=== PATIENT | male | born 1950 | race Caucasian/White ===

== ENCOUNTER → 2017-11-24 09:16 | Outpatient (CLI) | payer OTHER, MEDICARE, SELFPAY ==
[2017-11-24 12:49] LABS: ALB/GLOB Ratio 0.9 RATIO (0.9-2.4); AST(SGOT) 24 U/L (15-37); Alanine Aminotransfer ALT/SGPT 35 U/L (16-61); Albumin, Serum 3.7 g/dL (3.2-5.0); Alkaline Phosphatase 73 U/L (45-117); Anion Gap 10 (5-15); BUN 14 mg/dL (7-18); BUN/Creat Ratio 17.2 RATIO (10-20); Calcium,Total 8.9 mg/dL (8.5-10.1); Chloride 106 mmol/L (98-107); Cholesterol 181 mg/dL (200); Creatinine, Serum 0.82 mg/dL (0.70-1.30); EST Glomerular Filtration Rate 101 mL/min (>60); Est Glom Filt Rate - Afr Amer 122 mL/min (>60); Glucose 96 mg/dL (74-106); High Density Lipoprotein 42 mg/dL; Potassium 3.7 mmol/L (3.5-5.1); Protein, Total 7.7 g/dL (6.4-8.2); Sodium Level 141 mmol/L (136-145); Thyroid Stim Hormone (TSH) 1.45 uIU/mL (0.358-3.74); Triglycerides 317 mg/dL; Very Low Density Lipoprotein 63 mg/dL (5-40)
[2017-11-24 12:50] LABS: Microalbumin:Creatinine Ratio 44.3 mg/g CRE (<30 mg/g CRE)
== END ==
PROVIDERS: Family Provider Family Medicine; PCP Family Medicine; Visit Provider Family Medicine
DX: E78.00 Pure hypercholesterolemia, unspecified (principal); Z41.8 Encounter for other procedures for purposes other than remedying health state
CPT/HCPCS: 36415; 80053; 80061; 82043; 82570; 84443

== ENCOUNTER → 2018-06-18 09:48 | Outpatient (CLI) | payer MEDICARE, OTHER, SELFPAY ==
[2018-06-18 12:51] LABS: Anion Gap 9 (5-15); BUN 17 mg/dL (7-18); BUN/Creat Ratio 15.6 RATIO (10-20); Calcium,Total 9.3 mg/dL (8.5-10.1); Chloride 105 mmol/L (98-107); Cholesterol 177 mg/dL (200); Creatinine, Serum 1.09 mg/dL (0.70-1.30); EST Glomerular Filtration Rate 72 mL/min (>60); Est Glom Filt Rate - Afr Amer 87 mL/min (>60); Glucose 103 mg/dL (74-106); High Density Lipoprotein 45 mg/dL; Potassium 4.2 mmol/L (3.5-5.1); Sodium Level 141 mmol/L (136-145); Thyroid Stim Hormone (TSH) 1.05 uIU/mL (0.358-3.74); Triglycerides 137 mg/dL; Very Low Density Lipoprotein 27 mg/dL (5-40)
== END ==
PROVIDERS: Family Provider Family Medicine; PCP Family Medicine; Visit Provider Family Medicine
DX: I10 Essential (primary) hypertension (principal); E78.00 Pure hypercholesterolemia, unspecified
CPT/HCPCS: 36415; 80048; 80061; 84443

== ENCOUNTER → 2018-08-25 10:46 | Outpatient (CLI) | payer MEDICARE, OTHER, SELFPAY ==
--- NOTE | 2018-08-25 11:24 | ECHOD_ITS ---
Reason For Study: BICUSPID AV Procedure This was a 2D Doppler, Color Flow transthoracic echocardiogram. Exam performed in department. Left Ventricle Normal LV size. Left ventricular systolic function is normal. The estimated ejection fraction is 60 %. No regional wall motion abnormalities noted. Right Ventricle Normal RV size. Normal systolic function. Atria Normal left atrium. Normal right atrium. Mitral Valve Normal mitral valve. Tricuspid Valve Normal tricuspid valve. Mild (1+) tricuspid valve insufficiency. Pulmonary artery systolic pressure is 25 mmHg. Aortic Valve Probably trileaflet AV with calcification. Doubt bicuspid. Peak aortic valve gradient 33 mmHg. Mean aortic valve gradient 20 mmHg. Calculated aortic valve area (continuity equation) is 1.1 cm2. Moderate aortic stenosis. Mild (1+) aortic valve insufficiency. Pulmonic Valve Normal pulmonic valve. Great Vessels Normal aortic root. The pulmonary artery is normal size. Normal inferior vena cava. Pericardium/Pleural No pericardial effusion. MMode/2D Measurements & Calculations LVIDd: 5.2 cm IVSd: 0.97 cm LVOT diam: 2.1 cm LVIDs: 3.5 cm LVPWd: 1.0 cm LVOT area: 3.4 cm2 RVDd: 3.8 cm FS: 32.5 % Ao root diam: 3.5 cm LAV(MOD-bp): 48.8 ml LA A4 area: 17.5 cm2 LAV(MOD-bp) Indexed: 25.0 ml/m2 LAV(MOD-sp2): 52.4 ml LAV(MOD-sp4): 45.7 ml RA A4 area: 13.1 cm2 Time Measurements MV dec time: 0.21 sec Doppler Measurements & Calculations MV E max barbara: 77.1 cm/sec Ao V2 max: 288.3 cm/sec AI max barbara: 496.6 cm/sec MV A max barbara: 64.2 cm/sec Ao max P.4 mmHg AI max P.8 mmHg MV E/A: 1.2 Ao V2 mean: 214.6 cm/sec AI dec slope: 194.5 cm/sec2 Ao mean P.1 mmHg AI P1/2t: 748.0 msec Ao V2 VTI: 73.4 cm REZA(I,D): 1.2 cm2 REZA(V,D): 1.1 cm2 LV V1 max: 96.5 cm/sec SV(LVOT): 85.5 ml TR max barbara: 226.1 cm/sec LV V1 max P.7 mmHg TR max P.5 mmHg LV V1 mean P.9 mmHg LV V1 mean: 65.1 cm/sec LV V1 VTI: 24.9 cm Interpretation Summary Normal LV size. Left ventricular systolic function is normal. The estimated ejection fraction is 60 %. Calculated aortic valve area (continuity equation) is 1.1 cm2. Moderate aortic stenosis. Pulmonary artery systolic pressure is 25 mmHg. Compared to previous study, the left ventricular systolic function is the same.. Ordering Physician: Juan Gomez Referring Physician: NITIN BARRERA Performed By: Kinjal Baker, RDCS, RVT
== END ==
PROVIDERS: Family Provider Family Medicine; PCP Family Medicine; Referring Provider Internal Medicine Cardiovascular Disease; Visit Provider Internal Medicine Cardiovascular Disease
DX: Z98.890 Other specified postprocedural states (principal)
CPT/HCPCS: 93306

== ENCOUNTER → 2019-06-23 | Outpatient (CLI) | payer MEDICARE, OTHER, SELFPAY ==
[2018-07-30 10:13] VITALS: BMI 27.9
[2019-06-23 12:44] LABS: AST(SGOT) 27 U/L (15-37); Alanine Aminotransfer ALT/SGPT 33 U/L (16-61); Albumin, Serum 3.9 g/dL (3.2-5.0); Alkaline Phosphatase 78 U/L (45-117); Anion Gap 7 (5-15); BUN 17 mg/dL (7-18); BUN/Creat Ratio 14.5 RATIO (10-20); Calcium,Total 9.2 mg/dL (8.5-10.1); Chloride 107 mmol/L (98-107); Cholesterol 151 mg/dL (200); Creatinine, Serum 1.17 mg/dL (0.70-1.30); EST Glomerular Filtration Rate 66 mL/min (>60); Est Glom Filt Rate - Afr Amer 80 mL/min (>60); Globulin 3.9 g/dL (2.2-4.2); Glucose 100 mg/dL (74-106); High Density Lipoprotein 46 mg/dL; Potassium 4.1 mmol/L (3.5-5.1); Protein, Total 7.8 g/dL (6.4-8.2); Sodium Level 141 mmol/L (136-145); Triglycerides 129 mg/dL; Very Low Density Lipoprotein 26 mg/dL (5-40)
[2019-06-23 13:07] LABS: Microalbumin,Random Urine 9.8 mg/L (NO RANGE EST.); Microalbumin:Creatinine Ratio 6.6 mg/g CRE (<30 mg/g CRE)
== END | disposition home or self-care (01) ==
PROVIDERS: Family Provider Family Medicine; PCP Family Medicine; Referring Provider Family Medicine; Visit Provider Family Medicine
DX: I10 Essential (primary) hypertension (principal)
CPT/HCPCS: 36415; 80053; 80061; 82043; 82570; 84403

== ENCOUNTER → 2019-12-14 | Outpatient (CLI) | payer MEDICARE, OTHER, SELFPAY ==
[2019-08-03 08:35] VITALS: BMI 24.0
[2019-12-14 10:51] LABS: Anion Gap 2 (5-15); BUN 17 mg/dL (7-18); BUN/Creat Ratio 15.9 RATIO (10-20); Chloride 110 mmol/L (98-107); Creatinine, Serum 1.07 mg/dL (0.70-1.30); EST Glomerular Filtration Rate 73 mL/min (>60); Est Glom Filt Rate - Afr Amer 89 mL/min (>60); Glucose 112 mg/dL (74-106); Potassium 4.3 mmol/L (3.5-5.1); Sodium Level 142 mmol/L (136-145)
== END | disposition home or self-care (01) ==
LOC: MFPLAB 08:31
PROVIDERS: PCP Family Medicine; Referring Provider Family Medicine; Visit Provider Family Medicine
DX: I10 Essential (primary) hypertension (principal)
CPT/HCPCS: 36415; 80048

== ENCOUNTER → 2020-08-22 09:51 | Outpatient (CLI) | payer MEDICARE, OTHER, SELFPAY ==
[2020-08-08 08:49] VITALS: BMI 27.8
--- NOTE | 2020-08-22 09:52 | ECHOCS_ITS ---
Reason For Study: BICUSPID AV Procedure This was a 2D Doppler, Color Flow transthoracic echocardiogram. The study was technically difficult. Contrast injection was performed. Exam performed in department. Left Ventricle Normal LV size. Left ventricular systolic function is normal. The estimated ejection fraction is 60 %. Normal diastology for age. No regional wall motion abnormalities noted. Right Ventricle Normal RV size. Normal systolic function. Atria Normal left atrium. Normal right atrium. Mitral Valve Normal mitral valve. Mild (1+) eccentric mitral valve insufficiency. Tricuspid Valve Normal tricuspid valve. Mild (1+) tricuspid valve insufficiency. Pulmonary artery systolic pressure is 28 mmHg. Aortic Valve Trisinus/trileaflet aortic valve. Mild focal aortic valve calcification. Peak aortic valve gradient 31 mmHg. Mean aortic valve gradient 20 mmHg. Mild (1+) eccentric aortic valve insufficiency. Pulmonic Valve Normal pulmonic valve. Great Vessels Normal aortic root. The pulmonary artery is normal size. Normal inferior vena cava. Pericardium/Pleural No pericardial effusion. Medication 22 gauge I.V. with prn adaptor inserted into right arm. Diluted definity 4.0ml given slow IV push to enhance endocardial definition. MMode/2D Measurements & Calculations LVIDd: 5.3 cm IVSd: 0.84 cm Ao root diam: 3.9 cm LVIDs: 3.7 cm LVPWd: 0.93 cm RVDd: 3.6 cm FS: 30.9 % LAV(MOD-bp): 50.5 ml LVAd ap4: 33.9 cm2 SV(MOD-sp4): 62.6 ml LAV(MOD-bp) Indexed: 25.8 ml/m2 EDV(MOD-sp4): 118.1 ml LAV(MOD-sp2): 54.8 ml EDV(sp4-el): 120.3 ml LAV(MOD-sp4): 42.3 ml LVAs ap4: 21.5 cm2 ESV(MOD-sp4): 55.4 ml ESV(sp4-el): 58.7 ml EF(MOD-sp4): 53.1 % EF(sp4-el): 51.2 % SV(sp4-el): 61.6 ml LA A4 area: 16.3 cm2 LA dimension(2D): 3.8 cm RA A4 area: 13.1 cm2 Time Measurements MV dec time: 0.16 sec Doppler Measurements & Calculations MV E max alcon: 75.5 cm/sec Lat Peak E' Alcon: 7.6 cm/sec Med Peak E' Alcon: 5.9 cm/sec MV A max alcon: 60.7 cm/sec E/E' lat: 9.9 E/E' med: 12.7 MV E/A: 1.2 Ao V2 max: 281.2 cm/sec AI max alcon: 479.2 cm/sec LV V1 max: 92.7 cm/sec Ao max P.7 mmHg AI max P.0 mmHg LV V1 max P.4 mmHg Ao V2 mean: 205.8 cm/sec AI dec slope: 200.0 cm/sec2 LV V1 mean P.9 mmHg Ao mean P.6 mmHg AI P1/2t: 701.8 msec LV V1 mean: 63.6 cm/sec Ao V2 VTI: 67.6 cm LV V1 VTI: 24.9 cm PA V2 max: 123.1 cm/sec PI end-d alcon: 76.3 cm/sec TR max alcon: 245.9 cm/sec TR max P.3 mmHg Interpretation Summary Normal LV size. Left ventricular systolic function is normal. The estimated ejection fraction is 60 %. Normal diastology for age. Pulmonary artery systolic pressure is 28 mmHg. Mean aortic valve gradient 20 mmHg. Mild (1+) eccentric aortic valve insufficiency. Contrast injection was performed. Compared to prior study, there is no significant change. Ordering Physician: Juan Gomez Referring Physician: NITIN BARRERA Performed By: Kinjal Baker, SAVI, RVT
== END ==
PROVIDERS: PCP Family Medicine; Referring Provider Internal Medicine Cardiovascular Disease; Visit Provider Internal Medicine Cardiovascular Disease
DX: I35.2 Nonrheumatic aortic (valve) stenosis with insufficiency (principal)
CPT/HCPCS: 93306; Q9957; A4216; C8929

== ENCOUNTER → 2020-12-21 08:49 | Outpatient (CLI) | payer MEDICARE, OTHER, SELFPAY ==
[2020-08-08 08:49] VITALS: BMI 27.8
[2020-12-21 10:30] LABS: ALB/GLOB Ratio 0.9 RATIO (0.9-2.4); AST(SGOT) 39 U/L (15-37); Alanine Aminotransfer ALT/SGPT 44 U/L (16-61); Albumin, Serum 3.7 g/dL (3.2-5.0); Alkaline Phosphatase 68 U/L (45-117); Anion Gap 6 (5-15); BUN 15 mg/dL (7-18); BUN/Creat Ratio 11.7 RATIO (10-20); Calcium,Total 9.2 mg/dL (8.5-10.1); Chloride 107 mmol/L (98-107); Cholesterol 135 mg/dL (200); Creatinine, Serum 1.28 mg/dL (0.70-1.30); EST Glomerular Filtration Rate 59 mL/min (>60); Est Glom Filt Rate - Afr Amer 72 mL/min (>60); Glucose 111 mg/dL (74-106); High Density Lipoprotein 43 mg/dL; Protein, Total 7.7 g/dL (6.4-8.2); Sodium Level 140 mmol/L (136-145); Triglycerides 153 mg/dL; Very Low Density Lipoprotein 31 mg/dL (5-40)
[2020-12-21 10:35] LABS: Microalbumin,Random Urine 78.9 mg/L (NO RANGE EST.); Microalbumin:Creatinine Ratio 30.5 mg/g CRE (<30 mg/g CRE)
[2020-12-24 07:42] LABS: H. PYLORI STOOL AG Negative (Negative)
== END ==
PROVIDERS: PCP Family Medicine; Referring Provider Family Medicine; Visit Provider Family Medicine
DX: I10 Essential (primary) hypertension (principal); E78.00 Pure hypercholesterolemia, unspecified; K21.9 Gastro-esophageal reflux disease without esophagitis
CPT/HCPCS: 36415; 80053; 80061; 82043; 82570

== ENCOUNTER 2020-12-26 09:55 | Outpatient (RCR) | payer MEDICARE, OTHER, SELFPAY ==
[2020-08-08 08:49] VITALS: BMI 27.8
--- NOTE | 2020-12-26 11:17 | HP.OTEVAL ---
Patient's Visit Information EMI ALATORRE is a 70 year old M, referred to Occupational Therapy by Dr. Justin Ho MD, with a diagnosis of bilateral Dupuytren's. Date of Evaluation: 12/26/20 Occupational Therapist: Aga Pierce, ANASTASIYA/Alyssa, CHT - Subjective This 70 year old male was see with a dx of bilateral hand contracture- Dupuytren's. pt states he has had nodules for a few years but right hand has really became more noticeable. pt states he would like to know if there is something he can do to stop the progression of the contractures. - Pain bilateral hands 2 Pain Intensity Range: 0, 2 - ROM Wrist: right 55/ 65 left 65/60 ROM Comments: right MCP IF -25 left 0. right MCP MF-35 left 0. right MCP LF -30 left 0. pt demo with limited MP ext of right hand and rope nodule up volar side of MF. Nodule on left LF - Strength Poultry Feed Supervisor: right 90# left 90# Lateral Pinch: right 24# left 24# Tripod Pinch: right 18# left 22# - Sensation Sensation Comments: denies - Quick DASH-Disab of Arm,Shoulder& Hand Quick DASH Score: 9.0900 - Goals Goal:: Pt will demo understanding of orthosis use and precautions by end of 1st session. Pt will return to clinic for orthosis adjustment. pt will demo IND. donning/doffing of custom orthosis by end of 1st session. - Rehabilitation General Assessment: pt demo with right Dupuytren's contracture at MPs of IF, MF and RF. pt limited with ext but demo full composite fist- Due to contracture with cord up right MF therapist would rec'd pt to get established by surgeon as this is a progressive disease. Today theapist ed. pt on dx. jaime. custom paddle orthosis for right hand as this one indicates more contractures at this time. therapist ed. pt on monitoring the flexion of his MCP of right and left hand- pt demo understanding. Theapist also ed.pt on tx options a surgeon my talk about. pt demo understanding and will return in 3-4 weeks for therapist to check measurments to ensur orthosis is not increasing Dupuytren's progressing faster. Rehabilitation Potential: Questionable - Anticipated Interventions Orthoses, Education re Diagnosis, Home Program - Visit Plan TEXT: Thank you for the opportunity to evaluate your patient. For Medicare and Medicare HMO plans, please review the plan of care and approve it. It will need to be FAXED BACK to us at [phone] for Medicare purposes. Please let me know if there are questions or concerns regarding this plan of care. Physician Signature: Date:
--- NOTE | 2021-03-21 12:01 | HP.OT.NRP ---
EMI ALATORRE was seen in my office for initial evaluation on 12/26/20. The following Plan of Care was established for this patient: Anticipated Interventions: Orthoses, Education re Diagnosis, Home Program This patient was last seen in our office 12/26/20. Pertinent comments regarding their Occupational therapy will appear below: pt was seen for initial OT eval with orthosis jaime. for night use for three months. pt demo understanding and use. pt has not returned to clinic and is d/c at this time due to time lapse in services. At this point I will be discontinuing this patient from occupational therapy. I would be happy to see this patient again in the future if found appropriate by the physician. Thank you! Aga Pierce, OTR/L, CHT
== END 2020-12-26 19:00 | disposition home or self-care (01) ==
LOC: OT 09:55
PROVIDERS: PCP Family Medicine; Referring Provider Family Medicine; Visit Provider Family Medicine
DX: M24.542 Contracture, left hand (principal); M24.541 Contracture, right hand
CPT/HCPCS: 97166; 97760

== ENCOUNTER 2021-12-24 10:48 | Outpatient (CLI) | payer MEDICARE, OTHER, SELFPAY ==
[2021-12-24 12:00] LABS: Absolute Lymphocyte Count 1.69 X10^3/uL (0.83-4.51); Absolute Neutrophil Count 2.6 X10^3/uL (2.0-7.7); Basophil# 0.04 X10^3/uL; Basophil% 0.8 % (0-1); Eosinophil# 0.37 X10^3/uL; Eosinophils% 7.2 % (0-5); Hematocrit 42.3 % (40-54); Hemoglobin 14.8 g/dL (13.0-16.5); Lymphocyte # 1.69 X10^3/ul (0.83-4.51); Lymphocyte % 32.8 % (19-41); Mean Corpuscular Hgb 30.2 pg (27.0-32.0); Mean Corpuscular Volume 86.3 fL (80-94); Mean Platelet Vol. 10.4 fl (6.2-12.0); Monocyte# 0.42 X10^3/uL; Monocyte% 8.1 % (0-10); NRBC Flagged by Analyzer 0 % (0-5); Neutrophil # 2.62 X10^3/uL (2.7-7.7); Neutrophil % 50.7 % (47-70); Platelet Count 200 K/mm3 (150-450); RBC Distribution Width CV 12.7 % (11.6-14.6); RBC Distribution Width SD 39.9 fl (35.1-43.9); White Blood Count 5.2 K/mm3 (4.4-11.0)
[2021-12-24 12:25] LABS: AST(SGOT) 28 U/L (15-37); Alanine Aminotransfer ALT/SGPT 38 U/L (16-61); Albumin, Serum 3.9 g/dL (3.2-5.0); Alkaline Phosphatase 59 U/L (45-117); Anion Gap 4 (5-15); BUN 22 mg/dL (7-18); BUN/Creat Ratio 17.6 RATIO (10-20); Calcium,Total 9.8 mg/dL (8.5-10.1); Chloride 107 mmol/L (98-107); Cholesterol 150 mg/dL (200); Creatinine, Serum 1.25 mg/dL (0.70-1.30); EST Glomerular Filtration Rate 61 mL/min (>60); Est Glom Filt Rate - Afr Amer 74 mL/min (>60); Glucose 112 mg/dL (74-106); High Density Lipoprotein 49 mg/dL; Potassium 4.1 mmol/L (3.5-5.1); Protein, Total 7.9 g/dL (6.4-8.2); Sodium Level 138 mmol/L (136-145); Triglycerides 107 mg/dL; Very Low Density Lipoprotein 21 mg/dL (5-40)
[2021-12-24 12:37] LABS: Microalbumin,Random Urine 10.9 mg/L (NO RANGE EST.); Microalbumin:Creatinine Ratio 9.6 mg/g CRE (<30 mg/g CRE)
== END 2021-12-24 23:59 | disposition home or self-care (01) ==
LOC: MFPLAB 10:50
PROVIDERS: PCP Family Medicine; Visit Provider Family Medicine
DX: Z00.00 Encounter for general adult medical examination without abnormal findings (principal); I10 Essential (primary) hypertension
CPT/HCPCS: 36415; 80053; 80061; 82043; 82570; 85025

== ENCOUNTER 2022-09-04 09:47 | Outpatient (RCR) | payer MEDICARE, OTHER, SELFPAY ==
--- NOTE | 2022-09-04 11:06 | HP.OTEVAL_ITS ---
Patient's Visit Information EMI ALATORRE is a 72 year old M, referred to Occupational Therapy by Dr. Vimal West MD, with a diagnosis of palmar fascial fibramatosis. Date of Evaluation: 09/04/22 Occupational Therapist: Aleja Haynes - Subjective Arrived on time. Previously seen by Samantha Pierce for Dupuytrens in 2020. He still has the paddle splint for the R hand that was fabricated in 2020. Good fit noted for R hand this date, strapping/materials intact. Pt received Xiaflex injection on Friday08/28/22 R hand 3rd digit (middle finger) and went back Friday08/30/22 for the manipulation at [facility]. Going to follow up next week Sep 12 or he reports. Given a home program from physician, including abduction/adduction of fingers, MCP flexion/extension, and 3rd digit passive extension hold, and MCP flexion. Lives with , she can help with things as needed. L handed but use R hand for most things (because things are geared to R handers in this world) - ADLs Comments: reports no concerns with with activities of daily living, able to complete indep at this time. - Pain Right hand 2 - Objective slightly swollen and bruised. small scabbed puncture wound at injection site at base of 3rd digit MCP - ROM ROM Comments: R 3rd digit -30 deg extension at DIP, full range at PIP, MCP extension -25, flexion WNL. L hand/fingers WNL - Strength Strength Comments: L hand electric refrigerator servicer strength: 95. L tripod pinch: 14. L lateral pinch: 14. L pincer pinch: 13 - Edema Other: MCP circumference R 8.5 inch; 8.25inch L hand - Quick DASH-Disab of Arm,Shoulder& Hand Quick DASH Score: 11.3625 - Goals Goal:: Pt will demonstrate R hand electric refrigerator servicer and pinch strength at least 75% of the measurements of his L hand on initial eval. Goal:: Pt will demonstrate improved ROM of R 3rd digit, evidenced by improved DIP and MCP extension to at least -15. Goal:: Patient will be independent with use of R hand splint for overnight wear. Goal:: Patient will be indep with HEP as instructed this date. - Rehabilitation General Assessment: Patient seen for OT evaluation s/p Xiaflex injection. He presents with some swelling and bruising, decreased extension of R 3rd digit at MCP and DIP, and some tenderneses in the hand. He left with a well fitted R palmar paddle splint for night time wear and a home exercise program as well as an information sheet regarding dupuytren's. Plan is to follow up with OT in 3 weeks to assess ROM, swelling, use of splint and function of R hand. Patient to call clinic if concerns arise, loss of ROM, worsening stiffness, etc and we can look at fabricating day time splint if needed and/or schedule regular appointments. Patient agreeable. Rehabilitation Potential: Good - Anticipated Interventions A/AAROM/PROM, Strengthening, Edema Control, Orthoses - Visit Plan Frequency: 1x/Week Duration: 1 Week General Plan: follow up 3 weeks from now. Plan to follow up with physician next week. Pj will call if concerns arise/loss of range/increase swelling if we need to add a day time splint or schedule him for regular OT appts. TEXT: Thank you for the opportunity to evaluate your patient. For Medicare and Medicare HMO plans, please review the plan of care and approve it. It will need to be FAXED BACK to us at [phone] for Medicare purposes. Please let me know if there are questions or concerns regarding this plan of care. Physician Signature: Date:
--- NOTE | 2022-09-23 15:15 | HP.OTDCSUM_ITS ---
It has been my pleasure to treat EMI ALATORRE under orders from Dr. Vimal West MD, for the diagnosis of palmar fascial fibramatosis for a total of 1 visit(s). Please see the following information for a summary of their discharge status. Objective/Function: measured edema and ROM: edema circumference 8.5 in R; 8.25 L. R hand 3rd digit MCP ext -5 Patient Goals: Decrease Pain, Improve Fine Motor Skills, Use Hand/Wrist/Arm Normally Again, Increase ROM Goal:: Pt will demonstrate R hand calender wind up helper and pinch strength at least 75% of the measurements of his L hand on initial eval. Goal:: Pt will demonstrate improved ROM of R 3rd digit, evidenced by improved DIP and MCP extension to at least -15. Goal:: Patient will be independent with use of R hand splint for overnight wear. Goal:: Patient will be indep with HEP as instructed this date. Plan: discharge from OT at this time. Cont HEP and wear of paddle splint for 3 months from procedure If there are questions or concerns regarding this patient's occupational therapy, please fell free to call me at [phone]. Thank you for the referral of this patient. Sincerely, Aleja Haynes
== END 2022-09-04 19:00 | disposition home or self-care (01) ==
LOC: OT 09:47
PROVIDERS: PCP Family Medicine; Referring Provider Orthopaedic Surgery; Visit Provider Orthopaedic Surgery
DX: M72.0 Palmar fascial fibromatosis [Dupuytren] (principal)
CPT/HCPCS: 97165

== ENCOUNTER → 2022-09-26 | Outpatient (CLI) | payer MEDICARE, OTHER, SELFPAY ==
--- NOTE | 2022-09-26 14:54 | ECHOD_ITS ---
Reason For Study: MURMUR Procedure This was a 2D Doppler, Color Flow transthoracic echocardiogram. Exam performed in department. Left Ventricle Normal LV size. Left ventricular systolic function is normal. The estimated ejection fraction is 55 %. No regional wall motion abnormalities noted. Right Ventricle Normal RV size. Normal systolic function. Atria Normal left atrium. Normal right atrium. Mitral Valve Normal mitral valve. Tricuspid Valve Normal tricuspid valve. Aortic Valve Trisinus/trileaflet aortic valve. Moderate focal aortic valve calcification. Peak aortic valve gradient 39 mmHg. Mean aortic valve gradient 23 mmHg. Moderate aortic stenosis. Mild (1+) eccentric aortic valve insufficiency. Pulmonic Valve Normal pulmonic valve. Great Vessels Normal aortic root. The pulmonary artery is normal size. Normal inferior vena cava. Pericardium/Pleural No pericardial effusion. MMode/2D Measurements & Calculations LVIDd: 5.0 cm IVSd: 0.95 cm LVOT diam: 2.0 cm LVIDs: 3.3 cm LVPWd: 1.1 cm LVOT area: 3.3 cm2 RVDd: 3.5 cm FS: 34.4 % Ao root diam: 3.3 cm LAV(MOD-bp): 35.7 ml LVAd ap4: 31.3 cm2 LAV(MOD-bp) Indexed: 18.4 ml/m2 LVLd ap4: 7.8 cm LAV(MOD-sp2): 36.5 ml EDV(MOD-sp4): 102.3 ml LAV(MOD-sp4): 34.2 ml EDV(sp4-el): 107.3 ml LVAs ap4: 16.0 cm2 LVLs ap4: 6.6 cm ESV(MOD-sp4): 34.7 ml ESV(sp4-el): 33.0 ml EF(MOD-sp4): 66.1 % EF(sp4-el): 69.3 % SV(MOD-sp4): 67.6 ml SV(sp4-el): 74.3 ml Aortic Valve Planimetry: 1.0 cm2 LA A4 area: 14.5 cm2 LA dimension(2D): 3.7 cm RA A4 area: 13.9 cm2 Time Measurements MV dec time: 0.21 sec Doppler Measurements & Calculations MV E max alcon: 76.7 cm/sec Lat Peak E' Alcon: 8.3 cm/sec Med Peak E' Alcon: 7.8 cm/sec MV A max alcon: 84.7 cm/sec E/E' lat: 9.2 E/E' med: 9.8 MV E/A: 0.91 Ao V2 max: 310.0 cm/sec AI max alcon: 477.7 cm/sec LV V1 max: 104.7 cm/sec Ao max P.1 mmHg AI max P.3 mmHg LV V1 max P.5 mmHg Ao V2 mean: 227.6 cm/sec LV V1 mean P.2 mmHg Ao mean P.3 mmHg AI dec slope: 163.6 cm/sec2 LV V1 mean: 66.8 cm/sec Ao V2 VTI: 70.2 cm AI P1/2t: 855.1 msec LV V1 VTI: 26.9 cm AV (velocity ratio): 0.38 REZA(I,D): 1.2 cm2 REZA(V,D): 1.1 cm2 SV(LVOT): 87.4 ml PA V2 max: 140.8 cm/sec PI end-d alcon: 73.2 cm/sec TR max alcon: 260.7 cm/sec TR max P.2 mmHg ECHO/Echo Complete Interpretation Summary Normal LV size. Left ventricular systolic function is normal. The estimated ejection fraction is 55 %. Moderate focal aortic valve calcification. Mean aortic valve gradient 23 mmHg. Moderate aortic stenosis. Compared to the previous echo the aortic valve area is essentially the same. Ordering Physician: Juan Gomez Referring Physician: NITIN BARRERA Performed By: Jaimie Negrete RDCS
== END | disposition home or self-care (01) ==
LOC: CVS 14:53
PROVIDERS: PCP Family Medicine; Referring Provider Internal Medicine Cardiovascular Disease; Visit Provider Internal Medicine Cardiovascular Disease
DX: R01.1 Cardiac murmur, unspecified (principal); I35.2 Nonrheumatic aortic (valve) stenosis with insufficiency
CPT/HCPCS: 93306

== ENCOUNTER → 2023-01-08 | Outpatient (CLI) | payer MEDICARE, OTHER, SELFPAY ==
[2023-01-08 11:01] LABS: Anion Gap 3 (5-15); BUN 14 mg/dL (7-18); Calcium,Total 8.8 mg/dL (8.5-10.1); Chloride 108 mmol/L (98-107); Cholesterol 131 mg/dL (200); Creatinine, Serum 1.08 mg/dL (0.70-1.30); EST Glomerular Filtration Rate 72 mL/min (>60); Est Glom Filt Rate - Afr Amer 87 mL/min (>60); Glucose 102 mg/dL (74-106); High Density Lipoprotein 50 mg/dL; Potassium 4.1 mmol/L (3.5-5.1); Sodium Level 139 mmol/L (136-145); Triglycerides 103 mg/dL; Very Low Density Lipoprotein 21 mg/dL (5-40)
== END | disposition home or self-care (01) ==
LOC: MFPLAB 08:51
PROVIDERS: PCP Family Medicine; Referring Provider Family Medicine; Visit Provider Nurse Practitioner Family
DX: I10 Essential (primary) hypertension (principal); E78.00 Pure hypercholesterolemia, unspecified
CPT/HCPCS: 36415; 80048; 80061

== ENCOUNTER → 2023-06-30 | Outpatient (CLI) | payer MEDICARE, OTHER, SELFPAY ==
--- NOTE | 2023-06-30 12:58 | ECHOD_ITS ---
Reason For Study: NON RHEUM Procedure This was a 2D Doppler, Color Flow transthoracic echocardiogram. Exam performed in department. Left Ventricle Normal LV size. Left ventricular systolic function is normal. The estimated ejection fraction is 60 %. Stage 2 diastolic dysfunction. No regional wall motion abnormalities noted. Right Ventricle Normal RV size. Normal systolic function. Atria Normal left atrium. Normal right atrium. Mitral Valve Bileaflet diffuse mitral valve thickening. Tricuspid Valve Normal tricuspid valve. Mild (1+) tricuspid valve insufficiency. Pulmonary artery systolic pressure is 34 mmHg. Aortic Valve Trisinus/trileaflet aortic valve. Mild focal aortic valve calcification. Peak aortic valve gradient 41 mmHg. Mean aortic valve gradient 25 mmHg. Moderate aortic stenosis. Mild (1+) aortic valve insufficiency. Pulmonic Valve Normal pulmonic valve. Great Vessels Normal aortic root. The pulmonary artery is normal size. Normal inferior vena cava. Pericardium/Pleural No pericardial effusion. MMode/2D Measurements & Calculations LVIDd: 4.9 cm IVSd: 0.95 cm LVOT diam: 1.8 cm LVIDs: 3.9 cm LVPWd: 1.1 cm LVOT area: 2.7 cm2 RVDd: 3.3 cm FS: 20.0 % Ao root diam: 3.7 cm LAV(MOD-bp): 54.8 ml LVAd ap4: 31.6 cm2 LAV(MOD-bp) Indexed: 28.4 ml/m2 LVLd ap4: 8.2 cm LAV(MOD-sp2): 56.0 ml EDV(MOD-sp4): 104.3 ml LAV(MOD-sp4): 54.5 ml EDV(sp4-el): 103.1 ml LVAs ap4: 18.0 cm2 LVLs ap4: 7.2 cm ESV(MOD-sp4): 42.7 ml ESV(sp4-el): 38.5 ml EF(MOD-sp4): 59.0 % EF(sp4-el): 62.7 % SV(MOD-sp4): 61.6 ml SV(sp4-el): 64.7 ml LA A4 area: 20.6 cm2 LA dimension(2D): 3.3 cm RA A4 area: 13.0 cm2 TAPSE: 1.5 cm Time Measurements MV dec time: 0.29 sec Doppler Measurements & Calculations MV E max alcon: 61.4 cm/sec Lat Peak E' Alcon: 9.2 cm/sec Med Peak E' Alcon: 7.6 cm/sec MV A max alcon: 48.4 cm/sec E/E' lat: 6.7 E/E' med: 8.0 MV E/A: 1.3 MV V2 max: 92.9 cm/sec Ao V2 max: 319.1 cm/sec MV max P.4 mmHg MV dec slope: 217.5 cm/sec2 Ao max P.7 mmHg MV V2 mean: 48.5 cm/sec Ao V2 mean: 234.4 cm/sec MV mean P.2 mmHg Ao mean P.7 mmHg MV V2 VTI: 30.6 cm Ao V2 VTI: 81.7 cm AV (velocity ratio): 0.33 MVA(VTI): 2.3 cm2 REZA(I,D): 0.87 cm2 REZA(V,D): 0.96 cm2 AI max alcon: 510.7 cm/sec LV V1 max: 114.8 cm/sec SV(LVOT): 71.0 ml AI max P.4 mmHg LV V1 max P.3 mmHg LV V1 mean P.9 mmHg AI dec slope: 224.8 cm/sec2 LV V1 mean: 80.0 cm/sec AI P1/2t: 665.5 msec LV V1 VTI: 26.7 cm PA V2 max: 145.4 cm/sec TR max alcon: 264.7 cm/sec PA V2 mean: 92.6 cm/sec TR max P.0 mmHg ECHO/Echo Complete Interpretation Summary Normal LV size. Left ventricular systolic function is normal. The estimated ejection fraction is 60 %. Stage 2 diastolic dysfunction. Mean aortic valve gradient 25 mmHg. Moderate aortic stenosis. Pulmonary artery systolic pressure is 34 mmHg. Ordering Physician: Aga Wray Referring Physician: Aga Wray Performed By: Maite Dorsey RCS
== END | disposition home or self-care (01) ==
LOC: CVS 12:55
PROVIDERS: PCP Family Medicine; Referring Provider Physician Assistant Medical; Visit Provider Physician Assistant Medical
DX: I35.2 Nonrheumatic aortic (valve) stenosis with insufficiency (principal); R01.1 Cardiac murmur, unspecified
CPT/HCPCS: 93306

== ENCOUNTER → 2023-07-14 | Outpatient (CLI) | payer MEDICARE, OTHER, SELFPAY ==
[2023-07-14 15:20] LABS: Hematocrit 42.3 % (40-54); Hemoglobin 14.1 g/dL (13.0-16.5); Mean Corp Hgb Conc 33.3 g/dL (32-36); Mean Corpuscular Hgb 29.2 pg (27.0-32.0); Mean Corpuscular Volume 87.6 fL (80-94); Mean Platelet Vol. 10.2 fl (6.2-12.0); Platelet Count 195 K/mm3 (150-450); RBC Distribution Width CV 12.9 % (11.6-14.6); RBC Distribution Width SD 41.3 fl (35.1-43.9); Red Blood Count 4.83 M/mm3 (4.6-6.2); White Blood Count 5.3 K/mm3 (4.4-11.0)
[2023-07-14 16:04] LABS: Anion Gap 7 (5-15); BUN 21 mg/dL (7-18); BUN/Creat Ratio 15.3 RATIO (10-20); Calcium,Total 9.4 mg/dL (8.5-10.1); Chloride 103 mmol/L (98-107); Creatinine, Serum 1.37 mg/dL (0.70-1.30); EST Glomerular Filtration Rate 54 mL/min (>60); Est Glom Filt Rate - Afr Amer 66 mL/min (>60); Glucose 133 mg/dL (74-106); Potassium 4.1 mmol/L (3.5-5.1); Sodium Level 136 mmol/L (136-145)
== END | disposition home or self-care (01) ==
LOC: MFPLAB 12:20
PROVIDERS: PCP Family Medicine; Visit Provider Nurse Practitioner Family
DX: I10 Essential (primary) hypertension (principal)
CPT/HCPCS: 36415; 80048; 85027

== ENCOUNTER → 2023-07-31 | Outpatient (CLI) | payer MEDICARE, OTHER, SELFPAY ==
--- NOTE | 2023-07-31 09:06 | RAD_ITS ---
STUDY: X-RAY - LEFT CALCANEUS REASON FOR EXAM: Male, 73 years old. Pain. TECHNIQUE: 2 views of the left calcaneus were obtained. COMPARISON: None. FINDINGS: Intact visualized calcaneus. There are plantar and posterior calcaneal spurs. There is no demonstrated fracture. RAD/Calcaneus min 2 Views IMPRESSION: Plantar and posterior calcaneal spurs. No fracture. Electronically Signed: Gagandeep Avalos MD at 9:46 EDT ,
== END | disposition home or self-care (01) ==
LOC: MTRAD 09:06
PROVIDERS: PCP Family Medicine; Referring Provider Nurse Practitioner Family; Visit Provider Nurse Practitioner Family
DX: M79.672 Pain in left foot (principal)
CPT/HCPCS: 73650

== ENCOUNTER → 2023-08-12 | Outpatient (CLI) | payer MEDICARE, OTHER, SELFPAY ==
[2023-08-12 12:23] LABS: Anion Gap 2 (5-15); BUN 24 mg/dL (7-18); Calcium,Total 9.1 mg/dL (8.5-10.1); Chloride 108 mmol/L (98-107); Creatinine, Serum 1.41 mg/dL (0.70-1.30); EST Glomerular Filtration Rate 53 mL/min (>60); Est Glom Filt Rate - Afr Amer 64 mL/min (>60); Glucose 130 mg/dL (74-106); Potassium 4.1 mmol/L (3.5-5.1); Sodium Level 138 mmol/L (136-145)
== END | disposition home or self-care (01) ==
LOC: MFPLAB 10:41
PROVIDERS: Nurse Practitioner Family; PCP Family Medicine; Visit Provider Family Medicine
DX: I10 Essential (primary) hypertension (principal)
CPT/HCPCS: 36415; 80048

== ENCOUNTER → 2024-01-15 | Outpatient (CLI) | payer MEDICARE, OTHER, SELFPAY ==
[2024-01-15 10:03] LABS: Absolute Lymphocyte Count 1.81 X10^3/uL (0.83-4.51); Absolute Neutrophil Count 2.3 X10^3/uL (2.0-7.7); Basophil# 0.04 X10^3/uL; Basophil% 0.8 % (0-1); Eosinophil# 0.37 X10^3/uL; Eosinophils% 7.4 % (0-5); Hematocrit 40.8 % (40-54); Lymphocyte # 1.81 X10^3/ul (0.83-4.51); Lymphocyte % 36.3 % (19-41); Mean Corp Hgb Conc 34.3 g/dL (32-36); Mean Corpuscular Volume 84.6 fL (80-94); Mean Platelet Vol. 10.1 fl (6.2-12.0); Monocyte# 0.46 X10^3/uL; Monocyte% 9.2 % (0-10); NRBC Flagged by Analyzer 0 % (0-5); Neutrophil # 2.28 X10^3/uL (2.7-7.7); Neutrophil % 45.7 % (47-70); Platelet Count 182 K/mm3 (150-450); RBC Distribution Width CV 13.2 % (11.6-14.6); RBC Distribution Width SD 41.1 fl (35.1-43.9); Red Blood Count 4.82 M/mm3 (4.6-6.2)
[2024-01-15 10:36] LABS: AST(SGOT) 26 U/L (15-37); Alanine Aminotransfer ALT/SGPT 30 U/L (16-61); Albumin, Serum 3.8 g/dL (3.2-5.0); Alkaline Phosphatase 64 U/L (45-117); Anion Gap 4 (5-15); BUN 18 mg/dL (7-18); BUN/Creat Ratio 14.8 RATIO (10-20); Calcium,Total 9.2 mg/dL (8.5-10.1); Chloride 109 mmol/L (98-107); Cholesterol 181 mg/dL (200); Creatinine, Serum 1.22 mg/dL (0.70-1.30); EST Glomerular Filtration Rate 62 mL/min (>60); Est Glom Filt Rate - Afr Amer 75 mL/min (>60); Globulin 3.9 g/dL (2.2-4.2); Glucose 104 mg/dL (74-106); High Density Lipoprotein 46 mg/dL; PSA,Total - Annual Screen 0.81 ng/mL (0.00-4.00); Potassium 4.4 mmol/L (3.5-5.1); Protein, Total 7.7 g/dL (6.4-8.2); Sodium Level 140 mmol/L (136-145); Triglycerides 136 mg/dL; Very Low Density Lipoprotein 27 mg/dL (5-40)
== END | disposition home or self-care (01) ==
LOC: MFPLAB 09:08
PROVIDERS: PCP Family Medicine; Visit Provider Family Medicine
DX: Z12.5 Encounter for screening for malignant neoplasm of prostate (principal); E78.00 Pure hypercholesterolemia, unspecified; I35.0 Nonrheumatic aortic (valve) stenosis
CPT/HCPCS: 36415; 80053; 80061; 84153; 85025; G0103

== ENCOUNTER → 2024-01-22 | Outpatient (CLI) | payer MEDICARE, OTHER, SELFPAY ==
[2024-01-22 13:55] LABS: Hemoglobin A1c 5.3 % (3.8-5.6)
== END | disposition home or self-care (01) ==
LOC: MFPLAB 10:44
PROVIDERS: Nurse Practitioner Family; PCP Family Medicine; Visit Provider Family Medicine
DX: Z13.1 Encounter for screening for diabetes mellitus (principal); I35.0 Nonrheumatic aortic (valve) stenosis
CPT/HCPCS: 36415; 83036

== ENCOUNTER → 2024-05-18 | Outpatient (CLI) | payer MEDICARE, OTHER, SELFPAY ==
--- NOTE | 2024-05-18 11:52 | RAD_ITS ---
STUDY: X-RAY CHEST REASON FOR EXAM: Male, 73 years old. Wheezing. TECHNIQUE: Frontal and lateral views of the chest. COMPARISON: June 04, 2013 FINDINGS: The lungs are clear and expanded. There is no demonstrated pleural abnormality. Stable borderline cardiomegaly. Normal mediastinum and isaura. Normal visualized pulmonary arteries. Aortic tortuosity unchanged. Thoracic osteopenia with diffuse mild thoracic spondylosis. Normal visualized ribs, clavicles, and shoulders. No abnormality of the visualized soft tissue structures of the upper abdomen. RAD/Chest PA and Lateral IMPRESSION: Stable borderline cardiomegaly with no acute or active cardiopulmonary disease. Electronically Signed: Moustapha Carter MD at 12:26 EDT ,
== END | disposition home or self-care (01) ==
PROVIDERS: PCP Family Medicine; Referring Provider Family Medicine; Visit Provider Family Medicine
DX: R06.2 Wheezing (principal)
CPT/HCPCS: 71046

== ENCOUNTER → 2024-07-16 | Outpatient (CLI) | payer MEDICARE, OTHER, SELFPAY ==
--- NOTE | 2024-07-16 10:48 | ECHOD_ITS ---
Reason For Study: NONRHEUMATIC Procedure This was a 2D Doppler, Color Flow transthoracic echocardiogram. Exam performed in department. Left Ventricle Normal LV size. Apical false tendon noted. Left ventricular systolic function is normal. The left ventricular ejection fraction is 65 %. Stage 1 diastolic dysfunction. No regional wall motion abnormalities noted. Right Ventricle Normal RV size. Normal systolic function. Atria Normal left atrium. Normal right atrium. Mitral Valve Normal mitral valve. Tricuspid Valve Normal tricuspid valve. Aortic Valve Bicuspid aortic valve. Peak aortic valve gradient 36 mmHg. Mean aortic valve gradient 22 mmHg. Mild (1+) aortic valve insufficiency. Great Vessels Mildly dilated aortic root. MMode/2D Measurements & Calculations LVIDd: 5.2 cm IVSd: 1.0 cm LVOT diam: 2.0 cm LVIDs: 3.6 cm LVPWd: 1.4 cm LVOT area: 3.0 cm2 RVDd: 2.7 cm FS: 31.5 % Ao root diam: 3.8 cm LAV(MOD-bp): 46.9 ml LVAd ap4: 27.7 cm2 LAV(MOD-bp) Indexed: 24.0 ml/m2 LVLd ap4: 7.7 cm LAV(MOD-sp2): 37.1 ml EDV(MOD-sp4): 83.4 ml LAV(MOD-sp4): 54.0 ml EDV(sp4-el): 84.3 ml LVAs ap4: 17.0 cm2 LVLs ap4: 6.8 cm ESV(MOD-sp4): 37.3 ml ESV(sp4-el): 36.0 ml EF(MOD-sp4): 55.3 % EF(sp4-el): 57.3 % SV(MOD-sp4): 46.1 ml SV(sp4-el): 48.3 ml LA A4 area: 19.7 cm2 LA dimension(2D): 3.5 cm RA A4 area: 8.9 cm2 Time Measurements MV dec time: 0.26 sec Doppler Measurements & Calculations MV E max barbara: 61.4 cm/sec Ao V2 max: 297.7 cm/sec MV A max barbara: 89.0 cm/sec MV dec slope: 237.0 cm/sec2 Ao max P.5 mmHg MV E/A: 0.69 Ao V2 mean: 221.4 cm/sec Ao mean P.9 mmHg Ao V2 VTI: 79.8 cm AV (velocity ratio): 0.32 REZA(I,D): 0.99 cm2 REZA(V,D): 1.1 cm2 AI max barbara: 526.8 cm/sec LV V1 max: 107.4 cm/sec SV(LVOT): 78.7 ml AI max P.0 mmHg LV V1 max P.6 mmHg AI dec slope: 198.2 cm/sec2 LV V1 mean P.4 mmHg AI P1/2t: 778.4 msec LV V1 mean: 72.3 cm/sec LV V1 VTI: 25.9 cm PA V2 max: 117.0 cm/sec PA V2 mean: 79.6 cm/sec ECHO/Echo Complete Interpretation Summary Normal LV size. Left ventricular systolic function is normal. Apical false tendon noted. The left ventricular ejection fraction is 65 %. Bicuspid aortic valve. Mild (1+) aortic valve insufficiency. Stage 1 diastolic dysfunction. Mean aortic valve gradient 22 mmHg. Ordering Physician: Aga Wray Referring Physician: Aga Wray Performed By: Maite Dorsey RCS
== END | disposition home or self-care (01) ==
LOC: CVS 10:48
PROVIDERS: PCP Family Medicine; Referring Provider Physician Assistant Medical; Visit Provider Physician Assistant Medical
DX: I35.2 Nonrheumatic aortic (valve) stenosis with insufficiency (principal)
CPT/HCPCS: 93306

== ENCOUNTER → 2024-07-23 | Outpatient (CLI) | payer MEDICARE, OTHER, SELFPAY ==
[2024-07-23 15:13] LABS: Hematocrit 41.2 % (40-54); Hemoglobin 13.7 g/dL (13.0-16.5); Mean Corp Hgb Conc 33.3 g/dL (32-36); Mean Corpuscular Hgb 29.2 pg (27.0-32.0); Mean Corpuscular Volume 87.8 fL (80-94); Mean Platelet Vol. 10.4 fl (6.2-12.0); Platelet Count 175 K/mm3 (150-450); RBC Distribution Width CV 12.7 % (11.6-14.6); RBC Distribution Width SD 40.6 fl (35.1-43.9); Red Blood Count 4.69 M/mm3 (4.6-6.2); White Blood Count 5.4 K/mm3 (4.4-11.0)
[2024-07-23 15:30] LABS: Microalbumin,Random Urine 10.9 mg/L (NO RANGE EST.); Microalbumin:Creatinine Ratio 16.7 mg/g CRE (<30 mg/g CRE)
[2024-07-23 15:42] LABS: AST(SGOT) 28 U/L (15-37); Alanine Aminotransfer ALT/SGPT 32 U/L (16-61); Albumin, Serum 3.9 g/dL (3.2-5.0); Alkaline Phosphatase 67 U/L (45-117); Anion Gap 4 (5-15); BUN 17 mg/dL (7-18); BUN/Creat Ratio 15.7 RATIO (10-20); Calcium,Total 9.7 mg/dL (8.5-10.1); Chloride 107 mmol/L (98-107); Creatinine, Serum 1.08 mg/dL (0.70-1.30); EST Glomerular Filtration Rate 71 mL/min (>60); Est Glom Filt Rate - Afr Amer 86 mL/min (>60); Globulin 3.8 g/dL (2.2-4.2); Glucose 91 mg/dL (74-106); Potassium 4.2 mmol/L (3.5-5.1); Protein, Total 7.7 g/dL (6.4-8.2); Sodium Level 139 mmol/L (136-145)
== END | disposition home or self-care (01) ==
LOC: MTLAB 11:34
PROVIDERS: PCP Family Medicine; Referring Provider Family Medicine; Visit Provider Family Medicine
DX: I10 Essential (primary) hypertension (principal); Q23.81 Bicuspid aortic valve
CPT/HCPCS: 36415; 80053; 82043; 82570; 84443; 85027

== ENCOUNTER → 2024-10-14 | Outpatient (CLI) | payer MEDICARE, OTHER, SELFPAY ==
--- NOTE | 2024-10-14 15:12 | RAD_ITS ---
STUDY: X-RAY CHEST REASON FOR EXAM: Male, 74 years old. Fever and cough TECHNIQUE: PA and 2 lateral views of the chest. COMPARISON: 05/18/2024 FINDINGS: The lungs are clear and expanded. There is no demonstrated pleural abnormality. Normal size heart. Normal mediastinum and isaura. Normal visualized pulmonary arteries. Normal visualized aortic arch and descending thoracic aorta. Normal visualized thoracic spine. Normal visualized ribs, clavicles, and shoulders. There is no demonstrated abnormality of the visualized soft tissue structures of the upper abdomen. RAD/Chest PA and Lateral IMPRESSION: No acute pulmonary process Electronically Signed: Trever Ruby MD at 14:50 EST ,
[2024-10-14 17:37] LABS: Absolute Lymphocyte Count 2.21 X10^3/uL (0.83-4.51); Absolute Neutrophil Count 2.9 X10^3/uL (2.0-7.7); Basophil# 0.04 X10^3/uL; Basophil% 0.6 % (0-1); Eosinophil# 0.77 X10^3/uL; Hemoglobin 14.1 g/dL (13.0-16.5); Lymphocyte # 2.21 X10^3/ul (0.83-4.51); Lymphocyte % 34.3 % (19-41); Mean Corp Hgb Conc 34.4 g/dL (32-36); Mean Corpuscular Hgb 29.1 pg (27.0-32.0); Mean Corpuscular Volume 84.5 fL (80-94); Mean Platelet Vol. 10.5 fl (6.2-12.0); Monocyte# 0.45 X10^3/uL; NRBC Flagged by Analyzer 0 % (0-5); Neutrophil # 2.92 X10^3/uL (2.7-7.7); Neutrophil % 45.3 % (47-70); Platelet Count 182 K/mm3 (150-450); RBC Distribution Width CV 12.8 % (11.6-14.6); RBC Distribution Width SD 38.8 fl (35.1-43.9); Red Blood Count 4.85 M/mm3 (4.6-6.2); White Blood Count 6.4 K/mm3 (4.4-11.0)
== END | disposition home or self-care (01) ==
PROVIDERS: PCP Family Medicine
DX: J18.9 Pneumonia, unspecified organism (principal); R05.9 Cough, unspecified
CPT/HCPCS: 36415; 71046; 85025

== ENCOUNTER → 2025-01-26 | Outpatient (CLI) | payer MEDICARE, OTHER, SELFPAY ==
[2025-01-26 11:12] LABS: Microalbumin,Random Urine 28.2 mg/L (NO RANGE EST.); Microalbumin:Creatinine Ratio 207.4 mg/g CRE
[2025-01-26 11:21] LABS: Absolute Lymphocyte Count 1.91 X10^3/uL (0.83-4.51); Absolute Neutrophil Count 2.9 X10^3/uL (2.0-7.7); Basophil# 0.04 X10^3/uL; Basophil% 0.7 % (0-1); Eosinophil# 0.45 X10^3/uL; Eosinophils% 7.6 % (0-5); Hematocrit 40.8 % (40-54); Lymphocyte # 1.91 X10^3/ul (0.83-4.51); Lymphocyte % 32.2 % (19-41); Mean Corp Hgb Conc 34.3 g/dL (32-36); Mean Corpuscular Hgb 29.5 pg (27.0-32.0); Mean Corpuscular Volume 85.9 fL (80-94); Mean Platelet Vol. 10.6 fl (6.2-12.0); Monocyte# 0.63 X10^3/uL; Monocyte% 10.6 % (0-10); NRBC Flagged by Analyzer 0 % (0-5); Neutrophil # 2.87 X10^3/uL (2.7-7.7); Neutrophil % 48.4 % (47-70); Platelet Count 177 K/mm3 (150-450); RBC Distribution Width CV 13.1 % (11.6-14.6); RBC Distribution Width SD 40.6 fl (35.1-43.9); Red Blood Count 4.75 M/mm3 (4.6-6.2); White Blood Count 5.9 K/mm3 (4.4-11.0)
[2025-01-26 11:41] LABS: ALB/GLOB Ratio 1.3 RATIO (0.9-2.4); AST(SGOT) 29 U/L (<=37); Alanine Aminotransfer ALT/SGPT 22 U/L (<=46); Albumin, Serum 4.1 g/dL (3.4-4.8); Alkaline Phosphatase 60 U/L (40-129); Anion Gap 11 (5-15); BUN 16 mg/dL (4-19); BUN/Creat Ratio 12.4 RATIO (10-20); Calcium,Total 9.4 mg/dL (7.6-11.0); Carbon Dioxide 22.3 mmol/L (21.0-32.0); Chloride 106 mmol/L (98-108); Cholesterol 167 mg/dL (<=200); Creatinine, Serum 1.25 mg/dL (0.70-1.20); EST Glomerular Filtration Rate 61 (>60); Globulin 3.1 g/dL (2.2-4.2); Glucose 109 mg/dL (70-99); High Density Lipoprotein 45 mg/dL; Low Density Lipoprotein Calc. 87 mg/dL; Potassium 4.1 mmol/L (3.3-5.1); Protein, Total 7.3 g/dL (5.9-8.4); Sodium Level 140 mmol/L (133-145); Total Bilirubin 0.73 mg/dL (0.00-1.30); Triglycerides 173 mg/dL; Very Low Density Lipoprotein 35 mg/dL (5-40); cholesterol:hdl ratio screen 3.69
== END | disposition home or self-care (01) ==
LOC: MFPLAB 08:22
PROVIDERS: PCP Family Medicine; Referring Provider Family Medicine; Visit Provider Family Medicine
DX: I10 Essential (primary) hypertension (principal); D03.9 Melanoma in situ, unspecified; E78.00 Pure hypercholesterolemia, unspecified
CPT/HCPCS: 36415; 80053; 80061; 82043; 82570; 85025

== ENCOUNTER 2025-03-02 05:59 | Day surgery (SDC) | payer MEDICARE, OTHER, SELFPAY ==
[2025-03-02] VITALS (8 sets, daily range): BP systolic 109–157; BP diastolic 63–77; PULSE 54–66; RESP 18–20; TEMP 36.3–36.5; O2SAT 97–100; BMI 27.8
--- NOTE | 2025-03-02 06:45 | PCM.PRE.AN2 ---
ASA Classification* ASA Classification ASA Classification: 2 Assessment & Plan Anesthesia* Anesthesia Assessment Anesthesia Assessment: Discussed sedation and/or anesthesia options, risks, benefits, and alternatives with patient/parents/legal guardian/POA. Questions invited. The patient/parents/legal guardian/POA seems to understand and agrees to proceed with anesthesia plan. Reviewed the physical assessment, medical history, allergy history and patient home medications list prior to surgery/procedure/anesthetic and documented any changes. Performed airway and anesthesia risk assessments. Anesthesia Type Anesthesia Type: MAC Anesthesia Focused Assessment* Temperature: 97.4 F Pulse Rate: 54 Blood Pressure: 157/77 Respiratory Rate: 18 Pulse Ox: 99 Airway Assessment Mouth opens: >3 cm Mallampati Score: II Focused Labs Anesthesia Preop lab: CBC WBC 5.9 K/mm3 (4.4-11.0) 01/26/25 08:01/26/25 RBC 4.75 M/mm3 (4.6-6.2) 01/26/25 08:01/26/25 Hgb 14.0 g/dL (13.0-16.5) 01/26/25 08:23 01/26/25 Hct 40.8 % (40-54) 01/26/25 08:23 01/26/25 Plt Count 177 K/mm3 (150-450) 01/26/25 08:23 01/26/25 CHEMISTRY Potassium 4.1 mmol/L (3.3-5.1) 01/26/25 08:23 01/26/25 Sodium 140 mmol/L (133-145) 01/26/25 08:01/26/25 Magnesium 1.9 mg/dL (1.8-2.4) 06/04/13 21:30 06/04/13 Phosphorus 2.7 mg/dL (2.5-4.9) 06/04/13 21:30 06/04/13 BUN 16 mg/dL (4-19) 01/26/25 08:23 01/26/25 Creatinine 1.25 mg/dL (0.70-1.20) H 01/26/25 08:23 01/26/25 Glucose 109 mg/dL (70-99) H 01/26/25 08:23 01/26/25 TSH 1.030 uIU/mL (0.358-3.740) 07/23/24 11:41 07/23/24 COAG PT 14.1 SECONDS (11.9-14.4) 06/05/13 02:05 06/05/13 Pre-Assessment Diagnosis/Proposed Procedure Planned Operative Procedure(s): Excision. Right upper back melanoma in situ. Possible dermal substitute placement. 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 When Was Last Pacemaker Check QUESTION #4 FULL TEXT: You/Your Family Experience fever (hyperthermia) with Anesthesia Last Oral Intake Last Oral intake: Last Oral Intake NPO since 21:00 03/02/25 06:32 Meds taken in AM with sips of Yes 03/02/25 06:32 water? Meds patient instructed to take am of surgery PONV PONV - menhaden fishing crew member: PONV - menhaden fishing crew member Female No 02/16/25 14:05 HX of Motion Sickness No 02/16/25 14:05 HX of N/V After Surgery No 02/16/25 14:05 Non-Smoker Yes 02/16/25 14:05 Duration of Surgery greater Yes 02/16/25 14:05 than 60 minutes Number of Risk Factors 2 02/16/25 14:05 PONV Score Moderate Risk 02/16/25 14:05 Height & Weight Height & Weight: Anesthesia: Height & Weight Height 5 ft 8 in 03/02/25 06:32 Weight: 83 kg 03/02/25 06:32 Body Mass Index (BMI) 27.8 03/02/25 06:32 Respiratory Assessment Respiratory Assessment - menhaden fishing crew member: Respiratory Tract Infection Hx - 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 Has anyone observed you stop No 02/16/25 14:05 breathing during sleep? STOP Results Positive 02/16/25 14:05 QUESTION #5 FULL TEXT : Do you snore loudly (louder than talking or can be heard through closed doors)? 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 Specify any problems Hx of Preganancy in last 3 N/A 02/16/25 14:05 Months Nurse Filling Out Transfusion DSCHRIBER 02/16/25 14:05 & Questions: Date: 02/16/25 02/16/25 14:05 Time: 14:05 02/16/25 14:05 Patient unable to answer at this time (ie. 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 fishing crew member: /Reproductive Hx- menhaden fishing crew member Hx Now Gestational Age (in weeks): EDC: Hx Hx Para Hx Section SAB No 02/16/25 14:05 Active Medications Active Medications: Current Medications Generic Name Dose Route Start Last Admin Trade Name Freq PRN Reason Stop Dose Admin Cefazolin Sodium 2 gm/ Sodium 110 mls @ 150 mls/hr 03/02/25 07:30 Chloride IV 03/02/25 08:13 INTRAOP ONE Lactated Ringer's 1,000 mls @ 15 mls/hr 03/02/25 06:30 IV .Q48H MARY PFSH Medical History History of steroid therapy Wears glasses Cancer Alcohol use High cholesterol Back pain Ocular migraine Syncope Non-smoker History of pain when walking History of echocardiogram History of stress test Cardiology follow-up encounter Heart murmur Epistaxis, recurrent Nonrheumatic aortic (valve) stenosis with insufficiency GERD (gastroesophageal reflux disease) Bicuspid aortic valve Essential (primary) hypertension Home Medications ?Medication ?Instructions ?Recorded ?Last Taken ?Type metoprolol succinate 50 mg 50 mg PO DAILY 02/14/17 03/02/25 History tablet,extended release 24 hr multivitamin 1 tab PO DAILY 07/30/18 03/01/25 History fenofibrate micronized 67 mg 67 mg PO DAILY 09/11/21 03/01/25 History capsule famotidine 20 mg tablet 20 mg PO BID 03/04/24 03/02/25 History simvastatin 40 mg tablet 40 mg PO QHS #90 tabs 03/04/24 03/01/25 Rx TS-zvzaonnivmd-pdxbzt ox-Zn ER 500 1 tab PO DAILY 01/28/25 03/01/25 History mcg-750 mg-1.5 mg-25 mg tablet,ER losartan 50 mg tablet 50 mg PO DAILY 03/02/25 03/01/25 History Allergy/AdvReac Type Severity Reaction Status Date / Time lisinopril AdvReac cough Verified 03/02/25 06:29 Family History Father Aortic aneurysm Surgical History Dupuytren's contracture of both hands (08/28/22) H/O colonoscopy Social History Smoking Status: Never smoker alcohol intake: current alcohol intake frequency: holidays/special occasions only substance use type: does not use caffeine: Yes Type: coffee Number of servings: 1 Review of Systems (Anesthesia) ROS Narrative System reviewed and no additional complaints, except as documented.
[2025-03-02] MEDS: Lactated Ringers 1,000 ML 15 ML IV (06:46)
--- NOTE | 2025-03-02 07:25 | PCM.HP.STD ---
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 Dr. Kentrell Jeffries from [facility] took a shave biopsy of the lesion on 28 December 2024. He referred the patient to me for wide local excision with 9 mm margins (given the lentigo maligna subtype). Patient reports history of nonmelanoma skin cancers (squamous cell carcinoma). We discussed sunscreen and sun protection today. He is not a smoker. No diabetes No new or changing headaches Current Encounter (DATE OF SURGERY H&P UPDATE): I saw and examined the patient this morning in pre-operative holding. We discussed risks and benefits of today's surgery and they would like to proceed. NO CHANGE in health history since last seen and evaluated except he had a viral URI that he has since recovered from (why first surgery was rescheduled). Ready to proceed with surgery. [facility] Medical History History of steroid therapy Wears glasses Cancer Alcohol use High cholesterol Back pain Ocular migraine Syncope Non-smoker History of pain when walking History of echocardiogram History of stress test Cardiology follow-up encounter Heart murmur Epistaxis, recurrent Nonrheumatic aortic (valve) stenosis with insufficiency GERD (gastroesophageal reflux disease) Bicuspid aortic valve Essential (primary) hypertension Home Medications ?Medication ?Instructions ?Recorded ?Last Taken ?Type metoprolol succinate 50 mg 50 mg PO DAILY 02/14/17 03/02/25 History tablet,extended release 24 hr multivitamin 1 tab PO DAILY 07/30/18 03/01/25 History fenofibrate micronized 67 mg 67 mg PO DAILY 09/11/21 03/01/25 History capsule famotidine 20 mg tablet 20 mg PO BID 03/04/24 03/02/25 History simvastatin 40 mg tablet 40 mg PO QHS #90 tabs 03/04/24 03/01/25 Rx XE-nnmmsgrtnys-onaxjr ox-Zn ER 500 1 tab PO DAILY 01/28/25 03/01/25 History mcg-750 mg-1.5 mg-25 mg tablet,ER losartan 50 mg tablet 50 mg PO DAILY 03/02/25 03/01/25 History Allergy/AdvReac Type Severity Reaction Status Date / Time lisinopril AdvReac cough Verified 03/02/25 06:29 Family History Father Aortic aneurysm Surgical History Dupuytren's contracture of both hands (08/28/22) H/O colonoscopy Social History Smoking Status: Never smoker alcohol intake: current alcohol intake frequency: holidays/special occasions only substance use type: does not use caffeine: Yes Type: coffee Number of servings: 1 Vital Signs Vital Signs Vital Signs: 03/02/25 06:32 03/02/25 06:32 03/02/25 06:45 Temperature 97.4 F L 97.4 F L Temperature Source Temporal Pulse Rate 54 L 54 L Respiratory Rate 18 18 Respiratory Pattern Normal Blood Pressure 157/77 H 157/77 H Blood Pressure Mean 103 Blood Pressure Source Monitor Blood Pressure Position Semi-Fowlers Blood Pressure Location Left Arm Pulse Ox 99 99 Oxygen Delivery Method Room Air Weight Weight: 182 lb 15.739 oz Body Mass Index (BMI) 27.8 Physical Exam Narrative No axillary or neck lymphadenopathy on my exam He has a 1 x 1 cm area of fresh scar status post shave biopsy on the right upper back over the inferior aspects of the trapezium towards his neck. There are some brown melanocytes around the shave scar. I marked the spot with the patient in agreement (we went over previous photos and agreed on the biopsy location in preop holding) Assessment & Plan Assessment/Plan (1) Melanoma in situ of back: PLAN: Right upper back Lentigo maligna subtype Plan: Discussed with the patient that we need at least 9 mm margins around the melanoma in situ given that it is the lentigo maligna subtype. I recommended that we do 1 cm margins around the lesion as if there is an area of invasive melanoma on final pathology, then we will have final margins for this as well. He was in agreement and would like to proceed with 1 cm margins. I talked him about the risks, benefits, and alternatives to the wide local excision procedure. We talked about potential complications such as infection, bleeding, wound healing problems, recurrence, need for repeat surgeries when the final pathology results, or there being undue tension on the wound requiring temporary dressings before we can perform reconstruction as we await the final pathology results. We also talked about damage to surrounding structures and pain, as well as poor scarring. Patient would like to proceed. Plan for excision with sedation and local anesthesia (wide local excision of the melanoma in situ with 1 cm margins and anticipated primary closure). Current Encounter (DATE OF SURGERY H&P UPDATE): I saw and examined the patient this morning in pre-operative holding. We discussed risks and benefits of today's surgery and they would like to proceed. NO CHANGE in health history since last seen and evaluated. Ready to proceed with surgery.
[2025-03-02] MEDS: Cefazolin 2 GM in 0.9% Normal Saline (100mL Bag) 100 ML IV (07:30)
--- NOTE | 2025-03-02 07:30 | LES_PTH ---
PATIENT: EMI ALATORRE [place] [facility] [id number] AGE/SX: 74/M ROOM: RE03/02/[address]: Dr. Galileo Grover MD : 1950 BED: DIS: 03/02/2025 SPEC #: [id number] RECD: 03/02/25 09:07 STATUS: VIRI NAVAS #: [id number] KEV: 03/02/25 07:[address]: Galileo Grover DEPT: SURGICAL PATHOLOGY RECD BY: Bryon Wiley ENTERED: 03/02/25 10:17 SP TYPE: Lesion OTHR DR: Dr. Justin Ho MD Tissues: A - Skin of back, NOS Procedures: Immunohistochemical Stains Surgery Specimen Level IV IHC Stain ADDITIONAL HEADER OPERATION: Excision right upper back melanoma in situ PRE-OP DIAGNOSIS: Melanoma in situ on right back TISSUE SUBMITTED: A- Melanoma right upper back *short stitch- superior, long stitch- lateral* MICROSCOPIC DIAGNOSIS A. Skin, right upper back, melanoma in situ, wide excision: * Negative for residual melanoma in situ (surgical margins free) - see Comment. * Focal benign intradermal melanocytic nevus (incidental), margins free. * IHC for Melan-A supports the diagnosis (A5,6,7). COMMENT A preliminary diagnosis was reported to Alexia (nurse) at Dr Grover's office 11:30 AM, 03/10/25. Selected slides/images were reviewed in intradepartmental consultation by Dr Brianna Banegas (dermatopathology division, [facility]). MICROSCOPIC DESCRIPTION Slides are reviewed. All matched controls reacted appropriately. These tests were developed and their performance characteristics determined by [facility]. They may not have been cleared or approved by the U.S. Food and Drug Administration. The FDA has determined that such clearance or approval is not necessary.? The above immunohistochemical/dualISH?markers are ordered and reviewed by the Pathologist. GROSS DESCRIPTION A. Received in formalin in a container labeled with the patient's name, date of , and melanoma R upper back short superior long lateral is an oriented and ovoid skin excision with a short stitch indicating superior and long stitch indicating lateral margin. The specimen is 3.0 cm from medial to lateral, 2.3 cm from superior to inferior, with an excisional depth up to 1.7 cm. The white-vogt, wrinkled epidermis is notable for an irregular, ill-defined, paul-pink scar.Scar measurement: 1.1 x 0.9 cm. It is situated to the margins as follows:Superior: 0.7 cmLateral: 0.8 cmInferior: 0.8 cmMedial: 1.1 cm The superior half is inked blue, and the inferior half is inked black. The specimen is serially sectioned from lateral to medial into 8 slices to reveal that the scar is situated within slices 4-6, towards the midportion of the specimen. The scar exhibits white-paul surfaces that appear confined to the epidermis. The underlying fibrofatty tissue is vogt-yellow, lobulated, with scattered red-brown hemorrhage. The specimen is submitted entirely and sequentially as follows:A1. Slice 1, perpendicular sections of lateral endA2. Slice 2A3. Slice 3A4. Slice 4 with scarA5. Slice 5 with scarA6. Slice 6 with scarA7. Slice 7A8. Slice 8, perpendicular sections of medial and [facility] 03-03-2025 CPT:13605, [id number]
[2025-03-02] MEDS: Lidocaine 1% /Epi 1:100 (20ml) 20 ML Vial (08:09)
[2025-03-02] MEDS: Bupiv/Epi 0.25% 30 ML Vial (08:09)
--- NOTE | 2025-03-02 08:20 | PCM.OPRPT ---
Operative Report (Standard) Operative Information Date of Procedure: 03/02/25 Pre-Operative Diagnosis: 1) Right lateral trapezial neck melanoma in situ (lentigo maligna subtype) Post-Operative Diagnosis: Same Surgery/Procedure Performed: 1) Excision of right lateral trapezial neck melanoma in situ (lentigo maligna subtype) with 1 cm margins, 2.5 x 3.5 cm (CPT: 60430) 2) Intermediate closure of right lateral neck wound after melanoma in situ excision, 6 cm (CPT 35951) parts department supervisor: Yes Wildlife Control Agent: Shalini Bingham Tasks completed by visitor services assistant: Retracting Type of Anesthesia: MAC/Supplemental (15 cc of 50-50 mixture of 1% lidocaine with 1-200,000 epinephrine and quarter percent Marcaine with 1-200,000 epinephrine) RN Documented Start/Stop Times: Operation Date: 03/02/25 07:30 Case Time Into Pre-Op 03/02/25 06:17 Anesthesia Start 03/02/25 07:28 Into Room 03/02/25 07:28 Out of Pre-Op 03/02/25 07:29 Procedure Start 03/02/25 07:54 Procedure End 03/02/25 08:12 Anesthesia End 03/02/25 08:16 Out of Room 03/02/25 08:16 Procedure Start Time: 07:54 Procedure Stop Time: 08:12 Select all DRAINS/GRAFTS/IMPLANTS that apply: None Estimated Blood Loss: Minimal Specimen collected: Yes Description of specimen(s) removed: Melanoma in situ excision (lentigo maligna subtype and therefore 1 cm margins), marked short superior, long lateral with a silk stitch Description of surgery: Indications: Patient is a delightful 74-year-old male with a biopsy-proven (shave) lentigo maligna subtype melanoma in situ on the right lateral trapezial neck. I confirmed the biopsy site with Dr. Kentrell Jeffries who is the mechanical press operator. I confirmed the biopsy site with the patient and marked him in preoperative holding. All parties were in agreement with the site marking. I talked him about the risks, benefits, and alternatives of excision, and we talked about the 1 cm margins (recommended 5 to 9 mm margins for the melanoma in situ 1 it is lentigo maligna subtype but given location and potential for some invasive component, 1 cm margins obtained and patient happy with the plan). He elected to proceed with surgery. Procedure details: Patient was correctly identified in preoperative holding and taken back to the operating room where he was administered sedation and the above-noted local anesthesia. He was given time to take effect and he was prepped and draped in sterile fashion and a timeout was performed. A 15 blade scalpel was used to excise around the lesion for total excision of 2.5 x 3.5 centimeters down to trapezial fascia (full-thickness through the subcutaneous tissue). Hemostasis obtained with Bovie electrocautery. The wound was irrigated with copious amounts normal saline. New instruments were used for the closure. The specimen was marked short superior long lateral with a silk marking stitch and sent to pathology. 2-0 PDS deep fascial sutures and deep dermal sutures were placed as well as 3-0 Monocryl deep dermal and 3-0 Monocryl running subcuticular sutures and Prineo tape. The total intermediate closure was 6 cm. Patient tolerated the procedure well. He was awakened and taken to the PACU in stable condition. Postoperative plan: Okay to get Prineo tape wet tomorrow. Follow-up in 1 week in clinic to review pathology and for wound check. Surgical Findings: Able to close without significant tension (intermediate, primary closure) Complications Complications: No Admit VTE Documentation VTE Mechan Device Prophylaxis: SCD's
--- NOTE | 2025-03-02 08:22 | PCM.POST.ANE ---
Anesthesia: Postop Eval I Current Vital Signs Temperature: 97.7 F Pulse Rate: 66 Blood Pressure: 115/66 Respiratory Rate: 20 Pulse Ox: 97 Oxygen Delivery Method: Room Air Assessment Airway patent: Yes Spontaneous unlabored respirations: Yes Mental status: Awake and Calm nausea: No Vomiting: No Anesthesia Complication: No Fluid Hydration Crystalloid volume administer (ml): 800 Total IV fluid infused: 800 Progress Note Anesthesia document: Postop Eval 1 completed: Yes
--- NOTE | 2025-03-02 08:49 | POSTOPAN2_ITS ---
Anesthesia Postop Eval I Sum Postop Eval Completion status Anesthesia document: Postop Eval 1 completed: Yes Anesthesia Postop Eval I Summary Anesthesia Postop Eval I Summary: Anesthesia Postop Eval I: Assessment Summary Airway patent Yes 03/02/25 08:23 CUSHION [email or web address] Spontaneous unlabored Yes 03/02/25 08:23 CUSHION [email or web address] respirations Mental status Awake,Calm 03/02/25 08:23 CUSHION [email or web address] nausea No 03/02/25 08:23 CUSHION [email or web address] Vomiting No 03/02/25 08:23 CUSHION [email or web address] Anesthesia Postop Eval I: Fluid Summary Crystalloid volume administer 800 03/02/25 08:23 CUSHION BUILDER.[email or web address] (ml) Colloids volume administered ( ml) Blood Product volume administered (ml) Total IV fluid infused 800 03/02/25 08:23 CUSHION [email or web address] Anesthesia Postop Eval I: Summary Notes Anesthesia Complication No 03/02/25 08:23 CUSHION [email or web address] Anesthesia Complication Comment: Post-operative progress note Anesthesia: Postop Eval II Evaluation Mental status: Awake Pain Level: 0 nausea: No Vomiting: No
--- NOTE | 2025-03-02 08:49 | PCM.POSTANE2 ---
Anesthesia Postop Eval I Sum Postop Eval Completion status Anesthesia document: Postop Eval 1 completed: Yes Anesthesia Postop Eval I Summary Anesthesia Postop Eval I Summary: Anesthesia Postop Eval I: Assessment Summary Airway patent Yes 03/02/25 08:23 LINEMAN SERVICE OR WORK DISPATCHER.[email or web address] Spontaneous unlabored Yes 03/02/25 08:23 LINEMAN SERVICE OR WORK DISPATCHER.[email or web address] respirations Mental status Awake,Calm 03/02/25 08:23 LINEMAN SERVICE OR WORK DISPATCHER.[email or web address] nausea No 03/02/25 08:23 LINEMAN SERVICE OR WORK DISPATCHER.[email or web address] Vomiting No 03/02/25 08:23 LINEMAN SERVICE OR WORK DISPATCHER.[email or web address] Anesthesia Postop Eval I: Fluid Summary Crystalloid volume administer 800 03/02/25 08:23 LINEMAN SERVICE OR WORK DISPATCHER.[email or web address] (ml) Colloids volume administered ( ml) Blood Product volume administered (ml) Total IV fluid infused 800 03/02/25 08:23 LINEMAN SERVICE OR WORK DISPATCHER.[email or web address] Anesthesia Postop Eval I: Summary Notes Anesthesia Complication No 03/02/25 08:23 LINEMAN SERVICE OR WORK DISPATCHER.[email or web address] Anesthesia Complication Comment: Post-operative progress note Anesthesia: Postop Eval II Evaluation Mental status: Awake Pain Level: 0 nausea: No Vomiting: No
== END 2025-03-02 09:07 | disposition home or self-care (01) ==
LOC: SDC 06:00 → AC 06:06
PROVIDERS: PCP Family Medicine; Referring Provider Surgery Plastic and Reconstructive Surgery; Visit Provider Surgery Plastic and Reconstructive Surgery
PROC: (CPT 11403; principal; 2025-03-02 07:20)
DX: D22.5 Melanocytic nevi of trunk (principal); K21.9 Gastro-esophageal reflux disease without esophagitis; I10 Essential (primary) hypertension; E78.00 Pure hypercholesterolemia, unspecified; Z79.899 Other long term (current) drug therapy; Z85.828 Personal history of other malignant neoplasm of skin
CPT/HCPCS: 11403; 12032; 00300; 88305; 88341; 88342

== ENCOUNTER → 2025-03-10 | Outpatient (CLI) | payer MEDICARE, OTHER, SELFPAY ==
--- NOTE | 2025-03-10 13:54 | CDU_ITS ---
Reason For Study Reason For Study: Left ICA Bruit Rt. Velocities/BP Lt. Velocities/BP Prox CCA 87.1/20.8 cm/sec. Prox CCA 91.6/20.4 cm/sec. Mid CCA 76.0/18.3 cm/sec. Mid CCA 75.6/19.2 cm/sec. Dist CCA 67.4/17.1 cm/sec. Dist CCA 80.6/22.8 cm/sec. Prox ICA 65.0/19.5 cm/sec. Prox ICA 81.8/27.8 cm/sec. Mid ICA 77.2/24.4 cm/sec. Mid ICA 87.9/37.6 cm/sec. Dist ICA 79.7/17.1 cm/sec. Dist ICA 61.0/24.2 cm/sec. Rt. ICA/CCA = 1.0. Lt. ICA/CCA = 1.2. Prox ECA 60.3/8.7 cm/sec. Prox ECA 66.9/14.2 cm/sec. Rt. Vert. 46.2/12.2 cm/sec. Lt. Vert. 46.9/14.7 cm/sec. Right Extracranial There is intimal thickening but no significant atherosclerotic plaque noted in the right common carotid artery. There is heterogeneous, irregular atherosclerotic plaque noted in the right internal carotid artery. There is heterogeneous, irregular atherosclerotic plaque noted in the right external carotid artery. Antegrade flow is noted in the right vertebral artery. Left Extracranial There is intimal thickening but no significant atherosclerotic plaque noted in the left common carotid artery. There is heterogeneous, irregular atherosclerotic plaque noted in the left internal carotid artery. The distal left internal carotid artery is not well visualized. There is heterogeneous, irregular atherosclerotic plaque noted in the left external carotid artery. Antegrade flow is noted in the left vertebral artery. Procedure Carotid Duplex [id number]. This is a Carotid Duplex examination using B-mode, color flow and specral Doppler. The exam was diagnostic. Exam performed in department. VL/Carotid Duplex Ultrasound Interpretation Summary Mild (<50%) stenosis right extracranial internal carotid. Mild (<50%) stenosis left extracranial internal carotid. Flow within the vertebral arteries is antegrade bilaterally. Ordering Physician: Aga Wray Referring Physician: Justin Ho Performed By: Javon Razo RVT
== END | disposition home or self-care (01) ==
LOC: CVS 13:54
PROVIDERS: PCP Family Medicine; Referring Provider Physician Assistant Medical; Visit Provider Physician Assistant Medical
DX: R09.89 Other specified symptoms and signs involving the circulatory and respiratory systems (principal)
CPT/HCPCS: 93880

== ENCOUNTER → 2025-03-23 | Outpatient (CLI) | payer MEDICARE, OTHER, SELFPAY ==
--- NOTE | 2025-03-23 10:15 | RAD_ITS ---
PROCEDURE: THORACIC SPINE 2 VIEWS 03/23/2025 REASON FOR EXAM: BACK PAIN TECHNIQUE: Three views of the thoracic spine. COMPARISON: None. FINDINGS: Mild discogenic degenerative changes of the visualized spine. Normal alignment. No evidence of acute fracture or dislocation. Vertebral body heights are maintained. RAD/Thoracic Spine 2 Views IMPRESSION: Spondylosis. Reading Location: [place] [id number]
--- NOTE | 2025-03-23 10:16 | RAD_ITS ---
PROCEDURE: LUMBAR SPINE 2 OR 3 VIEWS 03/23/2025 REASON FOR EXAM: BACK PAIN TECHNIQUE: 2 view(s) of the lumbar spine COMPARISON: None. FINDINGS: Mild degenerative levoscoliosis apex at L3. Straightening of the lumbar lordosis, probably muscular spasm and pain. There are diffuse spondylotic changes. Findings are demonstrated to by diffuse disc space narrowing, osteophyte formation and degenerative endplate sclerosis. There is diffuse facet joint arthropathy with secondary bilateral neural foramina narrowing. No fracture or dislocation is seen. No aggressive lytic or blastic bony lesion is noted. RAD/Lumbar Spine 2 or 3 Views IMPRESSION: Spondylosis. Reading Location: [facility]
--- OUTSIDE RECORDS SUMMARY | 2025-03-23 20:14 | XMS RPT_ITS | CCD ---
Author Organization [facility] [place] [facility] Care Team Providers Care Equipment Services Associate Name Role Phone DeFinis, Harumi Y Unavailable Unavailable DeFinis, Harumi Y Unavailable Unavailable DeFinis, Harumi Y Unavailable Unavailable Ángela Wadsworth Unavailable Unavailable Ángela Wadsworth Unavailable Unavailable Alena CORNEJO, Samanta Nicolas Unavailable Unavailable MD Jason, Juan Jin Unavailable Dr. Justin Ho Primary Care Provider 1([facility])[phone] Justin Ho Referring Provider 1([facility])[phone] Dr. Juan Gomez Attending Provider 1([facility])-[phone] Justin Ho Primary Care Provider 1([facility])[phone] Dr. Justin Ho Referring Provider 1([facility])[phone] Juan Gomez Attending Provider 1([facility])-[phone] Juan Gomez Referring Provider 1([facility])-[address] Justin Ho Primary Care Provider 1([facility])[phone] Justin Ho Referring Provider 1([facility])[phone] CARLOS Garza Attending Provider Dr. Juan Gomez Attending Provider 1([facility])-57 00 ISRA Coles NP Attending Provider Dr. Justin Ho Primary Care Provider 1([facility])[phone] Justin Ho Referring Provider 1([facility])[phone] CARLOS Garza Attending Provider Dr. Juan Gomez Attending Provider 1([facility])-[address]. Juan Gomez Referring Provider 1([facility])-57 00 ISRA Coles NP Attending Provider Vic CHILDS, Dr. Anderson Primary Care Provider Reilly CHILDS, Dr. Gurrola Attending Provider Mervin CHILDS, Dr. Pfeiffer Referring Provider Vic CHILDS, Dr. Anderson Attending Provider Vic CHILDS, Dr. Anderson Referring Provider Avni RESTAURANT GREETER-CGarrett Attending Provider Reilly CHILDS, Dr. Gurrola Referring Provider Reilly CHILDS, Dr. Gurrola Other Provider Aga Garza Attending Provider [phone] Reilly, Galileo Referring Unavailable Siska, Galileo Attending Unavailable Ho, Justin Primary Care Unavailable Ho, Justin Referring Unavailable Ho, Justin Attending Unavailable Ho, Justin Primary Care Unavailable Siska, Galileo Referring Unavailable Siska, Galileo Attending Unavailable Ho, Justin Primary Care Unavailable Ho, Justin Referring Unavailable Aga Garza Attending Unavail able Ho, Justin Primary Care Unavailable Juan Gomez Attending Unavailable Ho, Justin Primary Care Unavailable Siska, Galileo Consulting Unavailable Siska, Galileo Referring Unavailable Siska, Galileo Attending Unavailable Ho, Justin Primary Care Unavailable Ho, Justin Referring Unavailable Siska, Galileo Attending Unavailable Ho, Justin Primary Care Unavailable Ho, Justin Referring Unavailable Siska, Galileo Attending Unavailable Ho, Justin Primary Care Unavailable Kentrell Jeffries Referring Unavailable Siska, Galileo Attending Unavailable Ho, Justin Primary Care Unavailable Ho, Justin Referring Unavailable Avni RESTAURANT GREETERGarrett Attending Unavailable Ho, Justin Primary Care Unavailable Angelika Alejandra NP Referring Unavailable Angelika Alejandra NP Attending Unavailable Ho, Justin Primary Care Unavailable Ho, Justin Referring Unavailable Ho, Justin Attending Unavailable Ho, Justin Primary Care Unavailable Aga Garza Referring Unavail able Aga Garza Attending Unavail able Ho, Justin Primary Care Unavailable Ho, Justin Referring Unavailable Ho, Justin Attending Unavailable Ho, Justin Primary Care Unavailable Ho, Justin Primary Care Unavailable Aga Garza Referring Unavail able Aga Garza Attending Unavail able Aga Garza Referring Provider [phone] Allergies Allergy Classification Reported Allergen(s) Allergy Type Date of Onset Reaction(s) Facility (10 sources) Lisinopril Drug Allergy 09-19-2022 cough [facility] (1 source) Lisinopril Drug Allergy 03-17-2025 [facility] Repository Medications Current Medications Medication Drug Class(es) Dates Sig (Normalized) Sig (Original) Re-Myyueolfktl-Rel harjeet Ox-Zinc 500-750-1.5-25 fod-yt-kr-mg tablet,ext release multiphase (3 sources) Start: 01-28-2025 Cl-Ktetbezqeab-Qr pric Ox-Zinc 500-750-1.5-25 yaj-wy-nj-mg tablet,ext release multiphase Active 1 {tbl} PO DAILY January 28, 2025 12:00am famotidine 20 mg oral tablet (20 sources) Histamine-2 Receptor Antagonist Start: 03-04-2024 take 1 tablet by mouth twice daily Famotidine 20 mg tablet Active 20 mg PO TWICE A DAY March 04, 2024 10:24am Start: 08-08-2020 End: 03-04-2024 take 1 tablet by mouth once daily Famotidine 20 mg tablet Discontinued 20 mg PO DAILY August 08, 2020 9:47am March 04, 2024 10:25am Start: 08-08-2020 End: 08-08-2020 take 1 tablet by mouth twice daily Famotidine 20 mg tablet Discontinued 20 mg PO TWICE A DAY August 08, 2020 12:00am August 08, 2020 9:49am fenofibrate 67 mg oral capsule (20 sources) Peroxisome Proliferator Receptor alpha Agonist Start: 09-11-2021 take 1 capsule by mouth once daily Fenofibrate Micronized 67 mg capsule Active 67 mg PO DAILY September 11, 2021 1:00am Start: 02-14-2017 End: 09-11-2021 Fenofibrate 54 MG tablet Discontinued 1 NMA PO AT BEDTIME February 14, 2017 12:00am September 11, 2021 12:00pm Start: 02-14-2017 End: 09-11-2021 take 1 capsule by mouth at bedtime Fenofibrate Discontinued 1 CAP PO AT BEDTIME February 14, 2017 12:00am September 11, 2021 12:00pm Start: 10-15-2012 End: 06-22-2013 take 1 tablet by mouth at bedtime FENOFIBRATE 54 MG TABS One tablet by mouth at bedtime. FENOFIBRATE [id number] Aga Wray PA-C Start: 05-15-2011 End: 07-22-2017 take 1 tablet by mouth at bedtime TRILIPIX 45 MG CPDR One tablet by mouth at bedtime. CHOLINE FENOFIBRATE [id number] Juan Gomez MD losartan potassium 50 mg oral tablet (20 sources) Angiotensin 2 Receptor Jassi Start: 03-02-2025 take 1 tablet by mouth once daily Losartan 50 mg tablet Active 50 mg PO DAILY March 02, 2025 12:00am Start: 09-11-2021 End: 01-30-2025 take 1 tablet by mouth once daily Losartan 50 mg tablet Discontinued 50 mg PO DAILY September 11, 2021 1:00am January 30, 2025 10:31am Start: 07-30-2018 End: 08-03-2019 take 1 tablet by mouth once daily Losartan 100 mg tablet Discontinued 100 mg PO DAILY July 30, 2018 12:00am August 03, 2019 10:59am 24 hr metoprolol succinate 50 mg extended release oral tablet (20 sources) beta-Adrenergic Jassi Start: 10-15-2012 take 1 tablet by mouth once daily TOPROL XL 50 MG [id number] One tablet by mouth daily METOPROLOL SUCCINATE [id number] Juan Gomez MD Start: 10-15-2012 take 1 tablet by benito once daily TOPROL XL 50 MG [id number] One tablet by mouth daily METOPROLOL SUCCINATE [id number] Juan Gomez MD Start: 05-15-2011 take 1 tablet by benito th once daily Metoprolol Succinate 50 MG tablet extended release 24 hr Active 50 mg PO DAILY February 14, 2017 12:00am Start: 05-15-2011 take 1 tablet by benito th once daily TOPROL XL 50 MG [id number] One tablet by mouth daily METOPROLOL SUCCINATE [id number] Reba Campbell Multivitamin preparation (7 sources) Start: 07-30-2018 take 1 tablet by mouth once daily Multivitamin Active 1 TABLET PO DAILY July 30, 2018 12:00am Start: 07-30-2018 take 1 tablet by benito th once daily Multivitamin Active 1 TABLET PO DAILY July 29, 2018 11:00pm Multivitamin tablet (3 sources) Start: 07-30-2018 Multivitamin t ablet Active 1 {tbl} PO DAILY July 30, 2018 12:00am simvastatin 40 mg oral tablet (20 sources) HMG-CoA Reductase Inhibitor Start: 08-08-2020 End: 03-04-2024 take 1 tablet by mouth at bedtime Simvastatin 40 mg tablet Active 40 mg PO AT BEDTIME March 04, 2024 10:56am Start: 05-15-2011 take 1 tablet by benito th at bedtime ZOCOR 40 MG TABS One tablet by mouth at bedtime. SIMVASTATIN [id number] Reba Campbell Completed/Discontinued Medications Medication Drug Class(es) Dates Sig (Normalized) Sig (Original) aspirin 81 mg oral tablet (14 sources) Platelet Aggregation Inhibitor, Nonsteroidal Anti-inflammatory Drug Start: 05-15-2011 End: 07-08-2014 take 1 tablet by mouth once daily ASPIRIN 81 MG TABS One tablet by mouth daily ASPIRIN [id number] Juan Gomez MD Start: 05-15-2011 End: 07-08-2014 take 1 tablet by mouth once daily ASPIRIN 81 MG TABS One tablet by mouth daily ASPIRIN [id number] Juan Gomez MD doxycycline hyclate 100 mg oral capsule (6 sources) Tetracycline-class Drug Start: 01-30-2025 End: 02-06-2025 take 1 capsule by mouth twice daily Doxycycline Hyclate 100 mg capsule Discontinued 100 mg PO TWICE A DAY 14 7 January 30, 2025 12:19pm February 05, 2025 12:00am February 06, 2025 12:08am hydroCHLOROthiazide 25 mg oral tablet (20 sources) Thiazide Diuretic Start: 10-15-2017 End: 03-04-2024 take 1 tablet by mouth once daily Hydrochlorothiazide 25 mg tablet Discontinued 25 mg PO daily October 15, 2017 1:00am March 04, 2024 10:25am Start: 02-24-2017 take 1 tablet by benito th once daily HYDROCHLOROTHIAZIDE 25 MG TABS One tablet by mouth daily HYDROCHLOROTHIAZIDE [id number] Juan Gomez MD Start: 02-24-2017 take 0.5 tablet by m out once daily HYDROCHLOROTHIAZIDE 25 MG TABS 1/2 tablet by mouth daily HYDROCHLOROTHIAZIDE [id number] Rodriguez Medina S[employer]IOR ACCOUNTS PAYABLE SPECIALIST-C Start: 06-04-2013 End: 06-22-2013 take 1 tablet by mouth once daily HYDROCHLOROTHIAZIDE 12.5 MG TABS One tablet by mouth daily HYDROCHLOROTHIAZIDE [id number] SAM LutherC lisinopril 5 mg oral tablet (2 sources) Angiotensin Converting Enzyme Inhibitor Start: 07-22-2017 take 1 tablet by mouth once daily LISINOPRIL 5 MG TABS One tablet by mouth daily LISINOPRIL [id number] Garrett Holly RESTAURANT GREETER MULTIPLE VITAMIN (3 sources) Start: 05-15-2011 take 1 tablet by mouth once daily MULTIVITAMINS TABS One tablet by mouth daily MULTIPLE VITAMIN [id number] Reba Campbell MULTIPLE VITAMIN (4 sources) Start: 05-15-2011 take 1 tablet by mouth once daily MULTIVITAMINS TABS One tablet by mouth daily MULTIPLE VITAMIN [id number] Reba Campbell Start: 05-15-2011 take 1 tablet by benito once daily MULTIVITAMINS TABS One tablet by mouth daily MULTIPLE VITAMIN [id number] Reba Campbell omeprazole 20 mg delayed release oral capsule (7 sources) Proton Pump Inhibitor Start: 06-09-2013 take 1 tablet by mouth once daily OMEPRAZOLE 20 MG CPDR One tablet by mouth daily OMEPRAZOLE [id number] Linda Pulliam RN predniSONE 20 mg oral tablet (6 sources) Start: 01-30-2025 End: 02-04-2025 take 2 tablets by mouth once daily Prednisone 20 mg tablet Discontinued 40 mg PO daily 10 January 30, 2025 12:19pm February 03, 2025 12:00am February 04, 2025 12:10am raNITIdine 150 mg oral tablet (20 sources) Histamine-2 Receptor Antagonist Start: 07-30-2018 End: 08-08-2020 take 1 capsule by mouth twice daily Ranitidine Hcl 150 mg capsule Discontinued 150 mg PO TWICE A DAY July 30, 2018 12:00am August 08, 2020 9:46am Start: 07-30-2018 End: 08-08-2020 take 1 capsule by mouth twice daily ranitidine 150 mg capsule Discontinued 150 MG PO TWICE A DAY July 30, 2018 12:00am August 08, 2020 9:46am Start: 05-15-2011 End: 06-09-2013 take 1 tablet by mouth twice daily RANITIDINE HCL 150 MG TABS One tablet by mouth twice daily RANITIDINE HCL [id number] Juan Gomez MD Problems Active Problems Problem Classification Problem Date Documented Date Episodic/Chronic Cardiac and circulatory congenital anomalies (7 sources) Bicuspid aortic valve; Translations: [Congenital insufficiency of aortic valve] Onset: 06-22-2013 06-23-2013 Chronic Disorders of lipid metabolism (20 sources) Hyperlipidemia; Translations: [Hyperlipidemia, unspecified] Onset: 05-15-2011 05-15-2011 Chronic Esophageal disorders (7 sources) Gastroesophageal reflux disease; Translations: [Gastro-esophageal reflux disease without esophagitis] Onset: 05-15-2011 05-15-2011 Chronic Essential hypertension (20 sources) Hypertensive disorder; Translations: [Essential hypertension] Onset: 05-15-2011 05-15-2011 Chronic Comment on above: CONTROLLED WITH MEDS Headache; including migraine (10 sources) Ophthalmic migraine; 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 with aura, not intractable, without status migrainosus] 09-19-2022 Chronic Heart valve disorders (20 sources) Nonrheumatic aortic (valve) stenosis; Translations: [Aortic valve stenosis] Onset: 05-15-2011 Resolved: 01-17-2016 01-17-2016 Chronic Melanomas of skin (13 sources) Melanoma in situ of back; Translations: [Melanoma in situ of other part of trunk] Onset: 03-02-2025 01-25-2025 Chronic Comment on above: Right upper backLent igo maligna subtype Right upper backLent igo maligna subtypeExcised 02 Mar 2025 with 1 cm margins Other circulatory disease (4 sources) Carotid bruit; Translations: [Other specified symptoms and signs involving the circulatory and respiratory systems] 03-04-2025 Episodic Other circulatory disease (1 source) Other specified symptoms and signs involving the circulatory and respiratory systems; Translations: [Other specified symptoms and signs involving the circulatory and respiratory systems] Onset: 03-15-2025 Episodic Other lower respiratory disease (3 sources) Wheezing; Translations: [Wheezing] 01-30-2025 Episodic Other lower respiratory disease (1 source) Wheezing; Translations: [Wheezing] Onset: 01-30-2025 Episodic Other upper respiratory disease (10 sources) Epistaxis; Translations: [Recurrent epistaxis] 08-08-2020 Episodic Past or Other Problems Problem Classification Problem Date Documented Da te Episodic/Chronic Heart valve disorders (7 sources) Heart murmur; Translations: [Cardiac murmur, unspecified] Onset: 05-15-2011 05-15-2011 Episodic Nonspecific chest pain (14 sources) Chest pain, unspecified; Translations: [Chest pain, unspecified] Onset: 05-15-2011 Resolved: 01-17-2016 01-17-2016 Episodic Pneumonia (except that caused by tuberculosis or sexually transmitted disease) (1 source) Pneumonia, unspecified organism; Translations: [Pneumonia, unspecified organism] Onset: 11-10-2024 Episodic Unclassified (2 sources) Body mass index (BMI) 27.0-27.9, adult; Translations: [Body mass index (BMI) 27.0-27.9, adult] Onset: 07-22-2017 07-22-2017 Episodic Results Test Name Value Interpretation Reference Range Facility Plastic Surgery Visit Report on 03-17-2025 Plastic Surgery Visit Report [facility] Plastic Reconstructive Surgery [address], [address] [place] [address] OFFICE VISIT Date of Service: 03/17/25 MR#: [id number] Acct: [id number] Name: EMI ESCALONA Rep #: [id number] : 1950 Provider: Dr. Galileo Grover MD Age/Sex: 74/M Location: [facility] Status: Signed with Addenda ADDENDUM by Dr. Galileo Grover MD on 03/18/25 at 0702 Assessment and Plan (No Qualifiers) Assessment and Plan (1) Melanoma in situ of back: Status: Acute Comment: Right upper back Lentigo maligna subtype Excised 02 Mar 2025 with 1 cm margins Clear margins on final pathology report Multi Select Codes Visit Charges Office Visit/Consults: 94726 OV L2 Est 10min 03/18/25 0702 Date Galileo Grover MD cc: * Signed Intake Vital Signs 03/10/25 11:32 03/17/25 11:13 Height 5 ft 8 in BP 151/71 H 137/76 H Blood Pressure Location Lt brachial Rt brachial Position Sitting Sitting Respiration 18 18 Pulse 63 60 Pulse Source Monitor Temp 99.2 F H Temp Source Temporal Pulse Oximetry (%) 96 97 Oxygen Delivery Method room air room air Intake Visit Reasons: 1 W FU POST OP Chief Complaint: post op right shoulder melanoma in situ of back Is patient in pain?: No Allergies lisinopril Adverse Reaction (Verified 03/17/25 11:13) cough Medications ???Medication ???Instructions ???Recorded ???Confirmed ???Type metoprolol succinate 50 mg 50 mg PO DAILY 02/14/17 03/17/25 H istory tablet,extended release 24 hr multivitamin 1 tab PO DAILY 07/30/18 03/17/25 H istory fenofibrate micronized 67 mg 67 mg PO DAILY 09/11/21 03/17/25 H istory capsule famotidine 20 mg tablet 20 mg PO BID 03/04/24 03/17/25 His tory simvastatin 40 mg tablet 40 mg PO QHS #90 tabs 03/04/2403/06 Rx JF-dhzfpkzkygy-plpna c ox-Zn ER 500 1 tab PO DAILY 01/28/25 03/17/25 History mcg-750 mg-1.5 mg-25 mg tablet,ER losartan 50 mg tablet 50 mg PO DAILY 03/02/25 03/17/25 H istory Have you fallen in the past year?: No Subjective Details: Operative Information Date of Procedure: 03/02/25 Pre-Operative Diagnosis: 1) 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 No fevers, chills, or drainage. Pain controlled. Pathology not yet back. CURRENT ENCOUNTER, 17 March 2025: Doing well overall. Pathology reviewed with the patient and surgical margins free. No fevers chills or drainage Objective Details: Right lower neck incision c/d/i. Healed well No infection or fluid collection Coding Level of Care Code Global Post Op Diagnoses Melanoma in situ of back D03.59 [facility] Medical History History of steroid therapy Wears glasses Cancer Alcohol use High cholesterol Back pain Ocular migraine Syncope Non-smoker History of pain when walking History of echocardiogram History of stress test Cardiology follow-up encounter Heart murmur Epistaxis, recurrent Nonrheumatic aortic (valve) stenosis with insufficiency GERD (gastroesophageal reflux disease) Bicuspid aortic valve Essential (primary) hypertension Surgical History Dupuytren's contracture of both hands (08/28/22) H/O colonoscopy Family History Father Aortic aneurysm Social History Smoking Status: Never smoker alcohol intake: current alcohol intake frequency: holidays/special occasions only substance use type: does not use caffeine: Yes Type: coffee Number of servings: 1 Assessment and Plan (No Qualifiers) Assessment and Plan (1) Melanoma in situ of back: Status: Acute Comment: Right upper back Lentigo maligna subtype Excised 02 Mar 2025 with 1 cm margins Clear margins on final pathology report Plan: Reviewed pathology, clear margins Patient will continue to follow with Dr. Jeffries for biannual skin checks Discussed return precautions Discussed sunscreen Follow-up as needed 03/18/25 0702 Date Galileo Grover MD Cosigner Signature: Date (if applicable) CC: Normal [facility] Carotid Duplex Ultrasoundon 03-10-2025 Carotid Duplex Ultrasound [facility] [address] [place] [address] Carotid Duplex Ultrasound 03/10/25 1403 MR#: [id number] Acct: [id number] Name: EMI ESCALONA Rep #: [id number] : 1950 74 From: David Owen MD Attending Dr: CARLOS Luther Status: REG CLI Ordering Dr: Aga Wray Date: 02/11 07/07 Location: [facility] Sex: M C Admitted: Reason For Study Reason For Study: Left ICA Bruit Rt. Velocities/BP Lt. Velocities/BP Prox CCA 87.1/20.8 cm/sec. Prox CCA 91.6/20.4 cm/sec. Mid CCA 76.0/18.3 cm/sec. Mid CCA 75.6/19.2 cm/sec. Dist CCA 67.4/17.1 cm/sec. Dist CCA 80.6/22.8 cm/sec. Prox ICA 65.0/19.5 cm/sec. Prox ICA 81.8/27.8 cm/sec. Mid ICA 77.2/24.4 cm/sec. Mid ICA 87.9/37.6 cm/sec. Dist ICA 79.7/17.1 cm/sec. Dist ICA 61.0/24.2 cm/sec. Rt. ICA/CCA = 1.0. Lt. ICA/CCA = 1.2. Prox ECA 60.3/8.7 cm/sec. Prox ECA 66.9/14.2 cm/sec. Rt. Vert. 46.2/12.2 cm/sec. Lt. Vert. 46.9/14.7 cm/sec. Right Extracranial There is intimal thickening but no significant atherosclerotic plaque noted in the right common carotid artery. There is heterogeneous, irregular atherosclerotic plaque noted in the right internal carotid artery. There is heterogeneous, irregular atherosclerotic plaque noted in the right external carotid artery. Antegrade flow is noted in the right vertebral artery. Left Extracranial There is intimal thickening but no significant atherosclerotic plaque noted in the left common carotid artery. There is heterogeneous, irregular atherosclerotic plaque noted in the left internal carotid artery. The distal left internal carotid artery is not well visualized. There is heterogeneous, irregular atherosclerotic plaque noted in the left external carotid artery. Antegrade flow is noted in the left vertebral artery. Procedure Carotid Duplex 47483. This is a Carotid Duplex examination using B-mode, color flow and specral Doppler. The exam was diagnostic. Exam performed in department. VL/Carotid Duplex Ultrasound Interpretation Summary Mild (<50%) stenosis right extracranial internal carotid. Mild (<50%) stenosis left extracranial internal carotid. Flow within the vertebral arteries is antegrade bilaterally. Ordering Physician: Aga Wray Referring Physician: Justin Ho Performed By: Javon Razo, Jay 03/10/252225 Date David Owen MD CC: Dr. Justin Ho MD; CARLOS Luther Date Dictated: 03/10/25 1403 Date Transcribed: 03/10/252225 Financial Wellness Coach: Signed Normal [facility] Plastic Surgery Visit Report on 03-10-2025 Plastic Surgery Visit Report [facility] Plastic Reconstructive Surgery [address] [place] [address], [address] [place] [address] OFFICE VISIT Date of Service: 03/10/25 MR#: [id number] Acct: [id number] Name: CELIEMIOPAL HAMILTON Rep #: [id number] : 1950 Provider: Dr. Galileo Grover MD Age/Sex: 74/M Location: [facility] Status: Signed with Addenda ADDENDUM by Dr. Galileo Grover MD on 03/10/25 at 1657 Assessment and Plan (No Qualifiers) Assessment and Plan (1) Melanoma in situ of back: Status: Acute Comment: Right upper back Lentigo maligna subtype Excised 02 Mar 2025 with 1 cm margins 03/10/251656 Date Galileo Grover MD cc: * Signed Intake Vital Signs 03/02/25 06:32 03/04/25 07:17 03/10/25 11:32 Height 5 ft 8 in 5 ft 8 in 5 ft 8 in Weight: 186 lb BMI 28.3 BP 141/80 H 151/71 H Blood Pressure Location Lt brachial Lt brachial Position Sitting Sitting Respiration 18 18 Pulse 64 63 Pulse Source Monitor Temp 99.2 F H Temp Source Temporal Pulse Oximetry (%) 97 96 Oxygen Delivery Method room air Intake Visit Reasons: post op Chief Complaint: post op right shoulder melanoma in situ of back Is patient in pain?: No Allergies lisinopril Adverse Reaction (Verified 03/10/25 11:33) cough Medications ???Medication ???Instructions ???Recorded ???Confirmed ???Type metoprolol succinate 50 mg 50 mg PO DAILY 02/14/17 03/10/25 H istory tablet,extended release 24 hr multivitamin 1 tab PO DAILY 07/30/18 03/10/25 H istory fenofibrate micronized 67 mg 67 mg PO DAILY 09/11/21 03/10/25 H istory capsule famotidine 20 mg tablet 20 mg PO BID 03/04/24 03/10/25 His tory simvastatin 40 mg tablet 40 mg PO QHS #90 tabs 03/04/24 Rx WM-iuplkxklydb-glqel c ox-Zn ER 500 1 tab PO DAILY 01/28/25 03/10/25 History mcg-750 mg-1.5 mg-25 mg tablet,ER losartan 50 mg tablet 50 mg PO DAILY 03/02/25 03/10/25 H istory Have you fallen in the past year?: No Nurse's Note: pt here for post op right shoulder melanoma in situ of back Subjective Details: Operative Information Date of Procedure: 03/02/25 Pre-Operative Diagnosis: 1) 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 No fevers, chills, or drainage. Pain controlled. Pathology not yet back. Objective Details: Right lower neck incision c/d/i Prineo in place No infection or fluid collection Coding Level of Care Code Global Post Op Diagnoses Melanoma in situ of back D03.59 [facility] Medical History History of steroid therapy Wears glasses Cancer Alcohol use High cholesterol Back pain Ocular migraine Syncope Non-smoker History of pain when walking History of echocardiogram History of stress test Cardiology follow-up encounter Heart murmur Epistaxis, recurrent Nonrheumatic aortic (valve) stenosis with insufficiency GERD (gastroesophageal reflux disease) Bicuspid aortic valve Essential (primary) hypertension Surgical History Dupuytren's contracture of both hands (08/28/22) H/O colonoscopy Family History Father Aortic aneurysm Social History Smoking Status: Never smoker alcohol intake: current alcohol intake frequency: holidays/special occasions only substance use type: does not use caffeine: Yes Type: coffee Number of servings: 1 Assessment and Plan (No Qualifiers) Assessment and Plan (1) Melanoma in situ of back: Status: Acute Comment: Right upper back Lentigo maligna subtype Excised 02 Mar 2025 with 1 cm margins Plan: F/u pathology F/u in 1 week for Prineo tape removal and to review pathology/check on wound. 03/10/25 1136 Date Galileo Grover MD Cosigner Signature: Date (if applicable) CC: Normal [facility] Cardiology Visit Reporton Cardiology Visit Report [facility] [address] [place] [address] OFFICE VISIT Date of Service: 03/04/25 MR#: [id number] Acct: [id number] Name: EMI ESCALONA Rep #: [id number] : 1950 Provider: CARLOS Crane Age/Sex: 74/M Location: [facility] [place] [facility] Status: Signed HPI HPI History of Present Illness Details: EMI ESCALONA, is a 74 M with a history of of hypertension, stenotic aortic valve. Echocardiogram in 07/2024 demonstrated left ventricular ejection fraction is 65 %, Bicuspid aortic valve, Mild (1+) aortic valve insufficiency, Stage 1 diastolic dysfunction, Mean aortic valve gradient 22 mmHg. From a cardiac standpoint, patient is doing well. He does not have any chest discomfort/heaviness /tightness. His exercise tolerance is stable for his age. He does not have any worsening symptoms of shortness of breath. He denies any PND. He does not have any orthopnea. He does not have any symptoms of congestive heart failure. He does not have any palpitations that he is aware of. He does not have any lightheadedness or dizziness. He does not have any near-syncope or syncope. He does not have any lower extremity edema. He does not have any symptoms of claudication. Intake Vital Signs 03/04/24 10:26 01/30/25 10:30 03/04/25 07:17 Height 5 ft 8 in 5 ft 8 in 5 ft 8 in Weight: 186 lb BMI 28.3 BP 141/80 H Blood Pressure Location Lt brachial Position Sitting Respiration 18 Pulse 64 Pulse Source Monitor Pulse Oximetry (%) 97 Intake Visit Reasons: 1 Y FU Mail Processing Associate Required: No Is patient in pain?: No Allergies lisinopril Adverse Reaction (Verified 03/04/25 13:29) cough Medications ???Medication ???Instructions ???Recorded ???Confirmed ???Type metoprolol succinate 50 mg 50 mg PO DAILY 02/14/17 03/04/25 H istory tablet,extended release 24 hr multivitamin 1 tab PO DAILY 07/30/18 03/04/25 H istory fenofibrate micronized 67 mg 67 mg PO DAILY 09/11/21 03/04/25 H istory capsule famotidine 20 mg tablet 20 mg PO BID 03/04/24 03/04/25 His tory simvastatin 40 mg tablet 40 mg PO QHS #90 tabs 03/04/24 Rx AM-lkhpclbwufe-jbfpj c ox-Zn ER 500 1 tab PO DAILY 01/28/25 03/04/25 History mcg-750 mg-1.5 mg-25 mg tablet,ER losartan 50 mg tablet 50 mg PO DAILY 03/02/25 03/04/25 H istory Ejection fraction %: 60 Have you fallen in the past year?: No PFSH Medical History History of steroid therapy Wears glasses Cancer Alcohol use High cholesterol Back pain Ocular migraine Syncope Non-smoker History of pain when walking History of echocardiogram History of stress test Cardiology follow-up encounter Heart murmur Epistaxis, recurrent Nonrheumatic aortic (valve) stenosis with insufficiency GERD (gastroesophageal reflux disease) Bicuspid aortic valve Essential (primary) hypertension Surgical History Dupuytren's contracture of both hands (08/28/22) H/O colonoscopy Family History Father Aortic aneurysm Social History Smoking Status: Never smoker alcohol intake: current alcohol intake frequency: holidays/special occasions only substance use type: does not use caffeine: Yes Type: coffee Number of servings: 1 ROS Const Const: Negative for fatigue, weakness, headache(s) or frequent falls Eyes Eyes: Negative for blurry vision ENT ENT: Negative for headache(s), dizziness or Nosebleed/epistaxis Cardio Chest Pain: No Palpitations: No Edema: None Muscle aches with walking: None Resp Respiratory: Negative for SOB with activity, SOB at rest or SOB orthopnea SOB lying down GI GI: Positive for heartburn; Negative nausea, vomiting, bright, red blood in stools or black,tarry stools : Negative for hematuria Neuro Neuro: Negative for dizziness, lightheadedness, near syncope, syncope, frequent falls, headache(s), weakness or blurry vision Endo Endo: Negative for fatigue Cardiology Exam Const Appearance: cooperative, healthy appearing, comfortable, no acute distress and well developed Orientation: alert, awake and oriented x3 Head Head: normal to inspection Ears: hearing grossly normal bilaterally Nose: external nose normal Face and Sinus: face symmetric Mouth: oral mucosae normal, lip normal and moist mucous membranes Eyes General: appearance normal, both eyes and all related structures Eyelids: eyelids normal Conjunctivae: conjunctivae normal Pupils: PERRL EOM: EOM intact bilaterally Neck Neck: normal visual inspection and trachea midline; Negative no JVD (more content not included)... Normal [facility] H AND P Exam - Surgicalon H&P Exam - Surgical [facility] Medical Records Department [address] [place] [id number] H P Exam - Surgical 03/02/25 0725 MR#: [id number] Acct: [id number] Name: EMI ESCALONA Rep #: [id number] : 1950 74 From: Galileo Grover MD PCP: Dr. 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 Dr. Kentrell Jeffries from [place] dermatology took a shave biopsy of the lesion on 28 December 2024. He referred the patient to me for wide local excision with 9 mm margins (given the lentigo maligna subtype). Patient reports history of nonmelanoma skin cancers (squamous cell carcinoma). We discussed sunscreen and sun protection today. He is not a smoker. No diabetes No new or changing headaches Current Encounter (DATE OF SURGERY H P UPDATE): I saw and examined the patient this morning in pre- operative holding. We discussed risks and benefits of today's surgery and they would like to proceed. NO CHANGE in health history since last seen and evaluated except he had a viral URI that he has since recovered from (why first surgery was rescheduled). Ready to proceed with surgery. [facility] Medical History History of steroid therapy Wears glasses Cancer Alcohol use High cholesterol Back pain Ocular migraine Syncope Non-smoker History of pain when walking History of echocardiogram History of stress test Cardiology follow-up encounter Heart murmur Epistaxis, recurrent Nonrheumatic aortic (valve) stenosis with insufficiency GERD (gastroesophageal reflux disease) Bicuspid aortic valve Essential (primary) hypertension Home Medications ???Medication ???Instructions ???Recorded ???Last Taken ???Type metoprolol succinate 50 mg 50 mg PO DAILY 02/14/17 03/02/25 H istory tablet,extended release 24 hr multivitamin 1 tab PO DAILY 07/30/18 03/01/25 H istory fenofibrate micronized 67 mg 67 mg PO DAILY 09/11/21 03/01/25 H istory capsule famotidine 20 mg tablet 20 mg PO BID 03/04/24 03/02/25 His tory simvastatin 40 mg tablet 40 mg PO QHS #90 tabs 03/04/24 Rx JY-hrwlsgzmsjs-glmpo c ox-Zn ER 500 1 tab PO DAILY 01/28/25 03/01/25 History mcg-750 mg-1.5 mg-25 mg tablet,ER losartan 50 mg tablet 50 mg PO DAILY 03/02/25 03/01/25 H istory Allergy/AdvReac Type Severity Reaction Status Date / Time lisinopril AdvReac cough Verified 03/02/25 06:29 Family History Father Aortic aneurysm Surgical History Dupuytren's contracture of both hands (08/28/22) H/O colonoscopy Social History Smoking Status: Never smoker alcohol intake: current alcohol intake frequency: holidays/special occasions only substance use type: does not use caffeine: Yes Type: coffee Number of servings: 1 Vital Signs Vital Signs Vital Signs: 03/02/25 06:32 03/02/25 06:32 03/02/25 06:45 Temperature 97.4 F L 97.4 F L Temperature Source Temporal Pulse Rate 54 L 54 L Respiratory Rate 18 18 Respiratory Pattern Normal Blood Pressure 157/77 H 157/77 H Blood Pressure Mean 103 Blood Pressure Source Monitor Blood Pressure Position Semi-Fowlers Blood Pressure Location Left Arm Pulse Ox 99 99 Oxygen Delivery Method Room Air Weight Weight: 182 lb 15.739 oz Body Mass Index (BMI) 27.8 Physical Exam Narrative No axillary or neck lymphadenopathy on my exam He has a 1 x 1 cm area of fresh scar status post shave biopsy on the right upper back over the inferior aspects of the trapezium towards his neck. There are some brown melanocytes around the shave scar. I marked the spot with the patient in agreement (we went over previous photos and agreed on the biopsy location in preop holding) Assessment Plan Assessment/Plan (1) Melanoma in situ of back: PLAN: Right upper back Lentigo maligna subtype Plan: Discussed with the patient that we need at least 9 mm margins around the melanoma in situ given that it is the lentigo maligna subtype. I recommended that we do 1 cm margins around the lesion as if there is an area of invasive melanoma on final pathology, then we will have final margins for this as well. He was in agreement and would like to proceed with 1 cm margins. I talked him about the risks, benefits, and alternatives to the wide local excision procedure. We talked about potential complications such as infection, bleeding, wound healing (more content not included)... Normal [facility] Immunohistochemical Stainson 03-02-2025 Immunohistochemical Stains Patient Age/Sex Location Account Attending Physician EMI ESCALONA 74/M [facility] [place] [id number] Dr. Galileo Grover MD Specimen: [id number] Received: 03/02/25 Status: VIRI Francecarleen Num: [id number] Spec Type: Lesion Subm Dr: Dr. Galileo Grover MD HEADER OPERATION: Excision right upper back melanoma in situ PRE-OP DIAGNOSIS: Melanoma in situ on right back TISSUE SUBMITTED: A- Melanoma right upper back *short stitch- superior, long stitch- lateral* MICROSCOPIC DIAGNOSIS A. Skin, right upper back, melanoma in situ, wide excision: * Negative for residual melanoma in situ (surgical margins free) - see Comment. * Focal benign intradermal melanocytic nevus (incidental), margins free. * IHC for Melan-A supports the diagnosis (A5,6,7). COMMENT A preliminary diagnosis was reported to Alexia (nurse) at Dr Grover's office 11:30 AM, 03/10/25. Selected slides/images were reviewed in intradepartmental consultation by Dr Brianna Banegas (dermatopathology division, [facility]). MICROSCOPIC DESCRIPTION Slides are reviewed. All matched controls reacted appropriately. These tests were developed and their performance characteristics determined by [facility]. They may not have been cleared or approved by the U.S. Food and Drug Administration. The FDA has determined that such clearance or approval is not necessary.??? The above immunohistochemical/ dualISH???markers are ordered and reviewed by the Pathologist. GROSS DESCRIPTION A. Received in formalin in a container labeled with the patient's name, date of , and melanoma R upper back short superior long lateral is an oriented and ovoid skin excision with a short stitch indicating superior and long stitch indicating lateral margin. The specimen is 3.0 cm from medial to lateral, 2.3 cm from superior to inferior, with an excisional depth up to 1.7 cm. The white-vogt, wrinkled epidermis is notable for an irregular, ill-defined, paul-pink scar.Scar measurement: 1.1 x 0.9 cm. It is situated to the margins as follows:Superior: 0.7 cmLateral: 0.8 cmInferior: 0.8 cmMedial: 1.1 cm The superior half is inked blue, and the inferior half is inked black. The specimen is serially sectioned from lateral to medial into 8 slices to reveal that the Patient Age/Sex Location Account Attending Physician EMI ESCALONA 74/M [facility] [place] [id number] Dr. Galileo Grover MD scar is situated within slices 4-6, towards the midportion of the specimen. The scar exhibits white-paul surfaces that appear confined to the epidermis. The underlying fibrofatty tissue is vogt-yellow, lobulated, with scattered red-brown hemorrhage. The specimen is submitted entirely and sequentially as follows:A1. Slice 1, perpendicular sections of lateral endA2. Slice 2A3. Slice 3A4. Slice 4 with scarA5. Slice 5 with scarA6. Slice 6 with scarA7. Slice 7A8. Slice 8, perpendicular sections of medial and B 03-03-2025 CPT:02647, 73540 Patient Age/Sex Location Account Attending Physician EMI ESCALONA 74/M [facility] [place] [id number] Dr. Galileo Grover MD Signed (signature on file) Dr. Evette Zamorano MD 03/10/25 1333 Normal [facility] Comment on above: Performed By: #### P [facility] ####[facility] [id number] [facility] [place], [address] MR/[email or web address].ANEalex 03-02-2025 MR/POSTOP.[facility] Medical Records Department [address] [place] [address] Anesthesia Postop Eval I 03/02/25 0822 MR#: [id number] Acct: [id number] Name: EMI ESCALONA Rep #: [id number] : 1950 74 From: Robert Molina CRNA PCP: Dr. Justin Ho MD Status:REG [facility] Y Race: C Location: [place] [address] Anesthesia: Postop Eval I Current Vital Signs Temperature: 97.7 F Pulse Rate: 66 Blood Pressure: 115/66 Respiratory Rate: 20 Pulse Ox: 97 Oxygen Delivery Method: Room Air Assessment Airway patent: Yes Spontaneous unlabored respirations: Yes Mental status: Awake and Calm nausea: No Vomiting: No Anesthesia Complication: No Fluid Hydration Crystalloid volume administer (ml): 800 Total IV fluid infused: 800 Progress Note Anesthesia document: Postop Eval 1 completed: Yes 03/02/25822 Date Robert Molina [employer] Cosigner Signature: Date CC: Signed Normal [facility] MR/[id number] 03-02-2025 [facility] Medical Records Department [address] [place] [address] Anesthesia Postop Eval II 03/02/2549 MR#: [id number] Acct: [id number] Name: EMI ESCALONA Rep #: [id number] : 1950 74 From: Lamberto Mcqueen MD PCP: Dr. Justin Ho MD Status:REG [facility] Y Race: C Location: [place] [address] Anesthesia Postop Eval I Sum Postop Eval Completion status Anesthesia document: Postop Eval 1 completed: Yes Anesthesia Postop Eval I Summary Anesthesia Postop Eval I Summary: Anesthesia Postop Eval I: Assessment Summary Airway patent Yes 03/02/25 08:23 [email or web address][email or web address] Spontaneous unlabored Yes 03/02/25 08:23 [employer]PKEL respirations Mental status Awake,Calm 03/02/25 08:23 [employer][email or web address] nausea No 03/02/25 08:23 [employer][email or web address] Vomiting No 03/02/25 08:23 [employer]PKEL Anesthesia Postop Eval I: Fluid Summary Crystalloid volume administer 800 03/02/25 08:23 [employer].PKEL (ml) Colloids volume administered ( ml) Blood Product volume administered (ml) Total IV fluid infused 800 03/02/25 08:23 [employer].PKEL Anesthesia Postop Eval I: Summary Notes Anesthesia Complication No 03/02/25 08:23 [employer][email or web address] Anesthesia Complication Comment: Post-operative progress note Anesthesia: Postop Eval II Evaluation Mental status: Awake Pain Level: 0 nausea: No Vomiting: No 03/02/25 0849 Date Lamberto Siddiqi Signature: Date CC: Signed Normal [facility] Operative Reporton 5 Operative Report [facility] Medical Records Department [address] [place] [address] Operative Report 03/02/25819 MR#: [id number] Acct: [id number] Name: EMI ESCALONA Rep #: [id number] : 1950 74 From: Galileo Grover MD PCP: Dr. Justin Ho MD Status:[facility] Location: [facility] Operative Report (Standard) Operative Information Date of Procedure: 03/02/25 Pre-Operative Diagnosis: 1) Right lateral trapezial neck melanoma in situ (lentigo maligna subtype) Post-Operative Diagnosis: Same Surgery/Procedure Performed: 1) Excision of right lateral trapezial neck melanoma in situ (lentigo maligna subtype) with 1 cm margins, 2.5 x 3.5 cm (CPT: 75815) 2) Intermediate closure of right lateral neck wound after melanoma in situ excision, 6 cm (CPT 38624) professional tutor: Yes Website Developer: Shalini Bingham Tasks completed by placement assistant: Retracting Type of Anesthesia: MAC/Supplemental (15 cc of 50-50 mixture of 1% lidocaine with 1-200,000 epinephrine and quarter percent Marcaine with 1-200,000 epinephrine) RN Documented Start/Stop Times: Operation Date: 03/02/25 07:30 Case Time Into Pre-Op 03/02/25 06:17 Anesthesia Start 03/02/25 07:28 Into Room 03/02/25 07:28 Out of Pre-Op 03/02/25 07:29 Procedure Start 03/02/25 07:54 Procedure End 03/02/25 08:12 Anesthesia End 03/02/25 08:16 Out of Room 03/02/25 08:16 Procedure Start Time: 07:54 Procedure Stop Time: 08:12 Select all DRAINS/GRAFTS/IMPLAN TS that apply: None Estimated Blood Loss: Minimal Specimen collected: Yes Description of specimen(s) removed: Melanoma in situ excision (lentigo maligna subtype and therefore 1 cm margins), marked short superior, long lateral with a silk stitch Description of surgery: Indications: Patient is a delightful 74-year-old male with a biopsy-proven (shave) lentigo maligna subtype melanoma in situ on the right lateral trapezial neck. I confirmed the biopsy site with Dr. Kentrell Jeffries who is the ground support equipment fitter. I confirmed the biopsy site with the patient and marked him in preoperative holding. All parties were in agreement with the site marking. I talked him about the risks, benefits, and alternatives of excision, and we talked about the 1 cm margins (recommended 5 to 9 mm margins for the melanoma in situ 1 it is lentigo maligna subtype but given location and potential for some invasive component, 1 cm margins obtained and patient happy with the plan). He elected to proceed with surgery. Procedure details: Patient was correctly identified in preoperative holding and taken back to the operating room where he was administered sedation and the above-noted local anesthesia. He was given time to take effect and he was prepped and draped in sterile fashion and a timeout was performed. A 15 blade scalpel was used to excise around the lesion for total excision of 2.5 x 3.5 centimeters down to trapezial fascia (full-thickness through the subcutaneous tissue). Hemostasis obtained with Bovie electrocautery. The wound was irrigated with copious amounts normal saline. New instruments were used for the closure. The specimen was marked short superior long lateral with a silk marking stitch and sent to pathology. 2-0 PDS deep fascial sutures and deep dermal sutures were placed as well as 3-0 Monocryl deep dermal and 3-0 Monocryl running subcuticular sutures and Prineo tape. The total intermediate closure was 6 cm. Patient tolerated the procedure well. He was awakened and taken to the PACU in stable condition. Postoperative plan: Okay to get Prineo tape wet tomorrow. Follow-up in 1 week in clinic to review pathology and for wound check. Surgical Findings: Able to close without significant tension (intermediate, primary closure) Complications Complications: No Admit VTE Documentation VTE Mechan Device Prophylaxis: SCD's 03/02/25 0828 Cosigner Signature (if applicable): CC: Dr. Justin Ho MD; Dr. Galileo Grover MD Signed ADDENDUM by Dr. Galileo Grover MD on 03/10/25 at 1659 Addendum Name: ???Insert Gregorio Melanoma ??? Synoptic Portion: Element Response Options Operation performed with curative intent. [Yes Original Breslow thickness of the lesion [Melanoma in situ (MIS)] Clinical margin width (measured from the edge of the lesion or the prior excision scar 1 cm because of lentigo maligna subtype (see below) Depth of excision Full-thickness skin/subcutaneous tissue down to fascia 03/10/25 165 Cosigner Signature (if applicable): cc: Dr. Justin Ho MD; Dr. Galileo Grover MD * Signed Normal [facility] Urgent Care Visit Reporton 0 01-30-2025 Urgent Care Visit Report [facility] [address], [address] [place] [address] OFFICE VISIT Date of Service: 01/30/25 MR#: [id number] Acct: [id number] Name: EMI ESCALONA Rep #: [id number] : 1950 Provider: ISRA murphy Age/Sex: 74/M Location: [facility] [facility] Status: Signed Intake Vital Signs 03/04/24 10:26 01/30/25 10:30 Height 5 ft 8 in 5 ft 8 in Weight: 184 lb 6 oz BMI 28.0 BP 154/80 H Blood Pressure Location Lt brachial Position Sitting Respiration 16 Pulse 73 Pulse Source NIBP Temp 98.9 F Temp Source Oral Pulse Oximetry (%) 98 Oxygen Delivery Method room air Intake Visit Reasons: Wheezing Chief Complaint: chest congest, wheezing Is patient in pain?: No Allergies lisinopril Adverse Reaction (Verified 01/30/25 10:31) cough Medications ???Medication ???Instructions ???Recorded ???Confirmed ???Type metoprolol succinate 50 mg 50 mg PO DAILY 02/14/17 01/30/25 H istory tablet,extended release 24 hr multivitamin 1 tab PO DAILY 07/30/18 01/30/25 H istory fenofibrate micronized 67 mg 67 mg PO DAILY 09/11/21 01/30/25 H istory capsule famotidine 20 mg tablet 20 mg PO BID 03/04/24 01/30/25 His tory simvastatin 40 mg tablet 40 mg PO QHS #90 tabs 03/04/24 Rx TX-nwsjoovszel-hxeqd c ox-Zn ER 500 1 tab PO DAILY 01/28/25 01/30/25 History mcg-750 mg-1.5 mg-25 mg tablet,ER doxycycline hyclate 100 mg capsule 100 mg PO BID 7 days #14 caps 01/30/25 Rx prednisone 20 mg tablet 40 mg (2 x 20 mg) PO QDAY 5 days 0 01/30/25 01/30/25 Rx #10 tabs Have you fallen in the past year?: No Nurse's Note: chest congest, wheezing x 2 days. viral s/s for 2-3 days prior. pt states anytime he gets viral illness or cold s/s this settles in chest. hx pneumonia x2, concern for same. [facility] Medical History (Updated 01/28/25 @ 08:46 by Rachel Stein) Wears glasses Cancer Alcohol use High cholesterol Back pain Ocular migraine Syncope Non-smoker History of pain when walking History of echocardiogram History of stress test Cardiology follow-up encounter Heart murmur Epistaxis, recurrent Nonrheumatic aortic (valve) stenosis with insufficiency GERD (gastroesophageal reflux disease) Bicuspid aortic valve Essential (primary) hypertension Surgical History Dupuytren's contracture of both hands (08/28/22) H/O colonoscopy Family History Father Aortic aneurysm Social History Smoking Status: Never smoker alcohol intake: current alcohol intake frequency: holidays/special occasions only substance use type: does not use caffeine: Yes Type: coffee Number of servings: 1 HPI HPI Chief Complaint: chest congest, wheezing Details: EMI ESCALONA, is a 74 M who presents to the office today for concerns regarding wheezing. He acknowledges respiratory symptoms over the last 3-4 days. He states a history of upper respiratory infection that tend to settle into my lungs. He also acknowledges a history of pneumonia. His wheezing has been ongoing for 2 days. He states sore throat that was followed by fatigue. His sore throat is resolved. He states a history of seasonal allergies. He recently cancelled a surgery due to current illness. He used in albuterol twice over the last two days with some improvement. ROS Const Constitutional: Positive for fatigue; No body ache, chills, fever(s), headache(s) or change in appetite Eyes Eyes: No blurry vision, change in vision, double vision, irritation, discharge, vision loss, dry eyes, bulging eyes, floaters, visual disturbances, eye pain, Light sensitivity, spots in vision, tunnel vision or other ENT ENT: Positive for sore throat; No ear or mastoid pain, ear discharge, ear pressure, tinnitus, dizziness/vertigo, nosebleed/epistaxis, nasal congestion, nose pain, sinus pressure, sinus pain, nasal discharge, post nasal drip, headache(s), facial pain, dental pain, difficulty swallowing, bad breath, hoarseness, lip swelling, mouth lesions, mouth pain, neck pain, tongue swelling or throat swelling Resp Respiratory: Positive for cough Cough: Yes non-productive and wheezing (at night); No change in phlegm color, chest congestion, hemoptysis, pain on inspiration, shortness of breath, pain with cough or stridor Cardio Cardiology: No chest pain at rest, chest pain with exertion, shortness of breath, dyspnea on exertion or lightheadedness Gastro GI: No abdominal pain, change in bowel habits or difficulty swallowing Genitourinary Male: No burning urination or urinary frequency Musc Musculoskeletal: No joint pain or neck pain Skin Skin: No rash Neuro (more content not included)... Normal [facility] MR/PATDuane 01-28-2025 MR/PAT.[facility] Medical Records Department [address] [place] [address] PAT - Anesthesia 01/28/25 0910 MR#: [id number] Acct: [id number] Name: CELIEMI HAMILTON Rep #: [id number] : 1950 74 From: Lamberto Mcqueen MD PCP: Dr. Justin Ho MD Status:PRE [facility] [place] Race: C [place] [facility] [place] Pre-Assessment Diagnosis/Proposed Procedure Planned Operative Procedure(s): EXCISION RIGHT UPPER BACK MELANOMA IN SITU POSS DERMAL SUBSTITUTE PLACEMENT Anesthesia History Anesthesia History - improvement leader: Anesthesia History - improvement leader Hx Hospitalization No 01/28/25 08:37 Any Problems With Anesthesia No 01/28/25 08:37 Cholinesterase deficiency No 01/28/25 08:37 You/Your Family Experience No 01/28/25 08:37 fever (hyperthermia) with Relationship Recent Exposure to Contagious Disease Does patient have nerve No 01/28/25 08:37 stimulator Patient instructed to have device shut off --Does patient have Pacemaker or ICD? When Was Last Pacemaker Check QUESTION #4 FULL TEXT: You/Your Family Experience fever (hyperthermia) with Anesthesia Last Oral Intake Last Oral intake: Last Oral Intake NPO since Meds taken in AM with sips of water? Meds patient instructed to take am of surgery PONV PONV - improvement leader: PONV - improvement leader Female No 01/28/25 08:37 HX of Motion Sickness No 01/28/25 08:37 HX of N/V After Surgery No 01/28/25 08:37 Non-Smoker Yes 01/28/25 08:37 Duration of Surgery greater Yes 01/28/25 08:37 than 60 minutes Number of Risk Factors 2 01/28/25 08:37 PONV Score Moderate Risk 01/28/25 08:37 Height Weight Height Weight: Anesthesia: Height Weight Height 5 ft 8 in 03/04/24 10:26 Respiratory Assessment Respiratory Assessment - improvement leader: Respiratory Tract Infection Hx - improvement leader Hx Respiratory Tract Infection No 01/28/25 08:37 STOP Sleep Apnea STOP Sleep Apnea - improvement leader: STOP Sleep Apnea - improvement leader Hx Hypertension Yes: CONTROLLED WITH MED 01/28/25 08:37 Hx Sleep Apnea No 01/28/25 08:37 CPAP BIPAP Do you snore loudly (louder Yes 01/28/25 08:37 than talking or can be heard Do you often feel tired/ No 01/28/25 08:37 fatigued/ sleepy during daytime? Has anyone observed you stop No 01/28/25 08:37 breathing during sleep? STOP Results Positive 01/28/25 08:37 QUESTION #5 FULL TEXT : Do you snore loudly (louder than talking or can be heard through closed doors)? 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 confused, unrespo /Reproducti on History /Reproducti ve History - improvement leader: /Reproducti ve Hx- improvement leader Hx Now No 01/28/25 08:37 Gestational Age (in weeks): EDC: Hx Hx Para Hx Section SAB No 01/28/25 08:37 PFSH Medical History (Updated 01/28/25 @ 08:46 by Rachel Stein) Wears glasses Cancer Alcohol use High cholesterol Back pain Ocular migraine Syncope Non-smoker History of pain when walking History of echocardiogram History of stress test Cardiology follow-up encounter Heart murmur Epistaxis, recurrent Nonrheumatic aortic (valve) stenosis with insufficiency GERD (gastroesophageal reflux disease) Bicuspid aortic valve Essential (primary) hypertension Home Medications ???Medication ???Instructions ???Recorded ???Last Taken ???Type metoprolol succinate 50 mg 50 mg PO DAILY 02/14/17 Unknown Hi story tablet,extended release 24 hr multivitamin 1 tab PO DAILY 07/30/18 Unknown Hi story fenofibrate micronized 67 mg 67 mg PO DAILY 09/11/21 Unknown Hi story capsule losartan 50 mg tablet 50 mg PO DAILY 09/11/21 Unknown Hi story famotidine (more content not included)... Normal [facility] Absolute lymphocyte countOrd ered By: Justin Ho on 01-26-2025 Lymphocytes Auto (Unsp spec) [#/Vol] 1.91 10*3/uL 0.83-4.51 [facility] Absolute neutrophil countOrd ered By: Justin Ho on 01-26-2025 Neutrophils (Bld) [#/Vol] 2.9 10*3/uL 2.0-7.7 [facility] Anion gap in Serum or Plasma Ordered By: Justin Ho on 01-26-2025 Anion gap [Moles/Vol] 11 mmol/L 5- [facility] Automated lymphocyte count a s percentage of total leukocytesOrdered By: Justin Ho on 01-26-2025 Lymphocytes/100 WBC Auto (Unsp spec) 32.2 % 19- [facility] BUN/creatinine ratioOrdered By: Justin Ho on 01-26-2025 Urea nitrogen/Creatinine [Mass ratio] 12.4 mg/mg 10- [facility] Basophil percentageOrdered B y: Justin Ho on 01-26-2025 Basophils/100 WBC (Bld) 0.7 % 0-1 [facility] Bilirubin, totalOrdered By: Justin Ho on 01-26-2025 Bilirubin [Mass/Vol] 0.73 mg/dL 0.00-1.30 [facility] CBC W/Diff, Automatedon 01-11 Absolute Lymph 1.91 X10 3/uL Normal 0.83-4.51 [facility] Comment on above: Order Comment: Order Date: 01/20/25 Order Info: [id number] - CBCD Performed By: #### L 500.4050, L100.0100, L500.4100 #### [facility] Laboratory [facility] [address], [address] Absolute Neut 2.9 X10 3/uL Normal 2.0-7.7 [facility] Comment on above: Order Comment: Order Date: 01/20/25 Order Info: [id number] - CBCD Performed By: #### L 500.4050, L100.0100, L500.4100 #### [facility] Laboratory [address] [place], [address] Basophils/100 WBC (Bld) 0.7 % Normal 0-1 [facility] Comment on above: Order Comment: Order Date: 01/20/25 Order Info: [id number] - CBCD Performed By: #### L 500.4050, L100.0100, L500.4100 #### [facility] Laboratory [address] [place], [address] Eosinophils/100 WBC (Bld) 7.6 % High 0-5 [facility] Comment on above: Order Comment: Order Date: 01/20/25 Order Info: 0184-1 - CBCD Performed By: #### L 500.4050, L100.0100, L500.4100 #### [facility] Laboratory [address] [place], [address] Erythrocyte distribution width (RBC) [Ratio] 13.1 % Normal 11.6-14.6 [facility] Comment on above: Order Comment: Order Date: 01/20/25 Order Info: 0184-1 - CBCD Performed By: #### L 500.4050, L100.0100, L500.4100 #### [facility] Laboratory [address] [place], [address] Hematocrit (Bld) [Volume fraction] 40.8 % Normal 40-54 [facility] Comment on above: Order Comment: Order Date: 01/20/25 Order Info: 0184-1 - CBCD Performed By: #### L 500.4050, L100.0100, L500.4100 #### [facility] [address] [place], [address] Hemoglobin (Bld) [Mass/Vol] 14.0 g/dL Normal 13.0-16.5 [facility] Comment on above: Order Comment: Order Date: 01/20/25 Order Info: 0184-1 - CBCD Performed By: #### L 500.4050, L100.0100, L500.4100 #### [facility] Laboratory [address] [place], [address] IG% 0.500 Normal 0.0-0.9 [facility] Comment on above: Order Comment: Order Date: 01/20/25 Order Info: [id number]- - CBCD Result Comment: IG% - Immature Granulocytes (promyelocytes, myelocytes and metamyelocytes) > 1% indicates that a LEFT SHIFT is Present. Performed By: #### L 500.4050, L100.0100, L500.4100 #### [facility] [address] [place], [address] Lymphocytes/100 WBC (Bld) 32.2 % Normal 19-41 [facility] Comment on above: Order Comment: Order Date: 01/20/25 Order Info: [id number] - CBCD Performed By: #### L 500.4050, L100.0100, L500.4100 #### [facility] Laboratory [address] [place], [address] MCH (RBC) [Entitic mass] 29.5 pg Normal 27.0-32.0 [facility] Comment on above: Order Comment: Order Date: 01/20/25 Order Info: 018- - CBCD Performed By: #### L 500.4050, L100.0100, L500.4100 #### [facility] Laboratory [address] [place], [address] MCHC (RBC) [Mass/Vol] 34.3 g/dL Normal 32-36 [facility] Comment on above: Order Comment: Order Date: 01/20/25 Order Info: 018- - CBCD Performed By: #### L 500.4050, L100.0100, L500.4100 #### [facility] Laboratory [address] [place], [address] MCV (RBC) [Entitic vol] 85.9 fL Normal 80-94 [facility] Comment on above: Order Comment: Order Date: 01/20/25 Order Info: [id number] - CBCD Performed By: #### L 500.4050, L100.0100, L500.4100 #### [facility] Laboratory [address] [place], [address] Monocytes/100 WBC (Bld) 10.6 % High 0-10 [facility] Comment on above: Order Comment: Order Date: 01/20/25 Order Info: [id number] - CBCD Performed By: #### L 500.4050, L100.0100, L500.4100 #### [facility] Laboratory [address] [place], [address] Neutrophils/100 WBC (Bld) 48.4 % Normal 47-70 [facility] Comment on above: Order Comment: Order Date: 01/20/25 Order Info: 0184-1 - CBCD Performed By: #### L 500.4050, L100.0100, L500.4100 #### [facility] Laboratory [address] [place], [address] Nucleated RBC (Bld) [#/Vol] 0 10*3/uL Normal 0-5 [facility] Comment on above: Order Comment: Order Date: 01/20/25 Order Info: 0184-1 - CBCD Performed By: #### L 500.4050, L100.0100, L500.4100 #### [facility] Laboratory [address] [place], [address] Platelet mean volume (Bld) [Entitic vol] 10.6 fL Normal 6.2-12.0 [facility] Comment on above: Order Comment: Order Date: 01/20/25 Order Info: [id number] - CBCD Performed By: #### L 500.4050, L100.0100, L500.4100 #### [facility] Laboratory [address] [place], [address] Platelets (Bld) [#/Vol] 177 10*3/uL Normal 150-450 [facility] Comment on above: Order Comment: Order Date: 01/20/25 Order Info: [id number] - CBCD Performed By: #### L 500.4050, L100.0100, L500.4100 #### [facility] Laboratory [address] [place], [address] RBC (Bld) [#/Vol] 4.75 10*6/uL Normal 4.6-6.2 [facility] Comment on above: Order Comment: Order Date: 01/20/25 Order Info: [id number] - CBCD Performed By: #### L 500.4050, L100.0100, L500.4100 #### [facility] Laboratory [address] [place], [address] RDW SD 40.6 fl Normal 35.1-43.9 [facility] Comment on above: Order Comment: Order Date: 01/20/25 Order Info: 0184-1 - CBCD Performed By: #### L 500.4050, L100.0100, L500.4100 #### [facility] Laboratory [address] [place], [address] WBC (Bld) [#/Vol] 5.9 10*3/uL Normal 4.4-11.0 [facility] Comment on above: Order Comment: Order Date: 01/20/25 Order Info: [id number] - CBCD Performed By: #### L 500.4050, L100.0100, L500.4100 #### [facility] Laboratory [address] [place], [address] Calculated very low density lipoprotein (VLDL) cholesterol measurementOrdered By: Justin Ho on 01-26-2025 Calculated very low density lipoprotein (VLDL) cholesterol measurement 35 mg/dL 5-40 [facility] Carbon dioxide, total [Moles /volume] in Central venous bloodOrdered By: Justin Ho on 01-26-2025 CO2 [Moles/Vol] 22.3 mmol/L 21.0-32.0 [facility] Chloride assayOrdered By: Bobo Ho on 01-26-2025 Chloride [Moles/Vol] 106 mmol/L 98-108 [facility] Comprehensive Metabolic Prof ilon 01-26-2025 Albumin [Mass/Vol] 4.1 g/dL Normal 3.4-4.8 [facility] Comment on above: Order Comment: Order Date: 01/20/25 Order Info: [id number] - CMP Order Info: [id number] - LIPID Performed By: #### L 500.4050, L100.0100, L500.4100 #### [facility] Laboratory [address] [place], [address] Albumin/Globulin [Mass ratio] 1.3 {ratio} Normal 0.9-2.4 [facility] Comment on above: Order Comment: Order Date: 01/20/25 Order Info: [id number]- - CMP Order Info: [id number] - LIPID Performed By: #### L 500.4050, L100.0100, L500.4100 #### [facility] Laboratory [address] [place], [address] ALK PHOS 60 U/L Normal 40-129 [facility] Comment on above: Order Comment: Order Date: 01/20/25 Order Info: [id number] - CMP Order Info: [id number] - LIPID Performed By: #### L 500.4050, L100.0100, L500.4100 #### [facility] Laboratory [address] [place], [address] ALT [Catalytic activity/Vol] 22 U/L Normal <=46 [facility] Comment on above: Order Comment: Order Date: 01/20/25 Order Info: [id number] - CMP Order Info: [id number] - LIPID Performed By: #### L 500.4050, L100.0100, L500.4100 #### [facility] Laboratory [address] [place], [address] AST [Catalytic activity/Vol] 29 U/L Normal <=37 [facility] Comment on above: Order Comment: Order Date: 01/20/25 Order Info: [id number] - CMP Order Info: [id number] - LIPID Performed By: #### L 500.4050, L100.0100, L500.4100 #### [facility] Laboratory [address] [place], [address] Bilirubin [Mass/Vol] 0.73 mg/dL Normal 0.00-1.30 [facility] Comment on above: Order Comment: Order Date: 01/20/25 Order Info: [id number] - CMP Order Info: [id number] - LIPID Performed By: #### L 500.4050, L100.0100, L500.4100 #### [facility] Laboratory [address] [place], [address] BUN/CRE 12.4 RATIO Normal 10-20 [facility] Comment on above: Order Comment: Order Date: 01/20/25 Order Info: [id number]- - CMP Order Info: [id number] - LIPID Performed By: #### L 500.4050, L100.0100, L500.4100 #### [facility] Laboratory [address] [place], [address] Calcium [Mass/Vol] 9.4 mg/dL Normal 7.6-11.0 [facility] Comment on above: Order Comment: Order Date: 01/20/25 Order Info: [id number] - CMP Order Info: [id number] - LIPID Performed By: #### L 500.4050, L100.0100, L500.4100 #### [facility] [address] [place], [address] Chloride [Moles/Vol] 106 mmol/L Normal 98-108 [facility] Comment on above: Order Comment: Order Date: 01/20/25 Order Info: [id number] - CMP Order Info: [id number] - LIPID Performed By: #### L 500.4050, L100.0100, L500.4100 #### [facility] [address] [place], [address] CO2 [Moles/Vol] 22.3 mmol/L Normal 21.0-32.0 [facility] Comment on above: Order Comment: Order Date: 01/20/25 Order Info: [id number] - CMP Order Info: [id number] - LIPID Performed By: #### L 500.4050, L100.0100, L500.4100 #### [facility] Laboratory [address] [place], [address] Creatinine [Mass/Vol] 1.25 mg/dL High 0.70-1.20 [facility] Comment on above: Order Comment: Order Date: 01/20/25 Order Info: [id number] - CMP Order Info: [id number] - LIPID Performed By: #### L 500.4050, L100.0100, L500.4100 #### [facility] Laboratory [address] [place], [address] GAP 11 Normal 5-15 [facility] Comment on above: Order Comment: Order Date: 01/20/25 Order Info: [id number]- - CMP Order Info: [id number] - LIPID Performed By: #### L 500.4050, L100.0100, L500.4100 #### [facility] Laboratory [address] [place], [address] GFR/1.73 sq M.predicted among non-blacks MDRD (S/P/Bld) [Vol rate/Area] 61 mL/min/{1.73_m2} Normal >60 [facility] Comment on above: Order Comment: Order Date: 01/20/25 Order Info: [id number] - CMP Order Info: [id number] - LIPID Result Comment: mL/m in/1.73m2 CKD-EPI Creatinine Equation (2020) Performed By: #### L 500.4050, L100.0100, L500.4100 #### [facility] Laboratory [address] [place], [address] Globulin (S) [Mass/Vol] 3.1 g/dL Normal 2.2-4.2 [facility] Comment on above: Order Comment: Order Date: 01/20/25 Order Info: [id number]- - CMP Order Info: [id number] - LIPID Performed By: #### L 500.4050, L100.0100, L500.4100 #### [facility] Laboratory [address] [place], [address] Glucose [Mass/Vol] 109 mg/dL High 70-99 [facility] Comment on above: Order Comment: Order Date: 01/20/25 Order Info: [id number]- - CMP Order Info: [id number] - LIPID Performed By: #### L 500.4050, L100.0100, L500.4100 #### [facility] Laboratory [address] [place], [address] Potassium [Moles/Vol] 4.1 mmol/L Normal 3.3-5.1 [facility] Comment on above: Order Comment: Order Date: 01/20/25 Order Info: [id number]- - CMP Order Info: [id number] - LIPID Performed By: #### L 500.4050, L100.0100, L500.4100 #### [facility] [address] [place], [address] Sodium [Moles/Vol] 140 mmol/L Normal 133-145 [facility] Comment on above: Order Comment: Order Date: 01/20/25 Order Info: [id number] - CMP Order Info: [id number] - LIPID Performed By: #### L 500.4050, L100.0100, L500.4100 #### [facility] [address] [place], [address] T PROT 7.3 g/dL Normal 5.9-8.4 [facility] Comment on above: Order Comment: Order Date: 01/20/25 Order Info: [id number] - CMP Order Info: [id number] - LIPID Performed By: #### L 500.4050, L100.0100, L500.4100 #### [facility] [address] [place], [address] Urea nitrogen [Mass/Vol] 16 mg/dL Normal 4-19 [facility] Comment on above: Order Comment: Order Date: 01/20/25 Order Info: [id number] - CMP Order Info: [id number] - LIPID Performed By: #### L 500.4050, L100.0100, L500.4100 #### [facility] [address] [place], [address] Eosinophil percentageOrdered By: Justin Ho on 01-26-2025 Eosinophils/100 WBC (Bld) 7.6 % High 0-5 [facility] Erythrocyte distribution wid th ratioOrdered By: Justin Ho on 01-26-2025 Erythrocyte distribution width (RBC) [Ratio] 13.1 % 11.6-14.6 [facility] Erythrocyte distribution wid th standard deviationOrdered By: Justin Ho on 01-26-2025 Erythrocyte distribution width (RBC) [Ratio] 40.6 fl 35.1-43.9 [facility] Glomerular filtration rate ( GFR) estimation/1.73 sq m using serum, plasma, or whole bOrdered By: Justin Ho on 01-26-2025 GFR/1.73 sq M.predicted among non-blacks MDRD (S/P/Bld) [Vol rate/Area] 61 mL/min/{1.73_m2} >60 [facility] Comment on above: mL/min/1.73m2 CKD-EP I Creatinine Equation (2020) Hematocrit Auto (Bld) [Volum e fraction]Ordered By: Justin Ho on 01-26-2025 Hematocrit (Bld) [Volume fraction] 40.8 % 40-54 [facility] Hemoglobin measurementOrdere d By: Justin Ho on 01-26-2025 Hemoglobin (Bld) [Mass/Vol] 14.0 g/dL 13.0-16.5 [facility] Immature granulocytes/100 WB C Auto (Bld)Ordered By: Justin Ho on 01-26-2025 Immature granulocytes/100 WBC (Bld) 0.500 % 0.0-0.9 [facility] Comment on above: IG% - Immature Granu locytes (promyelocytes, myelocytes and metamyelocytes) > 1% indicates that a LEFT SHIFT is Present. LDL calc ser/plasOrdered By: Justin Ho on 01-26-2025 Cholesterol in LDL [Mass/Vol] 87 mg/dL [facility] Comment on above: Xuhepgbvur=488-653 m g/dL & Higher Fqhn=244 mg/dL or greater Laboratory - Chemistry and C hemistry - challengeOrdered By: Justin Ho on 01-26-2025 AST [Catalytic activity/Vol] 29 U/L <38 [facility] Lipid Profileon 01-26-2025 CHOL:HDL 3.69 Normal [facility] Comment on above: Order Comment: Order Date: 01/20/25 Order Info: [id number] - CMP Order Info: [id number] - LIPID Performed By: #### L 500.4050, L100.0100, L500.4100 #### [facility] Laboratory [address] [facility] [place], [address] Cholesterol [Mass/Vol] 167 mg/dL Normal <=200 [facility] Comment on above: Order Comment: Order Date: 01/20/25 Order Info: [id number] - CMP Order Info: [id number] - LIPID Result Comment: Chol esterol level, Desirable <200 mg/dL Borderline high cholesterol 200-239 mg/dL High cholesterol >=240 mg/dL Recommendations of the NCEP Adult Treatment Panel for the following risk-cutoff thresholds for the [place] population. Performed By: #### L 500.4050, L100.0100, L500.4100 #### [facility] [address] [place], [address] Cholesterol in HDL [Mass/Vol] 45 mg/dL Normal [facility] Comment on above: Order Comment: Order Date: 01/20/25 Order Info: [id number] - CMP Order Info: [id number] - LIPID Result Comment: Karlene onal Cholesterol Education Program (NCEP) guidelines: <40 mg/dL: Low HDL-cholesterol (major risk factor for CHD) >= 60 mg/dL: High HDL-cholesterol (negative risk factor for CHD) HDL-cholesterol is affected by a number of factors, e.g. smoking, exercise, hormones, sex and age. Performed By: #### L 500.4050, L100.0100, L500.4100 #### [facility] [address] [place], [address] Cholesterol in LDL [Mass/Vol] 87 mg/dL Normal [facility] Comment on above: Order Comment: Order Date: 01/20/25 Order Info: [id number]- - CMP Order Info: [id number] - LIPID Result Comment: Bord haecyd=[phone] mg/dL Higher Luqy=796 mg/dL or greater Performed By: #### L 500.4050, L100.0100, L500.4100 #### [facility] [address] [place], [address] Cholesterol in VLDL [Mass/Vol] 35 mg/dL Normal 5-40 [facility] Comment on above: Order Comment: Order Date: 01/20/25 Order Info: [id number] - CMP Order Info: [id number] - LIPID Performed By: #### L 500.4050, L100.0100, L500.4100 #### [facility] [address] [place], [address] Triglyceride [Mass/Vol] 173 mg/dL Normal [facility] Comment on above: Order Comment: Order Date: 01/20/25 Order Info: [id number] - CMP Order Info: [id number] - LIPID Result Comment: The drugs N-Acetylcysteine and Metamizole may falsely depress this assay. Normal range: <150 mg/dL Borderline High: 150-199 mg/dL High: 200-499 mg/dL Very High: >500 mg/dL Performed By: #### L 500.4050, L100.0100, L500.4100 #### [facility] [address] [place], [place], [id number] MCV (mean corpuscular volume ) determinationOrdered By: Justin Ho on 01-26-2025 MCV (RBC) [Entitic vol] 85.9 fL 80-94 [facility] Mean corpuscular hemoglobin (MCH) determinationOrdered By: Justin Ho on 01-26-2025 MCH (RBC) [Entitic mass] 29.5 pg 27.0-32.0 [facility] Mean corpuscular hemoglobin concentration (MCHC) determinationOrdered By: Justin Ho on 01-26-2025 MCHC (RBC) [Mass/Vol] 34.3 g/dL 32-36 [facility] Mean platelet volume determi nationOrdered By: Justin Ho on 01-26-2025 Platelet mean volume (Bld) [Entitic vol] 10.6 fL 6.2-12.0 [facility] Microalb:Creat Ratio,Random URon 01-26-2025 Creatinine [Mass/Vol] 136.00 mg/dL Normal 39.00-259.00 [facility] Comment on above: Performed By: #### L 502.0250 ####[facility] [address] [place], [place], [id number] MALB:CREAT 207.4 mg/g CRE Normal [facility] Comment on above: Performed By: #### L 502.0250 ####[facility] [address] [place], [place], [phone] MICROALBUMIN,UR 28.2 mg/L Normal NO RANGE EST. [facility] Comment on above: Performed By: #### L 502.0250 ####[facility] [address] [place], [place], [phone] Monocyte percentageOrdered B y: Justin Ho on 01-26-2025 Monocytes/100 WBC (Bld) 10.6 % High 0-10 [facility] Neutrophil percentageOrdered By: Justin Ho on 01-26-2025 Neutrophils/100 WBC (Bld) 48.4 % 47-70 [facility] Nucleated red blood cell per centageOrdered By: Justin Ho on 01-26-2025 Nucleated RBC/100 WBC (Bld) [Ratio] 0 % 0-5 [facility] Platelet countOrdered By: Bobo Ho on 01-26-2025 Platelets (Bld) [#/Vol] 177 10*3/uL 150-450 [facility] Potassium measurement (mass/ volume)Ordered By: Justin Ho on 01-26-2025 Potassium (Unsp spec) [Mass/Vol] 4.1 mmol/L 3.3-5.1 [facility] RBC Auto (Bld) [#/Vol]Ordere d By: Justin Ho on 01-26-2025 RBC (Bld) [#/Vol] 4.75 10*6/uL 4.6-6.2 [facility] Random urine creatinine rudolph urement (mass/volume)Ordered By: Justin Ho on 01-26-2025 Creatinine Unsp time (U) [Mass/Vol] 136.00 mg/dL 39.00-259.00 [facility] Screening total cholesterol/ high density lipoprotein (HDL) cholesterol ratioOrdered By: Justin Ho on 01-26-2025 Cholesterol.total/Choles terol in HDL [Mass ratio] 3.69 {ratio} [facility] Serum creatinine measurement (mass/volume)Ordered By: Justin Ho on 01-26-2025 Creatinine [Mass/Vol] 1.25 mg/dL High 0.70-1.20 [facility] Serum globulin measurementOr dered By: Justin Ho on 01-26-2025 Globulin (S) [Mass/Vol] 3.1 g/dL 2.2-4.2 [facility] Serum glucose measurement (m ass/volume)Ordered By: Justin Ho on 01-26-2025 Glucose [Mass/Vol] 109 mg/dL High 70-99 [facility] Serum or plasma alanine cintron otransferase (ALT) measurementOrdered By: Justin Ho on 01-26-2025 ALT [Catalytic activity/Vol] 22 U/L <47 [facility] Serum or plasma albumin rudolph urement (mass/volume)Ordered By: Justin Ho on 01-26-2025 Albumin [Mass/Vol] 4.1 g/dL 3.4-4.8 [facility] Serum or plasma albumin/glob ulin mass ratioOrdered By: Justin Ho on 01-26-2025 Albumin/Globulin [Mass ratio] 1.3 {ratio} 0.9-2.4 [facility] Serum or plasma alkaline danni sphatase measurementOrdered By: Justin Ho on 01-26-2025 ALP [Catalytic activity/Vol] 60 U/L 40-129 [facility] Serum or plasma calcium rudolph urement (mass/volume)Ordered By: Justin Ho on 01-26-2025 Calcium [Mass/Vol] 9.4 mg/dL 7.6-11.0 [facility] Serum or plasma cholesterol in HDL measurement (mass/volume)Ordered By: Justin Ho on 01-26-2025 Cholesterol in HDL [Mass/Vol] 45 mg/dL >40 [facility] Comment on above: National Cholesterol Education Program (NCEP) guidelines:<40 mg/dL: Low HDL-cholesterol (major risk factor for CHD)>= 60 mg/dL: High HDL-cholesterol (negative risk factor for CHD)HDL-cholesterol is affected by a number of factors, e.g. smoking, exercise, hormones, sex and age. Serum or plasma cholesterol measurement (mass/volume)Ordered By: Justin Ho on 01-26-2025 Cholesterol [Mass/Vol] 167 mg/dL <201 [facility] Comment on above: Cholesterol level, D esirable <200 mg/dLBorderline high cholesterol 200-239 mg/dLHigh cholesterol >=240 mg/dLRecommendations of the NCEP Adult Treatment Panel for the following risk-cutoff thresholds for the [place] population. Serum or plasma urea nitroge n measurement (mass/volume)Ordered By: Justin Ho on 01-26-2025 Urea nitrogen [Mass/Vol] 16 mg/dL 4-19 [facility] Sodium levelOrdered By: Justin Ho on 01-26-2025 Sodium [Moles/Vol] 140 mmol/L 133-145 [facility] Total proteinOrdered By: Ambika Ho on 01-26-2025 Protein [Mass/Vol] 7.3 g/dL 5.9-8.4 [facility] Triglycerides measurementOrd ered By: Justin Ho on 01-26-2025 Triglyceride [Mass/Vol] 173 mg/dL <199 [facility] Comment on above: The drugs N-Acetylcy steine and Metamizole may falsely depress this assay. Normal range: <150 mg/dLBorderline High: 150-199 mg/dLHigh: 200-499 mg/dLVery High: >500 mg/dL Urine albumin measurement [facility] detection limit of 20 mg/L or less (mass/volume)Ordered By: Justin Ho on 01-26-2025 Albumin DL <= 20 mg/L (U) [Mass/Vol] 28.2 mg/L NO RANGE EST. [facility] White blood cell (WBC) count Ordered By: Justin Ho on 01-26-2025 WBC (Bld) [#/Vol] 5.9 10*3/uL 4.4-11.0 [facility] Plastic Surgery Visit Report on 01-25-2025 Plastic Surgery Visit Report [facility] Plastic Reconstructive Surgery [address], [address] [place] [address] OFFICE VISIT Date of Service: 01/25/25 MR#: [id number] Acct: [id number] Name: EMI ESCALONA Rep #: [id number] : 1950 Provider: Dr. Galileo Grover MD Age/Sex: 74/M Location: [place] [address] Status: Signed Intake Vital Signs 3 03/04/24 10:26 Height 5 ft 8 in Intake Visit Reasons: Melanoma Chief Complaint: Follow-up visit. Allergies lisinopril Adverse Reaction (Verified 03/04/24 10:22) cough Have you fallen in the past year?: [facility] History Ocular migraine Epistaxis, recurrent Nonrheumatic aortic (valve) stenosis with insufficiency GERD (gastroesophageal reflux disease) Bicuspid aortic valve Essential (primary) hypertension HLD (hyperlipidemia) Surgical History Dupuytren's contracture of both hands (11/16/22) H/O colonoscopy Family History Father Aortic aneurysm Social History Smoking Status: Never smoker alcohol intake: current alcohol intake frequency: holidays/special occasions only substance use type: does not use caffeine: Yes Type: coffee Number of servings: 1 HPI Malignant melanoma of skin Details: Emi Escalona is a delightful 74-year-old male with past medical history of relatively well- controlled hypertension who presents today for a right upper back biopsy-proven inflamed malignant melanoma in situ, lentigo maligna subtype. Dr. Kentrell Jeffries from [place] dermat[facility] took a shave biopsy of the lesion on 28 December 2024. He referred the patient to me for wide local excision with 9 mm margins (given the lentigo maligna subtype). Patient reports history of nonmelanoma skin cancers (squamous cell carcinoma). We discussed sunscreen and sun protection today. He is not a smoker. No diabetes No new or changing headaches Exam Details No axillary or neck lymphadenopathy on my exam He has a 1 x 1 cm area of fresh scar status post shave biopsy on the right upper back over the inferior aspects of the trapezium towards his neck. There are some brown melanocytes around the shave scar. Coding Level of Care Code Off vis,new,level 3 Diagnoses Melanoma in situ of back D03.59 Assessment and Plan (No Qualifiers) Assessment and Plan (1) Melanoma in situ of back: Status: Acute Comment: Right upper back Lentigo maligna subtype Plan: Discussed with the patient that we need at least 9 mm margins around the melanoma in situ given that it is the lentigo maligna subtype. I recommended that we do 1 cm margins around the lesion as if there is an area of invasive melanoma on final pathology, then we will have final margins for this as well. He was in agreement and would like to proceed with 1 cm margins. I talked him about the risks, benefits, and alternatives to the wide local excision procedure. We talked about potential complications such as infection, bleeding, wound healing problems, recurrence, need for repeat surgeries when the final pathology results, or there being undue tension on the wound requiring temporary dressings before we can perform reconstruction as we await the final pathology results. We also talked about damage to surrounding structures and pain, as well as poor scarring. Patient would like to proceed. Plan for excision with sedation and local anesthesia (wide local excision of the melanoma in situ with 1 cm margins and anticipated primary closure). Clinical Quality Measures Falls Risk Screening/Assistive Devices Have you fallen in the past year?: No 01/25/25 1823 Date Galileo Richmondign Signature: Date (if applicable) CC: Normal [facility] CBC W/Diff, Automatedon 01-0 2-2024 Absolute Lymph 2.21 X10 3/uL Normal 0.83-4.51 [facility] Comment on above: Performed By: #### L 100.0100 ####[facility] [address] [place], [address] Absolute Neut 2.9 X10 3/uL Normal 2.0-7.7 [facility] Comment on above: Performed By: #### L 100.0100 ####[facility] [address] [place], [address] Basophils/100 WBC (Bld) 0.6 % Normal 0-1 [facility] Comment on above: Performed By: #### L 100.0100 ####[facility] [address] [place], [address] Eosinophils/100 WBC (Bld) 12.0 % High 0-5 [facility] Comment on above: Performed By: #### L 100.0100 ####[facility] [address] [place], [address] Erythrocyte distribution width (RBC) [Ratio] 12.8 % Normal 11.6-14.6 [facility] Comment on above: Performed By: #### L 100.0100 ####[facility] [address] [place], [address] Hematocrit (Bld) [Volume fraction] 41.0 % Normal 40-54 [facility] Comment on above: Performed By: #### L 100.0100 ####[facility] [address] [place], [address] Hemoglobin (Bld) [Mass/Vol] 14.1 g/dL Normal 13.0-16.5 [facility] Comment on above: Performed By: #### L 100.0100 ####[facility] [address] [place], [address] IG% 0.800 Normal 0.0-0.9 [facility] Comment on above: Result Comment: IG% - Immature Granulocytes (promyelocytes, myelocytes and metamyelocytes) > 1% indicates that a LEFT SHIFT is Present. Performed By: #### L 100.0100 ####[facility] [address] [place], [address] Lymphocytes/100 WBC (Bld) 34.3 % Normal 19-41 [facility] Comment on above: Performed By: #### L 100.0100 ####[facility] [address] [place], [address] MCH (RBC) [Entitic mass] 29.1 pg Normal 27.0-32.0 [facility] Comment on above: Performed By: #### L 100.0100 ####[facility] [address] [place], [address] MCHC (RBC) [Mass/Vol] 34.4 g/dL Normal 32-36 [facility] Comment on above: Performed By: #### L 100.0100 ####[facility] [address] [place], [address] MCV (RBC) [Entitic vol] 84.5 fL Normal 80-94 [facility] Comment on above: Performed By: #### L 100.0100 ####[facility] [address] [place], [address] Monocytes/100 WBC (Bld) 7.0 % Normal 0-10 [facility] Comment on above: Performed By: #### L 100.0100 ####[facility] [address] [place], [address] Neutrophils/100 WBC (Bld) 45.3 % Low 47-70 [facility] Comment on above: Performed By: #### L 100.0100 ####[facility] [address] [place], [address] Nucleated RBC (Bld) [#/Vol] 0 10*3/uL Normal 0-5 [facility] Comment on above: Performed By: #### L 100.0100 ####[facility] [address] [place], [address] Platelet mean volume (Bld) [Entitic vol] 10.5 fL Normal 6.2-12.0 [facility] Comment on above: Performed By: #### L 100.0100 ####[facility] [address] [place], [address] Platelets (Bld) [#/Vol] 182 10*3/uL Normal 150-450 [facility] Comment on above: Performed By: #### L 100.0100 ####[facility] [address] [place], [address] RBC (Bld) [#/Vol] 4.85 10*6/uL Normal 4.6-6.2 [facility] Comment on above: Performed By: #### L 100.0100 ####[facility] [address] [place], [address] RDW SD 38.8 fl Normal 35.1-43.9 [facility] Comment on above: Performed By: #### L 100.0100 ####[facility] [address] [place], [address] WBC (Bld) [#/Vol] 6.4 10*3/uL Normal 4.4-11.0 [facility] Comment on above: Performed By: #### L 100.0100 ####[facility] [address] [place], [address] Chest PA and Lateralon 10-14 Chest PA and Lateral [facility] Imaging Services [address] [place] [address] Chest PA and Lateral MR#: [id number] Acct: [id number] Name: EMI ESCALONA Rep #: [id number] : 1950 M 74 From: Fish Ruby MD PCP: Dr. Justin Ho MD Status: [facility] CLI Study: Chest PA and Lateral Date of Exam: 10/14/24 Exam# [id number] Ordering Dr: Angelika Alejandra NP [employer] -C [id number] STUDY: X-RAY CHEST REASON FOR EXAM: Male, 74 years old. Fever and cough TECHNIQUE: PA and 2 lateral views of the chest. COMPARISON: 05/18/2024 FINDINGS: The lungs are clear and expanded. There is no demonstrated pleural abnormality. Normal size heart. Normal mediastinum and isaura. Normal visualized pulmonary arteries. Normal visualized aortic arch and descending thoracic aorta. Normal visualized thoracic spine. Normal visualized ribs, clavicles, and shoulders. There is no demonstrated abnormality of the visualized soft tissue structures of the upper abdomen. RAD/Chest PA and Lateral IMPRESSION: No acute pulmonary process Electronically Signed: Trever Ruby MD at 14:50 EST , CC: Angelika Alejandra; Dr. Justin Ho MD Financial Wellness Coach: Signed Normal [facility] CBC-Complete Blood Cnt No Di ffon 07-23-2024 Erythrocyte distribution width (RBC) [Ratio] 12.7 % Normal 11.6-14.6 [facility] Comment on above: Order Comment: Order Date: 07/23/24Order Info: [id number] - CBC Performed By: #### L 502.0250, L100.0500, L500.4050, L501.9520 ####[facility] [address] [place], [address] Hematocrit (Bld) [Volume fraction] 41.2 % Normal 40-54 [facility] Comment on above: Order Comment: Order Date: 07/23/24Order Info: [id number] - CBC Performed By: #### L 502.0250, L100.0500, L500.4050, L501.9520 ####[facility] [address] [place], [address] Hemoglobin (Bld) [Mass/Vol] 13.7 g/dL Normal 13.0-16.5 [facility] Comment on above: Order Comment: Order Date: 07/23/24Order Info: [id number] - CBC Performed By: #### L 502.0250, L100.0500, L500.4050, L501.9520 ####[facility] [address] [place], [address] MCH (RBC) [Entitic mass] 29.2 pg Normal 27.0-32.0 [facility] Comment on above: Order Comment: Order Date: 07/23/24Order Info: [id number] - CBC Performed By: #### L 502.0250, L100.0500, L500.4050, L501.9520 ####[facility] [address] [place], [address] MCHC (RBC) [Mass/Vol] 33.3 g/dL Normal 32-36 [facility] Comment on above: Order Comment: Order Date: 07/23/24Order Info: [id number] - CBC Performed By: #### L 502.0250, L100.0500, L500.4050, L501.9520 ####[facility] [address] [place], [address] MCV (RBC) [Entitic vol] 87.8 fL Normal 80-94 [facility] Comment on above: Order Comment: Order Date: 07/23/24Order Info: [id number] - CBC Performed By: #### L 502.0250, L100.0500, L500.4050, L501.9520 ####[facility] [address] [place], [address] Platelet mean volume (Bld) [Entitic vol] 10.4 fL Normal 6.2-12.0 [facility] Comment on above: Order Comment: Order Date: 07/23/24Order Info: [id number] - CBC Performed By: #### L 502.0250, L100.0500, L500.4050, L501.9520 ####[facility] [address] [place], [address] Platelets (Bld) [#/Vol] 175 10*3/uL Normal 150-450 [facility] Comment on above: Order Comment: Order Date: 07/23/24Order Info: [id number] - CBC Performed By: #### L 502.0250, L100.0500, L500.4050, L501.9520 ####[facility] [address] [place], [address] RBC (Bld) [#/Vol] 4.69 10*6/uL Normal 4.6-6.2 [facility] Comment on above: Order Comment: Order Date: 07/23/24Order Info: [id number] - CBC Performed By: #### L 502.0250, L100.0500, L500.4050, L501.9520 ####[facility] [address] [place], [address] RDW SD 40.6 fl Normal 35.1-43.9 [facility] Comment on above: Order Comment: Order Date: 07/23/24Order Info: [id number] - CBC Performed By: #### L 502.0250, L100.0500, L500.4050, L501.9520 ####[facility] [address] [place], [address] WBC (Bld) [#/Vol] 5.4 10*3/uL Normal 4.4-11.0 [facility] Comment on above: Order Comment: Order Date: 07/23/24Order Info: [id number] - CBC Performed By: #### L 502.0250, L100.0500, L500.4050, L501.9520 ####[facility] [address] [place], [address] Comprehensive Metabolic Prof ilon 07-23-2024 Albumin [Mass/Vol] 3.9 g/dL Normal 3.2-5.0 [facility] Comment on above: Order Comment: Order Date: 07/23/24Order Info: [id number] - CMPOrder Info: [id number] - TSH Performed By: #### L 502.0250, L100.0500, L500.4050, L501.9520 ####[facility] [address] [place], [address] Albumin/Globulin [Mass ratio] 1.0 {ratio} Normal 0.9-2.4 [facility] Comment on above: Order Comment: Order Date: 07/23/24Order Info: [id number] - CMPOrder Info: [id number] - TSH Performed By: #### L 502.0250, L100.0500, L500.4050, L501.9520 ####[facility] [address] [place], [address] ALK P 67 U/L Normal 45-117 [facility] Comment on above: Order Comment: Order Date: 07/23/24Order Info: 07 - CMPOrder Info: [id number] - TSH Performed By: #### L 502.0250, L100.0500, L500.4050, L501.9520 ####[facility] [address] [place], [address] ALT [Catalytic activity/Vol] 32 U/L Normal 16-61 [facility] Comment on above: Order Comment: Order Date: 07/23/24Order Info: 07 - CMPOrder Info: [id number] - TSH Performed By: #### L 502.0250, L100.0500, L500.4050, L501.9520 ####[facility] [address] [place], [address] AST [Catalytic activity/Vol] 28 U/L Normal 15-37 [facility] Comment on above: Order Comment: Order Date: 07/23/24Order Info: [id number] - CMPOrder Info: [id number] - TSH Performed By: #### L 502.0250, L100.0500, L500.4050, L501.9520 ####[facility] [address] [place], [address] Bilirubin [Mass/Vol] 0.60 mg/dL Normal 0.20-1.00 [facility] Comment on above: Order Comment: Order Date: 07/23/24Order Info: [id number] - CMPOrder Info: [id number] - TSH Result Comment: For patients on eltrombopag therapy, use of Dimension [place] TBIL is not recommended. Performed By: #### L 502.0250, L100.0500, L500.4050, L501.9520 ####[facility] [address] [place], [address] BUN/CRE 15.7 RATIO Normal 10-20 [facility] Comment on above: Order Comment: Order Date: 07/23/24Order Info: [id number] - CMPOrder Info: 3 - TSH Performed By: #### L 502.0250, L100.0500, L500.4050, L501.9520 ####[facility] [address] [place], [address] CA,Total 9.7 mg/dL Normal 8.5-10.1 [facility] Comment on above: Order Comment: Order Date: 07/23/24Order Info: [id number] - CMPOrder Info: [id number] - TSH Performed By: #### L 502.0250, L100.0500, L500.4050, L501.9520 ####[facility] [address] [place], [address] Chloride [Moles/Vol] 107 mmol/L Normal 98-107 [facility] Comment on above: Order Comment: Order Date: 07/23/24Order Info: [id number] - CMPOrder Info: 3 - TSH Performed By: #### L 502.0250, L100.0500, L500.4050, L501.9520 ####[facility] [address] [place], [address] CO2 [Moles/Vol] 28.0 mmol/L Normal 21.0-32.0 [facility] Comment on above: Order Comment: Order Date: 07/23/24Order Info: 07 - CMPOrder Info: 3 - TSH Performed By: #### L 502.0250, L100.0500, L500.4050, L501.9520 ####[facility] [address] [place], [place], [address] Creatinine [Mass/Vol] 1.08 mg/dL Normal 0.70-1.30 [facility] [facility] Comment on above: Order Comment: Order Date: 07/23/24Order Info: [id number] - CMPOrder Info: [id number] - TSH Result Comment: The validity of the calculated GFR GFRAA in patients over 70 years has not been determined. Clinical correlation is essential. Performed By: #### L 502.0250, L100.0500, L500.4050, L501.9520 ####[facility] [address] [place], [address] EST GFR - AA 86 mL/min Normal >60 [facility] Comment on above: Order Comment: Order Date: 07/23/24Order Info: [id number] - CMPOrder Info: 3015-12 - TSH Result Comment: Afri can Ethiopian GFR Calc Performed By: #### L 502.0250, L100.0500, L500.4050, L501.9520 ####[facility] [address] [place], [address] GAP 4 Low 5-15 [facility] Comment on above: Order Comment: Order Date: 07/23/24Order Info: [id number] - CMPOrder Info: 3015-12 - TSH Performed By: #### L 502.0250, L100.0500, L500.4050, L501.9520 ####[facility] [address] [place], [address] GFR/1.73 sq M.predicted among non-blacks MDRD (S/P/Bld) [Vol rate/Area] 71 mL/min/{1.73_m2} Normal >60 [facility] Comment on above: Order Comment: Order Date: 07/23/24Order Info: [id number] - CMPOrder Info: 3 - TSH Result Comment: Non- GFR Calc Performed By: #### L 502.0250, L100.0500, L500.4050, L501.9520 ####[facility] [address] [place], [address] Globulin (S) [Mass/Vol] 3.8 g/dL Normal 2.2-4.2 [facility] Comment on above: Order Comment: Order Date: 07/23/24Order Info: 07 - CMPOrder Info: 3 - TSH Performed By: #### L 502.0250, L100.0500, L500.4050, L501.9520 ####[facility] [address] [place], [address] Glucose [Mass/Vol] 91 mg/dL Normal 74-106 [facility] Comment on above: Order Comment: Order Date: 07/23/24Order Info: [id number] - CMPOrder Info: 3 - TSH Performed By: #### L 502.0250, L100.0500, L500.4050, L501.9520 ####[facility] [address] [place], [address] Potassium [Moles/Vol] 4.2 mmol/L Normal 3.5-5.1 [facility] Comment on above: Order Comment: Order Date: 07/23/24Order Info: 07 - CMPOrder Info: 3 - TSH Performed By: #### L 502.0250, L100.0500, L500.4050, L501.9520 ####[facility] [address] [place], [address] Sodium [Moles/Vol] 139 mmol/L Normal 136-145 [facility] Comment on above: Order Comment: Order Date: 07/23/24Order Info: [id number] - CMPOrder Info: 3015-12 - TSH Performed By: #### L 502.0250, L100.0500, L500.4050, L501.9520 ####[facility] [address] [place], [address] T PROT 7.7 g/dL Normal 6.4-8.2 [facility] Comment on above: Order Comment: Order Date: 07/23/24Order Info: [id number] - CMPOrder Info: 3016-3 - TSH Performed By: #### L 502.0250, L100.0500, L500.4050, L501.9520 ####[facility] [address] [place], [address] Urea nitrogen [Mass/Vol] 17 mg/dL Normal 7-18 [facility] Comment on above: Order Comment: Order Date: 07/23/24Order Info: [id number] - CMPOrder Info: 3016-3 - TSH Performed By: #### L 502.0250, L100.0500, L500.4050, L501.9520 ####[facility] [address] [place], [address] Microalb:Creat Ratio,Random URon 07-23-2024 Creatinine [Mass/Vol] 65.30 mg/dL Normal NO RAN GE EST. [facility] Comment on above: Order Comment: Order Date: 07/23/24Order Info: [id number] - MIACRE Performed By: #### L 502.0250, L100.0500, L500.4050, L501.9520 ####[facility] [address] [place], [address] MALB:CRE 16.7 mg/g CRE Normal <30 mg/g CRE [facility] Comment on above: Order Comment: Order Date: 07/23/24Order Info: [id number] - MIACRE Performed By: #### L 502.0250, L100.0500, L500.4050, L501.9520 ####[facility] [address] [place], [address] MICROALBUMIN,UR 10.9 mg/L Normal NO RANGE EST. [facility] Comment on above: Order Comment: Order Date: 07/23/24Order Info: [id number] - MIACRE Performed By: #### L 502.0250, L100.0500, L500.4050, L501.9520 ####[facility] [address] [place], [address] Thyroid Stim Hormone (TSH)on 07-23-2024 TSH 1.030 uIU/mL Normal 0.358-3.740 [facility] Comment on above: Order Comment: Order Date: 07/23/24Order Info: [id number] - CMPOrder Info: [id number] - TSH Performed By: #### L 502.0250, L100.0500, L500.4050, L501.9520 ####[facility] [address] [place], [address] Echo Completeon 07-16-2024 Echo Complete [facility] [address] [place] [address] Echo Complete 07/16/24 1055 MR#: [id number] Acct: [id number] Name: EMI ESCALONA Rep #: [id number] : 1950 74 From: Juan Gomez MD Attending Dr: CARLOS Luther Status: REG CLI Ordering Dr: Aga Wray Date: 02/03 Location: [facility] Sex: M C Admitted: Reason For Study: NONRHEUMATIC Procedure This was a 2D Doppler, Color Flow transthoracic echocardiogram. Exam performed in department. Left Ventricle Normal LV size. Apical false tendon noted. Left ventricular systolic function is normal. The left ventricular ejection fraction is 65 %. Stage 1 diastolic dysfunction. No regional wall motion abnormalities noted. Right Ventricle Normal RV size. Normal systolic function. Atria Normal left atrium. Normal right atrium. Mitral Valve Normal mitral valve. Tricuspid Valve Normal tricuspid valve. Aortic Valve Bicuspid aortic valve. Peak aortic valve gradient 36 mmHg. Mean aortic valve gradient 22 mmHg. Mild (1+) aortic valve insufficiency. Great Vessels Mildly dilated aortic root. MMode/2D Measurements Calculations LVIDd: 5.2 cm IVSd: 1.0 cm LVOT diam: 2.0 cm LVIDs: 3.6 cm LVPWd: 1.4 cm LVOT area: 3.0 cm2 RVDd: 2.7 cm FS: 31.5 % _ Ao root diam: 3.8 cm LAV(MOD-bp): 46.9 ml LVAd ap4: 27.7 cm2 LAV(MOD-bp) Indexed: 24.0 ml/m2 LVLd ap4: 7.7 cm LAV(MOD-sp2): 37.1 ml EDV(MOD-sp4): 83.4 ml LAV(MOD-sp4): 54.0 ml EDV(sp4-el): 84.3 ml LVAs ap4: 17.0 cm2 LVLs ap4: 6.8 cm ESV(MOD-sp4): 37.3 ml ESV(sp4-el): 36.0 ml EF(MOD-sp4): 55.3 % EF(sp4-el): 57.3 % _ SV(MOD-sp4): 46.1 ml SV(sp4-el): 48.3 ml LA A4 area: 19.7 cm2 _ LA dimension(2D): 3.5 cm RA A4 area: 8.9 cm2 Time Measurements MV dec time: 0.26 sec Doppler Measurements Calculations MV E max barbara: 61.4 cm/sec Ao V2 max: 297.7 cm/sec MV A max barbara: 89.0 cm/sec MV dec slope: 237.0 cm/sec2 Ao max P.5 mmHg MV E/A: 0.69 Ao V2 mean: 221.4 cm/sec Ao mean P.9 mmHg Ao V2 VTI: 79.8 cm AV (velocity ratio): 0.32 REZA(I,D): 0.99 cm2 REZA(V,D): 1.1 cm2 _ AI max babrara: 526.8 cm/sec LV V1 max: 107.4 cm/sec SV(LVOT): 78.7 ml AI max P.0 mmHg LV V1 max P.6 mmHg AI dec slope: 198.2 cm/sec2 LV V1 mean P.4 mmHg AI P1/2t: 778.4 msec LV V1 mean: 72.3 cm/sec LV V1 VTI: 25.9 cm _ PA V2 max: 117.0 cm/sec PA V2 mean: 79.6 cm/sec ECHO/Echo Complete Interpretation Summary Normal LV size. Left ventricular systolic function is normal. Apical false tendon noted. The left ventricular ejection fraction is 65 %. Bicuspid aortic valve. Mild (1+) aortic valve insufficiency. Stage 1 diastolic dysfunction. Mean aortic valve gradient 22 mmHg. Ordering Physician: Aga Wray Referring Physician: Aga Wray Performed By: Maite Dorsey RCS 07/16/24 1435 Date Juan Gomez MD CC: Dr. Justin Ho MD; CARLOS Luther Date Dictated: 07/16/24 1055 Date Transcribed: 07/16/241434 Financial Wellness Coach: Signed Normal [facility] Chest PA and Lateralon 05-18 Chest PA and Lateral [facility] Imaging Services [address] [place] [address] [id number] Chest PA and Lateral MR#: [id number] Acct: [id number] Name: EMI ESCALONA Rep #: [id number] : 1950 M 73 From: Moustapha Carter MD PCP: Dr. Justin Ho MD Status: [facility] Study: Chest PA and Lateral Date of Exam: 05/18/24 Exam# [id number] Ordering Dr: Justin Ho MD [id number] STUDY: X-RAY CHEST REASON FOR EXAM: Male, 73 years old. Wheezing. TECHNIQUE: Frontal and lateral views of the chest. COMPARISON: June 04, 2013 FINDINGS: The lungs are clear and expanded. There is no demonstrated pleural abnormality. Stable borderline cardiomegaly. Normal mediastinum and isaura. Normal visualized pulmonary arteries. Aortic tortuosity unchanged. Thoracic osteopenia with diffuse mild thoracic spondylosis. Normal visualized ribs, clavicles, and shoulders. No abnormality of the visualized soft tissue structures of the upper abdomen. RAD/Chest PA and Lateral IMPRESSION: Stable borderline cardiomegaly with no acute or active cardiopulmonary disease. Electronically Signed: Moustapha Carter MD at 12:26 EDT Reading Location ID and State: [facility] / [place] , Service support , CC: Dr. Justin Ho MD Financial Wellness Coach: Signed Normal [facility] Whole blood hemoglobin A1c/t otal hemoglobin ratio (mass fraction)Ordered By: Maggy Chen on 01-22-2024 HbA1c (Bld) [Mass fraction] 5.3 % 3.8-5.6 [facility] Comment on above: Normal < 5.7 % Predi abetic 5.7 - 6.4 % Diabetic >or= 6.5 % Please note range changes. Absolute lymphocyte countOrd ered By: Justin Ho on 01-15-2024 Lymphocytes Auto (Unsp spec) [#/Vol] 1.81 10*3/uL 0.83-4.51 [facility] Automated lymphocyte count a s percentage of total leukocytesOrdered By: Justin Ho on 01-15-2024 Lymphocytes/100 WBC Auto (Unsp spec) 36.3 % 19-41 [facility] Basophil percentageOrdered B y: Justin Ho on 01-15-2024 Basophils/100 WBC (Bld) 0.8 % 0-1 [facility] Bilirubin [Mass/Vol] 0.60 mg/dL 0.20-1.00 [facility] Comment on above: For patients on eltr ombopag therapy, use of Dimension [place] TBIL is not recommended. Chloride [Moles/Vol] 109 mmol/L 98-107 [facility] Cholesterol [Mass/Vol] 181 mg/dL <200 [facility] Comment on above: <200 mg/dL Desirable 200-240 mg/dL Borderline >240 mg/dL High Risk Eosinophils/100 WBC (Bld) 7.4 % 0-5 [facility] Glucose [Mass/Vol] 104 mg/dL 74-106 [facility] Comment on above: Fasting Glucose resu lt from 100 to 125 mg/dL suggests IMPAIRED HOMEOSTASIS per A.D.A. criteria. Hemoglobin (Bld) [Mass/Vol] 14.0 g/dL 13.0-16.5 [facility] Monocytes/100 WBC (Bld) 9.2 % 0-10 [facility] Neutrophils (Bld) [#/Vol] 2.3 10*3/uL 2.0-7.7 [facility] Neutrophils/100 WBC (Bld) 45.7 % 47-70 [facility] Potassium [Moles/Vol] 4.4 mmol/L 3.5-5.1 [facility] Protein [Mass/Vol] 7.7 g/dL 6.4-8.2 [facility] Sodium [Moles/Vol] 140 mmol/L 136-145 [facility] Triglyceride [Mass/Vol] 136 mg/dL <199 [facility] Comment on above: The drugs N-Acetylcy steine and Metamizole may falsely depress this assay.Serum Triglycerides Reference Interval Normal <150 mg/dL Borderline high 150 - 199 mg/dL High 200 - 499 mg/dL Very High > or = 500 mg/dL WBC (Bld) [#/Vol] 5.0 10*3/uL 4.4-11.0 [facility] Determination of erythrocyte mean corpuscular volume (MCV)Ordered By: Justin oH on 01-15-2024 MCV (RBC) [Entitic vol] 84.6 fL 80-94 [facility] Erythrocyte distribution wid th ratioOrdered By: Justin Ho on 01-15-2024 Erythrocyte distribution width (RBC) [Ratio] 13.2 % 11.6-14.6 [facility] Erythrocyte distribution wid th standard deviationOrdered By: Justin Ho on 01-15-2024 Erythrocyte distribution width (RBC) [Entitic vol] 41.1 fL 35.1-43.9 [facility] Hematocrit Auto (Bld) [Volum e fraction]Ordered By: Justin Ho on 01-15-2024 Hematocrit (Bld) [Volume fraction] 40.8 % 40-54 [facility] Immature granulocytes/100 WB C Auto (Bld)Ordered By: Justin Ho on 01-15-2024 Immature granulocytes/100 WBC (Bld) 0.600 % 0.0-0.9 [facility] Comment on above: IG% - Immature Granu locytes (promyelocytes, myelocytes and metamyelocytes) > 1% indicates that a LEFT SHIFT is Present. Laboratory - Chemistry and C hemistry - challengeOrdered By: Justin Ho on 01-15-2024 Albumin/Globulin [Mass ratio] 1.0 {ratio} 0.9-2.4 [facility] ALP [Catalytic activity/Vol] 64 U/L 45-117 [facility] ALT [Catalytic activity/Vol] 30 U/L 16-61 [facility] Cholesterol in HDL [Mass/Vol] 46 mg/dL >40 [facility] Comment on above: The drugs N-Acetylcy steine and Metamizole may falsely depress this assay. Reference Range HDL <40 mg/dL Low HDL Cholesterol HDL >or= 60 mg/dL High HDL Cholesterol Cholesterol in LDL [Mass/Vol] 108 mg/dL 0-130 [facility] CO2 [Moles/Vol] 27.0 mmol/L 21.0-32.0 [facility] Globulin (S) [Mass/Vol] 3.9 g/dL 2.2-4.2 [facility] Urea nitrogen/Creatinine [Mass ratio] 14.8 mg/mg 10-20 [facility] Laboratory - Hematology and Cell countsOrdered By: Justin Ho on 01-15-2024 MCH (RBC) [Entitic mass] 29.0 pg 27.0-32.0 [facility] MCHC (RBC) [Mass/Vol] 34.3 g/dL 32-36 [facility] Nucleated RBC/100 WBC (Bld) [Ratio] 0 % 0-5 [facility] Platelet mean volume (Bld) [Entitic vol] 10.1 fL 6.2-12.0 [facility] Platelets (Bld) [#/Vol] 182 10*3/uL 150-450 [facility] No Panel InformationOrdered By: Justin Ho on 01-15-2024 Estimated GFR (MDRD) Amer 75 mL/min >60 [facility] Comment on above: GFR Calc Estimated GFR (MDRD) Non-Af Amer 62 mL/min >60 [facility] Comment on above: Non- GFR Calc Prostate Specific Antigen Screen 0.81 ng/mL 0.00-4.00 [facility] Comment on above: This test was perfor med using the TPSA assay method for the[employer] chemistry system. Values obtained with differentassay methods cannot be used interchangably.When changing PSA assays in the course of monitoring apatient, additional sequential testing should be carriedout to confirm baseline values. VLDL Cholesterol 27 mg/dL 5-40 [facility] RBC Auto (Bld) [#/Vol]Ordere d By: Justin Ho on 01-15-2024 RBC (Bld) [#/Vol] 4.82 10*6/uL 4.6-6.2 [facility] Serum or plasma calcium rudolph urement (mass/volume)Ordered By: Justin Ho on 01-15-2024 Calcium [Mass/Vol] 9.2 mg/dL 8.5-10.1 [facility] Serum or plasma creatinine m easurement (mass/volume)Ordered By: Justin Ho on 01-15-2024 Creatinine [Mass/Vol] 1.22 mg/dL 0.70-1.30 [facility] Comment on above: The validity of the calculated GFR & GFRAA in patients over 70 years has not been determined. Clinical correlation is essential. Serum or plasma urea nitroge n measurement (mass/volume)Ordered By: Justin Ho on 01-15-2024 Urea nitrogen [Mass/Vol] 18 mg/dL 7-18 [facility] Thin prep Papanicolaou smear with manual screeningOrdered By: Justin Ho on 01-15-2024 Thin prep Papanicolaou smear with manual screening 3.8 g/dL 3.2-5.0 [facility] Thin prep Papanicolaou smear with manual screening 26 U/L 15-37 [facility] Thin prep Papanicolaou smear with manual screening 4 5-15 [facility] Basophil percentageOrdered B y: Laureen Theodorereinaldo on 08-12-2023 Chloride [Moles/Vol] 108 mmol/L 98-107 [facility] Glucose [Mass/Vol] 130 mg/dL 74-106 [facility] Comment on above: Fasting Glucose resu lt greater than or equal to 126 mg/dL suggests DIABETES MELLITUS per A.D.A. criteria. Potassium [Moles/Vol] 4.1 mmol/L 3.5-5.1 [facility] Sodium [Moles/Vol] 138 mmol/L 136-145 [facility] Laboratory - Chemistry and C hemistry - challengeOrdered By: Laureen Vaca on 08-12-2023 CO2 [Moles/Vol] 28.0 mmol/L 21.0-32.0 [facility] Urea nitrogen/Creatinine [Mass ratio] 17.0 mg/mg 10- [facility] No Panel InformationOrdered By: Laureen Vaca on 08-12-2023 Estimated GFR (MDRD) Amer 64 mL/min >60 [facility] Comment on above: GFR Calc Estimated GFR (MDRD) Non-Af Amer 53 mL/min >60 [facility] Comment on above: Non- GFR Calc Serum or plasma calcium rudolph urement (mass/volume)Ordered By: Laureen Vaca on 08-12-2023 Calcium [Mass/Vol] 9.1 mg/dL 8.5-10.1 [facility] Serum or plasma creatinine m easurement (mass/volume)Ordered By: Laureen Vaca on 08-12-2023 Creatinine [Mass/Vol] 1.41 mg/dL 0.70-1.30 [facility] Comment on above: The validity of the calculated GFR & GFRAA in patients over 70 years has not been determined. Clinical correlation is essential. Serum or plasma urea nitroge n measurement (mass/volume)Ordered By: Laureen Vaca on 08-12-2023 Urea nitrogen [Mass/Vol] 24 mg/dL 7-18 [facility] Thin prep Papanicolaou smear with manual screeningOrdered By: Laureen Vaca on 08-12-2023 Thin prep Papanicolaou smear with manual screening 2 5-15 [facility] Basophil percentageOrdered B y: Laureen Vaca on 07-14-2023 Chloride [Moles/Vol] 103 mmol/L 98-107 [facility] Glucose [Mass/Vol] 133 mg/dL 74-106 [facility] Comment on above: Fasting Glucose resu lt greater than or equal to 126 mg/dL suggests DIABETES MELLITUS per A.D.A. criteria. Potassium [Moles/Vol] 4.1 mmol/L 3.5-5.1 [facility] Sodium [Moles/Vol] 136 mmol/L 136-145 [facility] WBC (Bld) [#/Vol] 5.3 10*3/uL 4.4-11.0 [facility] Blood erythrocytes count (nu mber/volume)Ordered By: Laureen Vaca on 07-14-2023 RBC (Bld) [#/Vol] 4.83 10*6/uL 4.6-6.2 [facility] Blood hemoglobin measurement (mass/volume)Ordered By: Luareen Vaca on 07-14-2023 Hemoglobin (Bld) [Mass/Vol] 14.1 g/dL 13.0-16.5 [facility] Blood platelet mean volumeOr dered By: Laureen Vaca on 07-14-2023 Platelet mean volume (Bld) [Entitic vol] 10.2 fL 6.2-12.0 [facility] Determination of erythrocyte mean corpuscular volume (MCV)Ordered By: Laureen Vaca on 07-14-2023 MCV (RBC) [Entitic vol] 87.6 fL 80-94 [facility] Hematocrit Auto (Bld) [Volum e fraction]Ordered By: Laureen Vaca on 07-14-2023 Hematocrit (Bld) [Volume fraction] 42.3 % 40-54 [facility] Laboratory - Chemistry and C hemistry - challengeOrdered By: Laureen Vaca on 07-14-2023 CO2 [Moles/Vol] 26.0 mmol/L 21.0-32.0 [facility] Urea nitrogen/Creatinine [Mass ratio] 15.3 mg/mg 10-20 [facility] Laboratory - Hematology and Cell countsOrdered By: Laureen Vaca on 07-14-2023 Erythrocyte distribution width (RBC) [Entitic vol] 41.3 fL 35.1-43.9 [facility] Erythrocyte distribution width (RBC) [Ratio] 12.9 % 11.6-14.6 [facility] MCH (RBC) [Entitic mass] 29.2 pg 27.0-32.0 [facility] MCHC Auto (RBC) [Mass/Vol]Or dered By: Laureen Vaca on 07-14-2023 MCHC (RBC) [Mass/Vol] 33.3 g/dL 32-36 [facility] No Panel InformationOrdered By: Laureen Vaca on 07-14-2023 Estimated GFR (MDRD) Amer 66 mL/min >60 [facility] Comment on above: GFR Calc Estimated GFR (MDRD) Non-Af Amer 54 mL/min >60 [facility] Comment on above: Non- GFR Calc Platelets bldOrdered By: Monico Vaca on 07-14-2023 Platelets (Bld) [#/Vol] 195 10*3/uL 150-450 [facility] Serum or plasma calcium rudolph urement (mass/volume)Ordered By: Laureen Vaca on 07-14-2023 Calcium [Mass/Vol] 9.4 mg/dL 8.5-10.1 [facility] Serum or plasma creatinine m easurement (mass/volume)Ordered By: Laureen Vaca on 07-14-2023 Creatinine [Mass/Vol] 1.37 mg/dL 0.70-1.30 [facility] Comment on above: The validity of the calculated GFR & GFRAA in patients over 70 years has not been determined. Clinical correlation is essential. Serum or plasma urea nitroge n measurement (mass/volume)Ordered By: Laureen Vaca on 07-14-2023 Urea nitrogen [Mass/Vol] 21 mg/dL 7-18 [facility] Thin prep Papanicolaou smear with manual screeningOrdered By: Laureen Vaca on 07-14-2023 Thin prep Papanicolaou smear with manual screening 7 5-15 [facility] Basophil percentageOrdered B y: Laureen Vaca on 01-08-2023 Chloride [Moles/Vol] 108 mmol/L 98-107 [facility] Cholesterol [Mass/Vol] 131 mg/dL <200 [facility] Comment on above: <200 mg/dL Desirable 200-240 mg/dL Borderline >240 mg/dL High Risk Glucose [Mass/Vol] 102 mg/dL 74-106 [facility] Comment on above: Fasting Glucose resu lt from 100 to 125 mg/dL suggests IMPAIRED HOMEOSTASIS per A.D.A. criteria. Potassium [Moles/Vol] 4.1 mmol/L 3.5-5.1 [facility] Sodium [Moles/Vol] 139 mmol/L 136-145 [facility] Triglyceride [Mass/Vol] 103 mg/dL <199 [facility] Comment on above: The drugs N-Acetylcy steine and Metamizole may falsely depress this assay.Serum Triglycerides Reference Interval Normal <150 mg/dL Borderline high 150 - 199 mg/dL High 200 - 499 mg/dL Very High > or = 500 mg/dL Laboratory - Chemistry and C hemistry - challengeOrdered By: Laureen Vaca on 01-08-2023 CO2 [Moles/Vol] 28.0 mmol/L 21.0-32.0 [facility] Urea nitrogen/Creatinine [Mass ratio] 13.0 mg/mg 10-20 [facility] No Panel InformationOrdered By: Laureen Vaca on 01-08-2023 Estimated GFR (MDRD) Amer 87 mL/min >60 [facility] Comment on above: GFR Calc Estimated GFR (MDRD) Non-Af Amer 72 mL/min >60 [facility] Comment on above: Non- GFR Calc Serum or plasma calcium rudolph urement (mass/volume)Ordered By: Laureen Vaca on 01-08-2023 Calcium [Mass/Vol] 8.8 mg/dL 8.5-10.1 [facility] Serum or plasma cholesterol in HDL measurement (mass/volume)Ordered By: Laureen Vaca on 01-08-2023 Cholesterol in HDL [Mass/Vol] 50 mg/dL >40 [facility] Comment on above: The drugs N-Acetylcy steine and Metamizole may falsely depress this assay. Reference Range HDL <40 mg/dL Low HDL Cholesterol HDL >or= 60 mg/dL High HDL Cholesterol Serum or plasma cholesterol in VLDL measurement (mass/volume)Ordered By: Laureen Vaca on 01-08-2023 Cholesterol in VLDL [Mass/Vol] 21 mg/dL 5-40 [facility] Serum or plasma creatinine m easurement (mass/volume)Ordered By: Laureen Vaca on 01-08-2023 Creatinine [Mass/Vol] 1.08 mg/dL 0.70-1.30 [facility] Comment on above: The validity of the calculated GFR & GFRAA in patients over 70 years has not been determined. Clinical correlation is essential. Serum or plasma low density lipoprotein (LDL) cholesterol measurement (mass/volume)Ordered By: Laureen Vaca on 01-08-2023 Cholesterol in LDL [Mass/Vol] 60 mg/dL 0-130 [facility] Serum or plasma urea nitroge n measurement (mass/volume)Ordered By: Laureen Vaca on 01-08-2023 Urea nitrogen [Mass/Vol] 14 mg/dL 7-18 [facility] Thin prep Papanicolaou smear with manual screeningOrdered By: Laureen Vaca on 01-08-2023 Thin prep Papanicolaou smear with manual screening 3 5-15 [facility] Office Visit: [facility] 07-22-20 Dietary management education, guidance, and counseling (procedure) yes Invalid Interpretation Code [facility] Work Phone: [phone] Documentation of current medications (procedure) Done Invalid Interpretation Code [facility] Work Phone: [phone] Fall risk assessment No Invalid Interpretation Code [facility] Work Phone: [phone] Clinical Lists Update: Clini jessica Noteon 07-23-2016 Left ventricular Ejection fraction 55 % Invalid Interpretation Code [facility] Work Phone: [phone] Office Visiton 07-19-2016 Documentation of current medications (procedure) Done Invalid Interpretation Code [facility] Phone: [phone] Protein mass conc Done [facility] Work Phone: [phone] Office Visiton 08-01-2015 General cardiovascular disease 10Y risk [#] Morris.D'Agostino 9 % Invalid Interpretation Code [facility] Work Phone: [phone] Tobacco smoking status NHIS Never smoker [facility] Work Phone: [phone] Tobacco use CPHS Never smoker Invalid Interpretation Code [facility] Work Phone: [phone] 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 Chloride molar conc 106 mmol/L Invalid Interpretation Code [facility] Work Phone: [phone] Cholesterol in HDL mass conc 37 mg/dL Invalid Interpretation Code [facility] Work Phone: [phone] Cholesterol in LDL mass conc 79 mg/dL Invalid Interpretation Code [facility] Work Phone: [phone] Cholesterol mass conc 167 mg/dL Invalid Interpretation Code [facility] Work Phone: [phone] CO2 32.0 mmol/L Invalid Interpretation Code [facility] Work Phone: [phone] CO2 ppres (BldV) 32.0 mmol/L [facility] Work Phone: [phone] Creatinine mass conc 1.2 mg/dL Invalid Interpretation Code [facility] Work Phone: [phone] Hematocrit (HCT) 37.0 % Invalid Interpretation Code [facility] Work Phone: [phone] Hematocrit Volume Fraction (Bld) 37.0 % [facility] Work Phone: [phone] Hemoglobin mass conc (Bld) 13.2 g/dL Invalid Interpretation Code [facility] Work Phone: [phone] Lipoprotein.pre-beta mass conc 51 mg/dL Invalid Interpretation Code [facility] Work Phone: [phone] Platelets 191 10*3/mm3 Invalid Interpretation Code [facility] Work Phone: [phone] Platelets #/vol (Bld) 191 10*3/mm3 [facility] Work Phone: [phone] Potassium molar conc 4.4 mmol/L Invalid Interpretation Code [facility] Work Phone: [phone] Sodium molar conc 146 mmol/L Invalid Interpretation Code [facility] Work Phone: [phone] Triglyceride mass conc 257 mg/dL Invalid Interpretation Code [facility] Work Phone: [phone] Urea nitrogen mass conc 15 mg/dL Invalid Interpretation Code [facility] Work Phone: [phone] WBC #/vol (Bld) 5.5 10*3/uL [facility] Work Phone: [phone] WBC (Leukocytes) 5.5 10*3/uL Invalid Interpretation Code [facility] Phone: [phone] Office Visiton 09-03-2011 Alcoholism counseling (procedure) no Invalid Interpretation Code [facility] Work Phone: [phone] cardiac risk group B Invalid Interpretation Code [facility] Phone: [phone] cholesterol, target level 200 mg/dL Invalid Interpretation Code [facility] Work Phone: [phone] HDL cholesterol, serum, target level 40 mg/dL Invalid Interpretation Code [facility] Work Phone: [phone] LDL target level 130 mg/dL Invalid Interpretation Code [facility] Work Phone: [phone] Protein mass conc no [facility] Work Phone: [phone] triglyceride, target level 150 mg/dL Invalid Interpretation Code [facility] Work Phone: [phone] Vital Signs Date Time Vital Sign Value Performing Clinician Faci lity 03-17-2025 11:13-0400 Diastolic blood pressure 76 mm[Hg] Dr. Justin Ho MD Work Phone: [facility] 03-17-2025 11:13-0400 Heart rate 60 /min Dr. Justin Ho MD Work Phone: [facility] 03-17-2025 11:13-0400 Respiratory rate 18 /min Dr. Justin Ho MD Work Phone: [facility] 03-17-2025 11:13-0400 SaO2% (BldA) [Mass fraction] 97 % Dr. Justin Ho MD Work Phone: [facility] 03-17-2025 11:13-0400 Systolic blood pressure 137 mm[Hg] Dr. Justin Ho MD Work Phone: [facility] 03-10-2025 11:32-0400 Body height 172.[address] Justin Ho MD Work Phone: [facility] 03-10-2025 11:32-0400 Body temperature 99.2 [degF] Dr. Justin Ho MD Work Phone: [facility] 03-10-2025 11:32-0400 Diastolic blood pressure 71 mm[Hg] Dr. Justin Ho MD Work Phone: [facility] 03-10-2025 11:32-0400 Heart rate 63 /min Dr. Justin Ho MD Work Phone: [phone])961-518241 [place] [address] 03-10-2025 11:32-0400 Respiratory rate 18 /min Dr. Justin Ho MD Work Phone: 9(228)905-781555 [place] [address] 03-10-2025 11:32-0400 SaO2% (BldA) [Mass fraction] 96 % Dr. Justin Ho MD Work Phone: 6(925)396-612555 [place] [address] 03-10-2025 11:32-0400 Systolic blood pressure 151 mm[Hg] Dr. Justin Ho MD Work Phone: 2(405)618-004755 [place] [address] 03-04-2025 07:17-0400 Body mass index (BMI) [Ratio] 28.3 kg/m2 Dr. Justin Ho MD Work Phone: 8(587)836-532555 [place] [address] 03-04-2025 07:17-0400 Body weight 84.[address] Justin Ho MD Work Phone: 4(016)724-550155 [place] [address] 03-04-2025 07:17-0400 Diastolic blood pressure 80 mm[Hg] Dr. Justin Ho MD Work Phone: 8(281)087-012155 [place] [address] 03-04-2025 07:17-0400 Heart rate 64 /min Dr. Justin Ho MD Work Phone: 7(907)644-025955 [place] [address] 03-04-2025 07:17-0400 Respiratory rate 18 /min Dr. Justin Ho MD Work Phone: 7(347)345-401755 [place] [address] 03-04-2025 07:17-0400 SaO2% (BldA) [Mass fraction] 97 % Dr. Justin Ho MD Work Phone: [phone])[phone] [place] [address] 03-04-2025 07:17-0400 Systolic blood pressure 141 mm[Hg] Dr. Justin Ho MD Work Phone: 7(005)190-513655 [place] [address] 03-02-2025 08:33-0400 Body temperature 97.4 [degF] Dr. Justin Ho MD Work Phone: 1(326)313-322655 [place] [address] 03-02-2025 08:33-0400 Diastolic blood pressure 68 mm[Hg] Dr. Justin Ho MD Work Phone: [facility] 03-02-2025 08:33-0400 Heart rate 65 /min Dr. Justin Ho MD Work Phone: [facility] 03-02-2025 08:33-0400 Respiratory rate 18 /min Dr. Justin Ho MD Work Phone: [facility] 03-02-2025 08:33-0400 SaO2% (BldA) [Mass fraction] 100 % Dr. Justin Ho MD Work Phone: [facility] 03-02-2025 08:33-0400 Systolic blood pressure 136 mm[Hg] Dr. Justin Ho MD Work Phone: [facility] 03-02-2025 06:32-0400 Body height 172.[address] Justin Ho MD Work Phone: [phone])884-848191 [address] 03-02-2025 06:32-0400 Body mass index (BMI) [Ratio] 27.8 kg/m2 Dr. Justin Ho MD Work Phone: [facility] 03-02-2025 06:32-0400 Body weight [address] Justin Ho MD Work Phone: [facility] 01-30-2025 10:30-0400 Body mass index (BMI) [Ratio] 28 kg/m2 Dr. Justin Ho MD Work Phone: [facility] 01-30-2025 10:30-0400 Body temperature 98.9 [degF] Dr. Justin Ho MD Work Phone: [facility] 01-30-2025 10:30-0400 Body weight 83.[address] Justin Ho MD Work Phone: [facility] 01-30-2025 10:30-0400 Diastolic blood pressure 80 mm[Hg] Dr. Justin Ho MD Work Phone: [facility] 01-30-2025 10:30-0400 Heart rate 73 /min Dr. Justin Ho MD Work Phone: [facility] 01-30-2025 10:30-0400 Respiratory rate 16 /min Dr. Justin Ho MD Work Phone: [facility] 01-30-2025 10:30-0400 SaO2% (BldA) [Mass fraction] 98 % Dr. Justin Ho MD Work Phone: [facility] 01-30-2025 10:30-0400 Systolic blood pressure 154 mm[Hg] Dr. Justin Ho MD Work Phone: [facility] 06-04-2023 10:35-0400 Body height 172.[address] Justin Ho Work Phone: 8([phone])684-951891 [address] 06-04-2023 10:35-0400 Body mass index (BMI) [Ratio] 26.1 kg/m2 Dr. Justin Ho Work Phone: 3(368)452-834341 [place] [address] 06-04-2023 10:35-0400 Body weight 78.[address] Justin Ho Work Phone: [facility] 06-04-2023 10:35-0400 Diastolic blood pressure 67 mm[Hg] Dr. Justin Ho Work Phone: 3(328)830-062241 [place] [address] 06-04-2023 10:35-0400 Heart rate 55 /min Dr. Justin Ho Work Phone: [facility] 06-04-2023 10:35-0400 Respiratory rate 18 /min Dr. Justin Ho Work Phone: [facility] 06-04-2023 10:35-0400 SaO2% (BldA) [Mass fraction] 97 % Dr. Justin Ho Work Phone: [facility] 06-04-2023 10:35-0400 Systolic blood pressure 126 mm[Hg] Dr. Justin Ho Work Phone: [facility] 09-19-2022 08:51-0500 Body height 172.[address] Justin Ho Work Phone: [facility] 09-19-2022 08:51-0500 Body mass index (BMI) [Ratio] 27.5 kg/m2 Dr. Justin Ho Work Phone: [facility] 09-19-2022 08:51-0500 Body weight 82.[address] Justin Ho Work Phone: [facility] 09-19-2022 08:51-0500 Diastolic blood pressure 72 mm[Hg] Dr. Justin Ho Work Phone: [facility] 09-19-2022 08:51-0500 Heart rate 61 /min Dr. Justin Ho Work Phone: [facility] 09-19-2022 08:51-0500 Respiratory rate 16 /min Dr. Justin Ho Work Phone: [facility] 09-19-2022 08:51-0500 Systolic blood pressure 124 mm[Hg] Dr. Justin Ho Work Phone: [facility] 07-22-2017 08:07-0400 BMI (Body Mass Index) 27.97 kg/m2 [facility] Work Phone: 07-22-2017 08:07-0400 BP Diastolic 86 mm[Hg] [facility] Work Phone: 07-22-2017 08:07-0400 BP Systolic 156 mm[Hg] [facility] Work Phone: 07-22-2017 08:07-0400 Height 172.72 cm [facility] Work Phone: 07-22-2017 08:07-0400 Pulse (Heart Rate) 64 /min [facility] Work Phone: 07-22-2017 08:07-0400 Respiratory Rate 20 /min [facility] Work Phone: 07-22-2017 08:07-0400 Weight 83.46 kg [facility] Work Phone: 03-27-2017 10:21-0400 BP Diastolic 80 mm[Hg] Harumi DeFinis [facility] Work Phone: 03-27-2017 10:21-0400 BP Systolic 138 mm[Hg] Harumi DeFinis [facility] Work Phone: 03-27-2017 10:21-0400 Pulse (Heart Rate) 72 /min Harumi DeFinis [facility] Work Phone: 03-27-2017 10:21-0400 Respiratory Rate 20 /min Harumi DeFinis [facility] Work Phone: 03-11-2017 09:29-0400 BP Diastolic 80 mm[Hg] Harumi DeFinis [facility] Work Phone: 03-11-2017 09:29-0400 BP Systolic 150 mm[Hg] Harumi DeFinis [facility] Work Phone: 03-11-2017 09:29-0400 Pulse (Heart Rate) 68 /min Harumi DeFinis [facility] Work Phone: 03-11-2017 09:29-0400 Respiratory Rate 20 /min Harumi DeFinis [facility] Work Phone: 07-19-2016 13:35-0400 BMI (Body Mass Index) 28.02 kg/m2 Samanta Carvajal RN [facility] Work Phone: 07-19-2016 13:35-0400 BP Diastolic 70 mm[Hg] Samanta Carvajal RN [facility] Work Phone: 07-19-2016 13:35-0400 BP Systolic 120 mm[Hg] Samanta Carvajal RN [facility] Work Phone: 07-19-2016 13:35-0400 BSA (Body Surface Area) 1.98 m2 Samanta Carvajal RN [facility] Work Phone: 07-19-2016 13:35-0400 Pulse (Heart Rate) 68 /min Samanta Carvajal RN [facility] Work Phone: 07-19-2016 13:35-0400 Respiratory Rate 20 /min Samanta Carvajal RN [facility] Work Phone: [phone]:[id number] Weight 83.6 kg Samanta Carvajal RN [facility] Work Phone: 09-03-2011 10:170500 Height 172.72 cm Samanta Carvajal RN [facility] Work Phone: Encounters Encounter Date Encounter Type Care Provider Facility Start: 03-17-2025 End: 03-17-[address] Galileo Grover MD -[facility] Work Phone: Start: 03-17-2025 End: 03-17-2025 ambulatory Justin Ho Facility:[facility] Start: 03-10-2025 End: 03-10-2025 Patient encounter procedure Aga GONZALEZ -[facility] Work Phone: Start: 03-10-2025 End: 03-10-[address] Galileo Grover MD -[facility] Work Phone: Start: 03-10-2025 End: 03-10-[address] Justin Ho MD Work Phone: [facility] Work Phone: Start: 03-10-2025 End: 03-10-2025 ambulatory Aga GONZALEZ Facility:[facility] Start: 03-04-2025 End: 03-04-2025 Patient encounter procedure Aga GONZALEZ -[facility] Work Phone: Start: 03-04-2025 End: 03-04-2025 ambulatory Justin Ho Facility:[facility] Start: 03-02-2025 ambulatory Galileo Grover Facility:[facility] Start: 03-02-2025 Non-patient / Non-visit Dr. Galileo pulido MD -[facility] Start: 03-02-2025 End: 03-02-2025 Admission to same day surgery center Dr. Galileo Grover MD -[facility] Start: 03-02-2025 End: 03-02-[address] Justin Ho MD Work Phone: [facility] Work Phone: Start: 01-30-2025 End: 01-30-2025 Patient encounter procedure Garrett Holly RESTAURANT GREETER-C -[facility] Work Phone: Start: 01-30-2025 End: 01-30-2025 ambulatory Justin Ho Facility:[facility] Start: 01-28-2025 ambulatory Galileo Grover Facility:[facility] Start: 01-26-2025 End: 01-26-[address] Justin Ho MD -[facility] Start: 01-25-2025 End: 01-25-[address] Galileo Grover MD -[facility] Work Phone: Start: 01-25-2025 End: 01-26-2025 ambulatory Justin Ho Facility:[facility] Start: 10-14-2024 End: 10-14-2024 ambulatory Angelika Alejandra NP Facility:[facility] Start: 07-23-2024 End: 07-23-2024 ambulatory Justin Ho Facility:[facility] Start: 07-16-2024 ambulatory Juan Gomez Facility:[facility] Start: 07-16-2024 End: 07-16-2024 ambulatory Justin Ho Facility:[facility] Start: 05-18-2024 End: 05-18-2024 ambulatory Justin Ho Facility:[facility] Start: 01-22-2024 End: 01-22-2024 ambulatory [facility] Work Phone: Start: 01-22-2024 End: 01-22-2024 Patient encounter procedure [facility] Start: 01-15-2024 End: 01-15-2024 ambulatory [facility] Work Phone: Start: 01-15-2024 End: 01-15-2024 Patient encounter procedure [facility] Start: 08-12-2023 End: 08-12-[address] Justin Ho Work Phone: [facility] Work Phone: Start: 08-12-2023 End: 08-12-[address] Justin Ho Work Phone: [facility] Start: 07-31-2023 End: 07-31-[address] Justin Ho Work Phone: [facility] Work Phone: Start: 07-14-2023 End: 07-14-[address] Justin Ho Work Phone: [facility] Start: 07-02-2023 Non-patient / Non-visit Dr. Bobo Ho Work Phone: [facility] Work Phone: Start: 06-30-2023 Non-patient / Non-visit Dr. Bobo Ho Work Phone: [facility] Start: 06-30-2023 End: 06-30-[address] Justin Ho Work Phone: [facility] Work Phone: Start: 06-30-2023 End: 06-30-[address] [facility] Start: 06-04-2023 End: 06-04-[address] Justin Ho Work Phone: [facility] Work Phone: Start: 01-08-2023 End: 01-08-[address] Justin Ho Work Phone: [facility] Work Phone: Start: 01-08-2023 End: 01-08-[address] Justin Ho Work Phone: [facility] Start: 09-26-2022 Non-patient / Non-visit Dr. Bobo Ho Work Phone: [facility] Start: 09-26-2022 End: 09-26-[address] Justin Ho Work Phone: [facility] Work Phone: Start: 09-26-2022 End: 09-26-[address] Justin Ho Work Phone: [facility] Start: 09-19-2022 End: 09-19-[address] Justin Ho Work Phone: [facility] Start: 09-04-2022 End: 09-04-[address] Justin Ho Work Phone: [facility] Work Phone: Start: 09-04-2022 End: 09-04-[address] Justin Ho Work Phone: [facility]-Occupational Therapy Procedures Date Procedure Procedure Detail Performing Clinician Start: 03-02-[address] Justin andrews MD Work Phone: Start: 01-26-2025 Urine microalbumin/c reatinine ratio measurement Dr. Justin Ho MD Work Phone: Start: 07-31-[address] [address] 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 Garrett Holly [employer] Work Phone: Start: 07-22-2017 End: 07-22-2017 Follow Up Appt 1 year Garrett Holly [employer] Work Phone: Start: 03-27-2017 End: 03-27-2017 Follow Up BP Check Juan Gomez MD Start: 03-27-2017 End: 03-27-2017 Follow Up BP Check Juan Gomez MD Start: 03-11-2017 End: 03-11-2017 Follow Up BP Check Juan Gomez MD Start: 03-11-2017 End: 03-11-2017 Follow Up BP Check Juan Gomez MD Start: 07-19-2016 End: 07-19-2016 MALATHI Gomez MD Start: 07-19-2016 End: 07-23-2016 Echocardiography Juan Gomez MD Start: 07-19-2016 End: 07-19-2016 Follow Up Appt 1 year Juan Gomez MD Start: 07-19-2016 End: 07-19-2016 MALATHI Gomez MD Start: 07-19-2016 End: 07-23-2016 Echocardiography Juan Gomez MD Start: 07-19-2016 End: 07-19-2016 Follow Up Appt 1 year Juan Gomez MD Start: 08-01-2015 End: 08-01-2015 MALATHI Gomez MD Start: 08-01-2015 End: 08-02-2015 Documentation of current medications Juna Gomez MD Start: 08-01-2015 End: 08-01-2015 Follow Up Appt 1 year Juan Gomez MD Start: 08-01-2015 End: 08-01-2015 MALATHI Gomez MD Start: 08-01-2015 End: 08-02-2015 Documentation of current medications Juan Gomez MD Start: 08-01-2015 End: 08-01-2015 Follow Up Appt 1 year Juan Gomez MD Start: 07-08-2014 End: 07-08-2014 MALATHI Gomez MD Start: 07-08-2014 End: 07-19-2016 Echocardiography Juan Gomez MD Start: 07-08-2014 End: 07-08-2014 Follow Up Appt 1 year Juan Gomez MD Start: 07-08-2014 End: 07-08-2014 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 Juan Gomez MD Start: 07-08-2014 End: 07-19-2016 Echocardiography Juan Gomez MD Start: 07-08-2014 End: 07-08-2014 Follow Up Appt 1 year Juan Gomez MD Start: 06-22-2013 End: 07-19-2016 Carotid duplex Aga Wray PA-C Work Phone: Start: 06-22-2013 End: 06-22-2013 MALATHI Wray PA-C Work Phone: Start: 06-22-2013 End: 06-22-2013 Follow Up Appt 1 year Aga silva PA-C Work Phone: Start: 06-22-2013 End: 07-19-2016 Us abdominal real time w/image limited Aga Wray PA-C Work Phone: Start: 06-22-2013 End: 07-19-2016 Carotid duplex Aga Wray PA-C Work Phone: Start: 06-22-2013 End: 06-22-2013 MALATHI Wray PA-C Work Phone: Start: 06-22-2013 End: 07-19-2016 Echo exam of abdomen Aga gonsalves PA-C Work Phone: Start: 06-22-2013 End: 06-22-2013 Follow Up Appt 1 year Aga silva, SWETHA Work Phone: Start: 10-15-2012 End: 10-15-2012 Follow Up Appt 1 year Juan Gomez MD Start: 10-15-2012 End: 10-15-2012 Follow Up Appt 1 year Juan Gomez MD Start: 09-03-2011 End: 06-09-2013 Follow Up Appt 1 year Juan Gomez MD Start: 09-03-2011 End: 06-09-2013 Follow Up Appt 1 year Juan Gomez MD Plan of Treatment Date Care Activity Detail Author Start: 03-02-2025 Anes integ musc & nrv head neck&posterior trunk ANESTH HEAD/NECK/PTRUNK [facility] Start: 03-02-2025 Exc b9 lesion mrgn xcp sk tg t/a/l 2.1-3.0 cm EXC TR-EXT B9+KLAUS 2.1-3CM [facility] Start: 03-02-2025 Repair intermediate s/a/t/e 2.6-7.5 cm INTMD RPR S/A/T/EXT 2.6-7.5 [facility] Start: 03-02-2025 Patient discharge [facility] Start: 07-30-2018 End: 07-30-2018 Appointment Appointment [facility] Work Phone: Start: 07-22-2017 End: 07-22-2017 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 [facility] Work Phone: Start: 07-22-2017 End: 07-22-2017 Follow Up Appt 1 year Follow Up Appt 1 year [facility] Work Phone: Start: 07-22-2017 End: 07-22-2017 Appointment Appointment [facility] Work Phone: Start: 07-22-2017 End: 07-22-2017 Appointment Appointment [facility] Work Phone: Start: 03-27-2017 End: 03-27-2017 Follow Up BP Check Follow Up BP Check [facility] Work Phone: Start: 03-27-2017 End: 03-27-2017 Appointment Appointment [facility] Work Phone: Start: 03-27-2017 End: 03-27-2017 Appointment Appointment [facility] Work Phone: Start: 03-27-2017 End: 03-27-2017 Follow Up BP Check Follow Up BP Check [facility] Work Phone: Start: 03-11-2017 End: 03-11-2017 Follow Up BP Check Follow Up BP Check [facility] Work Phone: Start: 03-11-2017 End: 03-11-2017 Appointment Appointment [facility] Work Phone: Start: 03-11-2017 End: 03-11-2017 Appointment Appointment [facility] Work Phone: Start: 03-11-2017 End: 03-11-2017 Follow Up BP Check Follow Up BP Check [facility] Work Phone: Start: 07-19-2016 End: 07-19-2016 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 [facility] Work Phone: Start: 07-19-2016 End: 07-19-2016 Echocardiography Echocardiogram (complete) [facility] Work Phone: Start: 07-19-2016 End: 07-19-2016 Follow Up Appt 1 year Follow Up Appt 1 year [facility] Work Phone: Start: 07-19-2016 End: 07-19-2016 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 [facility] Work Phone: Start: 07-19-2016 End: 07-19-2016 Echocardiography Echocardiogram (complete) [facility] Work Phone: Start: 07-19-2016 End: 07-19-2016 Follow Up Appt 1 year Follow Up Appt 1 year [facility] Work Phone: Start: 08-01-2015 End: 08-01-2015 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 [facility] Work Phone: Start: 08-01-2015 End: 08-01-2015 Follow Up Appt 1 year Follow Up Appt 1 year [facility] Work Phone: Start: 08-01-2015 End: 08-01-2015 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 [facility] Work Phone: Start: 08-01-2015 End: 08-01-2015 Follow Up Appt 1 year Follow Up Appt 1 year [facility] Work Phone: Start: 07-08-2014 End: 07-08-2014 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 [facility] Work Phone: Start: 07-08-2014 End: 07-19-2016 Echocardiography Echocardiogram (complete) [facility] Work Phone: Start: 07-08-2014 End: 07-08-2014 Follow Up Appt 1 year Follow Up Appt 1 year [facility] Work Phone: Start: 07-08-2014 End: 07-08-2014 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 [facility] Work Phone: Start: 07-08-2014 End: 07-19-2016 Echocardiography Echocardiogram (complete) [facility] Work Phone: Start: 07-08-2014 End: 07-08-2014 Follow Up Appt 1 year Follow Up Appt 1 year [facility] Work Phone: Start: 06-22-2013 End: 06-23-2013 Carotid duplex Carotid duplex [facility] Work Phone: Start: 06-22-2013 End: 06-22-2013 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 [facility] Work Phone: Start: 06-22-2013 End: 06-22-2013 Follow Up Appt 1 year Follow Up Appt 1 year [facility] Work Phone: Start: 06-22-2013 End: 06-23-2013 Us abdominal real time w/image limited US Abdominal (aneurysm screening) [facility] Work Phone: Start: 06-22-2013 End: 06-23-2013 Carotid duplex Carotid duplex [facility] Work Phone: Start: 06-22-2013 End: 06-22-2013 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 [facility] Work Phone: Start: 06-22-2013 End: 06-23-2013 Echo exam of abdomen US Abdominal (aneurysm screening) [facility] Work Phone: Start: 06-22-2013 End: 06-22-2013 Follow Up Appt 1 year Follow Up Appt 1 year [facility] Work Phone: Start: 10-15-2012 End: 10-15-2012 Follow Up Appt 1 year Follow Up Appt 1 year [facility] Work Phone: Start: 10-15-2012 End: 10-15-2012 Follow Up Appt 1 year Follow Up Appt 1 year [facility] Work Phone: Start: 09-03-2011 End: 09-03-2011 Follow Up Appt 1 year Follow Up Appt 1 year [facility] Work Phone: Start: 09-03-2011 End: 09-03-2011 Follow Up Appt 1 year Follow Up Appt 1 year [facility] Work Phone: Patient referral [facility] Work Phone: US Carotid arteries [facility] Work Phone: Payers Date Payer Category Payer Self-pay [id number] 2024 Medicare [id number] 2024 Unknown [id number] Unknown ANTHEM [id number] Unknown [id number] 2.16.8 [id number] Unknown [id number] 2.16.8 [id number] Unknown [id number] 2.16.8 40.1.288134.3.579.2.462 Unknown [id number] 2.16.8 40.1.136664.3.579.2.462 Unknown [id number] 2.16.8 40.1.881973.3.579.2.462 Unknown [id number] 2.16.8 40.1.521637.3.579.2.462 Unknown [id number] 2.16.8 40.1.852811.3.579.2.462 Unknown [id number] 2.16.8 40.1.075324.3.579.2.462 Unknown [id number] 2.16.8 40.1.525652.3.579.2.462 Unknown [id number] 2.16.8 40.1.612547.3.579.2.462 Unknown [id number] 2.16.8 40.1.294329.3.579.2.462 Unknown [id number] 2.16.8 40.1.307478.3.579.2.462 Unknown [id number] 2.16.8 40.1.945658.3.579.2.462 Unknown [id number] 2.16.8 40.1.622767.3.579.2.462 Unknown [id number] 2.16.8 [id number] Social History Date Type Detail Facility Start: 09-19-2022 End: 06-04-2023 Tobacco smoking status TNIS Unknown if ever smoked [facility] Start: 09-11-2021 Occasional [facility] Start: 09-11-2021 None [facility] Start: 09-11-2021 Non-smoker [facility] Start: 1950 Sex Assigned At Male [facility] Start: 02-16-2025 Tobacco smoking stat us NHIS Never smoked tobacco (finding) [facility] Goals Date Patient Goal Desired Activity /State Mental Status Date Assessment Result Facility 03-02-2025 Cognitive function Voice/Name [facility] Work Phone: Clinical Notes 01-25-2025 to 03-10-2025 Note Date & Type Note Facility 03-10-2025 Progress note [facility] 03-10-2025 Progress note Note Date/Time March 10, 2025 11:36am [facility] [address], [address] [place] [address] OFFICE VISIT Date of Service: 03/10/25 MR#: [id number] Acct: [id number] Name: EMI ESCALONA Rep #: [id number] : 1950 Provider: Dr. Jason Grover MD Age/Sex: 74/M Location: [facility] [facility] Status: Signed Intake Vital Signs 03/02/25 06:32 03/04/25 07:17 03/10/25 11:32 Height 5 ft 8 in 5 ft 8 in 5 ft 8 in Weight: 186 lb BMI 28.3 BP 141/80 H 151/71 H Blood Pressure Location Lt brachial Lt brachial Position Sitting Sitting Respiration 18 18 Pulse 64 63 Pulse Source Monitor Temp 99.2 F H Temp Source Temporal Pulse Oximetry (%) 97 96 Oxygen Delivery Method room air Intake Visit Reasons: post op Chief Complaint: post op right shoulder melanoma in situ of back Is patient in pain?: No Allergies lisinopril Adverse Reaction (Verified 03/10/25 11:33) cough Medications ?Medication ?Instructions ?Recorded ?Confirmed ?Type metoprolol succinate 50 mg 50 mg PO DAILY 02/14/17 History tablet,extended release 24 hr multivitamin 1 tab PO DAILY 07/30/18 05/07/07 History fenofibrate micronized 67 mg 67 mg PO DAILY 09/11/21 0 03/10/25 History capsule famotidine 20 mg tablet 20 mg PO BID 03/04/24 History simvastatin 40 mg tablet 40 mg PO QHS #90 tabs 03/10/25 Rx DL-mfnaahkdtdg-whbrmw ox-Zn ER 500 1 tab PO DAILY 01/1103/10/25 History mcg-750 mg-1.5 mg-25 mg tablet,ER losartan 50 mg tablet 50 mg PO DAILY 03/02/2502/11 History Have you fallen in the past year?: No Nurse's Note: pt here for post op right shoulder melanoma in situ of back Subjective Details: Operative Information Date of Procedure: 03/02/25 Pre-Operative Diagnosis: 1) 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 No fevers, chills, or drainage. Pain controlled. Pathology not yet back. Objective Details: Right lower neck incision c/d/i Prineo in place No infection or fluid collection Coding Level of Care Code Global Post Op Diagnoses Melanoma in situ of back D03.59 [facility] Medical History History of steroid therapy Wears glasses Cancer Alcohol use High cholesterol Back pain Ocular migraine Syncope Non-smoker History of pain when walking History of echocardiogram History of stress test Cardiology follow-up encounter Heart murmur Epistaxis, recurrent Nonrheumatic aortic (valve) stenosis with insufficiency GERD (gastroesophageal reflux disease) Bicuspid aortic valve Essential (primary) hypertension Surgical History Dupuytren's contracture of both hands (08/28/22) H/O colonoscopy Family History Father Aortic aneurysm Social History Smoking Status: Never smoker alcohol intake: current alcohol intake frequency: holidays/special occasions only substance use type: does not use caffeine: Yes Type: coffee Number of servings: 1 Assessment and Plan (No Qualifiers) Assessment and Plan (1) Melanoma in situ of back: Status: Acute Comment: Right upper back Lentigo maligna subtype Excised 02 Mar 2025 with 1 cm margins Plan: F/u pathology F/u in 1 week for Prineo tape removal and to review pathology/check on wound. 03/10/25 1136 <Electronically signed by Galileo Grover MD> Date _ Galileo Grover MD Cosigner Signature: Date (if applicable) CC: ~ [facility] Work Phone: 1(568) 639-609405-21-2025 Consult note [facility] Medical Records Department [address] [place] [address] Anesthesia Postop Eval II 03/02/25 0849 MR#: [id number] Acct: [id number] Name: EMI ESCALONA Rep #:[id number] : 1950 74 From: Lamberto Mcqueen MD PCP: Dr. Justin Ho MD Status:REG SDC Y Race: C Location: [place] [address] Anesthesia Postop Eval I Sum Postop Eval Completion status Anesthesia document: Postop Eval 1 completed: Yes Anesthesia Postop Eval I Summary Anesthesia Postop Eval I Summary: Anesthesia Postop Eval I: Assessment Summary Airway patent Yes 03/02/25 08:23 [employer].PKEL Spontaneous unlabored Yes 03/02/25 08:23 [employer].PKEL respirations Mental status Awake,Calm 03/02/25 08:23 [employer].PKEL nausea No 03/02/25 08:23 [employer].PKEL Vomiting No 03/02/25 08:23 [employer].PKEL Anesthesia Postop Eval I: Fluid Summary Crystalloid volume administer 800 03/02/25 08:23 [employer].PKEL (ml) Colloids volume administered ( ml) Blood Product volume administered (ml) Total IV fluid infused 800 03/02/25 08:23 [employer].PKEL Anesthesia Postop Eval I: Summary Notes Anesthesia Complication No 03/02/25 08:23 [employer].PKEL Anesthesia Complication Comment: Post-operative progress note Anesthesia: Postop Eval II Evaluation Mental status: Awake Pain Level: 0 nausea: No Vomiting: No 03/02/25 0849 > Date _ Lamberto Mcqueen MD Cosigner Signature: Date CC: ~ Signed [facility]05-21-2025 Consult note Author Lamberto dawit [facility] Note Date/Time March 02, 2025 6:46a m [facility] Medical Records Department [address] [place] [address] Pre-Anesthesia Evaluation 03/02/25 0645 MR#: [id number] Acct: [id number] Name: EMI ESCALONA Rep #:[id number] : 1950 74 From: Lamberto Mcqueen MD PCP: Dr. Justin Ho MD Status:REG [facility] [place] Race: C Location: [place] [address] ASA Classification* ASA Classification ASA Classification: 2 Assessment & Plan Anesthesia* Anesthesia Assessment Anesthesia Assessment: Discussed sedation and/or anesthesia options, risks, benefits, and alternatives with patient/parents/legal guardian/POA. Questions invited. The patient/parents/legal guardian/POA seems to understand and agrees to proceedwith anesthesia plan. Reviewed the physical assessment, medical history, allergy history and patient home medications list prior to surgery/procedure/anesthetic and documented any changes. Performed airway and anesthesia risk assessments. Anesthesia Type Anesthesia Type: MAC Anesthesia Focused Assessment* Temperature: 97.4 F Pulse Rate: 54 Blood Pressure: 157/77 Respiratory Rate: 18 Pulse Ox: 99 Airway Assessment Mouth opens: >3 cm Mallampati Score: II Focused Labs Anesthesia Preop lab: CBC WBC 5.9 K/mm3 (4.4-11.0) 01/26/25 08:23 01/26/25 RBC 4.75 M/mm3 (4.6-6.2) 01/26/25 08:23 01/26/25 Hgb 14.0 g/dL (13.0-16.5) 01/26/25 08:23 01/26/25 Hct 40.8 % (40-54) 01/26/25 08:23 01/26/25 Plt Count 177 K/mm3 (150-450) 01/26/25 08:23 01/26/25 CHEMISTRY Potassium 4.1 mmol/L (3.3-5.1) 01/26/25 08:23 01/26/25 Sodium 140 mmol/L (133-145) 01/26/25 08:23 01/26/25 Magnesium 1.9 mg/dL (1.8-2.4) 06/04/13 21:30 06/04/13 Phosphorus 2.7 mg/dL (2.5-4.9) 06/04/13 21:30 06/04/13 BUN 16 mg/dL (4-19) 01/26/25 08:23 01/26/25 Creatinine 1.25 mg/dL (0.70-1.20) H 01/26/25 08:23 Glucose 109 mg/dL (70-99) H 01/26/25 08:23 01/26/25 TSH 1.030 uIU/mL (0.358-3.740) 07/23/24 11:41 07/13 11/05 COAG PT 14.1 SECONDS (11.9-14.4) 06/05/13 02:05 3 Pre-Assessment Diagnosis/Proposed Procedure Planned Operative Procedure(s): Excision. Right upper back melanoma in situ. Possible dermal substitute placement. Anesthesia History Anesthesia History - improvement leader: Anesthesia History - improvement leader Hx Hospitalization No 02/16/25 14:05 Any Problems With Anesthesia No 02/16/25 14:05 Cholinesterase deficiency No 02/16/25 14:05 You/Your Family Experience No 02/16/25 14:05 fever (hyperthermia) with Relationship Recent Exposure to Contagious No 03/02/25 06:32 Disease Does patient have nerve No 02/16/25 14:05 stimulator Patient instructed to have device shut off --Does patient have Pacemaker No 03/02/25 06:32 or ICD? When Was Last Pacemaker Check QUESTION #4 FULL TEXT: You/Your Family Experience fever (hyperthermia) with Anesthesia Last Oral Intake Last Oral intake: Last Oral Intake NPO since 21:00 03/02/25 06:32 Meds taken in AM with sips of Yes 03/02/25 06:32 water? Meds patient instructed to take am of surgery PONV PONV - improvement leader: PONV - improvement leader Female No 02/16/25 14:05 HX of Motion Sickness No 02/16/25 14:05 HX of N/V After Surgery No 02/16/25 14:05 Non-Smoker Yes 02/16/25 14:05 Duration of Surgery greater Yes 02/16/25 14:05 than 60 minutes Number of Risk Factors 2 02/16/25 14:05 PONV Score Moderate Risk 02/16/25 14:05 Height & Weight Height & Weight: Anesthesia: Height & Weight Height 5 ft 8 in 03/02/25 06:32 Weight: 83 kg 03/02/25 06:32 Body Mass Index (BMI) 27.8 03/02/25 06:32 Respiratory Assessment Respiratory Assessment - improvement leader: Respiratory Tract Infection Hx - improvement leader Hx Respiratory Tract Infection No 02/16/25 14:05 STOP Sleep Apnea STOP Sleep Apnea - improvement leader: STOP Sleep Apnea - improvement leader Hx Hypertension Yes: CONTROLLED WITH MED 02/16/25 14:05 Hx Sleep Apnea No 02/16/25 14:05 CPAP BIPAP Do you snore loudly (louder No 02/16/25 14:05 than talking or can be heard Do you often feel tired/ Yes 02/16/25 14:05 fatigued/ sleepy during daytime? Has anyone observed you stop No 02/16/25 14:05 breathing during sleep? STOP Results Positive 02/16/25 14:05 QUESTION #5 FULL TEXT : Do you snore loudly (louder than talking or can be heard through closed doors)? Tobacco Use History Tobacco Use History - improvement leader: Tobacco Use History - improvement leader Tobacco Use Non-smoker 09/11/21 11:18 Smoking Status Never smoker 02/16/25 14:05 Hx Tobacco Use No 02/16/25 14:05 Years Smoking Packs Smoked per Day Smoking Cessation Date was within the last 15 years Hx Smoking Cessation Date Hx Smoking Cessation Counseling Hematologic Medial History Hematologic Hx - improvement leader: Hematologic Medical Hx - optomechanical technician Hx of Blood Transfusion No 02/16/25 14:05 Hx of Transfusion in last 3 No 02/16/25 14:05 Months Date of Last Transfusion (if within last 3 months) Ever experience any problems No 02/16/25 14:05 with transfusion(s)? Specify any problems Hx of Preganancy in last 3 N/A 02/16/25 14:05 Months Nurse Filling Out Transfusion DSCHRIBER 02/16/25 14:05 & Questions: Date: 02/16/25 02/16/25 14:05 Time: 14:05 02/16/25 14:05 Patient unable to answer at this time (ie. confused, unrespo /Reproduction History /Reproductive History - improvement leader: /Reproductive Hx- improvement leader Hx Now Gestational Age (in weeks): EDC: Hx Hx Para Hx Section SAB No 02/16/25 14:05 Active Medications Active Medications: Current Medications Generic Name Dose Route Start Last Admin Trade Name Freq PRN Reason Stop Dose Admin Cefazolin Sodium 2 gm/ Sodium 110 mls @ 150 mls/hr 03/02/25 07:30 Chloride IV 03/02/25 08:13 INTRAOP ONE Lactated Ringer's 1,000 mls @ 15 mls/hr 03/02/25 06:30 IV .Q48H MARY PFSH Medical History History of steroid therapy Wears glasses Cancer Alcohol use High cholesterol Back pain Ocular migraine Syncope Non-smoker History of pain when walking History of echocardiogram History of stress test Cardiology follow-up encounter Heart murmur Epistaxis, recurrent Nonrheumatic aortic (valve) stenosis with insufficiency GERD (gastroesophageal reflux disease) Bicuspid aortic valve Essential (primary) hypertension Home Medications ?Medication ?Instructions ?Recorded ?Last Taken ?Type metoprolol succinate 50 mg 50 mg PO DAILY 02/14/17 History tablet,extended release 24 hr multivitamin 1 tab PO DAILY 07/30/1802/11 History fenofibrate micronized 67 mg 67 mg PO DAILY 09/11/21 0 03/01/25 History capsule famotidine 20 mg tablet 20 mg PO BID 03/04/24 History simvastatin 40 mg tablet 40 mg PO QHS #90 tabs 03/01/25 Rx ZD-iqkafepxmmh-tkxzej ox-Zn ER 500 1 tab PO DAILY 01/1103/01/25 History mcg-750 mg-1.5 mg-25 mg tablet,ER losartan 50 mg tablet 50 mg PO DAILY 03/02/2502/11 History Allergy/AdvReac Type Severity Reaction Status Date / Time lisinopril AdvReac cough Verified 03/02/25 06:29 Family History Father Aortic aneurysm Surgical History Dupuytren's contracture of both hands (08/28/22) H/O colonoscopy Social History Smoking Status: Never smoker alcohol intake: current alcohol intake frequency: holidays/special occasions only substance use type: does not use caffeine: Yes Type: coffee Number of servings: 1 Review of Systems (Anesthesia) ROS Narrative System reviewed and no additional complaints, except as documented. 03/02/25 0646 <Electronically signed by Lamberto Mcqueen MD > Date _ Lamberto Mcqueen MD Cosigner Signature: Date CC: ~ Signed [facility] Work Phone: 1(595) 572-626605-21-2025 Procedure note [facility] Medical Records Department [address] [place] [address] Operative Report 03/02/25 0820 MR#: [id number] Acct: [id number] Name: EMI ESCALONA Rep #:[id number] : 1950 74 From: Galileo Grover MD PCP: Dr. 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) Post-Operative Diagnosis: Same Surgery/Procedure Performed: 1) Excision of right lateral trapezial neck melanoma in situ (lentigo maligna subtype) with 1 cm margins, 2.5 x 3.5 cm (CPT:67629) 2) Intermediate closure of right lateral neck wound after melanoma in situ excision, 6 cm (CPT 14614) professional tutor: Yes Website Developer: Shalini Bingham Tasks completed by placement assistant: Retracting Type of Anesthesia: MAC/Supplemental (15 cc of 50-50 mixture of 1% lidocaine with 1-200,000 epinephrine and quarter percent Marcaine with 1-200,000 epinephrine) RN Documented Start/Stop Times: Operation Date: 03/02/25 07:30 Case Time Into Pre-Op 03/02/25 06:17 Anesthesia Start 03/02/25 07:28 Into Room 03/02/25 07:28 Out of Pre-Op 03/02/25 07:29 Procedure Start 03/02/25 07:54 Procedure End 03/02/25 08:12 Anesthesia End 03/02/25 08:16 Out of Room 03/02/25 08:16 Procedure Start Time: 07:54 Procedure Stop Time: 08:12 Select all DRAINS/GRAFTS/IMPLANTS that apply: None Estimated Blood Loss: Minimal Specimen collected: Yes Description of specimen(s) removed: Melanoma in situ excision (lentigo maligna subtype and therefore 1 cm margins), marked short superior, long lateral with a silk stitch Description of surgery: Indications: Patient is a delightful 74-year-old male with a biopsy-proven (shave) lentigo maligna subtype melanoma in situ on the right lateral trapezial neck. I confirmed the biopsy site with Dr. Kentrell Jeffries who is the ground support equipment fitter. I confirmed the biopsy site with the patient and marked him in preoperative h olding. All parties were in agreement with the site marking. I talked him about the risks, benefits, and alternatives of excision, and we talked about the1 cm margins (recommended 5 to 9 mm margins for the melanoma in situ 1 it is lentigo maligna subtype but given location and potential for some invasive component, 1 cm margins obtained and patient happy with the plan). He elected to proceed with surgery. Procedure details: Patient was correctly identified in preoperative holding and taken back to the operating room wherehe was administered sedation and the above-noted local anesthesia. He was given time to take effectand he was prepped and draped in sterile fashion and a timeout was performed. A 15 blade scalpel was used to excise around the lesion for total excision of 2.5 x 3.5 centimeters down to trapezial fascia (full-thickness through the subcutaneous tissue). Hemostasis obtained with Bovie electrocautery.The wound was irrigated with copious amounts normal saline. New instruments were used for the closure. The specimenwas marked short superior long lateral with a silk marking stitch and sent to pathology. 2-0 PDS deep fascial sutures and deep dermal sutures were placed as well as 3-0 Monocryl deep dermal and 3-0 Monocryl running subcuticular sutures and Prineo tape. The total intermediate closure was 6 cm. Patient tolerated the procedure well. He was awakened and taken to the PACU in stable condition. Postoperative plan: Okay to get Prineo tape wet tomorrow. Follow-up in 1 week in clinic to review pathology and for wound check. Surgical Findings: Able to close without significant tension (intermediate, primary closure) Complications Complications: No Admit VTE Documentation VTE Mechan Device Prophylaxis: SCD's 03/02/25827 Cosigner Signature (if applicable): CC: Dr. Justin Ho MD; Dr. Galileo Grover MD~ Signed [facility]05-21-2025 Consult note [facility] Medical Records Department [address] [place] [address] Anesthesia Postop Eval I 03/02/25 08 MR#: [id number] Acct: [id number] Name: EMI ESCALONA Rep #:[id number] : 1950 74 From: Robert Molina CRNA PCP: Dr. Justin Ho MD Status:REG [facility] [place] Race: C Location: [place] [address] Anesthesia: Postop Eval I Current Vital Signs Temperature: 97.7 F Pulse Rate: 66 Blood Pressure: 115/66 Respiratory Rate: 20 Pulse Ox: 97 Oxygen Delivery Method: Room Air Assessment Airway patent: Yes Spontaneous unlabored respirations: Yes Mental status: Awake and Calm nausea: No Vomiting: No Anesthesia Complication: No Fluid Hydration Crystalloid volume administer (ml): 800 Total IV fluid infused: 800 Progress Note Anesthesia document: Postop Eval 1 completed: Yes 03/02/25822 y [employer]> Date _ Robert Molina [employer] Cosigner Signature: Date CC: ~ Signed [facility]05-21-2025 History and physical note [facility] Medical Records Department [address] [place] [address] H&P Exam - Surgical 03/02/25724 MR#: [id number] Acct: [id number] Name: EMI ESCALONA Rep #:[id number] : 1950 74 From: Galileo Grover MD PCP: Dr. Justin Ho MD Status:REG [facility] Location: [place] [address] HPI - General HPI Narrative Emi Escalona is a delightful 74-year-old male with past medical history of relatively well-controlled hypertension who presents today for a right upper back biopsy-proven inflamed malignant melanoma in situ, lentigo maligna subtype. Dr. Kentrell Jeffries from [place] dermat[facility] took a shave biopsy of the lesion on28 December 2024. He referred the patient to me for wide local excision with 9 mm margins (given the lentigo maligna subtype). Patient reports history of nonmelanoma skin cancers (squamous cell carcinoma). We discussed sunscreen and sun protection today. He is not a smoker. No diabetes No new or changing headaches Current Encounter (DATE OF SURGERY H&P UPDATE): I saw and examined the patient this morning in pre-operative holding. We discussed risks and benefits of today's surgery and they would like to proceed. NO CHANGE in health history since last seen and evaluated except he had a viral URI that he has since recovered from (why first surgery was rescheduled). Ready to proceed with surgery. [facility] Medical History History of steroid therapy Wears glasses Cancer Alcohol use High cholesterol Back pain Ocular migraine Syncope Non-smoker History of pain when walking History of echocardiogram History of stress test Cardiology follow-up encounter Heart murmur Epistaxis, recurrent Nonrheumatic aortic (valve) stenosis with insufficiency GERD (gastroesophageal reflux disease) Bicuspid aortic valve Essential (primary) hypertension Home Medications ?Medication ?Instructions ?Recorded ?Last Taken ?Type metoprolol succinate 50 mg 50 mg PO DAILY 02/14/17 History tablet,extended release 24 hr multivitamin 1 tab PO DAILY 07/30/1802/11 History fenofibrate micronized 67 mg 67 mg PO DAILY 09/11/21 0 03/01/25 History capsule famotidine 20 mg tablet 20 mg PO BID 03/04/24 History simvastatin 40 mg tablet 40 mg PO QHS #90 tabs 03/01/25 Rx RE-ffvrnpqzqya-sgqoxn ox-Zn ER 500 1 tab PO DAILY 01/1103/01/25 History mcg-750 mg-1.5 mg-25 mg tablet,ER losartan 50 mg tablet 50 mg PO DAILY 03/02/2502/11 History Allergy/AdvReac Type Severity Reaction Status Date / Time lisinopril AdvReac cough Verified 03/02/25 06:29 Family History Father Aortic aneurysm Surgical History Dupuytren's contracture of both hands (08/28/22) H/O colonoscopy Social History Smoking Status: Never smoker alcohol intake: current alcohol intake frequency: holidays/special occasions only substance use type: does not use caffeine: Yes Type: coffee Number of servings: 1 Vital Signs Vital Signs Vital Signs: 03/02/25 06:32 03/02/25 06:32 03/02/25 06:45 Temperature 97.4 F L 97.4 F L Temperature Source Temporal Pulse Rate 54 L 54 L Respiratory Rate 18 18 Respiratory Pattern Normal Blood Pressure 157/77 H 157/77 H Blood Pressure Mean 103 Blood Pressure Source Monitor Blood Pressure Position Semi-Fowlers Blood Pressure Location Left Arm Pulse Ox 99 99 Oxygen Delivery Method Room Air Weight Weight: 182 lb 15.739 oz Body Mass Index (BMI) 27.8 Physical Exam Narrative No axillary or neck lymphadenopathy on my exam He has a 1 x 1 cm area of fresh scar status post shave biopsy on the right upperback over the inferior aspects of the trapezium towards his neck. There are some brown melanocytes around the shave scar. I marked the spot with the patient in agreement (we went over previous photos and agreed on the biopsy location in preop holding) Assessment & Plan Assessment/Plan (1) Melanoma in situ of back: PLAN: Right upper back Lentigo maligna subtype Plan: Discussed with the patient that we need at least 9 mm margins around the melanoma in situ given that it is the lentigo maligna subtype. I recommended that we do 1 cm margins around the lesion as if there is an area of invasive melanoma on final pathology, then we will have final margins for this aswell. He was in agreement and would like to proceed with 1 cm margins. I talked him about the risks, benefits, and alternatives to the wide local excision procedure. We talked about potential complications such as infection, bleeding, wound healing problems, recurrence,need for repeat surgeries when thefinal pathology results, or there being undue tension on the wound requiring temporary dressings before we can perform reconstruction as we await the final pathologyresults. We also talked about damage to surrounding structures and pain, as well as poor scarring. Patient would like to proceed. Plan for excision with sedation and local anesthesia (wide local excision of themelanoma in situ with 1 cm margins and anticipated primary closure). Current Encounter (DATE OF SURGERY H&P UPDATE): I saw and examined the patient this morning in pre-operative holding. We discussed risks and benefits of today's surgery and they would like to proceed. NO CHANGE in health history since last seen and evaluated. Ready to proceed with surgery. 03/02/25726 Cosigner Signature (if applicable): CC: Dr. Justin Ho MD; Dr. Galileo Grover MD~ Signed [facility]05-21-2025 Consult note [facility] Medical Records Department [address] [place] [address] Pre-Anesthesia Evaluation 03/02/25 0645 MR#: [id number] Acct: [id number] Name: EMI ESCALONA Rep #:[id number] : 1950 74 From: Lamberto Mcqueen MD PCP: Dr. Justin Ho MD Status:REG [facility] [place] Race: C Location: [place] [address] ASA Classification* ASA Classification ASA Classification: 2 Assessment & Plan Anesthesia* Anesthesia Assessment Anesthesia Assessment: Discussed sedation and/or anesthesia options, risks, benefits, and alternatives with patient/parents/legal guardian/POA. Questions invited. The patient/parents/legal guardian/POA seems to understand and agrees to proceedwith anesthesia plan. Reviewed the physical assessment, medical history, allergy history and patient home medications list prior to surgery/procedure/anesthetic and documented any changes. Performed airway and anesthesia risk assessments. Anesthesia Type Anesthesia Type: MAC Anesthesia Focused Assessment* Temperature: 97.4 F Pulse Rate: 54 Blood Pressure: 157/77 Respiratory Rate: 18 Pulse Ox: 99 Airway Assessment Mouth opens: >3 cm Mallampati Score: II Focused Labs Anesthesia Preop lab: CBC WBC 5.9 K/mm3 (4.4-11.0) 01/26/25 08:23 01/26/25 RBC 4.75 M/mm3 (4.6-6.2) 01/26/25 08:23 01/26/25 Hgb 14.0 g/dL (13.0-16.5) 01/26/25 08:23 01/26/25 Hct 40.8 % (40-54) 01/26/25 08:23 01/26/25 Plt Count 177 K/mm3 (150-450) 01/26/25 08:23 01/26/25 CHEMISTRY Potassium 4.1 mmol/L (3.3-5.1) 01/26/25 08:23 01/26/25 Sodium 140 mmol/L (133-145) 01/26/25 08:23 01/26/25 Magnesium 1.9 mg/dL (1.8-2.4) 06/04/13 21:30 06/04/13 Phosphorus 2.7 mg/dL (2.5-4.9) 06/04/13 21:30 06/04/13 BUN 16 mg/dL (4-19) 01/26/25 08:23 01/26/25 Creatinine 1.25 mg/dL (0.70-1.20) H 01/26/25 08:23 Glucose 109 mg/dL (70-99) H 01/26/25 08:23 01/26/25 TSH 1.030 uIU/mL (0.358-3.740) 07/23/24 11:41 07/13 11/05 COAG PT 14.1 SECONDS (11.9-14.4) 06/05/13 02:05 3 Pre-Assessment Diagnosis/Proposed Procedure Planned Operative Procedure(s): Excision. Right upper back melanoma in situ. Possible dermal substitute placement. Anesthesia History Anesthesia History - improvement leader: Anesthesia History - improvement leader Hx Hospitalization No 02/16/25 14:05 Any Problems With Anesthesia No 02/16/25 14:05 Cholinesterase deficiency No 02/16/25 14:05 You/Your Family Experience No 02/16/25 14:05 fever (hyperthermia) with Relationship Recent Exposure to Contagious No 03/02/25 06:32 Disease Does patient have nerve No 02/16/25 14:05 stimulator Patient instructed to have device shut off --Does patient have Pacemaker No 03/02/25 06:32 or ICD? When Was Last Pacemaker Check QUESTION #4 FULL TEXT: You/Your Family Experience fever (hyperthermia) with Anesthesia Last Oral Intake Last Oral intake: Last Oral Intake NPO since 21:00 03/02/25 06:32 Meds taken in AM with sips of Yes 03/02/25 06:32 water? Meds patient instructed to take am of surgery PONV PONV - improvement leader: PONV - improvement leader Female No 02/16/25 14:05 HX of Motion Sickness No 02/16/25 14:05 HX of N/V After Surgery No 02/16/25 14:05 Non-Smoker Yes 02/16/25 14:05 Duration of Surgery greater Yes 02/16/25 14:05 than 60 minutes Number of Risk Factors 2 02/16/25 14:05 PONV Score Moderate Risk 02/16/25 14:05 Height & Weight Height & Weight: Anesthesia: Height & Weight Height 5 ft 8 in 03/02/25 06:32 Weight: 83 kg 03/02/25 06:32 Body Mass Index (BMI) 27.8 03/02/25 06:32 Respiratory Assessment Respiratory Assessment - improvement leader: Respiratory Tract Infection Hx - improvement leader Hx Respiratory Tract Infection No 02/16/25 14:05 STOP Sleep Apnea STOP Sleep Apnea - improvement leader: STOP Sleep Apnea - improvement leader Hx Hypertension Yes: CONTROLLED WITH MED 02/16/25 14:05 Hx Sleep Apnea No 02/16/25 14:05 CPAP BIPAP Do you snore loudly (louder No 02/16/25 14:05 than talking or can be heard Do you often feel tired/ Yes 02/16/25 14:05 fatigued/ sleepy during daytime? Has anyone observed you stop No 02/16/25 14:05 breathing during sleep? STOP Results Positive 02/16/25 14:05 QUESTION #5 FULL TEXT : Do you snore loudly (louder than talking or can be heard through closeddoors)? Tobacco Use History Tobacco Use History - improvement leader: Tobacco Use History - improvement leader Tobacco Use Non-smoker 09/11/21 11:18 Smoking Status Never smoker 02/16/25 14:05 Hx Tobacco Use No 02/16/25 14:05 Years Smoking Packs Smoked per Day Smoking Cessation Date was within the last 15 years Hx Smoking Cessation Date Hx Smoking Cessation Counseling Hematologic Medial History Hematologic Hx - improvement leader: Hematologic Medical Hx - optomechanical technician Hx of Blood Transfusion No 02/16/25 14:05 Hx of Transfusion in last 3 No 02/16/25 14:05 Months Date of Last Transfusion (if within last 3 months) Ever experience any problems No 02/16/25 14:05 with transfusion(s)? Specify any problems Hx of Preganancy in last 3 N/A 02/16/25 14:05 Months Nurse Filling Out Transfusion DSCHRIBER 02/16/25 14:05 & Questions: Date: 02/16/25 02/16/25 14:05 Time: 14:05 02/16/25 14:05 Patient unable to answer at this time (ie. confused, unrespo /Reproduction History /Reproductive History - improvement leader: /Reproductive Hx- improvement leader Hx Now Gestational Age (in weeks): EDC: Hx Hx Para Hx Section SAB No 02/16/25 14:05 Active Medications Active Medications: Current Medications Generic Name Dose Route Start Last Admin Trade Name Freq PRN Reason Stop Dose Admin Cefazolin Sodium 2 gm/ Sodium 110 mls @ 150 mls/hr 03/02/25 07:30 Chloride IV 03/02/25 08:13 INTRAOP ONE Lactated Ringer's 1,000 mls @ 15 mls/hr 03/02/25 06:30 IV .Q48H MARY PFSH Medical History History of steroid therapy Wears glasses Cancer Alcohol use High cholesterol Back pain Ocular migraine Syncope Non-smoker History of pain when walking History of echocardiogram History of stress test Cardiology follow-up encounter Heart murmur Epistaxis, recurrent Nonrheumatic aortic (valve) stenosis with insufficiency GERD (gastroesophageal reflux disease) Bicuspid aortic valve Essential (primary) hypertension Home Medications ?Medication ?Instructions ?Recorded ?Last Taken ?Type metoprolol succinate 50 mg 50 mg PO DAILY 02/14/17 History tablet,extended release 24 hr multivitamin 1 tab PO DAILY 07/30/1802/11 History fenofibrate micronized 67 mg 67 mg PO DAILY 09/11/21 0 03/01/25 History capsule famotidine 20 mg tablet 20 mg PO BID 03/04/24 History simvastatin 40 mg tablet 40 mg PO QHS #90 tabs 03/01/25 Rx FF-xqreqhjinqq-paeufe ox-Zn ER 500 1 tab PO DAILY 01/1103/01/25 History mcg-750 mg-1.5 mg-25 mg tablet,ER losartan 50 mg tablet 50 mg PO DAILY 03/02/2502/11 History Allergy/AdvReac Type Severity Reaction Status Date / Time lisinopril AdvReac cough Verified 03/02/25 06:29 Family History Father Aortic aneurysm Surgical History Dupuytren's contracture of both hands (08/28/22) H/O colonoscopy Social History Smoking Status: Never smoker alcohol intake: current alcohol intake frequency: holidays/special occasions only substance use type: does not use caffeine: Yes Type: coffee Number of servings: 1 Review of Systems (Anesthesia) ROS Narrative System reviewed and no additional complaints, except as documented. 03/02/25 0646 > Date _ Lamberto Mcqueen MD Cosigner Signature: Date CC: ~ Signed [facility]04-15-2025 Evaluation note* Diagnosis Onset Date Resolution Status Admit Date Melanoma in situ of back acute January 25, 2025 3:14pm Wheezing noneactive January 30 10:25am Melanoma in situ of back acute March 02, 2025 5:59am [facility] Work Phone: [phone]) 208-103804-15-2025 Evaluation note* Diagnosis Onset Date Resolution Status Admit Date Melanoma in situ of back acute January 25, 2025 3:14pm Wheezing noneactive January 30 10:25am Melanoma in situ of back acute March 02, 2025 5:59am Left carotid bruit acute March 042024 1:24pm Essential (primary) hypertension chronic March 04, 2025 1 :24pm HLD (hyperlipidemia) chronic March 04, 2025 1:24pm Nonrheumatic aortic (valve) stenosis with insufficiency chronic March 04, 2025 1:24pm Melanoma in situ of back acute March 10, 2025 11:25am [facility] Work Phone: Consult note Author Robert Molina [facility] Note Date/Time March 02, 2025 8:23a m [facility] Medical Records Department [address] [place] [address] Anesthesia Postop Eval I 03/02/25 0822 MR#: [id number] Acct: [id number] Name: EMI ESCALONA Rep #:[id number] : 1950 74 From: Robert Molina CRNA PCP: Dr. Justin Ho MD Status:REG [facility] Y Race: C Location: [place] [address] Anesthesia: Postop Eval I Current Vital Signs Temperature: 97.7 F Pulse Rate: 66 Blood Pressure: 115/66 Respiratory Rate: 20 Pulse Ox: 97 Oxygen Delivery Method: Room Air Assessment Airway patent: Yes Spontaneous unlabored respirations: Yes Mental status: Awake and Calm nausea: No Vomiting: No Anesthesia Complication: No Fluid Hydration Crystalloid volume administer (ml): 800 Total IV fluid infused: 800 Progress Note Anesthesia document: Postop Eval 1 completed: Yes 03/02/25822 <Electronically signed by Robert madrigal CRNA> Date _ Robert Molina CRNA Cosigner Signature: Date CC: ~ Signed [facility] Work Phone: Consult note Author Lamberto Mcqueen [facility] Note Date/Time March 02, 2025 9:07a m [facility] Medical Records Department [address] [place] [address] Anesthesia Postop Eval II 03/02/25 0849 MR#: [id number] Acct: [id number] Name: EMI ESCALONA Rep #:[id number] : 1950 74 From: Lamberto Mcqueen MD PCP: Dr. Justin Ho MD Status:REG [facility] Y Race: C Location: [address] Anesthesia Postop Eval I Sum Postop Eval Completion status Anesthesia document: Postop Eval 1 completed: Yes Anesthesia Postop Eval I Summary Anesthesia Postop Eval I Summary: Anesthesia Postop Eval I: Assessment Summary Airway patent Yes 03/02/25 08:23 [email or web address] Spontaneous unlabored Yes 03/02/25 08:23 [employer] respirations Mental status Awake,Calm 03/02/25 08:23 [employer] nausea No 03/02/25 08:23 [email or web address] Vomiting No 03/02/25 08:23 [email or web address] Anesthesia Postop Eval I: Fluid Summary Crystalloid volume administer 800 03/02/25 08:23 [employer]PK[employer] (ml) Colloids volume administered ( ml) Blood Product volume administered (ml) Total IV fluid infused 800 03/02/25 08:23 [email or web address] Anesthesia Postop Eval I: Summary Notes Anesthesia Complication No 03/02/25 08:23 [email or web address] Anesthesia Complication Comment: Post-operative progress note Anesthesia: Postop Eval II Evaluation Mental status: Awake Pain Level: 0 nausea: No Vomiting: No 03/02/25 0849 <Electronically signed by Lamberto Mcqueen MD > Date _ Lamberto Mcqueen MD Cosigner Signature: Date CC: ~ Signed [facility] Work Phone: Evaluation note* Diagnosis Onset Date Resolution Status Essential (primary) hypertension chronic HLD (hyperlipidemia) chronic Nonrheumatic aortic (valve) stenosis with insufficienc y chronic [facility] Work Phone: Evaluation noteNo assessment information available [facility] Work Phone: History and physical note Author [facility] Note Date/Time March 02, 2025 7:27a m [facility] Medical Records Department [address] [place] [address] H&P Exam - Surgical 03/02/25 0725 MR#: [id number] Acct: [id number] Name: EMI ESCALONA Rep #:[id number] : 1950 74 From: Galileo Grover MD PCP: Dr. Justin Ho MD Status:[facility] Location: [place] [address] HPI - General HPI Narrative Emi Escalona is a delightful 74-year-old male with past medical history of relatively well-controlled hypertension who presents today for a right upper back biopsy-proven inflamed malignant melanoma in situ, lentigo maligna subtype. Dr. Kentrell Jeffries from [place] dermat[facility] took a shave biopsy of the lesion on28 December 2024. He referred the patient to me for wide local excision with 9 mm margins (given the lentigo maligna subtype). Patient reports history of nonmelanoma skin cancers (squamous cell carcinoma). We discussed sunscreen and sun protection today. He is not a smoker. No diabetes No new or changing headaches Current Encounter (DATE OF SURGERY H&P UPDATE): I saw and examined the patient this morning in pre-operative holding. We discussed risks and benefits of today's surgery and they would like to proceed. NO CHANGE in health history since last seen and evaluated except he had a viral URI that he has since recovered from (why first surgery was rescheduled). Ready to proceed with surgery. [facility] Medical History History of steroid therapy Wears glasses Cancer Alcohol use High cholesterol Back pain Ocular migraine Syncope Non-smoker History of pain when walking History of echocardiogram History of stress test Cardiology follow-up encounter Heart murmur Epistaxis, recurrent Nonrheumatic aortic (valve) stenosis with insufficiency GERD (gastroesophageal reflux disease) Bicuspid aortic valve Essential (primary) hypertension Home Medications ?Medication ?Instructions ?Recorded ?Last Taken ?Type metoprolol succinate 50 mg 50 mg PO DAILY 02/14/17 History tablet,extended release 24 hr multivitamin 1 tab PO DAILY 07/30/1802/11 History fenofibrate micronized 67 mg 67 mg PO DAILY 09/11/21 0 03/01/25 History capsule famotidine 20 mg tablet 20 mg PO BID 03/04/24 History simvastatin 40 mg tablet 40 mg PO QHS #90 tabs 03/01/25 Rx SM-rtlgqobitug-emvdrp ox-Zn ER 500 1 tab PO DAILY 01/1103/01/25 History mcg-750 mg-1.5 mg-25 mg tablet,ER losartan 50 mg tablet 50 mg PO DAILY 03/02/2502/11 History Allergy/AdvReac Type Severity Reaction Status Date / Time lisinopril AdvReac cough Verified 03/02/25 06:29 Family History Father Aortic aneurysm Surgical History Dupuytren's contracture of both hands (08/28/22) H/O colonoscopy Social History Smoking Status: Never smoker alcohol intake: current alcohol intake frequency: holidays/special occasions only substance use type: does not use caffeine: Yes Type: coffee Number of servings: 1 Vital Signs Vital Signs Vital Signs: 03/02/25 06:32 03/02/25 06:32 03/02/25 06:45 Temperature 97.4 F L 97.4 F L Temperature Source Temporal Pulse Rate 54 L 54 L Respiratory Rate 18 18 Respiratory Pattern Normal Blood Pressure 157/77 H 157/77 H Blood Pressure Mean 103 Blood Pressure Source Monitor Blood Pressure Position Semi-Fowlers Blood Pressure Location Left Arm Pulse Ox 99 99 Oxygen Delivery Method Room Air Weight Weight: 182 lb 15.739 oz Body Mass Index (BMI) 27.8 Physical Exam Narrative No axillary or neck lymphadenopathy on my exam He has a 1 x 1 cm area of fresh scar status post shave biopsy on the right upperback over the inferior aspects of the trapezium towards his neck. There are some brown melanocytes around the shave scar. I marked the spot with the patient in agreement (we went over previous photos and agreed on the biopsy location in preop holding) Assessment & Plan Assessment/Plan (1) Melanoma in situ of back: PLAN: Right upper back Lentigo maligna subtype Plan: Discussed with the patient that we need at least 9 mm margins around the melanoma in situ given that it is the lentigo maligna subtype. I recommended that we do 1 cm margins around the lesion as if there is an area of invasive melanoma on final pathology, then we will have final margins for this as well. He was in agreement and would like to proceed with 1 cm margins. I talked him about the risks, benefits, and alternatives to the wide local excision procedure. We talked about potential complications such as infection, bleeding, wound healing problems, recurrence, need for repeat surgeries when thefinal pathology results, or there being undue tension on the wound requiring temporary dressings before we can perform reconstruction as we await the final pathology results. We also talked about damage to surrounding structures and pain, as well as poor scarring. Patient would like to proceed. Plan for excision with sedation and local anesthesia (wide local excision of themelanoma in situ with 1 cm margins and anticipated primary closure). Current Encounter (DATE OF SURGERY H&P UPDATE): I saw and examined the patient this morning in pre-operative holding. We discussed risks and benefits of today's surgery and they would like to proceed. NO CHANGE in health history since last seen and evaluated. Ready to proceed with surgery. 03/02/25 0727 <Electronically signed by Galileo Grover MD> Cosigner Signature (if applicable): CC: Dr. uJstin Ho MD; Dr. Galileo Grover MD~ Signed [facility] Work Phone: Reason for referral (narrative)No reason for referral information availableWSelect Medical [facility] Work Phone: Chief Complaint and Reason for Visit Chief Complaint PALMAR FASCIAL FIBRO MATOSIS RX HERE 1 Y FU Reason for Visit Essential (primary) hypertension HLD (hyperlipidemia) Nonrheumatic aortic (valve) stenosis with insufficiency Chief Complaint PALMAR FASCIAL FIBRO MATOSIS RX HERE 1 Y FU MURMUR Reason for Visit Essential (primary) hypertension HLD (hyperlipidemia) Nonrheumatic aortic (valve) stenosis with insufficiency Chief Complaint 1 Y FU MURMUR Reason for Visit Essential (primary) hypertension HLD (hyperlipidemia) Nonrheumatic aortic (valve) stenosis with insufficiency Chief Complaint See clinical note Virgilio Turk Nonrheumatic aortic (valve) stenosis Amb Documentation Reason for Visit Essential (primary) hypertension HLD (hyperlipidemia) Nonrheumatic aortic (valve) stenosis with insufficiency Chief Complaint See clinical note Virgilio Rosalee Nonrheumatic aortic (valve) stenosis Amb Documentation EORDER- LEFT HEEL- pain Reason for Visit Essential (primary) hypertension HLD (hyperlipidemia) Nonrheumatic aortic (valve) stenosis with insufficiency Chief Complaint Admit Date Melanoma January 25, 2025 3:1 4pm Wheezing January 30, 2025 10: 25am Excision right upper back melanoma in [facility] March 02, 2025 5:59am Excision right upper back melanoma in [facility] March 02, 2025 7:25am Reason for Visit Admit Date Melanoma in situ of back January 25 3:14pm Wheezing January 30, 2025 10: 25am Melanoma in situ of back March 02, 2025 5:59am Chief Complaint Admit Date Melanoma January 25, 2025 3:1 4pm Wheezing January 30, 2025 10: 25am Excision right upper back melanoma in [facility] March 02, 2025 5:59am Excision right upper back melanoma in [facility] March 02, 2025 7:25am 1 Y FU March 04, 2025 1:24p m post op March 10, 2025 11:25 am Reason for Visit Admit Date Melanoma in situ of back January 25 3:14pm Wheezing January 30, 2025 10: 25am Melanoma in situ of back March 02, 2025 5:59am Left carotid bruit March 04, 2025 1:24p m Essential (primary) hypertension February 1:24pm HLD (hyperlipidemia) March 04, 2025 1:24 pm Nonrheumatic aortic (valve) stenosis wit h insufficiency March 04, 2025 1:24pm Melanoma in situ of back March 10, 2025 11:25am Chief Complaint Admit Date Melanoma January 25, 2025 3:1 4pm Wheezing January 30, 2025 10: 25am Excision right upper back melanoma in [facility] March 02, 2025 5:59am Excision right upper back melanoma in [facility] March 02, 2025 7:25am 1 Y FU March 04, 2025 1:24p m post op March 10, 2025 11:25 am LEFT BRUIT March 10, 2025 1:53p m 1 W FU POST OP March 17, 2025 11:10 am Advance Directives Advance Directive Response Recorded Date/ Time Living Will No February 14, 2017 10 :43pm Power of Pocket And Pulley Machine Operator No February 14, 2017 10:43pm Advance Directive Response Recorded Date/ Time Living Will No February 14, 2017 11 :43pm Power of Pocket And Pulley Machine Operator No February 14, 2017 11:43pm Advance Directive Response Recorded Date/ Time Do you have a Healthcare Power of Pocket And Pulley Machine Operator? Yes February 16, 2025 2:05pm Advance Directive Response Recorded Date/ Time Living Will No February 14, 2017 11 :43pm Do you have a Healthcare Power of Pocket And Pulley Machine Operator? No February 14, 2017 11:43pm Do you have a Healthcare Power of Pocket And Pulley Machine Operator? Yes February 16, 2025 2:05pm Summary Purpose Family History No Family History Records Found Additional Source Comments Goals (unrecognized section and content) Goals may be documented in a n alternate sectionGoals may be documented in an alternate sectionGoals may be documented in an alternate sectionGoals may be documented in an alternate sectionGoals may be documented in an alternate sectionGoals may be documented in an alternate sectionGoals may be documented in an alternate section Care Teams (unrecognized sec tion and content) Team Status: Active Member Role Status Dates Dr. uJstin Ho MD Family Provider Active Dr. Justin Ho MD Primary Care Provider Active Team Status: Inactive Member Role Status Dates Dr. Justin Ho MD Primary Care Provider, Referring P rovider Active Dr. Juan Gomez MD Attending Provider Active Team Status: Active Member Role Status Dates Dr. Justin Ho MD Primary Care Provider Active Dr. Juan Gomez MD Attending Provider, Referring Pro vider Active Team Status: Inactive Member Role Status Dates Dr. Justin Ho MD Primary Care Provider Active Dr. Juan Gomez MD Attending Provider, Referring Pro vider Active Team Status: Inactive Member Role Status Dates Dr. Justin Ho MD Primary Care Provider, Referring P rovider Active ISRA Wilcox Attending Provider Active Team Status: Inactive Member Role Status Dates Dr. Justin Ho MD Primary Care Provider, Referring P rovider Active Aga Wray PA, PA Attending Provider Active Team Status: Active Member Role Status Dates Dr. Justin Ho MD Primary Care Provider Active Dr. Juan Gomez MD Attending Provider Active Team Status: Active Member Role Status Dates Dr. Justin Ho MD Primary Care Provider Active Michelle Coles NP, [employer]AURANT [employer]ETER-C Attending Provider Active Team Status: Inactive Member Role Status Dates Dr. Justin Ho MD Primary Care Provider Active Aga Wray PA, PA Attending Provider, Referr ing Provider Active Team Status: Inactive Member Role Status Dates Dr. Justin Ho MD Primary Care Provider Active Tawnya Rodriguez NP-C Attending Provider, Referr ing Provider Active Team Status: Inactive Member Role Status Dates Dr. Justin Ho MD Primary Care Provider, Attending P aicha Active Team Status: Inactive Member Role Status Dates Dr. Justin Ho MD Primary Care Provider Active Laureen Vaca NP-C Attending Provider Active Team Status: Active Member Role Status Dates Dr. Justin Ho MD Primary Care Provider Active Team Status: Inactive Member Role Status Dates Dr. Justin Ho MD Primary Care Provider Active Start: January 25, 2025 End: January 25, 2025 Dr. Galileo Grover MD Attending Provider Active Start: January 25, 2025 End: January 25, 2025 Dr. Kentrell Jeffries MD Referring Provider Active S tart: January 25, 2025 End: January 25, 2025 Team Status: Inactive Member Role Status Dates Dr. Justin Ho MD Primary Care Provider Active Start: January 26, 2025 End: January 26, 2025 Dr. Justin Ho MD Attending Provider Active St art: January 26, 2025 End: January 26, 2025 Dr. Justin Ho MD Referring Provider Active St art: January 26, 2025 End: January 26, 2025 Team Status: Inactive Member Role Status Dates Dr. Justin Ho MD Primary Care Provider Active Start: January 30, 2025 End: January 30, 2025 Dr. Justin Ho MD Referring Provider Active St art: January 30, 2025 End: January 30, 2025 Garrett Holly RESTAURANT GREETER, [employer] GREETER-C Attending Provider Active S tart: January 30, 2025 End: January 30, 2025 Team Status: Inactive Member Role Status Dates Dr. Justin Ho MD Primary Care Provider Active Start: March 02, 2025 End: March 02, 2025 Dr. Galileo Grover MD Attending Provider Active Start: March 02, 2025 End: March 02, 2025 Dr. Galileo Grover MD Referring Provider Active Start: March 02, 2025 End: March 02, 2025 Team Status: Active Member Role Status Dates Dr. Justin Ho MD Primary Care Provider Active Start: March 02, 2025 Dr. Galileo Grover MD Attending Provider Active Start: March 02, 2025 Dr. Galileo Grover MD Referring Provider Active Start: March 02, 2025 Dr. Galileo Grover MD Other Provider Active Star t: March 02, 2025 Team Status: Inactive Member Role Status Dates Dr. Justin Ho MD Primary Care Provider Active Start: March 04, 2025 End: March 04, 2025 Dr. Justin Ho MD Referring Provider Active St art: March 04, 2025 End: March 04, 2025 Aga GONZALEZ PA Attending Provider Active Start: March 04, 2025 End: March 04, 2025 Team Status: Inactive Member Role Status Dates Dr. Justin Ho MD Primary Care Provider Active Start: March 10, 2025 End: March 10, 2025 Dr. Justin Ho MD Referring Provider Active St art: March 10, 2025 End: March 10, 2025 Dr. Galileo Grover MD Attending Provider Active Start: March 10, 2025 End: March 10, 2025 Team Status: Inactive Member Role Status Dates Dr. Justin Ho MD Primary Care Provider Active Start: March 10, 2025 End: March 10, 2025 Aga GONZALEZ PA Attending Provider Active Start: March 10, 2025 End: March 10, 2025 Aga GONZALEZ PA Referring Provider Active Start: March 10, 2025 End: March 10, 2025 Team Status: Inactive Member Role Status Dates Dr. Justin Ho MD Primary Care Provider Active Start: March 17, 2025 End: March 17, 2025 Dr. Justin Ho MD Referring Provider Active St art: March 17, 2025 End: March 17, 2025 Dr. Galileo Grover MD Attending Provider Active Start: March 17, 2025 End: March 17, 2025 (unrecognized sect ion and content) No Status Records Found INFORMATION SOURCE (unrecogn ized section and content) DATE CREATED AUTHOR 03/18/2025 [facility] FOR RECORDS PERTAINING TO PATIENTS WHO ARE OR HAVE BEEN ENROLLED IN A CHEMICAL DEPENDENCY/SUBSTANCEABUSE PROGRAM, SOME INFORMATION MAY BE OMITTED. This clinical summary was aggregated from multiple sources. Caution should be exercised in using it in the provision of clinical care. This summary normalizes information from multiple sources, and as a consequence, information in this document may materially change the coding, format and clinical context of patient data. In addition, data may be omitted in some cases. CLINICAL DECISIONS SHOULD BE BASED ON THE PRIMARY CLINICAL RECORDS. [facility] [employer], [facility]. provides no warranty or guarantee of the accuracy or completeness of information in this document.
== END | disposition home or self-care (01) ==
LOC: MTRAD 10:14
PROVIDERS: PCP Family Medicine; Referring Provider Family Medicine; Visit Provider Family Medicine
DX: M54.50 Low back pain, unspecified (principal); G89.29 Other chronic pain
CPT/HCPCS: 72070; 72100

== ENCOUNTER → 2025-07-19 | Outpatient (CLI) | payer MEDICARE, OTHER, SELFPAY ==
[2025-07-19 15:30] LABS: PSA,Total - Annual Screen 1.07 ng/mL (0.02-4.00)
== END | disposition home or self-care (01) ==
LOC: MFPLAB 11:56
PROVIDERS: Nurse Practitioner Family; PCP Family Medicine; Visit Provider Family Medicine
DX: Z12.5 Encounter for screening for malignant neoplasm of prostate (principal)
CPT/HCPCS: 36415; 84153; G0103

== ENCOUNTER → 2025-08-17 | Outpatient (CLI) | payer MEDICARE, OTHER, SELFPAY ==
--- OUTSIDE RECORDS SUMMARY | 2025-08-17 07:02 | XMS RPT_ITS | CCD ---
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 Justin Ho Primary Care Provider 1([facility])[phone] Justin Ho Referring Provider 1([facility])[phone] Dr. Juan Gomez Attending Provider 1([facility])-[phone] Justin Ho Primary Care Provider 1([facility])[phone] Dr. Justin Ho Referring Provider 1([facility])[phone] Juan Gomez Attending Provider 1([facility])-[phone] Juan Gomez Referring Provider 1([facility])-[address] Justin Ho Primary Care Provider 1([facility])[phone] Justin Ho Referring Provider 1([facility])[phone] CARLOS Garza Attending Provider Dr. Juan Gomez Attending Provider 1([facility])-57 00 ISRA Coles NP Attending Provider Dr. Justin Ho Primary Care Provider 1([facility])[phone] Justin Ho Referring Provider 1([facility])[phone] CARLOS Garza Attending Provider Dr. Juan Gomez Attending Provider 1([facility])-[phone] Juan Gomez Referring Provider 1([facility])-57 00 ISRA Coles NP Attending Provider Vic CHILDS, Dr. Anderson Primary Care Provider Reilly CHILDS, Dr. Gurrola Attending Provider Mervin CHILDS, Dr. Pfeiffer Referring Provider Dr. Justin Ho MD Attending Provider Vic CHILDS, Dr. [facility] Referring Provider [facility] Garrett DHALIWAL Attending Provider Reilly CHILDS, Dr. Gurrola Referring Provider Reilly CHILDS, Dr. Gurrola Other Provider Aga Garza Attending Provider Aga Garza Referring Provider Lexie CHILDS, Dr. David Nicolas Attending Provider Vic CHILDS, Dr. [facility] Primary Care Physician Vic CHILDS, Dr. Anderson Referring Provider Dr. Galileo Grover MD Attending Physician Dr. Justin Ho MD Attending Physician Aga Garza Attending Physician Vic CHILDS, Dr. [facility] Primary Care Physician Dr. Justin Ho MD Referring Provider Dr. Justin Ho MD Attending Physician [phone] Aga Garza Referring Provider Jason CHILDS, Dr. Martinez Attending Physician Justin Ho Referring Unavailable Aga Garza Attending Unavail able Ho, Justin Primary Care Unavailable Ho, Justin Referring Unavailable Galileo Grover Attending Unavailable Ho, Justin Primary Care Unavailable Ho, Justin Referring Unavailable Aga Garza Attending Unavail able Ho, Justin Primary Care Unavailable Ho, Justin Primary Care Unavailable eKntrell Jeffries Referring Unavailable Galileo Grover Attending Unavailable Galileo Grover Consulting Unavailable Galileo Grover Referring Unavailable Galileo Grover Attending Unavailable Ho, Justin Primary Care Unavailable Ho, Justin Primary Care Unavailable Ho, Justin Referring Unavailable [facility] CHILDRENS CLUB ATTENDANT, Garrett Cevallos Attending Unavailable Kamala GONZALEZ, Aga Pablo Attending Unavail able Ho, Justin Primary Care Unavailable Kamala GONZALEZ, Aga Pablo Referring Unavail able Galileo Grover Referring Unavailable Siscarlos, Galileo Attending Unavailable Ho, Justin Primary Care Unavailable Ho, Justin Primary Care Unavailable Kamala GONZALEZ, Aga Pablo Referring Unavail able Kamala GONZALEZ, Aga Pablo Attending Unavail able Galileo Grover Attending Unavailable Siscarlos, Galileo Referring Unavailable Ho, Justin Primary Care Unavailable Ho, Justin Attending Unavailable Ho, Justin Primary Care Unavailable Ho, Justin Referring Unavailable Oh, Justin Attending Unavailable Ho, Justin Primary Care Unavailable Ho, Justin Primary Care Unavailable [place] [facility] ATTENDANT, Angelika Referring Unavailable [place] [employer] ATTENDANT, Angelika Attending Unavailable Kamala GONZALEZ, Aga Pablo Attending Unavail able Ho, Justin Primary Care Unavailable Kamala GONZALEZ, Aga Pablo Referring Unavail able Ho, Justin Referring Unavailable Ho, Justin Attending Unavailable Ho, Justin Primary Care Unavailable Ho, Justin Referring Unavailable Siska, Galileo Attending Unavailable Ho, Justin Primary Care Unavailable Allergies Allergy Classification Reported Allergen(s) Allergy Type Date of Onset Reaction(s) Facility (14 sources) Lisinopril Drug Allergy 09-19-2022 [facility] (1 source) Lisinopril Drug Allergy 07-08-2025 [facility] Repository Medications Current Medications Medication Drug Class(es) Dates Sig (Normalized) Sig (Original) atorvastatin 40 mg oral tablet (1 source) HMG-CoA Reductase Inhibitor Start: 08-03-2025 take 1 tablet by mouth at bedtime Start: 08-03-2025 take 1 tablet by mouth at bedt lary Nt-Swzmswhsnrb-Inhhxa Ox-Zin c 500-750-1.5-25 gej-we-jn-mg tablet,ext release multiphase (7 sources) Start: 01-28-2025 Start: 01-28-2025 Fa-Niacinamide -Cupric Ox-Zinc 500-750-1.5-25 pkt-ic-cv-mg tablet,ext release multiphase Active 1 {tbl} PO DAILY January 28, 2025 12:00am Complies with drug therapy Start: 01-28-2025 Fa-Niacinamide -Cupric Ox-Zinc 500-750-1.5-25 vtf-cj-jz-mg tablet,ext release multiphase Active 1 {tbl} PO DAILY January 28, 2025 12:00am famotidine 20 mg oral tablet (20 sources) Histamine-2 Receptor Antagonist Start: 03-04-2024 take 1 tablet by mouth twice daily Start: 08-08-2020 End: 03-04-2024 take 1 tablet [...] take 1 capsule by mouth once daily Start: 02-14-2017 End: 09-11-2021 Fenofibrate 54 MG [...] One tablet by mouth at bedtime. FENOFIBRATE [id number] Aga Wray PA-C Start: 05-15-2011 End: 07-22-2017 take 1 tablet by mouth at bedtime TRILIPIX 45 MG CPDR One tablet by mouth at bedtime. CHOLINE FENOFIBRATE [id number] Juan Gomez MD losartan potassium 100 mg oral tablet (20 sources) Angiotensin 2 Receptor Jassi Start: 07-08-2025 take 1 tablet by mouth once daily Start: 03-02-2025 End: 07-08-2025 take 1 tablet by mouth once daily Losartan 50 mg tablet Discontinued 50 mg PO DAILY March 02, 2025 12:00am July 08, 2025 11:16am Start: 09-11-2021 End: 01-30-2025 take 1 tablet [...] mouth once daily TOPROL XL 50 MG [id number] One tablet by mouth daily METOPROLOL SUCCINATE [id number] Juan Gomez MD Start: 10-15-2012 take 1 tablet by benito th once daily TOPROL XL 50 MG [id number] One tablet by mouth daily METOPROLOL SUCCINATE [id number] Juan Gomez MD Start: 05-15-2011 take 1 tablet by benito th once daily Start: 05-15-2011 take 1 tablet by benito th once daily TOPROL XL 50 MG [id number] One tablet by mouth daily METOPROLOL SUCCINATE [id number] Reba Campbell Multivitamin preparation (7 sources) Start: 07-30-2018 take 1 tablet by mouth once daily Multivitamin Active 1 TABLET PO DAILY July 30, 2018 12:00am Start: 07-30-2018 take 1 tablet by benito th once daily Multivitamin Active 1 TABLET PO DAILY July 29, 2018 11:00pm Multivitamin tablet (7 sources) Start: 07-30-2018 Start: 07-30-2018 Multivitamin t ablet Active 1 {tbl} PO DAILY July 30, 2018 12:00am Complies with drug therapy Start: 07-30-2018 Multivitamin t ablet Active 1 {tbl} PO DAILY July 30, 2018 12:00am simvastatin 40 mg oral tablet (20 sources) HMG-CoA Reductase Inhibitor Start: 08-08-2020 End: 08-03-2025 take 1 tablet by mouth at bedtime Simvastatin 40 mg tablet Discontinued 40 mg PO AT BEDTIME 90 3 March 04, 2024 10:56am August 03, 2025 2:22pm Start: 05-15-2011 take 1 tablet by benito th at bedtime ZOCOR 40 MG TABS One tablet by mouth at bedtime. SIMVASTATIN [id number] Reba Campbell Completed/Discontinued Medications Medication Drug Class(es) Dates Sig (Normalized) Sig (Original) aspirin 81 mg oral tablet (14 sources) Platelet Aggregation Inhibitor, Nonsteroidal Anti-inflammatory Drug Start: 05-15-2011 End: 07-08-2014 take 1 tablet by mouth once daily ASPIRIN 81 MG TABS One tablet by mouth daily ASPIRIN [id number] Juan Gomez MD Start: 05-15-2011 End: 07-08-2014 take 1 tablet by mouth once daily ASPIRIN 81 MG TABS One tablet by mouth daily ASPIRIN [id number] Juan Gomez MD doxycycline hyclate 100 mg oral capsule (14 sources) Tetracycline-class Drug Start: 01-30-2025 End: 02-06-2025 take 1 capsule by mouth twice daily Doxycycline Hyclate 100 mg capsule Discontinued 100 mg PO TWICE A DAY 14 7 0 January 30, 2025 12:19pm February 05, 2025 12:00am February 06, 2025 12:08am hydroCHLOROthiazide 25 mg oral tablet (20 sources) Thiazide Diuretic Start: 10-15-2017 End: 03-04-2024 take 1 tablet by mouth once daily Hydrochlorothiazide 25 mg tablet Discontinued 25 mg PO daily 30 October 15, 2017 1:00am March 04, 2024 10:25am Start: 02-24-2017 take 1 tablet by benito th once daily HYDROCHLOROTHIAZIDE 25 MG TABS One tablet by mouth daily HYDROCHLOROTHIAZIDE [id number] Juan Gomez MD Start: 02-24-2017 take 0.5 tablet by m out once daily HYDROCHLOROTHIAZIDE 25 MG TABS 1/2 tablet by mouth daily HYDROCHLOROTHIAZIDE [id number] Rodriguez Medina MEDICAL OFFICE SECRETARY-C Start: 06-04-2013 End: 06-22-2013 take 1 tablet by mouth once daily HYDROCHLOROTHIAZIDE 12.5 MG TABS One tablet by mouth daily HYDROCHLOROTHIAZIDE [id number] Aga Wray PA-C lisinopril 5 mg oral tablet (2 sources) Angiotensin Converting Enzyme Inhibitor Start: 07-22-2017 take 1 tablet by mouth once daily LISINOPRIL 5 MG TABS One tablet by mouth daily LISINOPRIL [id number] Garrett Holly CHILDRENS CL[employer] ATTENDANT MULTIPLE VITAMIN (3 sources) Start: 05-15-2011 take 1 tablet by mouth once daily MULTIVITAMINS TABS One tablet by mouth daily MULTIPLE VITAMIN [id number] Reba Claytonward MULTIPLE VITAMIN (4 sources) Start: 05-15-2011 take 1 tablet by mouth once daily MULTIVITAMINS TABS One tablet by mouth daily MULTIPLE VITAMIN [id number] Reba M Campbell Start: 05-15-2011 take 1 tablet by benito th once daily MULTIVITAMINS TABS One tablet by mouth daily MULTIPLE VITAMIN [id number] Rebatamera Claytonward omeprazole 20 mg delayed release oral capsule (7 sources) Proton Pump Inhibitor Start: 06-09-2013 take 1 tablet by mouth once daily OMEPRAZOLE 20 MG CPDR One tablet by mouth daily OMEPRAZOLE [id number] Linda Pulliam RN predniSONE 20 mg oral tablet (14 sources) Start: 01-30-2025 End: 02-04-2025 take 2 tablets by mouth once daily Prednisone 20 mg tablet Discontinued 40 mg PO daily 10 5 0 January 30, 2025 12:19pm February 03, 2025 [...] tablet by mouth twice daily RANITIDINE HCL [id number] Juan Gomez MD Problems Active Problems Problem Classification Problem Date Documented Date Episodic/Chronic Cardiac and circulatory congenital anomalies (7 sources) Bicuspid aortic valve; Translations: [Congenital insufficiency of aortic valve] Onset: 06-22-2013 06-23-2013 Chronic Coronary atherosclerosis and other heart disease (2 sources) Calcification of coronary artery; Translations: [Atherosclerotic heart disease of [place] coronary artery without angina pectoris] Onset: 08-14-2025 08-09-2025 Chronic Disorders of lipid metabolism (20 sources) Hyperlipidemia; Translations: [Hyperlipidemia, unspecified] Onset: 05-15-2011 05-15-2011 Chronic Esophageal disorders (7 sources) Gastroesophageal reflux disease; Translations: [Gastro-esophageal reflux disease without esophagitis] Onset: 05-15-2011 05-15-2011 Chronic Essential hypertension (20 sources) Hypertensive disorder; Translations: [Essential hypertension] Onset: 05-15-2011 05-15-2011 Chronic Comment on above: CONTROLLED WITH MEDS Headache; including migraine (14 sources) Ophthalmic migraine; 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 with aura, not intractable, without status migrainosus] 09-19-2022 Chronic Heart valve disorders (20 sources) Nonrheumatic aortic (valve) stenosis; Translations: [Aortic valve stenosis] Onset: 05-15-2011 Resolved: 01-17-2016 01-17-2016 Chronic Melanomas of skin (20 sources) Melanoma in situ of back; Translations: [Melanoma in situ of other part of trunk] Onset: 04-11-2025 01-25-2025 Chronic Comment on above: Right upper backLent igo maligna subtype Right upper backLent igo maligna subtypeExcised 02 Mar 2025 with 1 cm margins Right upper backLent igo maligna subtypeExcised 02 Mar 2025 with 1 cm marginsClear margins on final pathology report Other circulatory disease (11 sources) Carotid bruit; Translations: [Other specified symptoms and signs involving the circulatory and respiratory systems] 03-04-2025 Episodic Other lower respiratory disease (5 sources) Wheezing; Translations: [Wheezing] 01-30-2025 Episodic Other screening for suspected conditions (not mental disorders or infectious disease) (2 sources) Calcification of coronary artery; Translations: [Abnormal findings on diagnostic imaging of heart and coronary circulation] Onset: 07-29-2025 08-03-2025 Episodic Other upper respiratory disease (14 sources) Epistaxis; Translations: [Recurrent epistaxis] 08-08-2020 Episodic Unclassified (1 source) Low back pain, unspecified; Translations: [Low back pain, unspecified] Onset: 03-30-2025 Past or Other Problems Problem Classification Problem Date Documented Da te Episodic/Chronic Heart valve disorders (7 sources) Heart murmur; Translations: [Cardiac murmur, unspecified] Onset: 05-15-2011 05-15-2011 Episodic Nonspecific chest pain (14 sources) Chest pain, unspecified; Translations: [Chest pain, unspecified] Onset: 05-15-2011 Resolved: 01-17-2016 01-17-2016 Episodic Other circulatory disease (1 source) Other specified symptoms and signs involving the circulatory and respiratory systems; Translations: [Other specified symptoms and signs involving the circulatory and respiratory systems] Onset: 03-15-2025 Episodic Other lower respiratory disease (1 source) Wheezing; Translations: [Wheezing] Onset: 01-30-2025 Episodic Pneumonia (except that caused by tuberculosis or sexually transmitted disease) (1 source) Pneumonia, unspecified organism; Translations: [Pneumonia, unspecified organism] Onset: 11-10-2024 Episodic Unclassified (2 sources) Body mass index (BMI) 27.0-27.9, adult; Translations: [Body mass index (BMI) 27.0-27.9, adult] Onset: 07-22-2017 07-22-2017 Episodic Results Test Name Value Interpretation Reference Range Facility Coronary Angiography CTon Coronary Angiography [facility] Imaging Services [address] [place] [address] 07/28/25 1652 MR#: [id number] Acct: [id number] Name: EMI ESCALONA Rep #: [id number] : 1950 75 From: Juan Gomez MD PCP: Dr. Justin Ho MD Status:REG REF Y Location: CT Calcium Scoring Date of Study:: 07/28/25 Indications Indications: HTN/HLD Coronary Calcium Scoring: High-resolution Computed Tomographic imaging of the chest was performed on [07/28/25 ], with particular attention paid to the coronary arteries. Images from the examination were analyzed for the presence and extent of coronary artery calcification , using coronary calcium quantification software. The patient tolerated the procedure well and there were no complications. The results of the coronary calcification analysis are provided below. Findings Coronary Artery Left Main (LM): 0 Left Anterior Descending (LAD): 653 Left Circumflex (LCX): 437 Right Coronary Artery (RCA): 165 Total Agatston Score: 1,255 Percentile Rankin-90 Calcium Scoring Interpretation: Different methods to categorize the overall amount of coronary plaque. Overall amount CAC SIS Visual of coronary plaque P1 Mild -100 <2 1-2 vessels with mild amount of plaque P2 Moderate 101-300 3-4 1-2 vessels with moderate amount, 3 vessels with mild amount of plaque P3 Severe 301-999 5-7 3 vessels with moderate amount, 1 vessel with severe amount of plaque P4 Extensive >1000 >8 2-3 vessels with severe amount of plaque Calcium Score: Extensive: 2-3 vessels w/severe amount of plaque Conclusion: Extensive 2 vessel severe atherosclerotic plaquing noted and mild to moderate one-vessel plaquing 07/28/25 1656 Date Juan Gomez MD Cosigner Signature (if applicable): Date CC: Dr. Juan Gomez MD; Dr. Justin oH MD; CARLOS Luther Signed Normal [facility] Limited Chest CT Cardiac [facility] 07-28-[address] Cardiac Only [facility] Imaging Services [address] [place] [id number] Cardiac Only MR#: [id number] Acct: [id number] Name: EMI ESCALONA Rep #: [id number] : 1950 M 75 From: Ramíerz Gonzales PCP: Dr. Justin Ho MD Status: REG REF Study: Limited Chest CT Cardiac Only Date of Exam: Exam# [id number] Ordering Dr: Aga Wray PROCEDURE: LIMITED CHEST CT CARDIAC ONLY 07/28/2025 REASON FOR EXAM: RISK FACTOR ASSESSMENT TECHNIQUE: Procedure Code: CTCCTACHLIM Modality: CT Procedure: LIMITED CHEST CT CARDIAC ONLY One or more dose reduction techniques were used (e.g., Automated exposure control, adjustment of the mA and/or kV according to patient size, use of iterative reconstruction technique). RADIATION DOSE SUMMARY: CTDlvol: 12.19 mGy DLP: 243.79 mGycm COMPARISON: Chest x-ray of 10/14/2024. CT/Limited Chest CT Cardiac Only IMPRESSION: Prominent aortic valve calcification is seen. Limited imaging of the lungs demonstrates no acute process. No pleural effusion or pneumothorax is seen in visualized areas. No adenopathy is noted. The visualized upper abdomen demonstrates no significant abnormality. Reading Location: [address] CC: Dr. Justin Ho MD; CARLOS Luther Floor Covering Layer: Signed Normal [facility] PSA,Total - Annual Screenon 07-19-2025 PSA,TOT SCREEN 1.07 ng/mL Normal 0.02-4.00 [facility] Comment on above: Order Comment: Order Date: 07/19/25Order Info: 2857-1 - PSA Result Comment: This test was performed using the [employer] tPSA method. Measured values of a patient??sample can vary depending on the testing procedure used. PSA values determined on patient samples by different testing procedures cannot be used interchangeably. If there is a change in PSA assays while monitoring therapy, sequential testing should be performed to confirm baseline values. Performed By: #### L [id number] ####[facility] [id number] [place], [address] Cardiology Visit Reporton Cardiology Visit Report [facility] [address] [place], [place] [address] OFFICE VISIT Date of Service: 07/08/25 MR#: [id number] Acct: [id number] Name: EMI ESCALONA Rep #: [id number] : 1950 Provider: CARLOS Crane Age/Sex: 75/M [place] [facility] [place] Status: Signed HPI HPI History of Present [...] any symptoms of claudication. Intake Vital Signs 03/04/25 07:17 07/08/25 07:49 Height 5 ft 8 in 5 ft 8 in Weight: 183 lb BMI 27.8 BP 147/79 H Blood Pressure Location Lt brachial Position Sitting Respiration 18 Pulse 62 Pulse Source Monitor Pulse Oximetry (%) 95 Intake Visit Reasons: 4 M FU Twisting Frame Fixer Required: No Is patient in pain?: No Allergies lisinopril Adverse Reaction (Verified 07/08/25 11:04) cough Medications ???Medication ???Instructions ???Recorded ???Confirmed ???Type metoprolol succinate 50 mg 50 mg PO DAILY 02/14/17 07/08/25 H istory tablet,extended release 24 hr multivitamin 1 tab PO DAILY 07/30/18 07/08/25 H istory fenofibrate micronized 67 mg 67 mg PO DAILY 09/11/21 07/08/25 H istory capsule famotidine 20 mg tablet 20 mg PO BID 03/04/24 07/08/25 His tory simvastatin 40 mg tablet 40 mg PO QHS #90 tabs 03/04/24 Rx RP-cmfqysopkei-ukbxt c ox-Zn ER 500 1 tab PO DAILY 01/28/25 07/08/25 History mcg-750 mg-1.5 mg-25 mg tablet,ER losartan 100 mg tablet 100 mg PO DAILY #90 tabs 07/08/25 07/08/25 Rx Ejection fraction %: 65 Have you fallen in the past year?: [...] Number of servings: 1 ROS Const Const: Positive for fatigue; Negative for weakness, headache(s) or frequent falls Eyes Eyes: [...] headache(s), weakness or blurry vision Endo Endo: Positive for fatigue Cardiology Exam Const Appearance: cooperative, [...] inspection and trachea midline; Negative no JVD Carotids: bruit Left Chest Chest inspection: normal inspection of t (more content not included)... Normal [facility] Microalb:Creat Ratio,Random URon 03-31-2025 MALB:CREAT 20.7 mg/g CRE Normal [facility] Comment on above: Result Comment: AMENDED REPORT 03/31/25 1432 MALB:CREAT previously reported as: 207.4 mg/g CRE Performed By: #### L 502.0250 ####[facility] [id number] [facility] [place], [place], [address] Lumbar Spine 2 or 3 Viewson 03-23-2025 Lumbar Spine 2 or 3 Views [facility] Imaging Services [address], [place] [address] Lumbar Spine 2 or 3 Views MR#: [id number] Acct: [id number] Name: EMI ESCALONA Rep #: [id number] : 1950 M 74 From: Stacy bone MD PCP: Dr. Justin Ho MD Status: REG CLI Study: Lumbar Spine 2 or 3 Views Date of Exam: Exam# [id number] Ordering Dr: Justin Ho MD PROCEDURE: LUMBAR SPINE 2 OR 3 VIEWS 03/23/2025 REASON FOR EXAM: BACK PAIN TECHNIQUE: 2 view(s) of the lumbar spine COMPARISON: None. FINDINGS: Mild degenerative levoscoliosis apex at L3. Straightening of the lumbar lordosis, probably muscular spasm and pain. There are diffuse spondylotic changes. Findings are demonstrated to by diffuse disc space narrowing, osteophyte formation and degenerative endplate sclerosis. There is diffuse facet joint arthropathy with secondary bilateral neural foramina narrowing. No fracture or dislocation is seen. No aggressive lytic or blastic bony lesion is noted. RAD/Lumbar Spine 2 or 3 Views IMPRESSION: Spondylosis. Reading [id number] CC: Dr. Justin Ho MD Floor Covering Layer: Signed Normal [facility] Thoracic Spine 2 Viewson Thoracic Spine 2 Views [facility] Imaging Services [address] [place] [address] Thoracic Spine 2 Views MR#: [id number] Acct: [id number] Name: EMI ESCALONA Rep #: [id number] : 1950 M 74 From: Gabe Gautam MD PCP: Dr. Justin Ho MD Status: REG CLI Study: Thoracic Spine 2 Views Date of Exam: 03/23/25 Exam# [id number] Ordering Dr: Justin Ho MD PROCEDURE: THORACIC SPINE 2 VIEWS 03/23/2025 REASON FOR EXAM: BACK PAIN TECHNIQUE: Three views of the thoracic spine. COMPARISON: None. FINDINGS: Mild discogenic degenerative changes of the visualized spine. Normal alignment. No evidence of acute fracture or dislocation. Vertebral body heights are maintained. RAD/Thoracic Spine 2 Views IMPRESSION: Spondylosis. Reading Location: [id number] CC: Dr. Justin Ho MD Floor Covering Layer: Signed Normal [facility] Plastic Surgery Visit Report on 03-17-2025 Plastic Surgery Visit Report [facility]astic Reconstructive Surgery [address], [address] [place] [address] OFFICE VISIT Date of Service: 03/17/25 MR#: [id number] Acct: [id number] Name: EMI ESCALONA Rep #: [id number] : 1950 Provider: Dr. Galileo Grover MD Age/Sex: 74/M [place] [facility] [place] Status: Signed with Addenda ADDENDUM by Dr. Galileo Grover MD on 03/18/25 at 0702 Assessment and Plan (No Qualifiers) Assessment and Plan (1) Melanoma in situ of back: Status: Acute Comment: Right upper back Lentigo maligna subtype Excised 02 Mar 2025 with 1 cm margins Clear margins on final pathology report Multi [facility] Codes Visit Charges Office Visit/Consults: 51139 OV L2 Est 10min 03/18/25 0702 Date [...] mg PO QHS #90 tabs 03/04/2403/06 Rx AI-bjxhwrahrze-ndhae c ox-Zn ER 500 1 tab PO [...] cm margins, 2.5 x 3.5 cm (CPT: 22569) 2) Intermediate closure of right lateral neck wound after melanoma in situ excision, 6 cm (CPT 79816) 10 Mar 2025: Doing well post op [...] Diagnoses Melanoma in situ of back D03.59 MARTIN [facility] History History of steroid therapy Wears [...] Cosigner Signature: Date (if applicable) CC: Normal [facility] Carotid Duplex Ultrasoundon 03-10-2025 Carotid Duplex Ultrasound [facility] [place] [address] Carotid Duplex Ultrasound 03/10/25 1403 MR#: [id number] Acct: [id number] Name: EMI ESCALONA Rep #: [id number] : 1950 74 From: David Owen MD Attending Dr: CARLOS Luther Status: REG CLI Ordering Dr: Aga Wray Date: 02/11 07/07 Location: [facility] Sex: M C Admitted: Reason For Study [...] the left vertebral artery. Procedure Carotid Duplex 75451. This is a Carotid Duplex examination using B-mode, color flow and specral Doppler. The exam was diagnostic. Exam performed in department. VL/Carotid Duplex Ultrasound Interpretation Summary Mild (<50%) stenosis right extracranial internal carotid. Mild (<50%) stenosis left extracranial internal carotid. Flow within the vertebral arteries is antegrade bilaterally. Ordering Physician: Aga Wray Referring Physician: Justin Ho Performed By: Javon Razo, T 03/10/252225 Date David Owen MD CC: Dr. Justin Ho MD; CARLOS Luther Date Dictated: 03/10/25 1403 Date Transcribed: 03/10/252225 Floor Covering Layer: Signed Normal [facility] Duplex ultrasound of carotid artery reportOrdered By: David Owen on 03-10-2025 Study report [facility] [address] [place] [address] Carotid Duplex Ultrasound 03/10/251402 MR#: [id number] Acct: [id number] Name: CELIEMI HAMILTON Rep #:[id number] : 1950 74 From: David Owen MD Attending Dr: CARLOS Luther Status: REG CLI Ordering Dr: Aga Wray Date: 03/10/25 Location: [facility] Sex: M C Admitted: Reason For Study [...] the left vertebral artery. Procedure Carotid Duplex 59598. This is a Carotid Duplex examination using B-mode, color flow and specral Doppler. The exam was diagnostic. Exam performed in department. VL/Carotid Duplex Ultrasound Interpretation Summary Mild (<50%) stenosis right extracranial internal carotid. Mild (<50%) stenosis left extracranial internal carotid. Flow within the vertebral arteries is antegrade bilaterally. Ordering Physician: Aga Wray Referring Physician: Justin Ho Performed By: Javon Razo RVT 03/10/252225 Date _ David Owen MD CC: Dr. Justin Ho MD; CARLOS Luther ~ Date Dictated: 03/10/25 1403 Date Transcribed: 03/10/252225 Floor Covering Layer: Signed [facility] Other Phone: Plastic Surgery Visit Report on 03-10-2025 Plastic Surgery Visit Report [facility] Plastic Reconstructive Surgery [address], [address] [place], [place] [id number] OFFICE VISIT Date of Service: 03/10/25 MR#: [id number] Acct: [id number] Name: EMI ESCALONA Rep #: [id number] : 1950 Provider: Dr. Galileo Grover MD Age/Sex: 74/M [place] [facility] [place] Status: Signed with Addenda ADDENDUM by Dr. Galileo Grover MD on 03/10/25 at 1655 Assessment and Plan (No Qualifiers) Assessment and Plan (1) Melanoma in situ of back: Status: Acute Comment: Right upper back Lentigo maligna subtype Excised 02 Mar 2025 with 1 cm margins 03/10/25 165 Date Galileo Grover MD cc: * Signed [...] mg PO QHS #90 tabs 03/04/24 Rx XI-eeowvomccru-wyrju c ox-Zn ER 500 1 tab PO [...] cm margins, 2.5 x 3.5 cm (CPT: 30801) 2) Intermediate closure of right lateral neck wound after melanoma in situ excision, 6 cm (CPT 14036) CURRENT ENCOUNTER, 10 Mar 2025: Doing well post op week 1 from above. No fevers, chills, or drainage. Pain controlled. Pathology not yet back. Objective Details: Right lower neck incision c/d/i Prineo in place No infection or fluid collection Coding Level of Care Code Global Post Op Diagnoses Melanoma in situ of back D03.59 [facility] Medical History History of steroid therapy Wears [...] pathology/check on wound. 03/10/25 1136 Date Galileo Siddiqi Signature: Date (if applicable) CC: Normal [facility] Cardiology Visit Reporton Cardiology Visit Report [facility] [address] [place] [address] OFFICE VISIT Date of Service: 03/04/25 MR#: [id number] Acct: [id number] Name: EMI ESCALONA Rep #: [id number] : 1950 Provider: CARLOS Crane Age/Sex: 74/M Location: [facility] [place] Status: Signed HPI HPI History of Present [...] 97 Intake Visit Reasons: 1 Y FU Twisting Frame Fixer Required: No Is patient in pain?: No [...] mg PO QHS #90 tabs 03/04/24 Rx VW-nvmtsrqjidn-ewynn c ox-Zn ER 500 1 tab PO [...] no JVD (more content not included)... Normal [facility] H AND P Exam - Surgicalon H&P Exam - Surgical [facility] Medical Records Department [address] [place] [address] H P Exam - Surgical 03/02/25 0725 MR#: [id number] Acct: [id number] Name: EMI ESCALONA Rep #: [id number] : 1950 74 From: Galileo Grover MD PCP: Dr. Justin Ho MD Status:[facility] Location: [place] [address] HPI - General HPI Narrative Emi Escalona is a delightful 74-year-old male with past medical history of relatively well- controlled hypertension who presents today for a right upper back biopsy-proven inflamed malignant melanoma in situ, lentigo maligna subtype. Dr. Kentrell Jeffries from [facility] took a shave biopsy of the [...] was rescheduled). Ready to proceed with surgery. [facility] Medical History History of steroid therapy Wears [...] mg PO QHS #90 tabs 03/04/24 Rx VO-drlhrozgdjq-jwznx c ox-Zn ER 500 1 tab PO [...] wound healing (more content not included)... Normal [facility] Immunohistochemical Stainson 03-02-2025 Immunohistochemical Stains Patient Age/Sex Location Account Attending Physician EMI ESCALONA 74/M [facility] [id number] Dr. Galileo Grover MD Specimen: [id number] Received: 03/02/25 Status: VIRI Long Num: [id number] Spec Type: Lesion Subm Dr: Dr. Galileo Grover MD HEADER OPERATION: Excision right upper back melanoma in situ PRE-OP DIAGNOSIS: Melanoma in situ on right back TISSUE SUBMITTED: A- Melanoma right upper back *short stitch- superior, long stitch- lateral* MICROSCOPIC DIAGNOSIS A. Skin, right upper back, "melanoma in situ", wide excision: * Negative for residual melanoma in situ (surgical margins free) - see Comment. * Focal benign intradermal melanocytic nevus (incidental), margins free. * IHC for Melan-A supports the diagnosis (A5,6,7). COMMENT A preliminary diagnosis was reported to Alexia (nurse) at Dr Grover's office 11:30 AM, 03/10/25. Selected slides/images were reviewed in intradepartmental consultation by Dr Brianna Banegas (dermatopathology division, [facility]). MICROSCOPIC DESCRIPTION Slides are reviewed. All matched controls reacted appropriately. These tests were developed and their performance characteristics determined by [facility] Laboratory. They may not have been cleared [...] melanoma R upper back short superior long lateral" is an oriented and ovoid skin excision [...] Location Account Attending Physician EMI ESCALONA 74/M [facility] [id number] Dr. Galileo Grover MD scar is situated [...] perpendicular sections of medial and B 03-03-[address] [facility]:[address], [address] Patient Age/Sex Location Account Attending Physician EMI ESCALONA 74/M [facility] [id number] Dr. Galileo Grover MD Signed (signature on file) Dr. Evette Zamorano MD 03/10/25 1333 Normal [facility] Comment on above: Performed By: #### P IMHI ####[facility] [id number] [place], [place], [address] MR/POSTOP.[facility] 03-02-2025 MR/POSTOP.[facility] Medical Records Department [address] [place] [address] Anesthesia Postop Eval I 03/02/25821 MR#: [id number] Acct: [id number] Name: EMI ESCALONA Rep #: [id number] : 1950 74 From: Robert Molina CRNA PCP: Dr. Justin Ho MD Status:REG SDC Y Race: C Location: [place] [address] Anesthesia: Postop Eval I Current Vital Signs [...] 1 completed: Yes 03/02/25822 Date Robert Molina CRNA Cosigner Signature: Date CC: Signed Normal [facility] MR/[id number] 03-02-2025 MR/POSTOPAN2 [facility] Medical Records Department [address] [place] [address] Anesthesia Postop Eval II 03/02/25 0849 MR#: [id number] Acct: [id number] Name: EMI ESCALONA Rep #: [id number] : 1950 74 From: Lamberto Mcqueen MD PCP: Dr. Justin Ho MD Status:REG SDC Y Race: C Location: [place] [address]- Anesthesia Postop Eval I Sum Postop Eval Completion status Anesthesia document: Postop Eval 1 completed: Yes Anesthesia Postop Eval I Summary Anesthesia Postop Eval I Summary: Anesthesia Postop Eval I: Assessment Summary Airway patent Yes 03/02/25 08:23 INSTALLER [email or web address] Spontaneous unlabored Yes 03/02/25 08:23 INSTALLER [email or web address] respirations Mental status Awake,Calm 03/02/25 08:23 INSTALLER [email or web address] nausea No 03/02/25 08:23 INSTALLER [email or web address] Vomiting No 03/02/25 08:23 INSTALLER [email or web address] Anesthesia Postop Eval I: Fluid Summary Crystalloid volume administer 800 03/02/25 08:23 INSTALLER [email or web address] (ml) Colloids volume administered ( ml) Blood Product volume administered (ml) Total IV fluid infused 800 03/02/25 08:23 INSTALLER [email or web address] Anesthesia Postop Eval I: Summary Notes Anesthesia Complication No 03/02/25 08:23 INSTALLER [email or web address] Anesthesia Complication Comment: Post-operative progress note Anesthesia: Postop Eval II Evaluation Mental status: Awake Pain Level: 0 nausea: No Vomiting: No 03/02/25 0849 Date Lamberto Mcqueen MD Cosigner Signature: Date CC: Signed Normal [facility] Operative Reporton 05-21-202 5 Operative Report [facility] Medical Records Department [address] [place] [address] Operative Report 03/02/25 0820 MR#: [id number] Acct: [id number] Name: EMI ESCALONA Rep #: [id number] : 1950 74 From: Galileo Grover MD PCP: Dr. Justin Ho MD Status:[facility] Location: [facility] Operative Report (Standard) Operative Information Date of Procedure: 03/02/25 Pre-Operative Diagnosis: 1) Right lateral trapezial neck melanoma in situ (lentigo maligna subtype) Post-Operative Diagnosis: Same Surgery/Procedure Performed: 1) Excision of right lateral trapezial neck melanoma in situ (lentigo maligna subtype) with 1 cm margins, 2.5 x 3.5 cm (CPT: 10217) 2) Intermediate closure of right lateral neck wound after melanoma in situ excision, 6 cm (CPT 62236) dairy bar manager: Yes Computer Systems Security Analyst: Shalini Bingham Tasks completed by nursing home assistant administrator: Retracting Type of Anesthesia: MAC/Supplemental (15 cc [...] with Dr. Kentrell Jeffries who is the clinical services consultant. I confirmed the biopsy site with the [...] Dr. Galileo Grover MD on 03/10/25 at 5431 Addendum Name: ???Insert Gregorio Melanoma ??? Synoptic Portion: Element Response Options Operation performed with curative intent. [Yes Original Breslow thickness of the lesion [Melanoma in situ (MIS)] Clinical margin width (measured from the edge of the lesion or the prior excision scar 1 cm because of lentigo maligna subtype (see below) Depth of excision Full-thickness skin/subcutaneous tissue down to fascia 03/10/25 3263 Cosigner Signature (if applicable): cc: Dr. Justin Ho MD; Dr. Galileo Grover MD * Signed Normal [facility] Urgent Care Visit Reporton 0 01-30-2025 Urgent Care Visit Report [facility] [address], [address] [place] [address] OFFICE VISIT Date of Service: 01/30/25 MR#: [id number] Acct: [id number] Name: EMI ESCALONA Rep #: [id number] : 1950 Provider: ISRA murphy Age/Sex: 74/M [place] [facility] [place] Status: Signed Intake Vital [...] mg PO QHS #90 tabs 03/04/24 Rx FO-qpplwiptakw-kimhz c ox-Zn ER 500 1 tab PO [...] chest. hx pneumonia x2, concern for same. PFSH Medical History (Updated 01/28/25 @ 08:46 [...] of upper respiratory infection that tend to "settle into my lungs". He also acknowledges a history of pneumonia. [...] No rash Neuro (more content not included)... [facility] 01-28-2025 MR/PAT.[facility] Medical Records Department [address] [place] [address] PAT - Anesthesia 01/28/25 0910 MR#: [id number] Acct: [id number] Name: EMI ESCALONA Rep #: [id number] : 1950 74 From: Lamberto Mcqueen MD PCP: Dr. Justin Ho MD Status:PRE [facility] Y Race: C Location: [facility] Pre-Assessment Diagnosis/Proposed Procedure Planned Operative Procedure(s): EXCISION RIGHT UPPER BACK MELANOMA IN SITU POSS DERMAL SUBSTITUTE PLACEMENT Anesthesia History Anesthesia History - tile professional: Anesthesia History - tile professional Hx Hospitalization No 01/28/25 08:37 Any Problems [...] take am of surgery PONV PONV - tile professional: PONV - tile professional Female No 01/28/25 08:37 HX of Motion [...] 03/04/24 10:26 Respiratory Assessment Respiratory Assessment - tile professional: Respiratory Tract Infection Hx - tile professional Hx Respiratory Tract Infection No 01/28/25 08:37 STOP Sleep Apnea STOP Sleep Apnea - tile professional: STOP Sleep Apnea - tile professional Hx Hypertension Yes: CONTROLLED WITH MED 01/28/25 [...] Tobacco Use History Tobacco Use History - tile professional: Tobacco Use History - tile professional Tobacco Use Non-smoker 09/11/21 11:18 Smoking Status Never smoker 01/28/25 08:37 Hx Tobacco Use No 01/28/25 08:37 Years Smoking Packs Smoked per Day Smoking Cessation Date was within the last 15 years Hx Smoking Cessation Date Hx Smoking Cessation Counseling Hematologic Medial History Hematologic Hx - tile professional: Hematologic Medical Hx - senior business intelligence analyst Hx of Blood Transfusion No 01/28/25 08:37 [...] /Reproducti on History /Reproducti ve History - tile professional: /Reproducti ve Hx- tile professional Hx Now No 01/28/25 08:37 Gestational Age (in weeks): EDC: Hx Hx Para Hx Section SAB No 01/28/25 08:37 [facility] Medical History (Updated 01/28/25 @ 08:46 by [...] story famotidine (more content not included)... Normal [facility] Absolute lymphocyte countOrd ered By: Justin Ho on 01-26-2025 Lymphocytes Auto (Unsp spec) [#/Vol] 1.91 10*3/uL 0.83-4.51 [facility] Absolute neutrophil countOrd ered By: Justin Ho on 01-26-2025 Neutrophils (Bld) [#/Vol] 2.9 10*3/uL 2.0-7.7 [facility] Anion gap in Serum or Plasma Ordered By: Justin Ho on 01-26-2025 Anion gap [Moles/Vol] 11 mmol/L 5-15 [facility] Automated lymphocyte count a s percentage of total leukocytesOrdered By: Justin Ho on 01-26-2025 Lymphocytes/100 WBC Auto (Unsp spec) 32.2 % 19- [facility] BUN/creatinine ratioOrdered By: Justin Ho on 01-26-2025 Urea nitrogen/Creatinine [Mass ratio] 12.4 mg/mg 10-20 [facility] Basophil percentageOrdered B y: Justin Ho on 01-26-2025 Basophils/100 WBC (Bld) 0.7 % 0-1 [facility] Bilirubin, totalOrdered By: Justin Ho on 01-26-2025 Bilirubin [Mass/Vol] 0.73 mg/dL 0.00-1.30 [facility] CBC W/Diff, Automatedon 01-11 Absolute Lymph 1.91 X10 3/uL Normal 0.83-4.51 [facility] Comment on above: Order Comment: Order Date: 01/20/25 Order Info: 0184-1 - CBCD Performed By: #### L 500.4100, L500.4050, L100.0100 #### [facility] Laboratory [address] [place], [address] Absolute Neut 2.9 X10 3/uL Normal 2.0-7.7 [facility] Comment on above: Order Comment: Order Date: 01/20/25 Order Info: 0184-1 - CBCD Performed By: #### L 500.4100, L500.4050, L100.0100 #### [facility] [address] [place], [address] Basophils/100 WBC (Bld) 0.7 % Normal 0-1 [facility] Comment on above: Order Comment: Order Date: 01/20/25 Order Info: 0184-1 - CBCD Performed By: #### L 500.4100, L500.4050, L100.0100 #### [facility] [address] [place], [address] Eosinophils/100 WBC (Bld) 7.6 % High 0-5 [facility] Comment on above: Order Comment: Order Date: 01/20/25 Order Info: 0184-1 - CBCD Performed By: #### L 500.4100, L500.4050, L100.0100 #### [facility] [address] [place], [address] Erythrocyte distribution width (RBC) [Ratio] 13.1 % Normal 11.6-14.6 [facility] Comment on above: Order Comment: Order Date: 01/20/25 Order Info: 0184- - CBCD Performed By: #### L 500.4100, L500.4050, L100.0100 #### [facility] [address] [place], [address] Hematocrit (Bld) [Volume fraction] 40.8 % Normal 40-54 [facility] Comment on above: Order Comment: Order Date: 01/20/25 Order Info: 0184- - CBCD Performed By: #### L 500.4100, L500.4050, L100.0100 #### [facility] [address] [place], [address] Hemoglobin (Bld) [Mass/Vol] 14.0 g/dL Normal 13.0-16.5 [facility] Comment on above: Order Comment: Order Date: 01/20/25 Order Info: 0184-1 - CBCD Performed By: #### L 500.4100, L500.4050, L100.0100 #### [facility] [address] [place], [address] IG% 0.500 Normal 0.0-0.9 [facility] Comment on above: Order Comment: Order Date: 01/20/25 Order Info: 0184-1 - CBCD Result Comment: IG% - Immature Granulocytes (promyelocytes, myelocytes and metamyelocytes) > 1% indicates that a LEFT SHIFT is Present. Performed By: #### L 500.4100, L500.4050, L100.0100 #### [facility] [address] [place], [address] Lymphocytes/100 WBC (Bld) 32.2 % Normal 19-41 [facility] Comment on above: Order Comment: Order Date: 01/20/25 Order Info: 0184-1 - CBCD Performed By: #### L 500.4100, L500.4050, L100.0100 #### [facility] [address] [place], [address] MCH (RBC) [Entitic mass] 29.5 pg Normal 27.0-32.0 [facility] Comment on above: Order Comment: Order Date: 01/20/25 Order Info: 0184-1 - CBCD Performed By: #### L 500.4100, L500.4050, L100.0100 #### [facility] [address] [place], [address] MCHC (RBC) [Mass/Vol] 34.3 g/dL Normal 32-36 [facility] Comment on above: Order Comment: Order Date: 01/20/25 Order Info: 0184-1 - CBCD Performed By: #### L 500.4100, L500.4050, L100.0100 #### [facility] [address] [place], [address] MCV (RBC) [Entitic vol] 85.9 fL Normal 80-94 [facility] Comment on above: Order Comment: Order Date: 01/20/25 Order Info: 0184-1 - CBCD Performed By: #### L 500.4100, L500.4050, L100.0100 #### [facility] [address] [place], [address] Monocytes/100 WBC (Bld) 10.6 % High 0-10 [facility] Comment on above: Order Comment: Order Date: 01/20/25 Order Info: 0184-1 - CBCD Performed By: #### L 500.4100, L500.4050, L100.0100 #### [facility] [address] [place], [address] Neutrophils/100 WBC (Bld) 48.4 % Normal 47-70 [facility] Comment on above: Order Comment: Order Date: 01/20/25 Order Info: 0184-1 - CBCD Performed By: #### L 500.4100, L500.4050, L100.0100 #### [facility] [address] [place], [address] Nucleated RBC (Bld) [#/Vol] 0 10*3/uL Normal 0-5 [facility] Comment on above: Order Comment: Order Date: 01/20/25 Order Info: 0184-1 - CBCD Performed By: #### L 500.4100, L500.4050, L100.0100 #### [facility] [address] [place], [address] Platelet mean volume (Bld) [Entitic vol] 10.6 fL Normal 6.2-12.0 [facility] Comment on above: Order Comment: Order Date: 01/20/25 Order Info: 0184-1 - CBCD Performed By: #### L 500.4100, L500.4050, L100.0100 #### [facility] [address] [place], [address] Platelets (Bld) [#/Vol] 177 10*3/uL Normal 150-450 [facility] Comment on above: Order Comment: Order Date: 01/20/25 Order Info: 0184-1 - CBCD Performed By: #### L 500.4100, L500.4050, L100.0100 #### [facility] [address] [place], [address] RBC (Bld) [#/Vol] 4.75 10*6/uL Normal 4.6-6.2 [facility] Comment on above: Order Comment: Order Date: 01/20/25 Order Info: 0184-1 - CBCD Performed By: #### L 500.4100, L500.4050, L100.0100 #### [facility] [address] [place], [address] RDW SD 40.6 fl Normal 35.1-43.9 [facility] Comment on above: Order Comment: Order Date: 01/20/25 Order Info: 0184-1 - CBCD Performed By: #### L 500.4100, L500.4050, L100.0100 #### [facility] [address] [place], [address] WBC (Bld) [#/Vol] 5.9 10*3/uL Normal 4.4-11.0 [facility] Comment on above: Order Comment: Order Date: 01/20/25 Order Info: 0184-1 - CBCD Performed By: #### L 500.4100, L500.4050, L100.0100 #### [facility] [address] [place], [address] Calculated very low density lipoprotein (VLDL) cholesterol measurementOrdered By: Justin Ho on 01-26-2025 Calculated very low density lipoprotein (VLDL) cholesterol measurement 35 mg/dL 5-40 [facility] Carbon dioxide, total [Moles /volume] in Central venous bloodOrdered By: Justin Ho on 01-26-2025 CO2 [Moles/Vol] 22.3 mmol/L 21.0-32.0 [facility] Chloride assayOrdered By: Bobo Ho on 01-26-2025 Chloride [Moles/Vol] 106 mmol/L 98-108 [facility] Comprehensive Metabolic Prof ilon 01-26-2025 Albumin [Mass/Vol] 4.1 g/dL Normal 3.4-4.8 [facility] Comment on above: Order Comment: Order Date: 01/20/25 Order Info: [id number] - CMP Order Info: [id number] - LIPID Performed By: #### L 500.4100, L500.4050, L100.0100 #### [facility] [address] [place], [address] Albumin/Globulin [Mass ratio] 1.3 {ratio} Normal 0.9-2.4 [facility] Comment on above: Order Comment: Order Date: 01/20/25 Order Info: [id number] - CMP Order Info: [id number] - LIPID Performed By: #### L 500.4100, L500.4050, L100.0100 #### [facility] [address] [place], [address] ALK PHOS 60 U/L Normal 40-129 [facility] Comment on above: Order Comment: Order Date: 01/20/25 Order Info: [id number] - CMP Order Info: [id number] - LIPID Performed By: #### L 500.4100, L500.4050, L100.0100 #### [facility] [address] [place], [address] ALT [Catalytic activity/Vol] 22 U/L Normal <=46 [facility] Comment on above: Order Comment: Order Date: 01/20/25 Order Info: [id number] - CMP Order Info: [id number] - LIPID Performed By: #### L 500.4100, L500.4050, L100.0100 #### [facility] [address] [place], [address] AST [Catalytic activity/Vol] 29 U/L Normal <=37 [facility] Comment on above: Order Comment: Order Date: 01/20/25 Order Info: [id number] - CMP Order Info: [id number] - LIPID Performed By: #### L 500.4100, L500.4050, L100.0100 #### [facility] [address] [place], [address] Bilirubin [Mass/Vol] 0.73 mg/dL Normal 0.00-1.30 [facility] Comment on above: Order Comment: Order Date: 01/20/25 Order Info: [id number] - CMP Order Info: [id number] - LIPID Performed By: #### L 500.4100, L500.4050, L100.0100 #### [facility] [address] [place], [address] BUN/CRE 12.4 RATIO Normal 10-20 [facility] Comment on above: Order Comment: Order Date: 01/20/25 Order Info: [id number]- - CMP Order Info: [id number] - LIPID Performed By: #### L 500.4100, L500.4050, L100.0100 #### [facility] [address] [place], [address] Calcium [Mass/Vol] 9.4 mg/dL Normal 7.6-11.0 [facility] Comment on above: Order Comment: Order Date: 01/20/25 Order Info: [id number]- - CMP Order Info: [id number] - LIPID Performed By: #### L 500.4100, L500.4050, L100.0100 #### [facility] [address] [place], [address] Chloride [Moles/Vol] 106 mmol/L Normal 98-108 [facility] Comment on above: Order Comment: Order Date: 01/20/25 Order Info: [id number] - CMP Order Info: [id number] - LIPID Performed By: #### L 500.4100, L500.4050, L100.0100 #### [facility] [address] [place], [address] CO2 [Moles/Vol] 22.3 mmol/L Normal 21.0-32.0 [facility] Comment on above: Order Comment: Order Date: 01/20/25 Order Info: [id number] - CMP Order Info: [id number] - LIPID Performed By: #### L 500.4100, L500.4050, L100.0100 #### [facility] [address] [place], [address] Creatinine [Mass/Vol] 1.25 mg/dL High 0.70-1.20 [facility] Comment on above: Order Comment: Order Date: 01/20/25 Order Info: [id number]- - CMP Order Info: [id number] - LIPID Performed By: #### L 500.4100, L500.4050, L100.0100 #### [facility] [address] [place], [address] GAP 11 Normal 5-15 [facility] Comment on above: Order Comment: Order Date: 01/20/25 Order Info: 07 - CMP Order Info: [id number] - LIPID Performed By: #### L 500.4100, L500.4050, L100.0100 #### [facility] [address] [place], [address] GFR/1.73 sq M.predicted among non-blacks MDRD (S/P/Bld) [Vol rate/Area] 61 mL/min/{1.73_m2} Normal >60 [facility] Comment on above: Order Comment: Order Date: 01/20/25 Order Info: [id number]- - CMP Order Info: [id number] - LIPID Result Comment: mL/m in/1.73m2 CKD-EPI Creatinine Equation (2020) Performed By: #### L 500.4100, L500.4050, L100.0100 #### [facility] [address] [place], [address] Globulin (S) [Mass/Vol] 3.1 g/dL Normal 2.2-4.2 [facility] Comment on above: Order Comment: Order Date: 01/20/25 Order Info: [id number] - CMP Order Info: [id number] - LIPID Performed By: #### L 500.4100, L500.4050, L100.0100 #### [facility] [address] [place], [address] Glucose [Mass/Vol] 109 mg/dL High 70-99 [facility] Comment on above: Order Comment: Order Date: 01/20/25 Order Info: [id number] - CMP Order Info: [id number] - LIPID Performed By: #### L 500.4100, L500.4050, L100.0100 #### [facility] [address] [place], [address] Potassium [Moles/Vol] 4.1 mmol/L Normal 3.3-5.1 [facility] Comment on above: Order Comment: Order Date: 01/20/25 Order Info: [id number]- - CMP Order Info: [id number] - LIPID Performed By: #### L 500.4100, L500.4050, L100.0100 #### [facility] [address] [place] [place], [address] Sodium [Moles/Vol] 140 mmol/L Normal 133-145 [facility] Comment on above: Order Comment: Order Date: 01/20/25 Order Info: [id number]- - CMP Order Info: [id number] - LIPID Performed By: #### L 500.4100, L500.4050, L100.0100 #### [facility] [address] [place], [address] T PROT 7.3 g/dL Normal 5.9-8.4 [facility] Comment on above: Order Comment: Order Date: 01/20/25 Order Info: [id number] - CMP Order Info: [id number] - LIPID Performed By: #### L 500.4100, L500.4050, L100.0100 #### [facility] [address] [place], [address] Urea nitrogen [Mass/Vol] 16 mg/dL Normal 4-19 [facility] Comment on above: Order Comment: Order Date: 01/20/25 Order Info: [id number] - CMP Order Info: [id number] - LIPID Performed By: #### L 500.4100, L500.4050, L100.0100 #### [facility] [address] [place], [address] Eosinophil percentageOrdered By: Justin Ho on 01-26-2025 Eosinophils/100 WBC (Bld) 7.6 % High 0-5 [facility] Erythrocyte distribution wid th ratioOrdered By: Justin Ho on 01-26-2025 Erythrocyte distribution width (RBC) [Ratio] 13.1 % 11.6-14.6 [facility] Erythrocyte distribution wid th standard deviationOrdered By: Justin Ho on 01-26-2025 Erythrocyte distribution width (RBC) [Ratio] 40.6 fl 35.1-43.9 [facility] Glomerular filtration rate ( GFR) estimation/1.73 sq m using serum, plasma, or whole bOrdered By: Justin Ho on 01-26-2025 GFR/1.73 sq M.predicted among non-blacks MDRD (S/P/Bld) [Vol rate/Area] 61 mL/min/{1.73_m2} >60 [facility] Comment on above: mL/min/1.73m2 CKD-EP I Creatinine Equation (2020) Hematocrit Auto (Bld) [Volum e fraction]Ordered By: Justin Ho on 01-26-2025 Hematocrit (Bld) [Volume fraction] 40.8 % 40-54 [facility] Hemoglobin measurementOrdere d By: Justin Ho on 01-26-2025 Hemoglobin (Bld) [Mass/Vol] 14.0 g/dL 13.0-16.5 [facility] Immature granulocytes/100 WB C Auto (Bld)Ordered By: Justin Ho on 01-26-2025 Immature granulocytes/100 WBC (Bld) 0.500 % 0.0-0.9 [facility] Comment on above: IG% - Immature Granu locytes (promyelocytes, myelocytes and metamyelocytes) > 1% indicates that a LEFT SHIFT is Present. LDL calc ser/plasOrdered By: Justin Ho on 01-26-2025 Cholesterol in LDL [Mass/Vol] 87 mg/dL [facility] Comment on above: Rhaijiidnl=906-987 m g/dL & Higher Dowz=404 mg/dL or greater Laboratory - Chemistry and C hemistry - challengeOrdered By: Justin Ho on 01-26-2025 AST [Catalytic activity/Vol] 29 U/L <38 [facility] Lipid Profileon 01-26-2025 CHOL:HDL 3.69 Normal [facility] Comment on above: Order Comment: Order Date: 01/20/25 Order Info: [id number] - CMP Order Info: [id number] - LIPID Performed By: #### L 500.4100, L500.4050, L100.0100 #### [facility] [address] [place], [address] Cholesterol [Mass/Vol] 167 mg/dL Normal <=200 [facility] Comment on above: Order Comment: Order Date: 01/20/25 Order Info: [id number] - CMP Order Info: [id number] - LIPID Result Comment: Chol esterol level, Desirable <200 mg/dL Borderline high cholesterol 200-239 mg/dL High cholesterol >=240 mg/dL Recommendations of the NCEP Adult Treatment Panel for the following risk-cutoff thresholds for the [place] population. Performed By: #### L 500.4100, L500.4050, L100.0100 #### [facility] [address] [place], [address] Cholesterol in HDL [Mass/Vol] 45 mg/dL Normal [facility] Comment on above: Order Comment: Order Date: 01/20/25 Order Info: [id number] - CMP Order Info: [id number] - LIPID Result Comment: Karlene onal Cholesterol Education Program (NCEP) guidelines: <40 mg/dL: Low HDL-cholesterol (major risk factor for CHD) >= 60 mg/dL: High HDL-cholesterol (negative risk factor for CHD) HDL-cholesterol is affected by a number of factors, e.g. smoking, exercise, hormones, sex and age. Performed By: #### L 500.4100, L500.4050, L100.0100 #### [facility] [address] [place], [address] Cholesterol in LDL [Mass/Vol] 87 mg/dL Normal [facility] Comment on above: Order Comment: Order Date: 01/20/25 Order Info: [id number] - CMP Order Info: [id number] - LIPID Result Comment: Bord vjgpgo=706-463 mg/dL Higher Roke=725 mg/dL or greater Performed By: #### L 500.4100, L500.4050, L100.0100 #### [facility] [address] [place], [address] Cholesterol in VLDL [Mass/Vol] 35 mg/dL Normal 5-40 [facility] Comment on above: Order Comment: Order Date: 01/20/25 Order Info: [id number] - CMP Order Info: [id number] - LIPID Performed By: #### L 500.4100, L500.4050, L100.0100 #### [facility] [address] [place], [address] Triglyceride [Mass/Vol] 173 mg/dL Normal [facility] Comment on above: Order Comment: Order Date: 01/20/25 Order Info: [id number] - CMP Order Info: [id number] - LIPID Result Comment: The drugs N-Acetylcysteine and Metamizole may falsely depress this assay. Normal range: <150 mg/dL Borderline High: 150-199 mg/dL High: 200-499 mg/dL Very High: >500 mg/dL Performed By: #### L 500.4100, L500.4050, L100.0100 #### [facility] [address] [place], [address] MCV (mean corpuscular volume ) determinationOrdered By: Justin Ho on 01-26-2025 MCV (RBC) [Entitic vol] 85.9 fL 80-94 [facility] Mean corpuscular hemoglobin (MCH) determinationOrdered By: Justin Ho on 01-26-2025 MCH (RBC) [Entitic mass] 29.5 pg 27.0-32.0 [facility] Mean corpuscular hemoglobin concentration (MCHC) determinationOrdered By: Justin Ho on 01-26-2025 MCHC (RBC) [Mass/Vol] 34.3 g/dL 32-36 [facility] Mean platelet volume determi nationOrdered By: Justin Ho on 01-26-2025 Platelet mean volume (Bld) [Entitic vol] 10.6 fL 6.2-12.0 [facility] Monocyte percentageOrdered B y: Justin Ho on 01-26-2025 Monocytes/100 WBC (Bld) 10.6 % High 0-10 [facility] Neutrophil percentageOrdered By: Justin Ho on 01-26-2025 Neutrophils/100 WBC (Bld) 48.4 % 47-70 [facility] Nucleated red blood cell per centageOrdered By: Justin Ho on 01-26-2025 Nucleated RBC/100 WBC (Bld) [Ratio] 0 % 0-5 [facility] Platelet countOrdered By: Bobo Ho on 01-26-2025 Platelets (Bld) [#/Vol] 177 10*3/uL 150-450 [facility] Potassium measurement (mass/ volume)Ordered By: Justin Ho on 01-26-2025 Potassium (Unsp spec) [Mass/Vol] 4.1 mmol/L 3.3-5.1 [facility] RBC Auto (Bld) [#/Vol]Ordere d By: Justin Ho on 01-26-2025 RBC (Bld) [#/Vol] 4.75 10*6/uL 4.6-6.2 [facility] Random urine creatinine rudolph urement (mass/volume)Ordered By: Justin Ho on 01-26-2025 Creatinine Unsp time (U) [Mass/Vol] 136.00 mg/dL 39.00-259.00 [facility] Screening total cholesterol/ high density lipoprotein (HDL) cholesterol ratioOrdered By: Justin Ho on 01-26-2025 Cholesterol.total/Choles terol in HDL [Mass ratio] 3.69 {ratio} [facility] Serum creatinine measurement (mass/volume)Ordered By: Justin Ho on 01-26-2025 Creatinine [Mass/Vol] 1.25 mg/dL High 0.70-1.20 [facility] Serum globulin measurementOr dered By: Justin Ho on 01-26-2025 Globulin (S) [Mass/Vol] 3.1 g/dL 2.2-4.2 [facility] Serum glucose measurement (m ass/volume)Ordered By: Justin Ho on 01-26-2025 Glucose [Mass/Vol] 109 mg/dL High 70-99 [facility] Serum or plasma alanine cintron otransferase (ALT) measurementOrdered By: Justin Ho on 01-26-2025 ALT [Catalytic activity/Vol] 22 U/L <47 [facility] Serum or plasma albumin rudolph urement (mass/volume)Ordered By: Justin Ho on 01-26-2025 Albumin [Mass/Vol] 4.1 g/dL 3.4-4.8 [facility] Serum or plasma albumin/glob ulin mass ratioOrdered By: Justin Ho on 01-26-2025 Albumin/Globulin [Mass ratio] 1.3 {ratio} 0.9-2.4 [facility] Serum or plasma alkaline danni sphatase measurementOrdered By: Justin Ho on 01-26-2025 ALP [Catalytic activity/Vol] 60 U/L 40-129 [facility] Serum or plasma calcium rudolph urement (mass/volume)Ordered By: Justin Ho on 01-26-2025 Calcium [Mass/Vol] 9.4 mg/dL 7.6-11.0 [facility] Serum or plasma cholesterol in HDL measurement (mass/volume)Ordered By: Justin Ho on 01-26-2025 Cholesterol in HDL [Mass/Vol] 45 mg/dL >40 [facility] Comment on above: National Cholesterol Education Program (NCEP) guidelines:<40 mg/dL: Low HDL-cholesterol (major risk factor for CHD)>= 60 mg/dL: High HDL-cholesterol (negative risk factor for CHD)HDL-cholesterol is affected by a number of factors, e.g. smoking, exercise, hormones, sex and age. Serum or plasma cholesterol measurement (mass/volume)Ordered By: Justin Ho on 01-26-2025 Cholesterol [Mass/Vol] 167 mg/dL <201 [facility] Comment on above: Cholesterol level, D esirable <200 mg/dLBorderline high cholesterol 200-239 mg/dLHigh cholesterol >=240 mg/dLRecommendations of the NCEP Adult Treatment Panel for the following risk-cutoff thresholds for the [place] population. Serum or plasma urea nitroge n measurement (mass/volume)Ordered By: Justin Ho on 01-26-2025 Urea nitrogen [Mass/Vol] 16 mg/dL 4-19 [facility] Sodium levelOrdered By: Justin Ho on 01-26-2025 Sodium [Moles/Vol] 140 mmol/L 133-145 [facility] Total proteinOrdered By: Ambika Ho on 01-26-2025 Protein [Mass/Vol] 7.3 g/dL 5.9-8.4 [facility] Triglycerides measurementOrd ered By: Justin Ho on 01-26-2025 Triglyceride [Mass/Vol] 173 mg/dL <199 [facility] Comment on above: The drugs N-Acetylcy steine and Metamizole may falsely depress this assay. Normal range: <150 mg/dLBorderline High: 150-199 mg/dLHigh: 200-499 mg/dLVery High: >500 mg/dL Urine albumin measurement wi th detection limit of 20 mg/L or less (mass/volume)Ordered By: Justin Ho on 01-26-2025 Albumin DL <= 20 mg/L (U) [Mass/Vol] 28.2 mg/L NO RANGE EST. [facility] White blood cell (WBC) count Ordered By: Justin Ho on 01-26-2025 WBC (Bld) [#/Vol] 5.9 10*3/uL 4.4-11.0 [facility] Plastic Surgery Visit Report on 01-25-2025 Plastic Surgery Visit Report [facility] Plastic Reconstructive Surgery [address], [address] [place] [address] OFFICE VISIT Date of Service: 01/25/25 MR#: [id number] Acct: [id number] Name: EMI ESCALONA Rep #: [id number] : 1950 Provider: Dr. Galileo Grover MD Age/Sex: 74/M Location: [place] [address] Status: Signed Intake Vital Signs 3 03/04/24 10:26 Height 5 ft 8 in Intake Visit Reasons: Melanoma Chief Complaint: Follow-up visit. Allergies lisinopril Adverse Reaction (Verified 03/04/24 10:22) cough Have you fallen in the past year?: No PFSH Medical History Ocular migraine Epistaxis, recurrent Nonrheumatic [...] lentigo maligna subtype. Dr. Kentrell Jeffries from [facility] took a shave biopsy of the [...] fallen in the past year?: No 01/25/25 182 Date [facility]: Date (if applicable) CC: Normal [facility] CBC W/Diff, Automatedon 01-0 Absolute Lymph 2.21 X10 3/uL Normal 0.83-4.51 [facility] Comment on above: Performed By: #### L 100.0100 ####[facility] [address] [place], [place], [id number] Absolute Neut 2.9 X10 3/uL Normal 2.0-7.7 [facility] Comment on above: Performed By: #### L 100.0100 ####[facility] [address] [place], [place], [id number] Basophils/100 WBC (Bld) 0.6 % Normal 0-1 [facility] Comment on above: Performed By: #### L 100.0100 ####[facility] [address] [place], [address] Eosinophils/100 WBC (Bld) 12.0 % High 0-5 [facility] Comment on above: Performed By: #### L 100.0100 ####[facility] [address] [place], [address] Erythrocyte distribution width (RBC) [Ratio] 12.8 % Normal 11.6-14.6 [facility] Comment on above: Performed By: #### L 100.0100 ####[facility] [address] [place], [address] Hematocrit (Bld) [Volume fraction] 41.0 % Normal 40-54 [facility] Comment on above: Performed By: #### L 100.0100 ####[facility] [address] [place], [address] Hemoglobin (Bld) [Mass/Vol] 14.1 g/dL Normal 13.0-16.5 [facility] Comment on above: Performed By: #### L 100.0100 ####[facility] [address] [place], [address] IG% 0.800 Normal 0.0-0.9 [facility] Comment on above: Result Comment: IG% - Immature Granulocytes (promyelocytes, myelocytes and metamyelocytes) > 1% indicates that a LEFT SHIFT is Present. Performed By: #### L 100.0100 ####[facility] [address] [place], [address] Lymphocytes/100 WBC (Bld) 34.3 % Normal 19-41 [facility] Comment on above: Performed By: #### L 100.0100 ####[facility] [address] [place], [address] MCH (RBC) [Entitic mass] 29.1 pg Normal 27.0-32.0 [facility] Comment on above: Performed By: #### L 100.0100 ####[facility] [address] [place], [address] MCHC (RBC) [Mass/Vol] 34.4 g/dL Normal 32-36 [facility] Comment on above: Performed By: #### L 100.0100 ####[facility] [address] [place], [address] MCV (RBC) [Entitic vol] 84.5 fL Normal 80-94 [facility] Comment on above: Performed By: #### L 100.0100 ####[facility] [address] [place], [address] Monocytes/100 WBC (Bld) 7.0 % Normal 0-10 [facility] Comment on above: Performed By: #### L 100.0100 ####[facility] [address] [place], [address] Neutrophils/100 WBC (Bld) 45.3 % Low 47-70 [facility] Comment on above: Performed By: #### L 100.0100 ####[facility] [address] [place], [address] Nucleated RBC (Bld) [#/Vol] 0 10*3/uL Normal 0-5 [facility] Comment on above: Performed By: #### L 100.0100 ####[facility] [address] [place], [address] Platelet mean volume (Bld) [Entitic vol] 10.5 fL Normal 6.2-12.0 [facility] Comment on above: Performed By: #### L 100.0100 ####[facility] [address] [place], [address] Platelets (Bld) [#/Vol] 182 10*3/uL Normal 150-450 [facility] Comment on above: Performed By: #### L 100.0100 ####[facility] [address] [place], [address] RBC (Bld) [#/Vol] 4.85 10*6/uL Normal 4.6-6.2 [facility] Comment on above: Performed By: #### L 100.0100 ####[facility] [address] [place], [address] RDW SD 38.8 fl Normal 35.1-43.9 [facility] Comment on above: Performed By: #### L 100.0100 ####[facility] [facility] [id number] [place], [address] WBC (Bld) [#/Vol] 6.4 10*3/uL Normal 4.4-11.0 [facility] Comment on above: Performed By: #### L 100.0100 ####[facility] [address] [place], [address] Chest PA and Lateralon 10-14 Chest PA and Lateral [facility] Imaging Services [address] [place] [address] Chest PA and Lateral MR#: [id number] Acct: [id number] Name: EMI ESCALONA Rep #: [id number] : 1950 M 74 From: Fish Ruby MD PCP: Dr. Justin Ho MD Status: REG CLI Study: Chest PA and Lateral Date of Exam: 10/14/24 Exam# [id number] Ordering Dr: Angelika Alejandra NP [employer] -C [id number] STUDY: X-RAY CHEST REASON FOR EXAM: Male, [...] CC: Angelika Alejandra; Dr. Justin Ho MD Floor Covering Layer: Signed Normal [facility] Whole blood hemoglobin A1c/t otal hemoglobin ratio (mass fraction)Ordered By: Maggy Chen on 01-22-2024 HbA1c (Bld) [Mass fraction] 5.3 % 3.8-5.6 [facility] Comment on above: Normal < 5.7 % Predi abetic 5.7 - 6.4 % Diabetic >or= 6.5 % Please note range changes. Absolute lymphocyte countOrd ered By: Justin Ho on 01-15-2024 Lymphocytes Auto (Unsp spec) [#/Vol] 1.81 10*3/uL 0.83-4.51 [facility] Automated lymphocyte count a s percentage of total leukocytesOrdered By: Justin Ho on 01-15-2024 Lymphocytes/100 WBC Auto (Unsp spec) 36.3 % 19-41 [facility] Basophil percentageOrdered B y: Justin Ho on 01-15-2024 Basophils/100 WBC (Bld) 0.8 % 0-1 [facility] Bilirubin [Mass/Vol] 0.60 mg/dL 0.20-1.00 [facility] Comment on above: For patients on eltr ombopag therapy, use of Dimension [place] TBIL is not recommended. Chloride [Moles/Vol] 109 mmol/L 98-107 [facility] Cholesterol [Mass/Vol] 181 mg/dL <200 [facility] Comment on above: <200 mg/dL Desirable 200-240 mg/dL Borderline >240 mg/dL High Risk Eosinophils/100 WBC (Bld) 7.4 % 0-5 [facility] Glucose [Mass/Vol] 104 mg/dL 74-106 [facility] Comment on above: Fasting Glucose resu lt from 100 to 125 mg/dL suggests IMPAIRED HOMEOSTASIS per A.D.A. criteria. Hemoglobin (Bld) [Mass/Vol] 14.0 g/dL 13.0-16.5 [facility] Monocytes/100 WBC (Bld) 9.2 % 0-10 [facility] Neutrophils (Bld) [#/Vol] 2.3 10*3/uL 2.0-7.7 [facility] Neutrophils/100 WBC (Bld) 45.7 % 47-70 [facility] Potassium [Moles/Vol] 4.4 mmol/L 3.5-5.1 [facility] Protein [Mass/Vol] 7.7 g/dL 6.4-8.2 [facility] Sodium [Moles/Vol] 140 mmol/L 136-145 [facility] Triglyceride [Mass/Vol] 136 mg/dL <199 [facility] Comment on above: The drugs N-Acetylcy steine and Metamizole may falsely depress this assay.Serum Triglycerides Reference Interval Normal <150 mg/dL Borderline high 150 - 199 mg/dL High 200 - 499 mg/dL Very High > or = 500 mg/dL WBC (Bld) [#/Vol] 5.0 10*3/uL 4.4-11.0 [facility] Determination of erythrocyte mean corpuscular volume (MCV)Ordered By: Justin Ho on 01-15-2024 MCV (RBC) [Entitic vol] 84.6 fL 80-94 [facility] Erythrocyte distribution wid th ratioOrdered By: Justin Ho on 01-15-2024 Erythrocyte distribution width (RBC) [Ratio] 13.2 % 11.6-14.6 [facility] Erythrocyte distribution wid th standard deviationOrdered By: Justin Ho on 01-15-2024 Erythrocyte distribution width (RBC) [Entitic vol] 41.1 fL 35.1-43.9 [facility] Hematocrit Auto (Bld) [Volum e fraction]Ordered By: Justin Ho on 01-15-2024 Hematocrit (Bld) [Volume fraction] 40.8 % 40-54 [facility] Immature granulocytes/100 WB C Auto (Bld)Ordered By: Justin Ho on 01-15-2024 Immature granulocytes/100 WBC (Bld) 0.600 % 0.0-0.9 [facility] Comment on above: IG% - Immature Granu locytes (promyelocytes, myelocytes and metamyelocytes) > 1% indicates that a LEFT SHIFT is Present. Laboratory - Chemistry and C hemistry - challengeOrdered By: Justin Ho on 01-15-2024 Albumin/Globulin [Mass ratio] 1.0 {ratio} 0.9-2.4 [facility] ALP [Catalytic activity/Vol] 64 U/L 45-117 [facility] ALT [Catalytic activity/Vol] 30 U/L 16-61 [facility] Cholesterol in HDL [Mass/Vol] 46 mg/dL >40 [facility] Comment on above: The drugs N-Acetylcy steine and Metamizole may falsely depress this assay. Reference Range HDL <40 mg/dL Low HDL Cholesterol HDL >or= 60 mg/dL High HDL Cholesterol Cholesterol in LDL [Mass/Vol] 108 mg/dL 0-130 [facility] CO2 [Moles/Vol] 27.0 mmol/L 21.0-32.0 [facility] Globulin (S) [Mass/Vol] 3.9 g/dL 2.2-4.2 [facility] Urea nitrogen/Creatinine [Mass ratio] 14.8 mg/mg 10-20 [facility] Laboratory - Hematology and Cell countsOrdered By: Justin Ho on 01-15-2024 MCH (RBC) [Entitic mass] 29.0 pg 27.0-32.0 [facility] MCHC (RBC) [Mass/Vol] 34.3 g/dL 32-36 [facility] Nucleated RBC/100 WBC (Bld) [Ratio] 0 % 0-5 [facility] Platelet mean volume (Bld) [Entitic vol] 10.1 fL 6.2-12.0 [facility] Platelets (Bld) [#/Vol] 182 10*3/uL 150-450 [facility] No Panel InformationOrdered By: Justin Ho on 01-15-2024 Estimated GFR (MDRD) Amer 75 mL/min >60 [facility] Comment on above: GFR Calc Estimated GFR (MDRD) Non-Af Amer 62 mL/min >60 [facility] Comment on above: Non- GFR Calc Prostate Specific Antigen Screen 0.81 ng/mL 0.00-4.00 [facility] Comment on above: This test was perfor med using the TPSA assay method for [employer] chemistry system. Values obtained with differentassay methods cannot be used interchangably.When changing PSA assays in the course of monitoring apatient, additional sequential testing should be carriedout to confirm baseline values. VLDL Cholesterol 27 mg/dL 5-40 [facility] RBC Auto (Bld) [#/Vol]Ordere d By: Justin Ho on 01-15-2024 RBC (Bld) [#/Vol] 4.82 10*6/uL 4.6-6.2 [facility] Serum or plasma calcium rudolph urement (mass/volume)Ordered By: Justin Ho on 01-15-2024 Calcium [Mass/Vol] 9.2 mg/dL 8.5-10.1 [facility] Serum or plasma creatinine m easurement (mass/volume)Ordered By: Justin Ho on 01-15-2024 Creatinine [Mass/Vol] 1.22 mg/dL 0.70-1.30 [facility] Comment on above: The validity of the calculated GFR & GFRAA in patients over 70 years has not been determined. Clinical correlation is essential. Serum or plasma urea nitroge n measurement (mass/volume)Ordered By: uJstin Ho on 01-15-2024 Urea nitrogen [Mass/Vol] 18 mg/dL 7-18 [facility] Thin prep Papanicolaou smear with manual screeningOrdered By: Justin Ho on 01-15-2024 Thin prep Papanicolaou smear with manual screening 3.8 g/dL 3.2-5.0 [facility] Thin prep Papanicolaou smear with manual screening 26 U/L 15-37 [facility] Thin prep Papanicolaou smear with manual screening 4 5-15 [facility] Basophil percentageOrdered B y: Laureen Vaca on 08-12-2023 Chloride [Moles/Vol] 108 mmol/L 98-107 [facility] Glucose [Mass/Vol] 130 mg/dL 74-106 [facility] Comment on above: Fasting Glucose resu lt greater than or equal to 126 mg/dL suggests DIABETES MELLITUS per A.D.A. criteria. Potassium [Moles/Vol] 4.1 mmol/L 3.5-5.1 [facility] Sodium [Moles/Vol] 138 mmol/L 136-145 [facility] Laboratory - Chemistry and C hemistry - challengeOrdered By: Laureen Vaca on 08-12-2023 CO2 [Moles/Vol] 28.0 mmol/L 21.0-32.0 [facility] Urea nitrogen/Creatinine [Mass ratio] 17.0 mg/mg 10-20 [facility] No Panel InformationOrdered By: Laureen Vaca on 08-12-2023 Estimated GFR (MDRD) Amer 64 mL/min >60 [facility] Comment on above: GFR Calc Estimated GFR (MDRD) Non-Af Amer 53 mL/min >60 [facility] Comment on above: Non- GFR Calc Serum or plasma calcium rudolph urement (mass/volume)Ordered By: Laureen Vaca on 08-12-2023 Calcium [Mass/Vol] 9.1 mg/dL 8.5-10.1 [facility] Serum or plasma creatinine m easurement (mass/volume)Ordered By: Laureen Vaca on 08-12-2023 Creatinine [Mass/Vol] 1.41 mg/dL 0.70-1.30 [facility] Comment on above: The validity of the calculated GFR & GFRAA in patients over 70 years has not been determined. Clinical correlation is essential. Serum or plasma urea nitroge n measurement (mass/volume)Ordered By: Laureen Vaca on 08-12-2023 Urea nitrogen [Mass/Vol] 24 mg/dL 7-18 [facility] Thin prep Papanicolaou smear with manual screeningOrdered By: Laureen Vaca on 08-12-2023 Thin prep Papanicolaou smear with manual screening 2 5-15 [facility] Basophil percentageOrdered B y: Laureen Vaca on 07-14-2023 Chloride [Moles/Vol] 103 mmol/L 98-107 [facility] Glucose [Mass/Vol] 133 mg/dL 74-106 [facility] Comment on above: Fasting Glucose resu lt greater than or equal to 126 mg/dL suggests DIABETES MELLITUS per A.D.A. criteria. Potassium [Moles/Vol] 4.1 mmol/L 3.5-5.1 [facility] Sodium [Moles/Vol] 136 mmol/L 136-145 [facility] WBC (Bld) [#/Vol] 5.3 10*3/uL 4.4-11.0 [facility] Blood erythrocytes count (nu mber/volume)Ordered By: Laureen Vaca on 07-14-2023 RBC (Bld) [#/Vol] 4.83 10*6/uL 4.6-6.2 [facility] Blood hemoglobin measurement (mass/volume)Ordered By: Laureen Vaca on 07-14-2023 Hemoglobin (Bld) [Mass/Vol] 14.1 g/dL 13.0-16.5 [facility] Blood platelet mean volumeOr dered By: Laureen Vaca on 07-14-2023 Platelet mean volume (Bld) [Entitic vol] 10.2 fL 6.2-12.0 [facility] Determination of erythrocyte mean corpuscular volume (MCV)Ordered By: Laureen Vaca on 07-14-2023 MCV (RBC) [Entitic vol] 87.6 fL 80-94 [facility] Hematocrit Auto (Bld) [Volum e fraction]Ordered By: Laureen Vaca on 07-14-2023 Hematocrit (Bld) [Volume fraction] 42.3 % 40-54 [facility] Laboratory - Chemistry and C hemistry - challengeOrdered By: Laureen Vaca on 07-14-2023 CO2 [Moles/Vol] 26.0 mmol/L 21.0-32.0 [facility] Urea nitrogen/Creatinine [Mass ratio] 15.3 mg/mg 10-20 [facility] Laboratory - Hematology and Cell countsOrdered By: Laureen Vaca on 07-14-2023 Erythrocyte distribution width (RBC) [Entitic vol] 41.3 fL 35.1-43.9 [facility] Erythrocyte distribution width (RBC) [Ratio] 12.9 % 11.6-14.6 [facility] MCH (RBC) [Entitic mass] 29.2 pg 27.0-32.0 [facility] MCHC Auto (RBC) [Mass/Vol]Or dered By: Laureen Vaca on 07-14-2023 MCHC (RBC) [Mass/Vol] 33.3 g/dL 32-36 [facility] No Panel InformationOrdered By: Laureen Vaca on 07-14-2023 Estimated GFR (MDRD) Amer 66 mL/min >60 [facility] Comment on above: GFR Calc Estimated GFR (MDRD) Non-Af Amer 54 mL/min >60 [facility] Comment on above: Non- GFR Calc Platelets bldOrdered By: Monico Vaca on 07-14-2023 Platelets (Bld) [#/Vol] 195 10*3/uL 150-450 [facility] Serum or plasma calcium rudolph urement (mass/volume)Ordered By: Laureen Vaca on 07-14-2023 Calcium [Mass/Vol] 9.4 mg/dL 8.5-10.1 [facility] Serum or plasma creatinine m easurement (mass/volume)Ordered By: Laureen Vaca on 07-14-2023 Creatinine [Mass/Vol] 1.37 mg/dL 0.70-1.30 [facility] Comment on above: The validity of the calculated GFR & GFRAA in patients over 70 years has not been determined. Clinical correlation is essential. Serum or plasma urea nitroge n measurement (mass/volume)Ordered By: Laureen Vaca on 07-14-2023 Urea nitrogen [Mass/Vol] 21 mg/dL 7-18 [facility] Thin prep Papanicolaou smear with manual screeningOrdered By: Laureen Vaca on 07-14-2023 Thin prep Papanicolaou smear with manual screening 7 5-15 [facility] Basophil percentageOrdered B y: Laureen Vaca on 01-08-2023 Chloride [Moles/Vol] 108 mmol/L 98-107 [facility] Cholesterol [Mass/Vol] 131 mg/dL <200 [facility] Comment on above: <200 mg/dL Desirable 200-240 mg/dL Borderline >240 mg/dL High Risk Glucose [Mass/Vol] 102 mg/dL 74-106 [facility] Comment on above: Fasting Glucose resu lt from 100 to 125 mg/dL suggests IMPAIRED HOMEOSTASIS per A.D.A. criteria. Potassium [Moles/Vol] 4.1 mmol/L 3.5-5.1 [facility] Sodium [Moles/Vol] 139 mmol/L 136-145 [facility] Triglyceride [Mass/Vol] 103 mg/dL <199 [facility] Comment on above: The drugs N-Acetylcy steine and Metamizole may falsely depress this assay.Serum Triglycerides Reference Interval Normal <150 mg/dL Borderline high 150 - 199 mg/dL High 200 - 499 mg/dL Very High > or = 500 mg/dL Laboratory - Chemistry and C hemistry - challengeOrdered By: Laureen Vaca on 01-08-2023 CO2 [Moles/Vol] 28.0 mmol/L 21.0-32.0 [facility] Urea nitrogen/Creatinine [Mass ratio] 13.0 mg/mg 10-20 [facility] No Panel InformationOrdered By: Laureen Vaca on 01-08-2023 Estimated GFR (MDRD) Amer 87 mL/min >60 [facility] Comment on above: GFR Calc Estimated GFR (MDRD) Non-Af Amer 72 mL/min >60 [facility] Comment on above: Non- GFR Calc Serum or plasma calcium rudolph urement (mass/volume)Ordered By: Laureen Vaca on 01-08-2023 Calcium [Mass/Vol] 8.8 mg/dL 8.5-10.1 [facility] Serum or plasma cholesterol in HDL measurement (mass/volume)Ordered By: Laureen Vaca on 01-08-2023 Cholesterol in HDL [Mass/Vol] 50 mg/dL >40 [facility] Comment on above: The drugs N-Acetylcy steine and Metamizole may falsely depress this assay. Reference Range HDL <40 mg/dL Low HDL Cholesterol HDL >or= 60 mg/dL High HDL Cholesterol Serum or plasma cholesterol in VLDL measurement (mass/volume)Ordered By: Laureen Vaca on 01-08-2023 Cholesterol in VLDL [Mass/Vol] 21 mg/dL 5-40 [facility] Serum or plasma creatinine m easurement (mass/volume)Ordered By: Laureen Vaca on 01-08-2023 Creatinine [Mass/Vol] 1.08 mg/dL 0.70-1.30 [facility] Comment on above: The validity of the calculated GFR & GFRAA in patients over 70 years has not been determined. Clinical correlation is essential. Serum or plasma low density lipoprotein (LDL) cholesterol measurement (mass/volume)Ordered By: Laureen Vaca on 01-08-2023 Cholesterol in LDL [Mass/Vol] 60 mg/dL 0-130 [facility] Serum or plasma urea nitroge n measurement (mass/volume)Ordered By: Laureen Vaca on 01-08-2023 Urea nitrogen [Mass/Vol] 14 mg/dL 7-18 [facility] Thin prep Papanicolaou smear with manual screeningOrdered By: Laureen Vaca on 01-08-2023 Thin prep Papanicolaou smear with manual screening 3 5-15 [facility] Office Visit: [facility] 07-22-20 Dietary management education, guidance, and counseling (procedure) yes Invalid Interpretation Code [employer] Work Phone: [phone] Documentation of current medications (procedure) Done Invalid Interpretation Code [employer] Work Phone: [phone] Fall risk assessment No Invalid Interpretation Code [employer] Work Phone: [phone] Clinical Lists Update: Clini jessica Noteon 07-23-2016 Left ventricular Ejection fraction 55 % Invalid Interpretation Code [employer] Work Phone: [phone] Office Visiton 07-19-2016 Documentation of current medications (procedure) Done Invalid Interpretation Code [employer] Work Phone: [phone] Protein mass conc Done [employer] Work Phone: [phone] Office Visiton 08-01-2015 General cardiovascular disease 10Y risk [#] Vancleve.D'Agostino 9 % Invalid Interpretation Code [employer] Phone: [phone] Tobacco smoking status NHIS Never smoker [employer] Work Phone: [phone] Tobacco use CPHS Never smoker Invalid Interpretation Code [employer] Work Phone: [phone] Clinical Lists 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 Chloride molar conc 106 mmol/L Invalid Interpretation Code [employer] Work Phone: [phone] Cholesterol in HDL mass conc 37 mg/dL Invalid Interpretation Code [employer] Work Phone: [phone] Cholesterol in LDL mass conc 79 mg/dL Invalid Interpretation Code [employer] Work Phone: [phone] Cholesterol mass conc 167 mg/dL Invalid Interpretation Code [employer] Work Phone: [phone] CO2 32.0 mmol/L Invalid Interpretation Code [employer] Work Phone: [phone] CO2 ppres (BldV) 32.0 mmol/L [employer] Work Phone: [phone] Creatinine mass conc 1.2 mg/dL Invalid Interpretation Code [employer] Work Phone: [phone] Hematocrit (HCT) 37.0 % Invalid Interpretation Code [employer] Work Phone: [phone] Hematocrit Volume Fraction (Bld) 37.0 % [employer] Work Phone: [phone] Hemoglobin mass conc (Bld) 13.2 g/dL Invalid Interpretation Code [employer] Work Phone: [phone] Lipoprotein.pre-beta mass conc 51 mg/dL Invalid Interpretation Code [employer] Work Phone: [phone] Platelets 191 10*3/mm3 Invalid Interpretation Code [employer] Work Phone: [phone] Platelets #/vol (Bld) 191 10*3/mm3 [employer] Work Phone: [phone] Potassium molar conc 4.4 mmol/L Invalid Interpretation Code [employer] Work Phone: [phone] Sodium molar conc 146 mmol/L Invalid Interpretation Code [employer] Work Phone: [phone] Triglyceride mass conc 257 mg/dL Invalid Interpretation Code [employer] Work Phone: [phone] Urea nitrogen mass conc 15 mg/dL Invalid Interpretation Code [employer] Work Phone: [phone] WBC #/vol (Bld) 5.5 10*3/uL [facility] [employer] Work Phone: [phone] WBC (Leukocytes) 5.5 10*3/uL Invalid Interpretation Code [employer] Work Phone: [phone] Office Visiton 09-03-2011 Alcoholism counseling (procedure) no Invalid Interpretation Code [employer] Work Phone: [phone] cardiac risk group B Invalid Interpretation Code [employer] Work Phone: [phone] cholesterol, target level 200 mg/dL Invalid Interpretation Code [employer] Work Phone: [phone] HDL cholesterol, serum, target level 40 mg/dL Invalid Interpretation Code [employer] Work Phone: [phone] LDL target level 130 mg/dL Invalid Interpretation Code [facility] [employer] Work Phone: [phone] Protein mass conc no [employer] Work Phone: [phone] triglyceride, target level 150 mg/dL Invalid Interpretation Code [employer] Work Phone: [phone] Vital Signs Date Time Vital Sign Value Performing Clinician Faci lity 07-08-2025 07:49-0400 Body mass index (BMI) [Ratio] 27.8 kg/m2 Dr. Justin Ho MD Work Phone: [facility] 07-08-2025 07:49-0400 Body weight [address] Justin Ho MD Work Phone: [facility] 07-08-2025 07:49-0400 Diastolic blood pressure 79 mm[Hg] Dr. Justin Ho MD Work Phone: [facility] 07-08-2025 07:49-0400 Heart rate 62 /min Dr. Justin Ho MD Work Phone: [facility] 07-08-2025 07:49-0400 Respiratory rate 18 /min Dr. Justin Ho MD Work Phone: [facility] 07-08-2025 07:49-0400 SaO2% (BldA) [Mass fraction] 95 % Dr. Justin Ho MD Work Phone: [facility] 07-08-2025 07:49-0400 Systolic blood pressure 147 mm[Hg] Dr. Justin Ho MD Work Phone: [phone] [place] [address] 03-17-2025 11:13-0400 Diastolic blood pressure 76 mm[Hg] Dr. Justin Ho MD Work Phone: [phone])105-414553 [place] [address] 03-17-2025 11:13-0400 Heart rate 60 /min Dr. Justin Ho MD Work Phone: [phone])870-362053 [place] [address] 03-17-2025 11:13-0400 Respiratory rate 18 /min Dr. Justin Ho MD Work Phone: [phone])538-905514 [place] [address] 03-17-2025 11:13-0400 SaO2% (BldA) [Mass fraction] 97 % Dr. Justin Ho MD Work Phone: [phone])[phone] [place] [address] 03-17-2025 11:13-0400 Systolic blood pressure 137 mm[Hg] Dr. Justin Ho MD Work Phone: [phone])[phone] [place] [address] 03-10-2025 11:32-0400 Body height 172.[address] Justin Ho MD Work Phone: 1(248)[phone] [place] [address] 03-10-2025 11:32-0400 Body temperature 99.2 [degF] Dr. Justin Ho MD Work Phone: [phone])[phone] [place] [address] 03-10-2025 11:32-0400 Diastolic blood pressure 71 mm[Hg] Dr. Justin Ho MD Work Phone: 0(913)294-103874 [address] 03-10-2025 11:32-0400 Heart rate 63 /min Dr. Justin Ho MD Work Phone: [phone])366-897253 [place] [address] 03-10-2025 11:32-0400 Respiratory rate 18 /min Dr. Justin Ho MD Work Phone: [phone] [place] [address] 03-10-2025 11:32-0400 SaO2% (BldA) [Mass fraction] 96 % Dr. Justin Ho MD Work Phone: [phone])[phone] [place] [address] 03-10-2025 11:32-0400 Systolic blood pressure 151 mm[Hg] Dr. Justin Ho MD Work Phone: [facility] 03-04-2025 07:17-0400 Body mass index (BMI) [Ratio] 28.3 kg/m2 Dr. Justin Ho MD Work Phone: [facility] 03-04-2025 07:17-0400 Body weight 84.[address] Justin Ho MD Work Phone: 5(124)[phone] [address] 03-04-2025 07:17-0400 Diastolic blood pressure 80 mm[Hg] Dr. Justin Ho MD Work Phone: 4(756)138-239414 [place] [address] 03-04-2025 07:17-0400 Heart rate 64 /min Dr. Justin Ho MD Work Phone: [phone] [place] [address] 03-04-2025 07:17-0400 Respiratory rate 18 /min Dr. Justin Ho MD Work Phone: 0(156)004-137574 [address] 03-04-2025 07:17-0400 SaO2% (BldA) [Mass fraction] 97 % Dr. Justin Ho MD Work Phone: 2(469)540-436974 [address] 03-04-2025 07:17-0400 Systolic blood pressure 141 mm[Hg] Dr. Justin Ho MD Work Phone: 0(771)364-599574 [address] 03-02-2025 08:33-0400 Body temperature 97.4 [degF] Dr. Justin Ho MD Work Phone: 9(527)296-602153 [place] [address] 03-02-2025 08:33-0400 Diastolic blood pressure 68 mm[Hg] Dr. Justin Ho MD Work Phone: [facility] 03-02-2025 08:33-0400 Heart rate 65 /min Dr. Justin Ho MD Work Phone: [facility] 03-02-2025 08:33-0400 Respiratory rate 18 /min Dr. Justin Ho MD Work Phone: [facility] 03-02-2025 08:33-0400 SaO2% (BldA) [Mass fraction] 100 % Dr. Justin Ho MD Work Phone: 3(730)103-395653 [place] [address] 03-02-2025 08:33-0400 Systolic blood pressure 136 mm[Hg] Dr. Justin Ho MD Work Phone: 5(921)111-577314 [place] [address] 03-02-2025 06:32-0400 Body height 172.[address] Justin Ho MD Work Phone: 3(700)054-255114 [place] [address] 03-02-2025 06:32-0400 Body mass index (BMI) [Ratio] 27.8 kg/m2 Dr. Justin Ho MD Work Phone: 3(609)119-757814 [place] [address] 03-02-2025 06:32-0400 Body weight [address] Justin Ho MD Work Phone: 2(506)602-652714 [place] [address] 01-30-2025 10:30-0400 Body mass index (BMI) [Ratio] 28 kg/m2 Dr. Justin Ho MD Work Phone: 9(532)388-318514 [place] [address] 01-30-2025 10:30-0400 Body temperature 98.9 [degF] Dr. Justin Ho MD Work Phone: 7(706)314-119414 [place] [address] 01-30-2025 10:30-0400 Body weight 83.[address] Justin Ho MD Work Phone: 3(859)958-973914 [place] [address] 01-30-2025 10:30-0400 Diastolic blood pressure 80 mm[Hg] Dr. Justin Ho MD Work Phone: 1(105)649-739514 [place] [address] 01-30-2025 10:30-0400 Heart rate 73 /min Dr. Justin Ho MD Work Phone: 4(974)115-203153 [place] [address] 01-30-2025 10:30-0400 Respiratory rate 16 /min Dr. Justin Ho MD Work Phone: 9(840)421-415814 [place] [address] 01-30-2025 10:30-0400 SaO2% (BldA) [Mass fraction] 98 % Dr. Justin Ho MD Work Phone: 5(903)178-882753 [place] [address] 01-30-2025 10:30-0400 Systolic blood pressure 154 mm[Hg] Dr. Justin Ho MD Work Phone: 9(199)882-294753 [place] [address] 06-04-2023 10:35-0400 Body height 172.[address] Justin Ho Work Phone: 3(879)367-721914 [place] [address] 06-04-2023 10:35-0400 Body mass index (BMI) [Ratio] 26.1 kg/m2 Dr. Justin Ho Work Phone: 5(085)733-369714 [place] [address] 06-04-2023 10:35-0400 Body weight 78.[address] Justin Ho Work Phone: 0(365)171-641014 [place] [address] 06-04-2023 10:35-0400 Diastolic blood pressure 67 mm[Hg] Dr. Justin Ho Work Phone: 0(445)702-922714 [place] [address] 06-04-2023 10:35-0400 Heart rate 55 /min Dr. Justin Ho Work Phone: 6(220)301-833414 [place] [address] 06-04-2023 10:35-0400 Respiratory rate 18 /min Dr. Justin Ho Work Phone: 6(516)069-527614 [place] [address] 06-04-2023 10:35-0400 SaO2% (BldA) [Mass fraction] 97 % Dr. Justin Ho Work Phone: 1(794)298-918314 [place] [address] 06-04-2023 10:35-0400 Systolic blood pressure 126 mm[Hg] Dr. Justin Ho Work Phone: 4(895)823-287914 [place] [address] 09-19-2022 08:51-0500 Body height 172.[address] Justin Ho Work Phone: 8(529)417-815314 [place] [address] 09-19-2022 08:51-0500 Body mass index (BMI) [Ratio] 27.5 kg/m2 Dr. Justin Ho Work Phone: 3(141)035-635914 [place] [address] 09-19-2022 08:51-0500 Body weight 82.[address] Justin Ho Work Phone: 2(720)172-068914 [place] [address] 09-19-2022 08:51-0500 Diastolic blood pressure 72 mm[Hg] Dr. Justin Ho Work Phone: 3(612)463-671914 [place] [address] 09-19-2022 08:51-0500 Heart rate 61 /min Dr. Justin Ho Work Phone: [facility] 09-19-2022 08:51-0500 Respiratory rate 16 /min Dr. Justin Ho Work Phone: [facility] 09-19-2022 08:51-0500 Systolic blood pressure 124 mm[Hg] Dr. Justin Ho Work Phone: [facility] 07-22-2017 08:07-0400 BMI (Body Mass Index) 27.97 kg/m2 [facility] Work Phone: 07-22-2017 [...] Phone: 03-27-2017 10:21-0400 BP Diastolic 80 mm[Hg] [facility] Work Phone: 03-27-2017 10:21-0400 BP Systolic 138 mm[Hg] [facility] Work Phone: 03-27-2017 10:21-0400 Pulse (Heart Rate) 72 /min [facility] Work Phone: 03-27-2017 10:21-0400 Respiratory Rate 20 /min Harumi DeFinis [facility] Work Phone: 03-11-2017 09:29-0400 BP Diastolic 80 mm[Hg] Harumi DeFinis [facility] Work Phone: 03-11-2017 09:29-0400 BP Systolic 150 mm[Hg] Harumi DeFinis [facility] Work Phone: 03-11-2017 09:29-0400 Pulse (Heart Rate) 68 /min Harumi DeFinis [facility] Work Phone: 03-11-2017 09:29-0400 Respiratory Rate 20 /min Harumi DeFinis [facility] Work Phone: 07-19-2016 13:35-0400 BMI (Body Mass Index) 28.02 kg/m2 Samanta [facility] Work Phone: 07-19-2016 13:35-0400 BP Diastolic 70 mm[Hg] Samanta Carvajal RN [facility] Work Phone: 07-19-2016 13:35-0400 BP Systolic 120 mm[Hg] Samanta Carvajal RN [facility] Work Phone: 07-19-2016 13:35-0400 BSA (Body Surface Area) 1.98 m2 Samanta Carvajal RN [facility] Work Phone: 07-19-2016 13:35-0400 Pulse (Heart Rate) 68 /min Samanta Carvajal RN [facility] Work Phone: 07-19-2016 13:35-0400 Respiratory Rate 20 /min Samanta Carvajal RN [facility] Work Phone: 07-19-2016 13:35-0400 Weight 83.6 kg Samanta Carvajal RN [facility] Work Phone: 09-03-2011 10:17-0500 Height 172.72 cm Samanta Carvajal RN [facility] Work Phone: Encounters Encounter Date Encounter Type Care Provider Facility Start: 08-17-2025 ambulatory Justin Ho Facility:[facility] Start: 07-28-2025 Non-patient / Non-visit Dr. Jeremias CHILDS -[facility] Work Phone: Start: 07-28-2025 Registered Referred Aga GONZALEZ -Cat Scan [facility] Work Phone: Start: 07-28-2025 ambulatory Aga GONZALEZ Facility:[facility] Start: 07-19-2025 End: 07-19-[address] Justin Ho MD Work Phone: -[facility] Start: 07-19-2025 End: 07-19-[address] Justin Ho MD -Laboratory [facility] Start: 07-19-2025 End: 07-19-2025 ambulatory Justin Ho Facility:[facility] Start: 07-08-2025 End: 07-08-2025 Patient encounter procedure Aga GONZALEZ -[facility] Work Phone: Start: 07-08-2025 End: 07-08-[address] Justin Ho MD Work Phone: -[facility] Start: 03-23-2025 End: 03-23-[address] Justin Ho MD Work Phone: [facility] Work Phone: Start: 03-23-2025 End: 03-23-[address] Justin Ho MD -Radiology [place] Work Phone: Start: 03-23-2025 End: 03-23-2025 ambulatory Justin Ho Facility:[facility] Start: 03-17-2025 End: 03-17-[address] Galileo Grover MD -[facility] Work Phone: Start: 03-17-2025 End: 03-17-[address] Justin Ho MD Work Phone: [facility] Work Phone: Start: 03-10-2025 End: 03-10-[address] Justin Ho MD Work Phone: [facility] Work Phone: Start: 03-10-2025 End: 03-10-2025 Patient encounter procedure Aga GONZALEZ -Cardiovascular Services Work Phone: Start: 03-10-2025 End: 03-10-[address] Galileo Grover MD -[facility] Work Phone: Start: 03-10-2025 End: 03-10-[address] Justin Ho MD Work Phone: [facility] Work Phone: Start: 03-10-2025 End: 03-10-2025 ambulatory Aga GONZALEZ Facility:[facility] Start: 03-04-2025 End: 03-04-2025 Patient encounter procedure Aga GONZALEZ -[facility] Work Phone: Start: 03-04-2025 End: 03-04-2025 ambulatory Justin Ho Facility:[facility] Start: 03-02-2025 ambulatory Galileo Grover Facility:[facility] Start: 03-02-2025 Non-patient / Non-visit Dr. Galileo pulido MD -[facility] Start: 03-02-2025 End: 03-02-2025 Admission to same day surgery center Dr. Galileo Grover MD -[facility] Start: 03-02-2025 End: 03-02-[address] Justin Ho MD Work Phone: [facility] Work Phone: Start: 01-30-2025 End: 01-30-2025 Patient encounter procedure Garrett Holly NP-C -[facility] Work Phone: Start: 01-30-2025 End: 01-30-2025 ambulatory Justin Ho Facility:[facility] Start: 01-28-2025 ambulatory Galileo Grover Facility:[facility] Start: 01-26-2025 End: 01-26-[address] Justin Ho MD -[facility] Start: 01-25-2025 End: 01-25-[address] Galileo Grover MD -[facility] Work Phone: Start: 01-25-2025 End: 01-26-2025 ambulatory Justin Ho Facility:[facility] Start: 10-14-2024 End: 10-14-2024 ambulatory Justin Ho Facility:[facility] Start: 01-22-2024 End: 01-22-2024 ambulatory [facility] Work Phone: Start: 01-22-2024 End: 01-22-2024 Patient encounter procedure [facility] Start: 01-15-2024 End: 01-15-2024 ambulatory [facility] Work Phone: Start: 01-15-2024 End: 01-15-2024 Patient encounter procedure [facility] Start: 08-12-2023 End: 08-12-[address] Justin Ho Work Phone: [facility] Work Phone: Start: 08-12-2023 End: 08-12-[address] Justin Ho Work Phone: [facility] Start: 07-31-2023 End: 07-31-[address] Justin Ho Work Phone: [facility] Work Phone: Start: 07-14-2023 End: 07-14-[address] Justin Ho Work Phone: [facility] Start: 07-02-2023 Non-patient / Non-visit Dr. Bobo Ho Work Phone: [facility] Work Phone: Start: 06-30-2023 Non-patient / Non-visit Dr. Bobo Ho Work Phone: [facility] Start: 06-30-2023 End: 06-30-[address] Justin Ho Work Phone: [facility] Work Phone: Start: 06-30-2023 End: 06-30-[address] [facility] Start: 06-04-2023 End: 06-04-[address] Justin Ho Work Phone: [facility] Work Phone: Start: 01-08-2023 End: 01-08-[address] Justin Ho Work Phone: [facility] Work Phone: Start: 01-08-2023 End: 01-08-[address] Justin Ho Work Phone: [facility] Start: 09-26-2022 Non-patient / Non-visit Dr. Bobo Ho Work Phone: [facility] Start: 09-26-2022 End: 09-26-[address] Justin Ho Work Phone: [facility] Work Phone: Start: 09-26-2022 End: 09-26-[address] [facility] Start: 09-19-2022 End: 09-19-[address] Justin Ho Work Phone: [facility] Start: 09-04-2022 End: 09-04-[address] Justin Ho Work Phone: [facility] Work Phone: Start: 09-04-2022 End: 09-04-[address] Justin Ho Work Phone: [facility]-Occupational Therapy Procedures Date Procedure Procedure Detail Performing Clinician Start: 07-28-2025 CT angiography of co ronary arteries Dr. Justin Ho MD Work Phone: Start: 07-19-2025 Prostate specific an tigen measurement Dr. Justin Ho MD Work Phone: Comment on above: This test was perfor med using the [employer] tPSA method. Measured values of a patient sample can vary depending on the testing procedure used. PSA values determined on patient samples by different testing procedures cannot be used interchangeably. If there is a change in PSA assays while monitoring therapy, sequential testing should be performed to confirm baseline values. Start: 03-23-2025 X-ray of lumbar spin e, two or three views Dr. Justin Ho MD Work Phone: Start: 03-23-[address] Justin Ho MD Work Phone: Start: 03-02-[address] Justin andrews MD Work Phone: Start: 01-26-2025 Urine microalbumin/creatinine ratio measurement Dr. Justin Ho MD Work Phone: Start: 07-31-2023 Diagnostic radiograp hy of calcaneus Dr. Justin Ho Work Phone: Start: 07-22-2017 End: 07-22-2017 HOSPITAL EDUCATOR Garrett Holly NP Work Phone: Start: 07-22-2017 End: 07-22-2017 Follow Up Appt 1 year Garrett Holly [employer] Work Phone: Start: 03-27-2017 End: 03-27-2017 Follow [...] Juan Gomez MD Start: 07-08-2014 End: 07-08-2014 HOSPITAL EDUCATOR Juan Gomez MD Start: 07-08-2014 End: 07-19-2016 Echocardiography Juan Gomez MD Start: 07-08-2014 End: 07-08-2014 Follow Up Appt 1 year Juan Gomez MD Start: 06-22-2013 End: 07-19-2016 Carotid duplex Aga Wray PA-C Work Phone: Start: 06-22-2013 End: 06-22-2013 HOSPITAL EDUCATOR Aga Wray PA-C Work Phone: Start: 06-22-2013 End: 06-22-2013 Follow Up Appt 1 year Aga silva PA-C Work Phone: Start: 06-22-2013 End: 07-19-2016 Us abdominal real time w/image limited Aga Wray PA-C Work Phone: Start: 06-22-2013 End: 07-19-2016 Carotid duplex Aga Wray PA-C Work Phone: Start: 06-22-2013 End: 06-22-2013 HOSPITAL EDUCATOR Aga Wray PA-C Work Phone: Start: 06-22-2013 End: 07-19-2016 Echo exam of abdomen Aga gonsalves PA-C Work Phone: Start: 06-22-2013 End: 06-22-2013 Follow Up Appt 1 year Aga silva PA-C Work Phone: Start: 10-15-2012 End: 10-15-2012 Follow Up Appt 1 year Juan Gomez MD Start: 10-15-2012 End: 10-15-2012 Follow Up Appt 1 year Juan Gomez MD Start: 09-03-2011 End: 06-09-2013 Follow Up Appt 1 year Juan Gomez MD Start: 09-03-2011 End: 06-09-2013 Follow Up Appt 1 year Juan Gomez MD Plan of Treatment Date Care Activity Detail Author Start: 08-03-2025 Radionuclide imaging of perfusion of myocardium under exercise stress [facility] Start: 07-08-2025 CT angiography of coronary arteries [facility] Start: 03-02-2025 Anes integ musc & nrv head neck&posterior trunk ANESTH HEAD/NECK/PTRUNK [facility] Start: 03-02-2025 Exc b9 lesion mrgn xcp sk tg t/a/l 2.1-3.0 cm EXC TR-EXT B9+KLAUS 2.1-3CM [facility] Start: 03-02-2025 Repair intermediate s/a/t/e 2.6-7.5 cm INTMD RPR S/A/T/EXT 2.6-7.5 [facility] Start: 03-02-2025 Patient discharge [facility] Start: 07-30-2018 End: 07-30-2018 Appointment Appointment [facility] Work Phone: Start: 07-22-2017 End: 07-22-2017 HOSPITAL EDUCATOR HOSPITAL EDUCATOR [facility] Work Phone: Start: 07-22-2017 End: 07-22-2017 Follow Up Appt 1 year Follow Up Appt 1 year [facility] Work Phone: Start: 07-22-2017 End: 07-22-2017 Appointment Appointment [facility] Work Phone: Start: 07-22-2017 End: 07-22-2017 Appointment Appointment [facility] Work Phone: Start: 03-27-2017 End: 03-27-2017 Follow Up BP Check Follow Up BP Check [facility] Work Phone: Start: 03-27-2017 End: 03-27-2017 Appointment Appointment [facility] Work Phone: Start: 03-27-2017 End: 03-27-2017 Appointment Appointment [facility] Work Phone: Start: 03-27-2017 End: 03-27-2017 Follow Up BP Check Follow Up BP Check [facility] Work Phone: Start: 03-11-2017 End: 03-11-2017 Follow Up BP Check Follow Up BP Check [facility] Work Phone: Start: 03-11-2017 End: 03-11-2017 Appointment Appointment [facility] Work Phone: Start: 03-11-2017 End: 03-11-2017 Appointment Appointment [facility] Work Phone: Start: 03-11-2017 End: 03-11-2017 Follow Up BP Check Follow Up BP Check [facility] Work Phone: Start: 07-19-2016 End: 07-19-2016 HOSPITAL EDUCATOR HOSPITAL EDUCATOR [facility] Work Phone: Start: 07-19-2016 End: 07-19-2016 Echocardiography Echocardiogram (complete) [facility] Work Phone: Start: 07-19-2016 End: 07-19-2016 Follow Up Appt 1 year Follow Up Appt 1 year [facility] Work Phone: Start: 07-19-2016 End: 07-19-2016 HOSPITAL EDUCATOR HOSPITAL EDUCATOR [facility] Work Phone: Start: 07-19-2016 End: 07-19-2016 Echocardiography Echocardiogram (complete) [facility] Work Phone: Start: 07-19-2016 End: 07-19-2016 Follow Up Appt 1 year Follow Up Appt 1 year [facility] Work Phone: Start: 08-01-2015 End: 08-01-2015 HOSPITAL EDUCATOR HOSPITAL EDUCATOR [facility] Work Phone: Start: 08-01-2015 End: 08-01-2015 Follow Up Appt 1 year Follow Up Appt 1 year [facility] Work Phone: Start: 08-01-2015 End: 08-01-2015 HOSPITAL EDUCATOR HOSPITAL EDUCATOR [facility] Work Phone: Start: 08-01-2015 End: 08-01-2015 Follow Up Appt 1 year Follow Up Appt 1 year [facility] Work Phone: Start: 07-08-2014 End: 07-08-2014 HOSPITAL EDUCATOR HOSPITAL EDUCATOR [facility] Work Phone: Start: 07-08-2014 End: 07-19-2016 Echocardiography Echocardiogram (complete) [facility] Work Phone: Start: 07-08-2014 End: 07-08-2014 Follow Up Appt 1 year Follow Up Appt 1 year [facility] Work Phone: Start: 07-08-2014 End: 07-08-2014 HOSPITAL EDUCATOR HOSPITAL EDUCATOR [facility] Work Phone: Start: 07-08-2014 End: 07-19-2016 Echocardiography Echocardiogram (complete) [facility] Work Phone: Start: 07-08-2014 End: 07-08-2014 Follow Up Appt 1 year Follow Up Appt 1 year [facility] Work Phone: Start: 06-22-2013 End: 06-23-2013 Carotid duplex Carotid duplex [facility] Work Phone: Start: 06-22-2013 End: 06-22-2013 HOSPITAL EDUCATOR HOSPITAL EDUCATOR [facility] Work Phone: Start: 06-22-2013 End: 06-22-2013 Follow Up Appt 1 year Follow Up Appt 1 year [facility] Work Phone: Start: 06-22-2013 End: 06-23-2013 Us abdominal real time w/image limited US Abdominal (aneurysm screening) [facility] Work Phone: Start: 06-22-2013 End: 06-23-2013 Carotid duplex Carotid duplex [facility] Work Phone: Start: 06-22-2013 End: 06-22-2013 HOSPITAL EDUCATOR HOSPITAL EDUCATOR [facility] Work Phone: Start: 06-22-2013 End: 06-23-2013 Echo exam of abdomen US Abdominal (aneurysm screening) [facility] Work Phone: Start: 06-22-2013 End: 06-22-2013 Follow Up Appt 1 year Follow Up Appt 1 year [facility] Work Phone: Start: 10-15-2012 [...] [facility] Work Phone: Patient referral [facility] Work Phone: US Carotid arteries [facility] Work Phone: Payers Date Payer Category Payer Self-pay [id number] 2024 Medicare [id number] 2024 Unknown [id number] Unknown ANTHEM [id number] Unknown Unknown [id number] 2.16.8 [id number] Unknown [id number] 2.16.8 [id number] Unknown [id number] 2.16.8 [id number] Unknown [id number] 2.16.8 [id number] Unknown [id number] 2.16.8 [id number] Unknown [id number] 2.16.8 [id number] Unknown [id number] 2.16.8 [id number] Unknown [id number] 2.16.8 [id number] Unknown [id number] 2.16.8 [id number] Unknown [id number] 2.16.8 [id number] Unknown [id number] 2.16.8 [id number] Unknown [id number] 2.16.8 [id number] Unknown [id number] 2.16.8 [id number] Unknown [id number] 2.16.8 [id number] Unknown [id number] 2.16.8 [id number] Unknown [id number] 2.16.8 [id number] Social History Date Type Detail Facility Start: 09-19-2022 End: 06-04-2023 Tobacco smoking status IAIS Unknown if ever smoked [facility] Start: 09-11-2021 Occasional [facility] Start: 09-11-2021 None [facility] Start: 09-11-2021 Non-smoker [facility] Start: 1950 Sex Assigned At Male [facility] Start: 02-16-2025 Tobacco smoking stat us NHIS Never smoked tobacco (finding) [facility] Sex Male [facility] Goals Date Patient Goal Desired Activity /State Mental Status Date Assessment Result Facility 03-02-2025 Cognitive function Voice/Name [facility] Work Phone: Clinical Notes 01-25-2025 to 07-08-2025 Note Date & Type Note Facility 07-08-2025 Evaluation note Diagnosis Onset Date Resolution Essential (primary) hypertension chronic July 08, 2025 11:00am HLD (hyperlipidemia) chronic Sept ember 2024 11:00am Nonrheumatic aortic (valve) stenosis with insufficiency chronic July 08, 2025 11:00am [facility] Work Phone: 1(760) 275-963106-12-2025 Radiology Diagnostic study note [facility] Imaging Services [address], [place] [id number] Lumbar Spine 2 or 3 Views MR#: [id number] Acct: [id number] Name: EMI ESCALONA Rep #: [id number] : [id number] M 74 From: Chaka Puga MD PCP: Dr. Justin Ho MD Status: REG CLI Study:Lumbar Spine 2 or 3 Views Date of Exam: 03/23/25 Exam# [id number] Ordering Dr: Bobo Ho MD PROCEDURE: LUMBAR SPINE 2 OR 3 VIEWS 03/23/2025 REASON FOR EXAM: BACK PAIN TECHNIQUE: 2 view(s) of the lumbar spine COMPARISON: None. FINDINGS: Mild degenerative levoscoliosis apex at L3. Straightening of the lumbar lordosis, probably muscular spasm and pain. There are diffuse spondylotic changes. Findings are demonstrated to by diffuse disc space narrowing, osteophyte formation and degenerative endplate sclerosis. There is diffuse facet joint arthropathy with secondary bilateral neural foramina narrowing. No fracture or dislocation is seen. No aggressive lytic or blastic bony lesion is noted. RAD/Lumbar Spine 2 or 3 Views IMPRESSION: Spondylosis. Reading [id number] CC: Dr. Justin Ho MD ~ Floor Covering Layer: Signed [facility]06-12-2025 Radiology Diagnostic study note [facility] Imaging Services [address] [place], [place] [address] Thoracic Spine 2 Views MR#: [id number] Acct: [id number] Name: EMI ESCALONA Rep #: [id number] : 1950 M 74 From: Praful Gautam MD PCP: Dr. Justin Ho MD Status: REG CLI Study:Thoracic Spine 2 Views Date of Exam: 03/23/25 Exam# [id number] Ordering Dr: Bobo Ho MD PROCEDURE: THORACIC SPINE 2 VIEWS 03/23/2025 REASON FOR EXAM: BACK PAIN TECHNIQUE: Three views of the thoracic spine. COMPARISON: None. FINDINGS: Mild discogenic degenerative changes of the visualized spine. Normal alignment. No evidence of acute fracture or dislocation. Vertebral body heights are maintained. RAD/Thoracic Spine 2 Views IMPRESSION: Spondylosis. Reading Location: [id number] CC: Dr. Justin Ho MD ~ Floor Covering Layer: Signed [facility]06-05-2025 Evaluation note* Diagnosis Onset Date Resolution Status Admit Date Melanoma in situ of back acute March 17, 2025 11:10am Left carotid bruit acute Sept2024 11:00am Essential (primary) hypertension chronic July 08, 2025 11:00am HLD (hyperlipidemia) chronic Jun 11:00am Nonrheumatic aortic (valve) stenosis with insufficiency chronic Jun 11:00am [facility] Work Phone: 1(398) 262-659505-29-2025 [facility] [address], [address] [place], [place] [address] OFFICE VISIT Date of Service: 03/10/25 MR#: [id number] Acct: [id number] Name: EMI ESCALONA Rep #: [id number] : 1950 Provider: Dr. Jason Grover MD Age/Sex: 74/M Location: [facility] Status: Signed Intake Vital Signs 03/02/25 06:32 [...] mg PO QHS #90 tabs 03/10/25 Rx YL-efwmplvwgqz-igzsaf ox-Zn ER 500 1 tab PO DAILY [...] 1 cm margins, 2.5 x 3.5 cm (CPT:90142) 2) Intermediate closure of right lateral neck wound after melanoma in situ excision, 6 cm (CPT 60994) CURRENT ENCOUNTER, 10 Mar 2025: Doing well post op week 1 from above. No fevers, chills, or drainage. Pain controlled. Pathology not yet back. Objective Details: Right lower neck incision c/d/i Prineo in place No infection or fluid collection Coding Level of Care Code Global Post Op Diagnoses Melanoma in situ of back D03.59 [facility] Medical History History of steroid therapy Wears [...] to review pathology/check on wound. 03/10/25 1136 > Date _ Galileo Grover MD Cosigner Signature: Date (if applicable) CC: ~ [facility]05-29-2025 Progress note Author Galileo Grover [facility] Note Date/Time March 10, 2025 11:36 am [facility] [place] [facility] [address], [address] [place] [address] OFFICE VISIT Date of Service: 03/10/25 MR#: [id number] Acct: [id number] Name: EMI ESCALONA Rep #: [id number] : 1950 Provider: Dr. Jason Grover MD Age/Sex: 74/M Location: [facility] Status: Signed Intake Vital Signs 03/02/25 06:32 [...] mg PO QHS #90 tabs 03/10/25 Rx RT-ozakgxujzap-yvtpsi ox-Zn ER 500 1 tab PO DAILY [...] 1 cm margins, 2.5 x 3.5 cm (CPT:13763) 2) Intermediate closure of right lateral neck wound after melanoma in situ excision, 6 cm (CPT 95744) CURRENT ENCOUNTER, 10 Mar 2025: Doing well post op week 1 from above. No fevers, chills, or drainage. Pain controlled. Pathology not yet back. Objective Details: Right lower neck incision c/d/i Prineo in place No infection or fluid collection Coding Level of Care Code Global Post Op Diagnoses Melanoma in situ of back D03.59 [facility] Medical History History of steroid therapy Wears [...] Cosigner Signature: Date (if applicable) CC: ~ [facility] Work Phone: 1(722) 763-525705-21-2025 Consult note [facility] Medical Records Department [address] [place] [address] Anesthesia Postop Eval II 03/02/25 0849 MR#: [id number] Acct: [id number] Name: EMI ESCALONA Rep #:[id number] : 1950 74 From: Lamberto Mcqueen MD PCP: Dr. Justin Ho MD Status:REG [facility] Y Race: C Location: [place] [address] Anesthesia Postop Eval I Sum Postop Eval Completion status Anesthesia document: Postop Eval 1 completed: Yes Anesthesia Postop Eval I Summary Anesthesia Postop Eval I Summary: Anesthesia Postop Eval I: Assessment Summary Airway patent Yes 03/02/25 08:23 INSTALLER [email or web address] Spontaneous unlabored Yes 03/02/25 08:23 INSTALLER [email or web address] respirations Mental status Awake,Calm 03/02/25 08:23 INSTALLER [email or web address] nausea No 03/02/25 08:23 INSTALLER [email or web address] Vomiting No 03/02/25 08:23 INSTALLER [email or web address] Anesthesia Postop Eval I: Fluid Summary Crystalloid volume administer 800 03/02/25 08:23 INSTALLER [email or web address] (ml) Colloids volume administered ( ml) Blood Product volume administered (ml) Total IV fluid infused 800 03/02/25 08:23 INSTALLER [email or web address] Anesthesia Postop Eval I: Summary Notes Anesthesia Complication No 03/02/25 08:23 INSTALLER TECHNICIANRICARDO Anesthesia Complication Comment: Post-operative progress note Anesthesia: Postop Eval II Evaluation Mental status: Awake Pain Level: 0 nausea: No Vomiting: No 03/02/25 0849 > Date _ Lamberto Mcqueen MD Cosigner Signature: Date CC: ~ Signed [facility]05-21-2025 Consult note Author Lamberto [facility] Note Date/Time March 02, 2025 6:46a m [facility] Medical Records Department [address] [place] [address] Pre-Anesthesia Evaluation 03/02/25 0645 MR#: [id number] Acct: [id number] Name: EMI ESCALONA Rep #:[id number] : 1950 74 From: Lamberto Mcqueen MD PCP: Dr. Justin Ho MD Status:REG [facility] Y Race: C Location: [place] [address] ASA Classification* ASA Classification ASA Classification: 2 [...] substitute placement. Anesthesia History Anesthesia History - tile professional: Anesthesia History - tile professional Hx Hospitalization No 02/16/25 14:05 Any Problems [...] take am of surgery PONV PONV - tile professional: PONV - tile professional Female No 02/16/25 14:05 HX of Motion [...] 03/02/25 06:32 Respiratory Assessment Respiratory Assessment - tile professional: Respiratory Tract Infection Hx - tile professional Hx Respiratory Tract Infection No 02/16/25 14:05 STOP Sleep Apnea STOP Sleep Apnea - tile professional: STOP Sleep Apnea - tile professional Hx Hypertension Yes: CONTROLLED WITH MED 02/16/25 [...] Tobacco Use History Tobacco Use History - tile professional: Tobacco Use History - tile professional Tobacco Use Non-smoker 09/11/21 11:18 Smoking Status Never smoker 02/16/25 14:05 Hx Tobacco Use No 02/16/25 14:05 Years Smoking Packs Smoked per Day Smoking Cessation Date was within the last 15 years Hx Smoking Cessation Date Hx Smoking Cessation Counseling Hematologic Medial History Hematologic Hx - tile professional: Hematologic Medical Hx - senior business intelligence analyst Hx of Blood Transfusion No 02/16/25 14:05 [...] confused, unrespo /Reproduction History /Reproductive History - tile professional: /Reproductive Hx- tile professional Hx Now Gestational Age (in weeks): EDC: [...] hr multivitamin 1 tab PO DAILY 07/30/18 05/ History fenofibrate micronized 67 mg 67 mg PO DAILY 09/11/21 0 03/01/25 History capsule famotidine 20 mg tablet 20 mg PO BID 03/04/24 History simvastatin 40 mg tablet 40 mg PO QHS #90 tabs 03/01/25 Rx HK-rjnorkvamdg-bgswue ox-Zn ER 500 1 tab PO DAILY [...] and no additional complaints, except as documented. 03/02/2546 <Electronically signed by Lamberto Mcqueen MD > Date _ Lamberto Mcqueen MD Cosigner Signature: Date CC: ~ Signed [facility] Work Phone: 1(532) 282-494405-21-2025 Procedure note [facility] Medical Records Department [address] [place] [address] Operative Report 03/02/25819 MR#: [id number] Acct: [id number] Name: EMI ESCALONA Rep #:[id number] : 1950 74 From: Galileo Grover MD PCP: Dr. Justin Ho MD Status: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 Kentrell Jeffries who is the clinical services consultant. I confirmed the biopsy site with the [...] Ho MD; Dr. Galileo Grover MD~ Signed [facility]05-21-2025 Consult note [facility] Medical Records Department [address] [place] [address] Anesthesia Postop Eval I 03/02/25 08 MR#: [id number] Acct: [id number] Name: EMI ESCALONA Rep #:[id number] : 1950 74 From: Robert Molina CRNA PCP: Dr. Justin Ho MD Status:REG [facility] Y Race: C Location: [place] [address] Anesthesia: Postop Eval I Current Vital Signs [...] Anesthesia document: Postop Eval 1 completed: Yes 03/02/25 0823 y INSTALLER TECHNICIAN> Date _ Robert Molina INSTALLER TECHNICIAN Cosigner Signature: Date CC: ~ Signed [facility]05-21-2025 History and physical note [facility] Medical Records Department [address] [place] [address] H&P Exam - Surgical 03/02/2525 MR#: [id number] Acct: [id number] Name: EMI ESCALONA Rep #:[id number] : 1950 74 From: Galileo Grover MD PCP: Dr. Justin Ho MD Status:[facility] Location: [place] [address] HPI - General HPI Narrative Emi Escalona is a delightful 74-year-old male with past medical history of relatively well-controlled hypertension who presents today for a right upper back biopsy-proven inflamed malignant melanoma in situ, lentigo maligna subtype. Dr. Kentrell Jeffries from [facility] took a shave biopsy of the [...] was rescheduled). Ready to proceed with surgery. [facility] Medical History History of steroid therapy Wears [...] mg PO QHS #90 tabs 03/01/25 Rx WK-mkvejiypsjv-xgodpg ox-Zn ER 500 1 tab PO DAILY [...] evaluated. Ready to proceed with surgery. 03/02/25 3023 Cosigner Signature (if applicable): CC: Dr. Justin Ho MD; Dr. Galileo Grover MD~ Signed [facility]05-21-2025 Consult note [facility] Medical Records Department [address] [place] [address] Pre-Anesthesia Evaluation 03/02/25 0645 MR#: [id number] Acct: [id number] Name: EMI ESCALONA Rep #:[id number] : 1950 74 From: Lamberto Mcqueen MD PCP: Dr. Justin Ho MD Status:REG [facility] Y Race: C Location: [place] [address] ASA Classification* ASA Classification ASA Classification: 2 [...] substitute placement. Anesthesia History Anesthesia History - tile professional: Anesthesia History - tile professional Hx Hospitalization No 02/16/25 14:05 Any Problems [...] take am of surgery PONV PONV - tile professional: PONV - tile professional Female No 02/16/25 14:05 HX of Motion [...] 03/02/25 06:32 Respiratory Assessment Respiratory Assessment - tile professional: Respiratory Tract Infection Hx - tile professional Hx Respiratory Tract Infection No 02/16/25 14:05 STOP Sleep Apnea STOP Sleep Apnea - tile professional: STOP Sleep Apnea - tile professional Hx Hypertension Yes: CONTROLLED WITH MED 02/16/25 [...] Tobacco Use History Tobacco Use History - tile professional: Tobacco Use History - tile professional Tobacco Use Non-smoker 09/11/21 11:18 Smoking Status Never smoker 02/16/25 14:05 Hx Tobacco Use No 02/16/25 14:05 Years Smoking Packs Smoked per Day Smoking Cessation Date was within the last 15 years Hx Smoking Cessation Date Hx Smoking Cessation Counseling Hematologic Medial History Hematologic Hx - tile professional: Hematologic Medical Hx - senior business intelligence analyst Hx of Blood Transfusion No 02/16/25 14:05 [...] confused, unrespo /Reproduction History /Reproductive History - tile professional: /Reproductive Hx- tile professional Hx Now Gestational Age (in weeks): EDC: [...] mg PO QHS #90 tabs 03/01/25 Rx BZ-uvjfwktgqqp-ivkwrr ox-Zn ER 500 1 tab PO DAILY [...] MD Cosigner Signature: Date CC: ~ Signed [facility]04-15-2025 Evaluation note* Diagnosis Onset Date Resolution Status Admit Date Melanoma in situ of back acute January 25, 2025 3:14pm Wheezing noneactive January 30 10:25am Melanoma in situ of back acute March 02, 2025 5:59am [facility] Work Phone: 1(147) 128-124304-15-2025 Evaluation note* Diagnosis Onset Date Resolution Status [...] of back acute March 10, 2025 11:25am [facility] Work Phone: 1(860) 132-699004-15-2025 Evaluation note* Diagnosis Onset Date Resolution Status [...] of back acute March 10, 2025 11:25am Melanoma in situ of back acute March 17, 2025 11:10am [facility] Work Phone: Consult note Author Robert Molina [facility] Note Date/Time March 02, 2025 8:23a m [facility] Medical Records Department [address] [place] [address] Anesthesia Postop Eval I 03/02/25821 MR#: [id number] Acct: [id number] Name: EMI ESCALONA Rep #:[id number] : 1950 74 From: Robert Molina CRNA PCP: Dr. Justin Ho MD Status:REG [facility] Y Race: C Location: [place] [address] Anesthesia: Postop Eval I Current Vital Signs [...] CRNA Cosigner Signature: Date CC: ~ Signed [facility] Work Phone: Consult note Author Lamberto Mcqueen [facility] Note Date/Time March 02, 2025 9:07a [facility] Medical Records Department [address] [place] [address] Anesthesia Postop Eval II 03/02/25 0849 MR#: [id number] Acct: [id number] Name: EMI ESCALONA Rep #:[id number] : 1950 74 From: Lamberto Mcqueen MD PCP: Dr. Justin Ho MD Status:REG [facility] Y Race: C Location: [facility]- Anesthesia Postop Eval I Sum Postop Eval Completion status Anesthesia document: Postop Eval 1 completed: Yes Anesthesia Postop Eval I Summary Anesthesia Postop Eval I Summary: Anesthesia Postop Eval I: Assessment Summary Airway patent Yes 03/02/25 08:23 INSTALLER [email or web address] Spontaneous unlabored Yes 03/02/25 08:23 INSTALLER [email or web address] respirations Mental status Awake,Calm 03/02/25 08:23 INSTALLER [email or web address] nausea No 03/02/25 08:23 INSTALLER [email or web address] Vomiting No 03/02/25 08:23 INSTALLER [email or web address] Anesthesia Postop Eval I: Fluid Summary Crystalloid volume administer 800 03/02/25 08:23 INSTALLER [email or web address] (ml) Colloids volume administered ( ml) Blood Product volume administered (ml) Total IV fluid infused 800 03/02/25 08:23 INSTALLER [email or web address] Anesthesia Postop Eval I: Summary Notes Anesthesia Complication No 03/02/25 08:23 INSTALLER [email or web address] Anesthesia Complication Comment: Post-operative progress note Anesthesia: Postop Eval II Evaluation Mental status: Awake Pain Level: 0 nausea: No Vomiting: No 03/02/25 0849 <Electronically signed by Lamberto Mcqueen MD > Date _ Lamberto Mcqueen MD Cosigner Signature: Date CC: ~ Signed [facility] Work Phone: Evaluation note* Diagnosis Onset Date Resolution Status Essential (primary) hypertension chronic HLD (hyperlipidemia) chronic Nonrheumatic aortic (valve) stenosis with insufficienc y chronic [facility] Work Phone: Evaluation noteNo assessment information available [facility] Work Phone: History and physical note Author Galileo Grover [facility] Note Date/Time March 02, 2025 7:27a m [facility] Medical Records Department [address] [place] [address] H&P Exam - Surgical 03/02/25 0725 MR#: [id number] Acct: [id number] Name: EMI ESCALONA Rep #:[id number] : 1950 74 From: Galileo Grover MD PCP: Dr. Justin Ho MD Status:[facility] Location: [place] [address] HPI - General HPI Narrative Emi Escalona is a delightful 74-year-old male with past medical history of relatively well-controlled hypertension who presents today for a right upper back biopsy-proven inflamed malignant melanoma in situ, lentigo maligna subtype. Dr. Kentrell Jeffries from [facility] took a shave biopsy of the [...] was rescheduled). Ready to proceed with surgery. [facility] Medical History History of steroid therapy Wears [...] mg PO QHS #90 tabs 03/01/25 Rx DU-cglbpsqncpv-jhhwfq ox-Zn ER 500 1 tab PO DAILY [...] MD> Cosigner Signature (if applicable): CC: Dr. Justin Ho MD; Dr. Galileo Grover MD~ Signed [facility] Work Phone: Reason for referral (narrative)No reason for referral information availableWSouthview [facility] Work Phone: Chief Complaint and Reason for [...] Turk Nonrheumatic aortic (valve) stenosis Amb Documentation EORDER- LEFT HEEL- pain Reason for Visit Essential (primary) hypertension HLD (hyperlipidemia) Nonrheumatic aortic (valve) stenosis with insufficiency Chief Complaint Admit Date Melanoma January 25, 2025 3:1 4pm Wheezing January 30, 2025 10: 25am Excision right upper back melanoma in [facility] March 02, 2025 5:59am Excision right upper back melanoma in [facility] March 02, 2025 7:25am Reason for Visit Admit Date Melanoma in situ of back January 25 3:14pm Wheezing January 30, 2025 10: 25am Melanoma in situ of back March 02, 2025 5:59am Chief Complaint Admit Date Melanoma January 25, 2025 3:1 4pm Wheezing January 30, 2025 10: 25am Excision right upper back melanoma in [facility] March 02, 2025 5:59am Excision right upper back melanoma in [facility] March 02, 2025 7:25am 1 Y FU [...] 25am Excision right upper back melanoma in [facility] March 02, 2025 5:59am Excision right upper back melanoma in [facility] March 02, 2025 7:25am 1 Y FU March 04, 2025 1:24p m post op March 10, 2025 11:25 am LEFT BRUIT March 10, 2025 1:53p m 1 W FU POST OP March 17, 2025 11:10 am Chief Complaint Admit Date Melanoma January 25, 2025 3:1 4pm Wheezing January 30, 2025 10: 25am Excision right upper back melanoma in [facility] March 02, 2025 5:59am Excision right upper back melanoma in [facility] March 02, 2025 7:25am 1 Y FU March 04, 2025 1:24p m post op March 10, 2025 11:25 am LEFT BRUIT March 10, 2025 1:53p m Chief Complaint Admit Date Melanoma January 25, 2025 3:1 4pm Wheezing January 30, 2025 10: 25am Excision right upper back melanoma in [facility] March 02, 2025 5:59am Excision right upper back melanoma in [facility] March 02, 2025 7:25am 1 Y FU March 04, 2025 1:24p m post op March 10, 2025 11:25 am LEFT BRUIT March 10, 2025 1:53p m LT ICA BRUIT March 10, 2025 2:03p m 1 W FU POST OP March 17, 2025 11:10 am BACK PAIN- THORACIC/ LUMBAR March 23, 2 025 10:11am Reason for Visit Admit Date Melanoma in [...] situ of back March 10, 2025 11:25am Melanoma in situ of back March 17, 2025 11:10am Chief Complaint Admit Date 1 W FU POST OP March 17, 2025 11:10 am BACK PAIN- THORACIC/ LUMBAR March 23, 2 025 10:11am 4 M FU July 08, 2025 11:00am Reason for Visit Admit Date Melanoma in situ of back March 17, 2025 11:10am Left carotid bruit July 08, 2025 11:00am Essential (primary) hypertension [facility] 2024 11:00am HLD (hyperlipidemia) July 08 11:00am Nonrheumatic aortic (valve) stenosis wit h insufficiency July 08, 2025 11:00am Chief Complaint Admit Date 4 M FU July 08, 2025 11:00am HTN July 28, 2025 2 :42pm CT CALCIUM SCORING July 28, 2025 2 :44pm Reason for Visit Admit Date Essential (primary) hypertension [facility] 2024 11:00am HLD (hyperlipidemia) July 08 11:00am Nonrheumatic aortic (valve) stenosis wit h insufficiency July 08, 2025 11:00am Advance Directives No Advanced Directives Records Found Advance Directive Response Recorded Date/ Time Living Will No February 14, 2017 10 :43pm Power of Early Education Teacher No February 14, 2017 10:43pm Advance Directive Response Recorded Date/ Time Living Will No February 14, 2017 11 :43pm Power of Early Education Teacher No February 14, 2017 11:43pm Advance Directive Response Recorded Date/ Time Do you have a Healthcare Power of Early Education Teacher? Yes February 16, 2025 2:05pm Advance Directive Response Recorded Date/ Time Living Will No February 14, 2017 11 :43pm Do you have a Healthcare Power of Early Education Teacher? No February 14, 2017 11:43pm Do you have a Healthcare Power of Early Education Teacher? Yes February 16, 2025 2:05pm Summary Purpose [...] Role Status Dates Dr. Justin Ho MD Family Provider Active Dr. Justin [...] Care Provider, Referring P rovider Active Aga GONZALEZ, PA Attending Provider Active Team Status: Active Member Role Status Dates Dr. Justin Ho MD Primary Care Provider Active Dr. Juan Gomez MD Attending Provider Active Team Status: Active Member Role Status Dates Dr. Justin Ho MD Primary Care Provider Active Michelle Coles NP, CHILDRENS CLUB ATTENDANT-C Attending Provider Active Team Status: Inactive Member Role Status Dates Dr. Justin Ho MD Primary Care Provider Active Aga Wray PA, PA Attending Provider, Referr ing Provider Active Team Status: Inactive Member Role Status Dates Dr. Justin Ho MD Primary Care Provider Active ISRA Dale Attending Provider, Referr ing Provider Active Team Status: Inactive Member Role Status Dates Dr. Justin Ho MD Primary Care Provider, Attending P rovider Active Team Status: Inactive Member Role Status Dates Dr. Justin Ho MD Primary Care Provider Active ISRA Wilcox Attending Provider Active Team Status: Active Member [...] 2025 End: January 30, 2025 Garrett Holly CHILDRENS CLUB ATTENDANT, CHILDRENS CLUB ATTENDANT-C Attending Provider Active S tart: January 30, [...] 04, 2025 End: March 04, 2025 Aga Wray PA, PA Attending Provider Active Start: March 04, [...] 10, 2025 End: March 10, 2025 Aga GONZALEZ, PA Attending Provider Active Start: March 10, 2025 End: March 10, 2025 Aga Wray PA, PA Referring Provider Active Start: March 10, [...] March 17, 2025 End: March 17, 2025 Team Status: Active Member Role Status Dates Dr. David Owen MD Attending Provider Active Start: March 10, 2025 Aga GONZALEZ, PA Referring Provider Active Start: March 10, 2025 Team Status: Inactive Member Role Status Dates Dr. Justin Ho MD Primary Care Provider Active Start: March 23, 2025 End: March 23, 2025 Dr. Justin Ho MD Attending Provider Active St art: March 23, 2025 End: March 23, 2025 Dr. Justin Ho MD Referring Provider Active St art: March 23, 2025 End: March 23, 2025 Team Status: Active Member Role/Relationship Status Dates Dr. Justin Ho MD Primary care physician Active Team Status: Inactive Member Role/Relationship Status Dates Dr. Justin Ho MD Primary care physician Active Start: March 17, 2025 End: March 17, 2025 Dr. Justin Ho MD Referring Provider Active St art: March 17, 2025 End: March 17, 2025 Dr. Galileo Grover MD Attending physician Active Start: March 17, 2025 End: March 17, 2025 Team Status: Inactive Member Role/Relationship Status Dates Dr. Justin Ho MD Primary care physician Active Start: March 23, 2025 End: March 23, 2025 Dr. Justin Ho MD Attending physician Active S tart: March 23, 2025 End: March 23, 2025 Dr. Justin Ho MD Referring Provider Active St art: March 23, 2025 End: March 23, 2025 Team Status: Inactive Member Role/Relationship Status Dates Dr. Justin Ho MD Primary care physician Active Start: July 08, 2025 End: July 08, 2025 Dr. Justin Ho MD Referring Provider Active St art: July 08, 2025 End: July 08, 2025 Aga GONZALEZ PA Attending physician Active Start: July 08, 2025 End: July 08, 2025 Team Status: Inactive Member Role/Relationship Status Dates Dr. Justin Ho MD Primary care physician Active Start: July 08, 2025 End: July 08, 2025 Dr. Justin Ho MD Referring Provider Active St art: July 08, 2025 End: July 08, 2025 Aga GONZALEZ PA Attending physician Active Start: July 08, 2025 End: July 08, 2025 Team Status: Inactive Member Role/Relationship Status Dates Dr. Justin Ho MD Primary care physician Active Start: July 19, 2025 End: July 19, 2025 Dr. Justin Ho MD Attending physician Active S tart: July 19, 2025 End: July 19, 2025 Team Status: Active Member Role/Relationship Status Dates Dr. Justin Ho MD Primary care physician Active Start: July 28, 2025 Aga GONZALEZ PA Attending physician Active Start: July 28, 2025 Aga GONZALEZ PA Referring Provider Active Start: July 28, 2025 Team Status: Active Member Role/Relationship Status Dates Dr. Justin Ho MD Primary care physician Active Start: July 28, 2025 Dr. Juan Gomez MD Attending physician Active Start: July 28, 2025 Aga GONZALEZ PA Referring Provider Active Start: July 28, 2025 (unrecognized sect ion and content) No Status Records Found INFORMATION SOURCE (unrecogn ized section and content) DATE CREATED AUTHOR 08/14/2025 [facility] FOR RECORDS PERTAINING TO PATIENTS WHO [...] BE BASED ON THE PRIMARY CLINICAL RECORDS. [facility], [facility]. provides no warranty or guarantee of the accuracy or completeness of information in this document.
--- NOTE | 2025-08-17 14:09 | STRESSREP ---
Stress Test Report Date: 08/17/2025 Procedure: Exercise tolerance test/imaging study Indications: Abnormal coronary calcium score/CAD Consent: Per the patient Procedure: The patient exercised on a Rocky protocol for 8 minutes and 1 second achieving a peak heart rate of 133 bpm (90% predicted maximal heart rate) with a peak blood pressure 146/74 mmHg and a peak MET capacity of 10.1 METs. The baseline ECG demonstrated sinus rhythm. The peak exercise ECG showed sinus tachycardia with no ischemic changes. There were no cardiac dysrhythmias pretest, during exercise, or recovery. The functional capacity was considered very good for age. There was no complaint of chest discomfort during exercise or recovery. The examination was discontinued secondary to target heart rate being achieved. The patient was injected with 12.0 mCi of technetium 99m Cardiolite and subsequently rest SPECT Cardiolite nuclear imaging was obtained in the horizontal long, vertical long, and short axis views. Post-exercise, the patient was injected with 35.2 mCi of technetium 99m Cardiolite and subsequently stress SPECT Cardiolite nuclear imaging was obtained in the horizontal long, vertical long, and short axis views. A gated Cardiolite study at peak stress was obtained. Rest and stress SPECT Cardiolite nuclear imaging status post realignment, normalization, and attenuation correction, demonstrates mildly reduced perfusion of the inferior wall which is largely fixed. With normal wall motion, consider attenuation artifact. There however is small reversible perfusion defect of mild intensity of the basal lateral wall suggestive of mild basal lateral ischemia there is end systolic thickening and brightening. The gated Cardiolite study demonstrates myocardial thickening and inward wall motion. The reported LVEF is 70%. Impression: 1. Technically adequate (percent predicted maximal heart rate greater than 85%) exercise tolerance test 2. Peak exercise ECG with no ischemic changes. No chest pain reported 3. There were no cardiac dysrhythmias pretest, during exercise, or recovery 4. Rest and stress SPECT Cardiolite nuclear imaging demonstrate small area of mild reversible ischemia of the basal lateral wall. 5. The gated Cardiolite study reports an LVEF of 70%. This note was generated with [employer] software. It may contain incorrect words, spelling, and punctuation that were not noted in checking the note before signing.
== END | disposition home or self-care (01) ==
LOC: CVS 06:58
PROVIDERS: PCP Family Medicine; Referring Provider Physician Assistant Medical; Visit Provider Physician Assistant Medical
DX: I10 Essential (primary) hypertension (principal); R93.1 Abnormal findings on diagnostic imaging of heart and coronary circulation; I25.10 Atherosclerotic heart disease of native coronary artery without angina pectoris
CPT/HCPCS: 78452; 93017; A9500; A4216

== ENCOUNTER → 2025-09-01 | Outpatient (CLI) | payer MEDICARE, OTHER, SELFPAY ==
[2025-09-01 12:17] LABS: Hematocrit 39.4 % (40-54); Hemoglobin 13.8 g/dL (13.0-16.5); Immature Granulocytes Count 0.050 X10^3/uL (0.0-0.0); Mean Corp Hgb Conc 35.0 g/dL (32-36); Mean Corpuscular Volume 86.4 fL (80-94); Mean Platelet Vol. 10.3 fl (6.2-12.0); NRBC Flagged by Analyzer 0 % (0-5); Platelet Count 181 K/mm3 (150-450); RBC Distribution Width CV 12.7 % (11.6-14.6); RBC Distribution Width SD 39.9 fl (35.1-43.9); Red Blood Count 4.56 M/mm3 (4.6-6.2); White Blood Count 6.2 K/mm3 (4.4-11.0)
[2025-09-01 12:42] LABS: Anion Gap 9 (5-15); BUN 20 mg/dL (4-19); BUN/Creat Ratio 16.6 RATIO (10-20); Calcium,Total 9.5 mg/dL (7.6-11.0); Carbon Dioxide 24.5 mmol/L (21.0-32.0); Chloride 105 mmol/L (98-108); Glucose 139 mg/dL (70-99); Potassium 4.3 mmol/L (3.3-5.1)
== END | disposition home or self-care (01) ==
LOC: MFPLAB 11:02
PROVIDERS: PCP Family Medicine; Visit Provider Internal Medicine Cardiovascular Disease
DX: R94.39 Abnormal result of other cardiovascular function study (principal); I25.10 Atherosclerotic heart disease of native coronary artery without angina pectoris; R93.1 Abnormal findings on diagnostic imaging of heart and coronary circulation; E78.5 Hyperlipidemia, unspecified; I35.2 Nonrheumatic aortic (valve) stenosis with insufficiency; I10 Essential (primary) hypertension
CPT/HCPCS: 36415; 80048; 85025

== ENCOUNTER 2025-09-12 09:21 | Day surgery (SDC) | payer MEDICARE, OTHER, SELFPAY ==
--- NOTE | 2025-09-02 14:25 | PCM.HP.BLA ---
History and Physical EMI ALATORRE, is a 74 M with a history of of hypertension, stenotic aortic valve. Echocardiogram in 07/2024 demonstrated left ventricular ejection fraction is 65 %, Bicuspid aortic valve, Mild (1+) aortic valve insufficiency, Stage 1 diastolic dysfunction, Mean aortic valve gradient 22 mmHg. From a cardiac standpoint, patient is doing well. He does not have any chest discomfort/heaviness/tightness. His exercise tolerance is stable for his age. He does not have any worsening symptoms of shortness of breath. He denies any PND. He does not have any orthopnea. He does not have any symptoms of congestive heart failure. He does not have any palpitations that he is aware of. He does not have any lightheadedness or dizziness. He does not have any near-syncope or syncope. He does not have any lower extremity edema. He does not have any symptoms of claudication. For risk factor stratification he underwent coronary calcium score which demonstrated a total score of 1255. He was noted to have extensive 2 vessels severe arthrosclerotic plaquing noted and mild to moderate one-vessel plaquing. He underwent an exercise nuclear stress test. He was able to walk 10.1 METS however his images he had a small area of mild reversible ischemia with basal lateral infarct. Because of his abnormal stress test and his elevated calcium score would like to pursue a diagnostic heart catheterization.Medical History History of steroid therapy Wears glasses Cancer Alcohol use High cholesterol Back pain Ocular migraine Syncope Non-smoker History of pain when walking History of echocardiogram History of stress test Cardiology follow-up encounter Heart murmur Epistaxis, recurrent Nonrheumatic aortic (valve) stenosis with insufficiency GERD (gastroesophageal reflux disease) Bicuspid aortic valve Essential (primary) hypertension Surgical History Dupuytren's contracture of both hands (08/28/22) H/O colonoscopy Family History Father Aortic aneurysm Social History Smoking Status: Never smoker alcohol intake: current alcohol intake frequency: holidays/special occasions only substance use type: does not use caffeine: Yes Type: coffee Number of servings: 1 ROS Const Const: Positive for fatigue; Negative for weakness, headache(s) or frequent falls Eyes Eyes: Negative for blurry vision ENT ENT: Negative for headache(s), dizziness or Nosebleed/epistaxis Cardio Chest Pain: No Palpitations: No Edema: None Muscle aches with walking: None Resp Respiratory: Negative for SOB with activity, SOB at rest or SOB orthopnea\SOB lying down GI GI: Positive for heartburn; Negative nausea, vomiting, bright, red blood in stools or black,tarry stools : Negative for hematuria Neuro Neuro: Negative for dizziness, lightheadedness, near syncope, syncope, frequent falls, headache(s), weakness or blurry vision Endo Endo: Positive for fatigue Cardiology Exam Const Appearance: cooperative, healthy appearing, comfortable, no acute distress and well developed Orientation: alert, awake and oriented x3 Head Head: normal to inspection Ears: hearing grossly normal bilaterally Nose: external nose normal Face and Sinus: face symmetric Mouth: oral mucosae normal, lip normal and moist mucous membranes Eyes General: appearance normal, both eyes and all related structures Eyelids: eyelids normal Conjunctivae: conjunctivae normal Pupils: PERRL EOM: EOM intact bilaterally Neck Neck: normal visual inspection and trachea midline; Negative no JVD Carotids: bruit Left Chest Chest inspection: normal inspection of the chest Auscultation: Bilateral: Clear to Auscultation and Right: Diminished Base (crackles) Cardio Palpation: normal PMI Rate: regular rate Rhythm: regular rhythm Heart sounds: S1 normal, S2 normal and murmur; Negative rub or gallop Murmur: Grade 3/6, harsh and mid systolic GI GI: soft, no hepatosplenomegaly and bowel sounds present Neuro General: patient alert, patient awake, patient oriented x3 and CN's II-XI intact bilaterally Extremities Pulses: Normal: Right Posterior Tibial Pulse, Left Posterior Tibial Pulse, Right Radial Pulse and Left Radial Pulse Lower Extremity Edema: None: Bilateral Psych Psychological: normal affect Assessment & Plan Assessment/Plan (1) Coronary artery calcification seen on CAT scan: (2) Abnormal stress test: (3) Nonrheumatic aortic (valve) stenosis with insufficiency: (4) Essential (primary) hypertension: PLAN: Plan Patient is agreeable to undergo a diagnostic heart catheterization. Follow-up will be based upon findings.
[2025-09-12 09:45] VITALS: BMI 27.2
--- NOTE | 2025-09-12 10:57 | CL.D_ITS ---
Patient Name: EMI ALATORRE Study Date: 09/12/2025 Performing: Juan Gomez MD Ht: 68 inches 172.72 cm : 1950 Wt: 178.99 lbs 81.19 kg Age: 75 Gender: male BSA: 1.95 PROCEDURE(S) PERFORMED [id number])LHC/COR/LV CLINICAL PROFILE AND INDICATIONS Indications: Suspected CAD Heart Failure: None Stress/Imaging Coronary Calcium Score: Yes Calcium Score: 1255Calcium Score: 1255Stress Test with SPECT MPI: Positive Low Risk CAD Presentations: No Sxs, no angina. CONCLUSIONS Bicuspid aortic valve nonstenotic, moderate mid LAD disease and moderate to severe distal LAD disease. RECOMMENDATIONS Aggressive medical therapy for the time being. DESCRIPTION OF PROCEDURE The patient arrived to the procedure lab. The risks and benefits of the procedure as well as a full description of our services here and current unavailability of surgical backup were fully explained to the patient and/or their significant other prior to the catheterization. The Timeout was completed, verifying the correct patient and procedure. The patient's procedural site was prepped and draped in the usual fashion. Local anesthetic was given subcutaneously to right radial region with Lidocaine 2%. Using a modified Seldinger technique, arterial access was obtained via the right radial artery, a 6Fr sheath was inserted. Left Coronary Artery selective angiography was performed in multiple views using a 5 Fr. 4.0 Dwarf catheter. Right Coronary Artery selective angiography was then performed in multiple views using a 5 Fr. JR 5 catheter. Left Ventriculography was performed in JACK projection using a 5 Fr. Pigtail catheter. LV to AO pullback pressures were then recorded.The arterial sheath was pulled and a TR Band was applied for hemostasis w/ 10ml air CORONARY ANGIOGRAPHY DOMINANCE: Co- Dominant LEFT HEART ASSESSMENT Left Ventricular Ejection Fraction: by LV Gram 55 % Normal LV wall motion Normal Left Ventricular systolic function LEFT MAIN: Angiographically normal LEFT ANTERIOR DESCENDING ARTERY: Moderate calcification, Medium size vessel giving off a first diagonal branch with a 60 to 70% proximal stenosis and at that point the left anterior descending artery itself having a 40% stenosis. The vessel continues and distally there is a 70% distal stenosis present. CIRCUMFLEX ARTERY: Codominant medium size vessel with 4 obtuse marginal branches with mild diffuse disease only. No high-grade stenosis present. RIGHT CORONARY ARTERY: Codominant point smallish right coronary artery with mild proximal disease present. No high-grade disease noted. VALVE FINDINGS: Bicuspid Aortic Valve COMPLICATIONS No Complications PROCEDURE MEDICATIONS Versed 1 mg IV Fentanyl 50 mcg IV Versed 1 mg IV Aspirin (325mg) 1 Tabs PO @ 09/12/2025 09:42:14 Heparin given IA 09/12/2025 10:24:44 Verapamil 2.5mg, Ntg 100mcgs, 3000 units of Heparin given IA 09/12/2025 10:24:44 SUMMARY OF HEMODYNAMIC DATA Time AIR REST ECG 09:41:21 AO 126/62 (90) SA 10:33:53 LV 140/2, 11 10:43:20 LV 138/2, 14 10:43:29 LV 129/13, 17 10:44:03 LV 135/6, 16 10:44:18 LVp 138/5, 14 10:44:23 AOp 116/57 (81) 10:44:30 AIR REST 10:54:29 Signed By Juan Gomez MD On 09/12/2025 10:57:05 Juan Gomez MD
== END 2025-09-12 12:25 | disposition home or self-care (01) ==
PROVIDERS: PCP Family Medicine; Referring Provider Internal Medicine Cardiovascular Disease; Visit Provider Internal Medicine Cardiovascular Disease
DX: Q23.81 Bicuspid aortic valve (principal); I35.0 Nonrheumatic aortic (valve) stenosis; I35.1 Nonrheumatic aortic (valve) insufficiency; I10 Essential (primary) hypertension; I25.10 Atherosclerotic heart disease of native coronary artery without angina pectoris; R94.39 Abnormal result of other cardiovascular function study
CPT/HCPCS: 93458; 99152; 99153; Q9967; C1769; C1894

== ENCOUNTER → 2025-09-21 | Outpatient (CLI) | payer MEDICARE, OTHER, SELFPAY ==
--- NOTE | 2025-09-21 08:53 | MRI_ITS ---
PROCEDURE: SPINE LUMBAR (ROUTINE) 09/21/2025 REASON FOR EXAM: RIGHT SIDED LOWER BACK PAIN WORSENING X1YEAR TECHNIQUE: Procedure Code: MRISPL Modality: MR Procedure: SPINE LUMBAR (ROUTINE) COMPARISON: Lumbar spine x-ray 03/23/2025. FINDINGS: Vertebrae: Preserved in height and signal. Alignment: Normal alignment. Conus Medullaris: Unremarkable. L1-2: No foraminal or canal stenosis. L2-3: Disc bulge. Facet arthropathy. Mild inferior bilateral foramina stenosis. No canal stenosis. L3-4: Disc desiccation. Disc bulge. Facet arthropathy. Mild bilateral foramina stenosis. No canal stenosis. L4-5: Disc bulge. Facet joint arthropathy. Mild inferior bilateral foramina stenosis. No canal stenosis. L5-S1: Disc desiccation. Disc bulge. Facet joints arthropathy. A 3 mm central disc protrusion. No significant foraminal or canal stenosis. Sacrum: Unremarkable. MRI/Spine Lumbar (Routine) IMPRESSION: Multilevel degenerate changes as detailed without significant foraminal or rosita l stenosis. Reading Location: [id number]
--- NOTE | 2025-09-21 09:09 | RAD_ITS ---
PROCEDURE: ORBITS FOR FOREIGN BODY 09/21/2025 REASON FOR EXAM: MRI CLEARANCE TECHNIQUE: Procedure Code: [id number]. Modality: DX Procedure: ORBITS FOR FOREIGN BODY COMPARISON: None FINDINGS: Bones: Unremarkable Sinuses: Unremarkable Additional findings: No radiopaque foreign body is seen. RAD/Orbits for Foreign Body IMPRESSION: Cleared for MRI. Reading Location: [place] [id number]
== END | disposition home or self-care (01) ==
LOC: MRI 08:52
PROVIDERS: PCP Family Medicine; Referring Provider Student in an Organized Health Care Education/Training Program; Visit Provider Student in an Organized Health Care Education/Training Program
DX: M51.360 Other intervertebral disc degeneration, lumbar region with discogenic back pain only (principal)
CPT/HCPCS: 70030; 72148